=== PATIENT | female | born 1935 | race Caucasian/White ===

== ENCOUNTER → 2018-03-27 10:54 | Outpatient (CLI) | payer MEDICARE, BC, SELFPAY ==
--- NOTE | 2018-03-27 10:57 | BI_ITS ---
MAMMOGRAPHY - BILATERAL SCREENING REASON FOR EXAM: Female, 82 years old. Routine annual screening examination. PERTINENT HISTORY: Remote right excisional breast biopsies. TECHNIQUE: Digital bilateral breast eugene (3D mammographic acquisition) in the CC and MLO projections. 2-D mediolateral oblique (MLO) and craniocaudad (CC) views of both breasts were obtained. CAD: Full Field Digital Mammography with Computer Added Detection was performed. COMPARISON: Comparison is made with prior study dated February 12, 2017 and January 14, 2016. FINDINGS: Breast Composition: The breasts are heterogeneously dense, which may obscure small masses. There are no dominant masses or suspicious calcifications. Stable deformity of the right breast with postoperative changes. No new mass lesion or focal clustering of microcalcification is present. No other significant abnormalities are identified. There has been no significant change since the prior study. BI/SCREENING MAMM (CAD), BILAT IMPRESSION: Stable bilateral screening mammogram. Yearly follow-up mammogram recommended. (A) ASSESSMENT CATEGORY: BIRADS Category 2: Benign. A letter regarding these results will be sent to the patient by the facility within 30 days. Approximately 10% of breast cancers are not detected by mammography. A normal mammogram should not delay biopsy of a clinically suspicious abnormality. [id number] Electronically Signed: Henry Garcia MD at 12:52 EST Tel [phone], Service support ,
== END ==
PROVIDERS: Family Provider Internal Medicine; PCP Internal Medicine; Referring Provider Obstetrics & Gynecology; Visit Provider Obstetrics & Gynecology
DX: Z12.31 Encounter for screening mammogram for malignant neoplasm of breast (principal)
CPT/HCPCS: 77063; 77067

== ENCOUNTER 2018-11-27 11:00 | Outpatient (RCR) | payer MEDICARE, BC, SELFPAY ==
--- NOTE | 2018-09-23 10:28 | HP.PTEVAL ---
Patient's Visit Information STEPHANIE KATZ is a 82 year old F referred to Physical Therapy by JASON Jones with a diagnosis of frequent falls. Date of Evaluation: 09/23/18 Physical Therapist: Kb Caldwell DPT, OCS, CSCS - Visit Plan Frequency: 2x /Week Duration: 4-6 Weeks Plan: Neurocom test then likely 2x/week for 4 weeks for vestibular balance, R ankle strength adn stretching and other as needed on balance test.Consider more frontal plane corrections in shoes. - Subjective Findings: Goes by [facility]. I fall alot. Have 2 THAs, R one 10 yrs ago still gives her trouble, L one in town 2014. Sees Dr. Romero for R ip difficulties. L leg shorter than R at least one inch. I am off balance. R leg is typically the trouble that she stumbles on it or R toe drags/shuffles. Fell 3x in last year without any injuries. Lates fall two weeks ago in am on way to breakfast and in a hurry on way to car and not sure why it happened. Can't recover froma stumble. Alsways fall on R side. Dr. Romero has mentioned some procedure but also stated the integrity of her two hips is good. Has had bone density test in past that were normal, hasn't got most recent results yet. Had therapies after both surgeries. May get second opinion on hip surgery but balance test recommended. Usually she is uncomfortable with certain activity but not painful. L lateral hip and posterior. Uncomfortable activities include sitting with legs crossed. Doesn't baby it. L leg feels weaker. Stairs ascending very challenging. Needs support. Has 15 gr and grandchildren adn stadium without railings are challenging. No dizzy. No neuropathy but OA in feet. C/O some numbness/tingling. No AD needed. - Pain R lateral hip Pain Intensity (Out of 10): 0 Pain Intensity Range: 0, 3 - Objective R leg longer in WB even with lift in L shoe. 3/8 inch lift in L shoe. NWB leg length is about 3/8 inch R side longer. Gastroc and soleus tight R vs L to 0 DF. R DF adn eversion muscles weak vs L. Otherwise strength in R LE 4 and L 4 to 4+. DF R 4- as is eversion. Coordination to reciprocal toe adn heel tap and heel arroyo test feels worse on R. reflexes 1/3 patella adn achilles. Sensation WNL to gross light touch. LB AROM WFL and not painful today. Walks I and trasnfers without UE, steps obviously slightly weaker R vs L. - Balance Scores Functional Gait Assessment Score: 21 % Disability: 30.0000 CATSIB Score (Max score 120 seconds): 100 - Goals Goal 1:: Pt feel 75% improved in balance and confidence. Goal Time Frame: 4-6 Weeks Goal 2:: I approp HEP for strength and balance Goal Time Frame: 4-6 Weeks Goal 3:: Symmetrical strength and ROM R ankle vs L. Goal Time Frame: 4-6 Weeks - Rehabilitation Potential Physical Therapy Diagnosis: frequent falls possibly LLD causing R SB moment in LB and stenosis effecting DF strength. Rehabilitation Potential: Questionable - Anticipated Interventions Patient/Client Instruction: Educate patient on: Condition, Plan of Care For the Purpose of:: To increase tolerance to activity/condition/position, To improve balance Therapeutic Exercise to Include: Strength training, Balance training, Flexibilty training, Passive ROM, Active ROM For the Purpose of:: To increase tolerance to activity/condition/position, To improve ability of physical actions for home/community/work/leisure, To improve safety Thank you for the opportunity to evaluate your patient. For Medicare and Medicare HMO plans, please review the plan of care and approve it. It will need to be FAXED BACK to us at [phone] for Medicare purposes. For Medicare only, by signing this I certify the plan of care. Please let me know if there are questions or concerns regarding this plan of care. Physician Signature: Date:
--- NOTE | 2018-09-30 15:23 | HP.PTCOM ---
PT Communication Note 09/30/[address] Ciara Alfredo, TEXTILE CLOTHING AND FOOTWEAR MECHANIC-C , Thank you for the referral of [facility] to [facility] assessment. I have enclosed a copy of the results for your review. In summation, she scored low on the prioritization portion of the Sensory Organization Test. She scored slow on the anterior musculature in the Motor Control Test. She scored slightly low on the posterior weight shift excursion on the limits of Stability Test. Cumulatively, these results make me question neuropathy anterior lower leg muscle as likely pathology. With these results in mind, I plan to see her 2x/week for 4 weeks for balance and functional exercise to help with these deficits and work toward and independent exercise program as safety allows. if there are questions regarding her PT, please feel free to call me. Thank you once again for your referral. Sincerely, DAYANNA DevlinT, OCS, CSCS Contact Information
--- NOTE | 2018-09-30 15:26 | HP.PTCOM_ITS ---
PT Communication Note 09/30/[address] Ciara Alfredo, WAREHOUSE TEAM MEMBER-C , Thank you for the referral of Chloe to [facility] for balance assessment. I have enclosed a copy of the results for your review. In summation, she scored low on the prioritization portion of the Sensory Organization Test. She scored slow on the anterior musculature in the Motor Control Test. She scored slightly low on the posterior weight shift excursion on the limits of Stability Test. Cumulatively, these results make me question neuropathy anterior lower leg muscle as likely pathology. With these results in mind, I plan to see her 2x/week for 4 weeks for balance and functional exercise to help with these deficits and work toward and independent exercise program as safety allows. if there are questions regarding her PT, please feel free to call me. Thank you once again for your referral. Sincerely, DAYANNA DevlinT, OCS, CSCS Contact Information
--- NOTE | 2018-10-29 13:38 | HP.PTREVAL ---
Ciara Alfredo, QING-C, It has been my pleasure to treat STEPHANIE KATZ over the last 10 visits for frequent falls. Please see the progress note below for an update on the physical therapy plan of care! Subjective: Feels like she is improving. No falls in a long time. Works very hard each night on ankle exercises adn feels liek lower legs have more life. Legs don't feel wooden anymore. Walking feels more natural. Lifting toes is easier. Wants more therapy as she cannot do many of the balance exercises at home due to safety. Doing TB ankles, up on toes and heels, SLS, sink hip exercises and bridging and clamshells. Working outside the otherday and was moving sideways and tripped sideways and would have fallen a month ago but caught self this time. Not stumbling as much as she used to. Will continue 2x/week in gym after therapy done. Objective/Function: ankle strength symmetrical at 4+/5. steps harder ascend with L slightly. FGA +5 points. OVERALL FEELING BETTER AND SCORING BETTER ADN SAFER. Appropriate to cotninue balance work with questionable to fair prognosis. Plan Plan: 2x/week for 4 weeks for. 1. walking balance with turns, bends, VOR, step over. 2. Work toward upper level balance at parallel bars with tilt board, step overs, bending over and recover etc and foam. 3. Steps, no UE. Step ups emphasizing L strength to higher stair. Goals Goal 1:: Pt feel 75% improved in balance and confidence. Goal Time Frame: 4-6 Weeks Goal Progress: Progressing Goal 2:: I approp HEP for strength and balance Goal Time Frame: 4-6 Weeks Goal Progress: progress, cn go further Goal 3:: Symmetrical strength and ROM R ankle vs L. Goal Time Frame: 4-6 Weeks Goal Progress: Goal Met Goal 4:: Pt I in appropriate upper level balance ex at counter at home without hesitation Goal Time Frame: 2-4 Weeks Goal Progress: NEW GOAL Goal 5:: Up steps without rail without leg weakness evident Goal Time Frame: 2-4 Weeks Goal Progress: NEW GOAL Goal 6:: Score >55 on LEFS to show improved mobility. Goal Time Frame: 2-4 Weeks Goal Progress: NEW GOAL Anticipated Interventions Patient/Client Instruction: Educate patient on: Condition, Plan of Care For the Purpose of:: To increase tolerance to activity/condition/position, To improve balance Therapeutic Exercise to Include: Strength training, Balance training, Flexibilty training, Passive ROM, Active ROM For the Purpose of:: To increase tolerance to activity/condition/position, To improve ability of physical actions for home/community/work/leisure, To improve safety Please do not hesitate to contact me at [phone] by phone or if you have questions or concerns regarding this new plan of care! Sincerely, Kb Caldwell, DPT, OCS, CSCS
--- NOTE | 2018-11-27 11:31 | HP.PTDCSUM_ITS ---
HP - PT D/C Summary It has been my pleasure to treat STEPHANIE KATZ under orders from Ciara Alfredo, EDDAC, for the diagnosis of frequent falls for a total of 17 visit(s). Discharge Date: Please see the following information for a summary of their discharge status. - Subjective Subjective: Doing well adn ready to be on own. Back f R knee felt stiff last week but better today. [place] a great deal in therapy. Not falling or stumbling lately. Feels more confident adn aware of surroundings. - Pain R lateral hip Pain Intensity (Out of 10): 0 - Overall Improvement % Improvement: 75 - Objective Objective/Function: +5 on FGA and now much higher and better than average for age. Much better balance overall and doing well. - Goals Goal 1:: Pt feel 75% improved in balance and confidence. Goal Progress: Goal Met Goal 2:: I approp HEP for strength and balance Goal Progress: Goal Met Goal 3:: Symmetrical strength and ROM R ankle vs L. Goal Progress: Goal Met Goal 4:: Pt I in appropriate upper level balance ex at counter at home without hesitation Goal Progress: Goal Met Goal 5:: Up steps without rail without leg weakness evident Goal Progress: Goal Met Goal 6:: Score >55 on LEFS to show improved mobility. Goal Progress: Goal Met - Plan Plan: D/C - D/C Information If there are questions or concerns regarding this patient's physical therapy, please feel free to call me at [phone]. Thank you for the referral of this patient. Sincerely, Kb Caldwell, DPT, OCS, CSCS
== END 2018-11-27 19:00 | disposition home or self-care (01) ==
LOC: PT 11:00
PROVIDERS: Family Provider Internal Medicine; PCP Internal Medicine; Referring Provider Clinical Nurse Specialist; Visit Provider Clinical Nurse Specialist
DX: M21.70 Unequal limb length (acquired), unspecified site (principal); R26.89 Other abnormalities of gait and mobility; W19.XXXA Unspecified fall, initial encounter
CPT/HCPCS: 97110; 97116; 97162; 97530; 97750

== ENCOUNTER 2019-09-21 20:51 | Observation (INO) | payer MEDICARE, BC, SELFPAY ==
[2019-09-21 20:52] VITALS: BP 172/90; PULSE 76; RESP 16; TEMP 36.3; O2SAT 95; BMI 24.7
--- NOTE | 2019-09-21 21:32 | EKG12_ITS ---
Test Reason : GENILL Blood Pressure : / mmHG Vent. Rate : 071 BPM Atrial Rate : 071 BPM P-R Int : 240 ms QRS Dur : 138 ms QT Int : 428 ms P-R-T Axes : 069 -61 038 degrees QTc Int : 465 ms Sinus rhythm with 1st degree A-V block Right bundle branch block Left anterior fascicular block Bifascicular block Abnormal ECG Confirmed by DIAMOND GANT, GAURI ([id number]), script editor ELLA ERICKSON ([id number]) on 09/23/2019 11:19:00 AM Referred By: TIAGO Confirmed By:GAURI FIELDS MD
--- NOTE | 2019-09-21 21:32 | CT_ITS ---
STUDY: CT BRAIN WITHOUT CONTRAST REASON FOR EXAM: Female, 83 years old. DIZZINESS AND OFF BALANCE SINCE 1400 RADIATION DOSAGE (If Supplied By Facility): CTDIvol = ( 44.99 ) mGy, DLP = ( 829.85 ) mGycm TECHNIQUE: Transaxial CT imaging of the brain was performed without administration of intravenous contrast material. Individualized dose optimization techniques were used for this CT. COMPARISON: No relevant priors. FINDINGS: Normal soft tissue structures. Normal calvarium. There is mild cerebral atrophy with widening of the extra-axial spaces and ventricular dilatation. Normal white matter tracts of the cerebral hemispheres. Normal basal ganglia and thalami. Normal brainstem. There is mild cerebellar atrophy. There are peripheral calcifications of the visualized internal carotid arteries. There is no intracranial hemorrhage. There are no findings of an acute ischemic infarction. Normal visualized paranasal sinuses. CT/Brain/Head without Contrast IMPRESSION: Chronic involutional changes of the brain. Small vessel ischemia. Electronically Signed: Marga May MD at 22:16 EDT Tel , Service support ,
[2019-09-21 21:43] LABS: Absolute Lymphocyte Count 2.82 X10^3/uL (0.83-4.51); Absolute Neutrophil Count 3.1 X10^3/uL (2.0-7.7); Basophil# 0.04 X10^3/uL; Basophil% 0.6 % (0-1); Eosinophil# 0.19 X10^3/uL; Eosinophils% 2.8 % (0-5); Hematocrit 39.9 % (37-47); Hemoglobin 13.6 g/dL (12.0-15.0); Lymphocyte # 2.82 X10^3/ul (4.0); Lymphocyte % 41.3 % (19-41); Mean Corp Hgb Conc 34.1 g/dL (32-36); Mean Corpuscular Hgb 31.2 pg (27.0-32.0); Mean Corpuscular Volume 91.5 fL (81-99); Mean Platelet Vol. 8.8 fl (6.2-12.0); Monocyte# 0.61 X10^3/uL; Monocyte% 8.9 % (0-10); NRBC Flagged by Analyzer 0 % (0-5); Neutrophil # 3.14 X10^3/uL (2.7-7.7); Neutrophil % 46.1 % (47-70); Platelet Count 197 K/mm3 (150-450); RBC Distribution Width CV 12.3 % (11.6-14.6); RBC Distribution Width SD 41.1 fl (35.1-43.9); Red Blood Count 4.36 M/mm3 (4.2-5.4); White Blood Count 6.8 K/mm3 (4.4-11.0)
[2019-09-21 22:02] LABS: ALB/GLOB Ratio 1.1 RATIO (0.9-2.4); AST(SGOT) 28 U/L (15-37); Alanine Aminotransfer ALT/SGPT 26 U/L (13-56); Albumin, Serum 4.1 g/dL (3.2-5.0); Alkaline Phosphatase 56 U/L (45-117); Anion Gap 8 (5-15); BUN 22 mg/dL (7-18); BUN/Creat Ratio 29.5 RATIO (10-20); Calcium,Total 9.1 mg/dL (8.5-10.1); Chloride 95 mmol/L (98-107); Creatinine, Serum 0.74 mg/dL (0.55-1.02); EST Glomerular Filtration Rate 79 mL/min (>60); Est Glom Filt Rate - Afr Amer 96 mL/min (>60); Estimated Creatinine Clearance 35.26 ml/min; Globulin 3.8 g/dL (2.2-4.2); Glucose 114 mg/dL (74-106); Potassium 3.7 mmol/L (3.5-5.1); Protein, Total 7.9 g/dL (6.4-8.2); Sodium Level 132 mmol/L (136-145)
[2019-09-21 22:24] VITALS: BP 164/82; BP 166/76; BP 190/88; PULSE 81; PULSE 86
--- NOTE | 2019-09-21 22:51 | PCM.HP.STD ---
Problem List (1) Vertigo Status: Acute (2) Lightheadedness Status: Acute (3) Sleep apnea Status: Chronic (4) Irritable colon Status: Chronic (5) Essential (primary) hypertension Status: Chronic (6) Dyslipidemia Status: Chronic History of Present Illness Date of Admission: 09/21/19 Chief Complaint: vertigo and lightheadness The patient is a 83 year old F with a significant history of irritable bowel syndrome; osteoarthritis; and hypertension who presented to the emergency department with dizziness that started on the same day of presentation.. Reportedly patient did some push-ups and stretches after which she had vertigo. The vertigo went away. However later she developed lightheadedness that persisted. Her lightheadedness worsened when she changed positions. Although she has had bilateral hip replacements which at baseline affects her equilibrium; she thinks that her disequilibrium has worsened. She denies any nausea, vomiting or tinnitus. She has chronic hearing loss and she uses hearing aids. Past Medical History Past Medical History (Chronic Problems): Chronic Problems (Last Reviewed 09/22/19 @ 01:[address] Emilio Rubio MD) Sleep apnea (Chronic) Irritable colon (Chronic) Essential (primary) hypertension (Chronic) Dyslipidemia (Chronic) Medical History: Medical History (Last Reviewed 09/22/19 @ 01:[address] Emilio Rubio MD) Abnormal Papanicolaou smear of cervix R87.619 Arthritis M19.90 Back problem M53.9 Cataract H26.9 Faint heart murmur R01.1 Gastrointestinal complaints R19.8 IBS (irritable bowel syndrome) K58.9 Sleep apnea G47.30 Thyroid disease E07.9 Hypertension I10 Allergies Cephalosporins Allergy (Verified 09/21/19 20:54) Rash Penicillins [PCN] Allergy (Verified 09/21/19 20:54) Rash Sulfa (Sulfonamide Antibiotics) Allergy (Verified 09/21/19 20:54) Rash erythromycin base Adverse Reaction (Verified 09/21/19 20:54) Nausea valdecoxib [From Bextra] Adverse Reaction (Verified 09/21/19 20:54) Nausea Home Medications: Ambulatory Orders Medication Instructions Recorded Chlorthalidone [Hygroton] 12.5 mg PO DAILY 02/02/15 Cholecalciferol (VIT D3) [Vitamin 2,000 unit PO QHS 02/02/15 D] Estradiol [Estrace Vaginal Cream] 1 dose VAGINAL SUWE 02/02/15 Ezetimibe [Zetia] 5 mg PO QHS 02/02/15 Loperamide [Imodium] 4 mg PO Q4H PRN PRN 02/02/15 Metoprolol Tartrate [Lopressor 25 mg PO DAILY 02/02/15 (Beta Braxton)] Omeprazole [Prilosec] 20 mg PO DAILY 02/02/15 Acetaminophen [Tylenol] 650 mg PO Q6H PRN PRN 09/21/19 Surgical History: Surgical History (Last Reviewed 09/22/19 @ 01:[address] Emilio Rubio MD) H/O breast biopsy Z98.890 H/O cataract removal with insertion of prosthetic lens Z98.49, Z96.1 History of hip replacement Z96.649 Smoking Status: Never smoker Alcohol: Occasional - *Family History Maternal Family History: Family History (Last Reviewed 09/22/19 @ 01:[address] Emilio Rubio MD) Unknown Osteoporosis History Items: - - Her mother had severe arthritis; osteoporosis and stroke. Her father had osteoporosis and arthritis. Review of Systems Constitutional: Denies: Chills, Fever, Weight Change HEENT: Denies: Head Aches, Sinus Congestion, Sinus Drainage Cardiovascular: Reports: Light Headedness. Denies: Chest Pain, Palpitations Respiratory: Denies: Cough, Shortness of breath at rest, Sputum production Gastrointestinal: Denies: Abdominal Pain, Nausea, Vomiting Genitourinary: Denies: Dysuria Musculoskeletal: Denies: Joint Pain, Joint Tenderness Skin: Denies: Rash, Wounds Neurological: Denies: Focal weakness, Numbness, Tingling Psychiatric: Denies: Anxiety, Depression, Homicidal Ideations, Suicidal Ideations Hematologic/ Lymphatic: Denies: Easy Bruising, Easy Bleeding VTE Information - Inpt Only VTE Present on Admission: No VTE Mechan Device Prophylaxis: None VTE Pharm Prophylaxis ordered?: Yes Patient Problems: Active and Suspected Problems (Last Reviewed 09/22/19 @ 01:[address] Emilio Rubio MD) Vertigo (Acute) Lightheadedness (Acute) - Physical Exam Vitals/I&O's: Vital Signs Temp Pulse Resp BP Pulse Ox 97.3 F L 81 16 166/76 H 95 09/21/19 20:52 09/21/19 22:24 09/21/19 20:52 09/21/19 22:24 09/21/19 20:52 Oxygen Delivery Method Room Air Weight: 63.503 kg Body Mass Index (BMI) 24.7 General: Alert, Oriented x3, Cooperative HEENT: Atraumatic, PERRLA, EOMI, Normocephalic Neck: Supple, No JVD, Negative Carotid Bruits Lungs: Clear to auscultation, Normal air movement, No rhonchi, No wheeze, No rales Cardiovascular: Regular rate, Regular Rhythm, Normal S1, Normal S2, No murmurs Abdomen: Bowel Sounds Present, Soft, Non Tender Extremities: No edema, Capillary Refill Less than 3 Seconds Skin: No rashes, No breakdown Musculoskeletal: No Tenderness to Palpation of Joints or Extremities Neurological: Cranial nerves II-XII grossly intact, - - [place]-Hallpike maneuver showed no nystagmus. Patient reports mild vertigo. Psych/Mental Status: Normal Affect, Appropriate Laboratory Results 09/21/19 21:07: WBC 6.8, RBC 4.36, Hgb 13.6, Hct 39.9, MCV 91.5, MCH 31.2, MCHC 34.1, RDW Std Deviation 41.1, RDW Coeff of Bryce 12.3, Plt Count 197, MPV 8.8, Immature Gran % (Auto) 0.300, Neut % (Auto) 46.1 L, Lymph % (Auto) 41.3 H, [place] % (Auto) 8.9, Eos % (Auto) 2.8, Baso % (Auto) 0.6, Absolute Neuts (auto) 3.1, Absolute Lymphs (auto) 2.82, Nucleated RBC % 0 09/21/19 21:07: Sodium 132 L, Potassium 3.7, Chloride 95 L, Carbon Dioxide 29.0, Anion Gap 8, BUN 22 H, Creatinine 0.74, Estim Creat Clear Calc 35.26, Est GFR (MDRD) Af Amer 96, Est GFR (MDRD) Non-Af 79, BUN/Creatinine Ratio 29.5 H, Glucose 114 H, Calcium 9.1, Total Bilirubin 0.40, AST 28, ALT 26, Alkaline Phosphatase 56, Troponin I < 0.015, Total Protein 7.9, Albumin 4.1, Globulin 3.8, Albumin/Globulin Ratio 1.1 Assessment/Plan All Active Problems (Last Reviewed 09/22/19 @ 01:[address] Emilio Rubio MD) Vertigo (Acute) Lightheadedness (Acute) The patient is a 83 year old F with a significant history of irritable bowel syndrome; osteoarthritis; and hypertension who presented to the emergency department with dizziness that she described as both vertigo and lightheadedness and causing her to have increased disequilibrium.. Vertigo and lightheadedness. Etiology is unclear. Brain CT showed chronic involutional changes of the brain; and small vessel ischemia. Head and neck CTA does not show any high-grade stenosis. We will get an MRI of the brain. NIH per stroke protocol. Permissive hypertension. If MRI is unremarkable and his symptoms persist consider vestibular exercises. Get A1c and lipid panel. PT and OT to work with patient. N.p.o. until patient passes swallow eval. Hyperlipidemia Home Zetia continued. Hypertension On presentation blood pressure was not within goal. However will hold home chlorthalidone and metoprolol for now because of permissive hypertension. Labetalol and hydralazine as needed per stroke protocol. GERD Prilosec continued. DVT Prophylaxis Subcutaneous Lovenox OBSV E&M: [id number] Initial observation care L3
[2019-09-21 22:52] VITALS: BP 161/64; PULSE 81; RESP 16; O2SAT 95
[2019-09-21 23:15] VITALS: BP 161/64; PULSE 72; RESP 22; O2SAT 95
--- NOTE | 2019-09-21 23:15 | CT_ITS ---
STUDY: CTA HEAD AND NECK WITH CONTRAST REASON FOR EXAM: Female, 83 years old. STROKE, DIZZINESS RADIATION DOSAGE (If Supplied By Facility): CTDIvol = ( 19.95 ) mGy, DLP = ( 573.05 ) mGycm TECHNIQUE: CT angiography was performed with a multi-detector CT scanner. Data acquisition was obtained from the skull base through the vertex following intravenous administration of IV 100mL Isovue-370. MIP images were reconstructed from the axial data set. Post-processing of the angiographic images was performed, with 3D reconstruction. Individualized dose optimization techniques were used for this CT. COMPARISON: No relevant priors. FINDINGS: Normal bilateral petrous carotid arteries. There is calcified plaque formation of the right cavernous carotid artery, with a mild stenosis (less than 50%). There is calcified plaque formation of the left cavernous carotid artery, with a mild stenosis (less than 50%). Normal right A1 segments of the anterior cerebral artery. Normal left A1 segments of the anterior cerebral artery. Normal intact anterior communicating artery (ACOM). Normal bilateral A2 segments of the anterior cerebral arteries. Normal right M1 and M2 segments of the middle cerebral arteries, with a normal M1 bifurcation. Normal left M1 and M2 segments of the middle cerebral arteries, with a normal M1 bifurcation. There is a persistent origin of the right posterior cerebral artery with absence of the posterior communicating artery (PCOM). There is a persistent origin of the left posterior cerebral artery with absence of the posterior communicating artery (PCOM). Normal bilateral vertebral arteries. Normal basilar artery with a normal basilar bifurcation. The visualized bilateral superior cerebellar (SCA) arteries are normal. Normal bilateral P1, P2 and visualized P3 segments of the posterior cerebral arteries. There is no demonstrated aneurysm of the [place] of [place]. There is no demonstrated abnormality of the visualized brain. AORTIC ARCH: There is atherosclerotic calcific plaque formation of the aortic arch and great vessels arising from the aortic arch, without a hemodynamically significant stenosis. There is a normal origin of the brachiocephalic, left common carotid, and left subclavian arteries. RIGHT CAROTID ARTERIES: Normal right common carotid artery (CCA). There is mild atherosclerotic plaque formation with minimal narrowing of the right carotid bulb. There is mild atherosclerotic plaque formation of the origin of the right internal carotid artery with less than 50% cross sectional diameter stenosis. Normal visualized cervical portion of the right internal carotid artery. Normal origin of the right external carotid artery (ECA). LEFT CAROTID ARTERIES: Normal left common carotid artery (CCA). There is moderate atherosclerotic plaque formation with moderate narrowing of the carotid bulb. There is mild atherosclerotic plaque formation of the origin of the left internal carotid artery with less than 50% cross sectional diameter stenosis. Normal visualized cervical portion of the left internal carotid artery. Normal origin of the left external carotid artery (ECA). VERTEBRAL ARTERIES: Normal bilateral vertebral arteries. Degenerative changes of the spine. Greatest at C5-C6. Moderate canal narrowing at this level due to posterior disc osteophyte complex. Extensive neural foraminal narrowing present. Cannot exclude a fracture on this study. There is no displaced fractures seen on the axial images. Nondiagnostic evaluation of the osseous structures coronal and sagittal reformats due to technique. These were reformatted to evaluate the vasculature not the osseous structures. If there is concern for fracture of the spine or other osseous abnormality recommend dedicated CT cervical spine for further evaluation. Scarring within the visualized lung mcmanus. CT/CTA Head AND Neck W/ Contrast IMPRESSION: No occlusion or high-grade stenosis identified. Degenerative changes of the cervical spine. Cannot evaluate for fracture on coronal and sagittal reformats due to technique. If there is concern for trauma or other pathology within the cervical spine consider dedicated cervical spine imaging. Scarring within the bilateral lung mcmanus. Other findings as discussed above. Electronically Signed: Nicholas Barker, at 0:13 EDT Tel , Service support ,
[2019-09-22] VITALS (9 sets, daily range): BP systolic 125–174; BP diastolic 75–79; PULSE 61–80; RESP 16; TEMP 36.8–36.9; O2SAT 92–97; BMI 24.5
--- NOTE | 2019-09-22 00:35 | ED.DCSUM_ITS ---
- ER Visit Summary Date of Service: 09/22/19 Chief Complaint: Off balance History of Present Illness: The patient is a [address] Abdi. She reports that at 2:00 this afternoon she laid on the floor to stretch her back. States she started on her stomach and had a mini push-up she then turned onto her back to pull her knees up and had the onset of vertigo. States it lasted approximately 1 minute. She was not nauseated and did not vomit. She is not diaphoretic during this. Patient reports that since that time she feels very off balance. This is much worse when she changes position. She denies any double vision or slurred speech. She reports that she has poor hearing at baseline and that this is worsened. However, she states that she sees Dr. Nico Mary and has her ears irrigated every 4 months and last saw him in April and she feels as though her ears are full of wax again. She denies any ear pain. Patient reports that she did have a low-grade headache earlier. Patient denies any other neurologic symptoms. No change in her vision. No numbness or weakness. Physical Examination: Vitals: Stable. Afebrile. General: Well-nourished and well-developed. Head: Normocephalic atraumatic. HEENT: Impacted cerumen on right. Left TM is visible and normal. Neck: Supple, no lymphadenopathy. No JVD. Nontender. Cardiovascular: Regular rate and rhythm. No murmurs. Respiratory: No respiratory distress. Clear to auscultation bilaterally. Abdominal: Soft, nontender, nondistended, normal bowel sounds. No guarding, rebound, or peritoneal signs. Back: Nontender. Extremities: Nontender, no edema. Skin: Normal color, no rash. Neurologic: Alert and oriented ?3. Cranial nerves II through XII are intact. Normal strength and sensation. No nystagmus. Psych: Normal affect. Test Results: EKG is sinus at 71 with a bifascicular block. This is unchanged from 2015. Troponin is negative. LFTs are normal. Chem-7 shows a sodium 132, chloride 95, BUN 22, glucose 114. CBC shows a manageability is 46 and lymphocytes 41. Clinical Impression(s) from Imaging Studies Brain CT 09/21/19 21:32 IMPRESSION: Chronic involutional changes of the brain. Small vessel ischemia. Electronically Signed: Marga May MD at 22:16 EDT Tel , Service support , Head/Neck CTA 09/21/19 23:15 IMPRESSION: No occlusion or high-grade stenosis identified. Degenerative changes of the cervical spine. Cannot evaluate for fracture on coronal and sagittal reformats due to technique. If there is concern for trauma or other pathology within the cervical spine consider dedicated cervical spine imaging. Scarring within the bilateral lung mcmanus. Other findings as discussed above. Electronically Signed: Nicholas Barker, at 0:13 EDT Tel , Service support , Emergency Department Course and Treatment: Patient's NIH scale is 0. She is not a TPA candidate due to this and the timeframe. However, her symptoms are concerning for a posterior circulation stroke. The episode of vertigo that she experienced earlier today could be due to BPPV. But, there was no accompanying diaphoresis or vomiting. She states that she is remained off balance throughout the remainder of the day. Patient did have her ears irrigated while in the emergency department. Treatment Plan: Patient was discussed with Dr. Rubio. She will be admitted to the hospital for further evaluation and treatment. Disposition: Admitted in stable condition. Impression: 1. Ataxia. 2. Vertigo, resolved. 3. Impacted cerumen on right. This note was generated with [employer] dictation software. It may contain incorrect words, spelling, and punctuation that were not noted in review of the chart prior to signing ED Disposition - Plan for ED Patient: Referrals: Meera Abdi MD [Primary Care Provider] -
--- NOTE | 2019-09-22 02:42 | MRI_ITS ---
STUDY: MRI BRAIN WITHOUT CONTRAST REASON FOR EXAM: Female, 83 years old. cva, dizziness, lightheaded stared yesterday TECHNIQUE: Standardized multiplanar fat and water weighted pulse sequences were obtained. COMPARISON: CT head without contrast 09/21/2019. FINDINGS: No restricted diffusion to suspect acute or subacute ischemic infarct. No remote cortical-based ischemic infarct. No focal signal abnormalities throughout the brain parenchyma. Normal size of the ventricles and extra-axial spaces for the patient''s age. Normal white matter tracts of the supratentorial brain. Normal bilateral basal ganglia. Normal thalami. There is no extra-axial fluid accumulation. Normal flow voids within the major intracranial circulation suggesting patency by spin echo criteria. Normal sella turcica, pituitary gland, infundibular stalk, optic chiasm and hypothalamus. Normal tectal plate and pineal gland. Normal midbrain, annika and medulla. Normal cerebellum. Normal basal cisterns. Normal bilateral temporal bones. Normal bilateral internal auditory canals. No demonstrated orbital abnormality, within the constraints of a routine brain study. Normal visualized paranasal sinuses. Normal calvarium and skull base. Normal visualized soft tissue structures. Normal visualized upper cervical spine. MRI/Brain without Contrast IMPRESSION: Normal unenhanced MRI of the brain. Electronically Signed: Karl Deras MD at 9:46 EDT , Service support ,
[2019-09-22 06:33] LABS: Cholesterol 207 mg/dL (200); High Density Lipoprotein 70 mg/dL; Triglycerides 50 mg/dL; Very Low Density Lipoprotein 10 mg/dL (5-40)
[2019-09-22 07:12] LABS: Hemoglobin A1c 5.7 % (4.2-6.3)
[2019-09-22] MEDS: Enoxaparin 40 MG/0.4 ML Syringe SC (08:12)
[2019-09-22] MEDS: Pantoprazole Sodium 20 MG Tablet PO (08:12)
--- NOTE | 2019-09-22 10:50 | CASEMGMT ---
SW did not complete a PHQ 9 with patient as per physician she did not have a Stroke or TIA. Thu JOSHI MSW
--- NOTE | 2019-09-22 12:05 | DCINST_ITS ---
- Discharge Diagnoses Current Active Problems: Current Active and Chronic Problems (Last Reviewed 09/22/19 @ 01:[address] Emilio Rubio MD) Vertigo (Acute) Lightheadedness (Acute) You will use the following diet at home:: Cardiac Your food should be the consistency of: Regular Your liquids should be the consistency of: Regular/Thin Discharge Activity: Return to Normal Activity Allergies/Adverse Reactions: Allergies Cephalosporins Allergy (Severe, Verified 09/22/19 01:51) Rash Penicillins [PCN] Allergy (Severe, Verified 09/22/19 01:51) Rash Sulfa (Sulfonamide Antibiotics) Allergy (Mild, Verified 09/22/19 01:51) Rash oxycodone [From Percocet] Adverse Reaction (Severe, Verified 09/22/19 01:51) Rash propoxyphene [From Darvocet-N 100] Adverse Reaction (Severe, Verified 09/22/19 01:51) Rash valdecoxib [From Bextra] Adverse Reaction (Mild, Verified 09/22/19 01:51) Nausea erythromycin base Adverse Reaction (Verified 09/22/19 01:51) Nausea Medications to take at Discharge Chlorthalidone [Hygroton] 12.5 mg PO DAILY 02/02/15 Cholecalciferol (VIT D3) [Vitamin D3] 2,000 unit PO QHS 02/02/15 Estradiol [Estrace Vaginal Cream] 1 dose VAGINAL SUWE 02/02/15 Ezetimibe [Zetia] 5 mg PO QHS 02/02/15 Loperamide [Imodium] 4 mg PO Q4H PRN PRN 02/02/15 Metoprolol Tartrate [Lopressor (beta ba)] 25 mg PO DAILY 02/02/15 Omeprazole [Prilosec] 20 mg PO DAILY 02/02/15 Acetaminophen [Tylenol] 650 mg PO Q6H PRN PRN 09/21/19 Meclizine HCl [Antivert] 12.5 mg PO TID PRN PRN #21 tablet 09/22/19 The following prescriptions were given: Meclizine HCl [Antivert] 12.5 mg PO TID PRN PRN #21 tablet PRN Reason: Vertigo Primary Care Physician: Meera Abdi MD [Primary Care Provider] - Please follow up with your Primary Care Physician in: 1-2 weeks Test Results: Test results from this visit will be discussed in further detail at your follow- up appointment, if applicable. Proposed Discharge Date: 09/22/19
--- NOTE | 2019-09-22 14:05 | PCM.DC.SUM ---
<David Mcdaniel - Last Filed: 09/22/19 14:05> Discharge Date and Diagnosis Date of Admission: 09/21/19 Date of Discharge: 09/22/19 - Primary Discharge Diagnosis Vertigo 2/2 BPPV HTN ZO Irritable colon HLD - Secondary Discharge Diagnosis Chronic Problems (Last Reviewed 09/22/19 @ 01:[address] Emilio Rubio MD) Sleep apnea (Chronic) Irritable colon (Chronic) Essential (primary) hypertension (Chronic) Dyslipidemia (Chronic) Hospital Course and Treatment Imaging Results: IMAGING: CT/Brain/Head without Contrast IMPRESSION: Chronic involutional changes of the brain. Small vessel ischemia. CT/CTA Head AND Neck W/ Contrast IMPRESSION: No occlusion or high-grade stenosis identified. Degenerative changes of the cervical spine. Cannot evaluate for fracture on coronal and sagittal reformats due to technique. If there is concern for trauma or other pathology within the cervical spine consider dedicated cervical spine imaging. Scarring within the bilateral lung mcmanus. Other findings as discussed above. MRI/Brain without Contrast IMPRESSION: Normal unenhanced MRI of the brain. Operations: None Procedures: None Summary of Care Provided: Hospital Course: The patient is a 83 year old F with pmhx as above who presented to the ER with vertigo. This began after she did push ups and stretches at home. She developed a spinning sensation that resolved on its own. She later felt off balance and came to the ER. She denied tinnitus, new hearing or vision changes, facial droop, numbness/tingling, focal weakness, ataxic gait, or slurred speech. CT brain showed chronic changes, no acute process on CTA head/neck. She was admitted with concern for stroke vs BPPV. Her symptoms resolved completely overnight. She had an MRI brain the following morning with no stroke. She was felt to have BPPV. She was seen by [facility] and had no issues with ambulation. She was given meclizine prn if her symptoms return. She was discharged home in stable condition. Follow up with PCP in 1-2 weeks. This patient was seen by David Mcdaniel PA-C under the supervision of Dr. Hogan. [] - Physical Exam Vitals/I&O's: Vital Signs Temp Pulse Resp BP Pulse Ox 98.2 F 64 16 125/75 H 92 09/22/19 08:00 09/22/19 08:00 09/22/19 08:00 09/22/19 08:00 09/22/19 08:00 Oxygen Delivery Method Room Air Weight: 138 lb 7.205 oz Body Mass Index (BMI) 24.5 Intake and Output for Last 24 Hours 09/20/19 09/21/19 09/22/19 23:59 23:59 23:59 Intake Total 400 / 400 Balance 400 / 400 General: Alert, Oriented x3, Cooperative HEENT: Atraumatic, PERRLA, EOMI, Normocephalic Neck: Supple, No JVD, Negative Carotid Bruits Lungs: Clear to auscultation, Normal air movement Cardiovascular: Regular rate, No murmurs Abdomen: Bowel Sounds Present, Soft, Non Tender Extremities: No edema, Capillary Refill Less than 3 Seconds Skin: No rashes, No breakdown Musculoskeletal: No Tenderness to Palpation of Joints or Extremities Neurological: Cranial nerves II-XII grossly intact Psych/Mental Status: Normal Affect, Appropriate, Alert and oriented to time, place, person, mood and affect Laboratory Results 09/21/19 21:07: WBC 6.8, RBC 4.36, Hgb 13.6, Hct 39.9, MCV 91.5, MCH 31.2, MCHC 34.1, RDW Std Deviation 41.1, RDW Coeff of Bryce 12.3, Plt Count 197, MPV 8.8, Immature Gran % (Auto) 0.300, Neut % (Auto) 46.1 L, Lymph % (Auto) 41.3 H, [place] % (Auto) 8.9, Eos % (Auto) 2.8, Baso % (Auto) 0.6, Absolute Neuts (auto) 3.1, Absolute Lymphs (auto) 2.82, Nucleated RBC % 0 09/21/19 21:07: Sodium 132 L, Potassium 3.7, Chloride 95 L, Carbon Dioxide 29.0, Anion Gap 8, BUN 22 H, Creatinine 0.74, Estim Creat Clear Calc 35.26, Est GFR (MDRD) Af Amer 96, Est GFR (MDRD) Non-Af 79, BUN/Creatinine Ratio 29.5 H, Glucose 114 H, Calcium 9.1, Total Bilirubin 0.40, AST 28, ALT 26, Alkaline Phosphatase 56, Troponin I < 0.015, Total Protein 7.9, Albumin 4.1, Globulin 3.8, Albumin/Globulin Ratio 1.1 09/22/19 05:36: Triglycerides 50, Cholesterol 207 H, LDL Cholesterol 127, VLDL Cholesterol 10, HDL Cholesterol 70 09/22/19 05:36: Hemoglobin A1c 5.7 Discharge Diet: Low fat/ Low Cholesterol, 2000 mg Sodium Diet Discharge Activity: Return to Normal Activity Home Medications: Medications to take at Discharge Chlorthalidone [Hygroton] 12.5 mg PO DAILY 02/02/15 Cholecalciferol (VIT D3) [Vitamin D3] 2,000 unit PO QHS 02/02/15 Estradiol [Estrace Vaginal Cream] 1 dose VAGINAL SUWE 02/02/15 Ezetimibe [Zetia] 5 mg PO QHS 02/02/15 Loperamide [Imodium] 4 mg PO Q4H PRN PRN 02/02/15 Metoprolol Tartrate [Lopressor (beta ba)] 25 mg PO DAILY 02/02/15 Omeprazole [Prilosec] 20 mg PO DAILY 02/02/15 Acetaminophen [Tylenol] 650 mg PO Q6H PRN PRN 09/21/19 Meclizine HCl [Antivert] 12.5 mg PO TID PRN PRN #21 tab 09/22/19 Following Prescrptions Were Given to Patient: Meclizine HCl [Antivert] 12.5 mg PO TID PRN PRN #21 tab PRN Reason: Vertigo Transmission Status: Received by [facility]/pharmacy #[id number] Primary Care Physician: Meera Abdi MD [Primary Care Provider] - Please follow up with your Primary Care Physician in: 1-2 weeks Disposition: Home Minutes spent on discharge:: 35 Patient Condition:: Stable Medical Necessity - Tobacco Use Smoking Status: Never smoker Meaningful Use Info Meaningful Use Diagnoses (Choose all that apply): None applicable <Pedro Hogan - Last Filed: 09/22/19 18:11> Discharge Date and Diagnosis - Secondary Discharge Diagnosis Chronic Problems (Last Reviewed 09/22/19 @ 01:[address] Emilio Rubio MD) Sleep apnea (Chronic) Irritable colon (Chronic) Essential (primary) hypertension (Chronic) Dyslipidemia (Chronic) Hospital Course and Treatment Summary of Care Provided: This patient was seen in conjunction with David WHITTAKER. I have independently interviewed and examined the patient and reviewed pertinent history, examination findings, laboratory and plan of management. I have reviewed the note and agree with the documented findings with the few additional points. In brief, patient is 83 old female admitted with vertigo and disagreement. Patient had vertigo in the past last 1 more than 3 years ago after viral neuronitis. Patient does not have fever chills, cough, shortness of breath or chest pain/pressure. CT brain showed chronic changes but no acute process. CTA head and neck no high-grade stenosis or occlusion. Degenerative changes of cervical spine. MRI brain no acute change and reported normal. Discharge medication reconciliation done. Discharge follow-up instructions completed. Discharge process discussed with the patient and all questions were answered to patient's satisfaction. Total time spent, exact 35 minutes on discharge meds reconciliation, examination, coordination of care with nurses and ancillary staff, review of imaging and blood test and discussion with the patient on follow-up instructions I have discussed my assessment with David WHITTAKER and orders have been reviewed. [] Clinical Impression(s) from Imaging Studies Brain CT 09/21/19 21:32 IMPRESSION: Chronic involutional changes of the brain. Small vessel ischemia. Head/Neck CTA 09/21/19 23:15 IMPRESSION: No occlusion or high-grade stenosis identified. Degenerative changes of the cervical spine. Cannot evaluate for fracture on coronal and sagittal reformats due to technique. If there is concern for trauma or other pathology within the cervical spine consider dedicated cervical spine imaging. Scarring within the bilateral lung mcmanus. Other findings as discussed above. Brain MRI 09/22/19 02:42 IMPRESSION: Normal unenhanced MRI of the brain. Subjective: Patient admitted with dizziness, vertigo and disequilibrium/ataxia. - Physical Exam Vitals/I&O's: Vital Signs Temp Pulse Resp BP Pulse Ox 98.2 F 64 16 125/75 H 92 09/22/19 08:00 09/22/19 08:00 09/22/19 08:00 09/22/19 08:00 09/22/19 08:00 Oxygen Delivery Method Room Air Weight: 138 lb 7.205 oz Body Mass Index (BMI) 24.5 Intake and Output for Last 24 Hours 09/20/19 09/21/19 09/22/19 23:59 23:59 23:59 Intake Total 400 / 400 Balance 400 / 400 General: Alert, Oriented x3, Cooperative HEENT: Atraumatic, PERRLA, EOMI, Normocephalic, - - No nystagmus. Neck: Supple, No JVD, Negative Carotid Bruits Lungs: Clear to auscultation, Normal air movement, No rhonchi, No wheeze, No rales Cardiovascular: Regular rate, Regular Rhythm, Normal S1, Normal S2, No murmurs Abdomen: Bowel Sounds Present, Soft, Non Tender Extremities: No edema, Capillary Refill Less than 3 Seconds Skin: No rashes, No breakdown Musculoskeletal: No Tenderness to Palpation of Joints or Extremities, Arthritic Changes Neurological: Cranial nerves II-XII grossly intact, Deep Tendon Reflexes 2+/4 and Symmetrical, Neuro grossly intact, Motor Exam 5/5 strength throughout, - Psych/Mental Status: Normal Affect, Appropriate Laboratory Results 09/21/19 21:07: WBC 6.8, RBC 4.36, Hgb 13.6, Hct 39.9, MCV 91.5, MCH 31.2, MCHC 34.1, RDW Std Deviation 41.1, RDW Coeff of Bryce 12.3, Plt Count 197, MPV 8.8, Immature Gran % (Auto) 0.300, Neut % (Auto) 46.1 L, Lymph % (Auto) 41.3 H, [place] % (Auto) 8.9, Eos % (Auto) 2.8, Baso % (Auto) 0.6, Absolute Neuts (auto) 3.1, Absolute Lymphs (auto) 2.82, Nucleated RBC % 0 09/21/19 21:07: Sodium 132 L, Potassium 3.7, Chloride 95 L, Carbon Dioxide 29.0, Anion Gap 8, BUN 22 H, Creatinine 0.74, Estim Creat Clear Calc 35.26, Est GFR (MDRD) Af Amer 96, Est GFR (MDRD) Non-Af 79, BUN/Creatinine Ratio 29.5 H, Glucose 114 H, Calcium 9.1, Total Bilirubin 0.40, AST 28, ALT 26, Alkaline Phosphatase 56, Troponin I < 0.015, Total Protein 7.9, Albumin 4.1, Globulin 3.8, Albumin/Globulin Ratio 1.1 09/22/19 05:36: Triglycerides 50, Cholesterol 207 H, LDL Cholesterol 127, VLDL Cholesterol 10, HDL Cholesterol 70 09/22/19 05:36: Hemoglobin A1c 5.7
== END 2019-09-22 12:05 | disposition home or self-care (01) ==
LOC: ED 21:41 → PCU 09-22 01:22
PROVIDERS: Admitting Provider Hospitalist; Emergency Provider Emergency Medicine; PCP Internal Medicine; Visit Provider Internal Medicine
DX: H81.10 Benign paroxysmal vertigo, unspecified ear (principal); G47.33 Obstructive sleep apnea (adult) (pediatric); E78.5 Hyperlipidemia, unspecified; I10 Essential (primary) hypertension; K58.9 Irritable bowel syndrome, unspecified; M19.90 Unspecified osteoarthritis, unspecified site; Z79.899 Other long term (current) drug therapy; K21.9 Gastro-esophageal reflux disease without esophagitis; H61.21 Impacted cerumen, right ear; I45.2 Bifascicular block; R27.0 Ataxia, unspecified
CPT/HCPCS: 36415; 70450; 70496; 70498; 70551; 80053; 80061; 83036; 84484; 85025; 93005; 96372; 97161; 97166; 99218; 99285; Q9967; A4216; G0378

== ENCOUNTER → 2020-02-09 | Outpatient (CLI) | payer MEDICARE, BC, SELFPAY ==
[2019-09-22 07:53] VITALS: BMI 24.5
[2020-01-19 12:18] VITALS: BMI 24.5
--- NOTE | 2020-02-09 12:41 | BI_ITS ---
MAMMOGRAPHY - BILATERAL SCREENING REASON FOR EXAM: Female, 84 years old. Routine annual screening examination. PERTINENT HISTORY: Non-contributory. Remote right excisional breast biopsies. TECHNIQUE: Digital bilateral breast holly (3D mammographic acquisition) in the CC and MLO projections. 2-D mediolateral oblique (MLO) and craniocaudad (CC) views of both breasts were obtained. CAD: Full Field Digital Mammography with Computer Added Detection was performed. COMPARISON: Comparison is made with prior examination in 03/27/2018 and 02/12/2017. FINDINGS: Breast Composition: The breasts are heterogeneously dense, which may obscure small masses. There are no dominant masses or suspicious calcifications. No other significant abnormalities are identified. There has been no significant change since the prior study. BI/SCREEN MAMM (CAD) W/HOLLY BILAT IMPRESSION: Stable bilateral screening mammogram. Yearly follow-up mammogram recommended. (A) ASSESSMENT CATEGORY: BIRADS Category 1: Negative. A letter regarding these results will be sent to the patient by the facility within 30 days. Approximately 10% of breast cancers are not detected by mammography. A normal mammogram should not delay biopsy of a clinically suspicious abnormality. [id number] Electronically Signed: Henry Garcia, at 14:04 EDT , Service support ,
== END | disposition home or self-care (01) ==
LOC: OPBI 12:41
PROVIDERS: PCP Internal Medicine; Referring Provider Obstetrics & Gynecology; Visit Provider Obstetrics & Gynecology
DX: Z12.31 Encounter for screening mammogram for malignant neoplasm of breast (principal)
CPT/HCPCS: 77063; 77067

== ENCOUNTER → 2021-04-22 13:25 | Outpatient (CLI) | payer MEDICARE, BC, SELFPAY ==
--- NOTE | 2021-04-22 13:30 | BI_ITS ---
MAMMOGRAPHY - BILATERAL SCREENING REASON FOR EXAM: Female, 85 years old. Routine annual screening examination. PERTINENT HISTORY: Non-contributory. TECHNIQUE: Digital bilateral breast holly (3D mammographic acquisition) in the CC and MLO projections. 2-D mediolateral oblique (MLO) and craniocaudad (CC) views of both breasts were obtained. CAD: Full Field Digital Mammography with Computer Added Detection was performed. COMPARISON: Comparison is made with prior study 02/09/2020 and 03/27/2018. FINDINGS: Breast Composition: The breasts are heterogeneously dense, which may obscure small masses. There are no dominant masses or suspicious calcifications. Stable bilateral secretory calcifications. No other significant abnormalities are identified. There has been no significant change since the prior study. BI/SCRN MAMM (CAD)W/HOLLY BILAT IMPRESSION: Stable bilateral screening mammogram. Yearly follow-up mammogram recommended. (A) ASSESSMENT CATEGORY: BIRADS Category 2: Benign. A letter regarding these results will be sent to the patient by the facility within 30 days. Approximately 10% of breast cancers are not detected by mammography. A normal mammogram should not delay biopsy of a clinically suspicious abnormality. [id number] Electronically Signed: Henry Garcia MD at 8:40 EST , Service support ,
== END ==
PROVIDERS: PCP Internal Medicine; Referring Provider Nurse Practitioner Women's Health; Visit Provider Nurse Practitioner Women's Health
DX: Z12.31 Encounter for screening mammogram for malignant neoplasm of breast (principal)
CPT/HCPCS: 77063; 77067

== ENCOUNTER 2021-05-25 11:00 | Outpatient (RCR) | payer MEDICARE, BC, SELFPAY ==
--- NOTE | 2021-05-06 09:31 | HP.OTEVAL_ITS ---
Patient's Visit Information STEPHANIE KATZ is a 85 year old F, referred to Occupational Therapy by Dr. Tha Romero MD, with a diagnosis of OA. 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 pt states the last 4 months pt had increase symptoms of limited ROM- weakness with writing- pt states she does have difficulty sleeping. pt would like to know what she can do to decrease pain and preserve her hands. - Pain right wrist 3 Pain Intensity Range: 6 - ROM Wrist: right 60/40 left 65/60 MP: right 45 left 45 IP: right 40 left 40 Radial Abduction: right 25 left 30 ROM Comments: pt demo bilateral OA deformities. bilateral shoulder sign - Strength Nurse Reviewer: right 10# left 10# pain in both - Quick DASH-Disab of Arm,Shoulder& Hand Quick DASH Score: 50.0000 - Goals Goal:: pt will report a decrease in bilateral hand pain to less than 2/10 with utilizing joint protection amadou. by d/c Goal:: Pt will demo understanding of joint protection and ergonomics when performing BADLs and IADLs by d/c. Pt will demo understanding of adaptive Equipment use to decrease stress on joints to allow pt to perform BADSL and IADLS at QUINN level. Goal:: pt will demo understanding of using a supportive CMC brace with MP support to prevent MPJ hyper -ext by end of 2nd session. 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 pt would benefit from skilled OT services 1x week for 4 weeks supportive brace and ed. on pt on joint protection amadou. and ad. eq. Therapist will ed. pt on cmc thumb care and limit stress on joint by balancing out her daily occupations. pt demo understanding and agree to POC. Rehabilitation Potential: Fair - Anticipated Interventions Orthoses, Joint Protection/Energy Conservation, Ergonomic Education, Education re assistive Equipment, Education re Diagnosis - Visit Plan Frequency: 1-2x /Week Duration: 4 Weeks TEXT: Thank you for the opportunity to evaluate your patient. For Medicare and Medicare HMO plans, please review the plan of care and approve it. It will need to be FAXED BACK to us at [phone] for Medicare purposes. Please let me know if there are questions or concerns regarding this plan of care. Physician Signature: Date:
--- NOTE | 2021-05-25 11:47 | HP.OTDCSUM_ITS ---
It has been my pleasure to treat STEPHANIE KATZ under orders from Dr. Tha Romero MD, for the diagnosis of OA for a total of 2 visit(s). Please see the following information for a summary of their discharge status. % Improvement: 20 Patient Goals: Use Hand/Wrist/Arm Normally Again Goal:: pt will report a decrease in bilateral hand pain to less than 2/10 with utilizing joint protection amadou. by d/c Goal:: Pt will demo understanding of joint protection and ergonomics when perfo rming BADLs and IADLs by d/c. Pt will demo understanding of adaptive Equipment use to decrease stress on joints to allow pt to perform BADSL and IADLS at QUINN level. Goal:: pt will demo understanding of using a supportive CMC brace with MP support to prevent MPJ hyper -ext by end of 2nd session. Discharge Comments: Pt was ed. on joint protection, and ad. eq. to assist pt with maintaining her ind. with ADls. therapist ed. pt on supportive bracing but was not receptive to using as due to positioning of thumbs it limited her use with writing. Pt may get one to use with other daily tasks but was going to thinking about it. pt also using topical medication that helps decrease her pain and she states she can sleep longer without her pain waking her up. Therapist advised to call if she had questions or concerns. pt demo understanding and agree to D/C. If there are questions or concerns regarding this patient's occupational therapy, please fell free to call me at [phone]. Thank you for the referral of this patient. Sincerely, Urszula Cazares, OTR/L, CHT
== END 2021-05-25 19:00 | disposition home or self-care (01) ==
LOC: OT 11:00
PROVIDERS: PCP Internal Medicine; Referring Provider Specialist; Visit Provider Specialist
DX: M19.031 Primary osteoarthritis, right wrist (principal); M18.11 Unilateral primary osteoarthritis of first carpometacarpal joint, right hand
CPT/HCPCS: 97166; 97530

== ENCOUNTER 2021-10-05 12:55 | Emergency (ER) | payer MEDICARE, BC, SELFPAY ==
[2021-10-05 12:56] VITALS: BP 192/81; PULSE 73; RESP 18; TEMP 35.9; O2SAT 97; BMI 25.8
[2021-10-05 13:03] VITALS: BP 182/80
--- NOTE | 2021-10-05 14:11 | EDS_ITS ---
HPI History of Present Illness Chief Complaint: Dizziness Narrative Narrative: 85-year-old female presenting with sensation of possible dizziness. She states she cannot call it vertigo because he has had a before and he does not feel the same. She is not describing spinning. She states she was at lunch and she just felt off. She cannot describe it well. She states that she has a history of electrolyte problems and states that her potassium and magnesium sometimes are low. She states she thinks this is from the chlorthalidone that she takes. Patient also admits to not drinking very much fluid and does not do electrolyte replacement well. She states she just not thirsty. She did not have any chest pain or shortness of breath. No fever or chills. No nausea or vomiting. After long she was able to get in her car and drive but then felt off again did not feel she should be driving so she called her . She went home and drink a sugar-free Gatorade and some water but did not drink much. Patient states that she in general has a lot of diarrhea but does not do well with stress and over the last several weeks has had a lot of stress. She states this is increased her level of diarrhea and states she does not hydrate well she thinks maybe she is dehydrated or has an electrolyte abnormality [facility] Medical History Abnormal Papanicolaou smear of cervix Arthritis Back problem Cataract Faint heart murmur Gastrointestinal complaints Hypertension IBS (irritable bowel syndrome) Sleep apnea Thyroid disease Home Medications chlorthalidone 12.5 mg PO DAILY 02/02/15 [History Last Taken Unknown] cholecalciferol (vitamin D3) 2,000 unit PO QHS 02/02/15 [History Last Taken Unknown] ezetimibe 5 mg PO QHS 02/02/15 [History Last Taken Unknown] loperamide 4 mg PO Q4H PRN PRN 02/02/15 [History Last Taken 02/08/15] omeprazole 20 mg PO DAILY 02/02/15 [History Last Taken 02/08/15] hyoscyamine sulfate 0.125 mg tablet 0.125 mg PO BID-QID PRN 01/19/20 [History Last Taken Unknown] metoprolol succinate 25 mg tablet,extended release 24 hr 25 mg PO DAILY 01/19/20 [History Last Taken Unknown] potassium chloride 10 mEq tablet,extended release 10 meq PO DAILY 01/19/20 [History Last Taken Unknown] ibuprofen 200 mg tablet 200 mg PO Q6H PRN 03/15/21 [History Last Taken Unknown] magnesium chloride 64 mg (magnesium chloride) tablet,delayed release 64 mg PO DAILY 03/15/21 [History Last Taken Unknown] meloxicam 7.5 mg tablet 7.5 mg PO DAILY 03/15/21 [History Last Taken Unknown] triamcinolone acetonide 0.025 % topical cream 1 applic TOPICAL DAILY 03/15/21 [History Last Taken Unknown] estradiol 1 g VAGINAL 2XW #42.5 g 07/22/21 [Rx Last Taken Unknown] Allergy/AdvReac Type Severity Reaction Status Date / Time Cephalosporins Allergy Severe Rash Verified 10/05/21 13:01 Penicillins [PCN] Allergy Severe Rash Verified 10/05/21 13:01 Sulfa (Sulfonamide Allergy Mild Rash Verified 03/15/21 10:29 Antibiotics) oxycodone [From Percocet] AdvReac Severe Rash Verified 10/05/21 13:01 propoxyphene AdvReac Severe Rash Verified 10/05/21 13:01 [From Darvocet-N 100] valdecoxib [From Bextra] AdvReac Mild Nausea Verified 10/05/21 13:01 erythromycin base AdvReac Nausea Verified 10/05/21 13:01 Family History Unknown Osteoporosis Heart disease Hypertension Mother Hypertension Surgical History H/O breast biopsy H/O cataract removal with insertion of prosthetic lens History of hip replacement Social History Smoking Status: Never smoker alcohol intake: never substance use type: does not use caffeine: Yes what type of physical activity do you participate in: walking seatbelt use: always do you feel safe at home: Yes additional social history: [employer] are retired ROS ROS ED Constitutional Constitutional ED: Denies chills or fever(s) Eyes Eyes: Denies blurry vision or diplopia ENT ENT ED: Denies rhinorrhea or sore throat Cardiovascular Cardiovascular: Denies chest pain or palpitations Respiratory/Chest Respiratory/Chest: Denies cough, dyspnea or sputum Gastrointestinal Gastrointestinal: Denies abdominal pain, nausea or vomiting Genitourinary Genitourinary ED: Denies dysuria or hematuria Musculoskeletal Musculoskeletal: Denies arthralgias, back pain, myalgias or neck pain Integumentary Denies rash Neurologic Neurologic: Denies headache(s), paresthesias or weakness Psychiatric Psychiatric: Denies anxiety or depression EXAM Physical Exam Const Vital Signs: 10/05/21 12:56 10/05/21 13:03 10/05/21 13:18 Temperature 96.7 F L Temperature Source Temporal Pulse Rate 73 Respiratory Rate 18 Respiratory Effort Normal Respiratory Pattern Normal Blood Pressure 192/81 H 182/80 H Blood Pressure Mean 118 114 Pulse Ox 97 Oxygen Delivery Method Room Air Positive well nourished General Appearance ED: NAD; Negative for pallor HEENT Reports moist mucous membranes Negative for trauma Eyes PERRL and EOMs intact bilaterally Eyes Narrative: Normal Annel-Hallpike Neck no lymphadenopathy and supple Resp normal respiratory effort and clear to auscultation bilaterally Cardio regular rate and regular rhythm GI normal to inspection, nondistended, normoactive bowel sounds Neuro oriented x3, CN's II-XII intact bilaterally and no sensory deficits noted Sensorium / Orientation: alert Motor Exam: strength 5/5 throughout Psych mental status grossly normal Skin no rashes or lesions noted and no wounds General Skin Exam: Negative for jaundice or pallor MDM MDM MDM Narrative Medical decision making narrative: Patient presenting with feeling off. She is not describing dizziness. She states he has had vertigo before and is not the same. She does describe that she has difficulty with her electrolytes and she is on chlorthalidone and has low potassium and magnesium at times. She states she has supplements for these but does not like to take them because they give her more diarrhea and she is currently experiencing heavier diarrhea than she usually has due to stress as well her vital signs are stable and she is afebrile. I obtained blood work and her CBC is unremarkable. CMP shows that her sodium is 129, potassium 3.3, chloride 91, LFTs unremarkable. Magnesium was checked and is slightly low at 1.4. Patient admits to not drinking enough fluids and also admits to not taking her supplements because it causes diarrhea. I counseled her that she will need to take these in order to replete her electrolytes and to help her dehydration. She does not have an acute kidney injury. She was given a liter of IV fluids here in the ED. She is counseled to use her supplements and to drink sugar-free energy drinks as well as Pedialyte. She will talk to her doctor about changing her chlorthalidone if this is causing issues with her electrolytes. Patient stable for discharge. Impression: 1. Hyponatremia 2. Hypokalemia 3. Hypomagnesemia 4. Dehydration Lab Data Attestation: I reviewed the patient's lab results. Labs: Laboratory Results - last 24 hr 10/05/21 10/05/21 13:37 13:37 WBC 6.7 RBC 4.15 L Hgb 13.0 Hct 37.9 MCV 91.3 MCH 31.3 MCHC 34.3 RDW Std Deviation 42.8 RDW Coeff of Bryce 12.8 Plt Count 198 MPV 8.7 Immature Gran % (Auto) 0.300 Neut % (Auto) 64.9 Lymph % (Auto) 24.0 [place] % (Auto) 9.1 Eos % (Auto) 1.3 Baso % (Auto) 0.4 Absolute Neuts (auto) 4.3 Absolute Lymphs (auto) 1.60 Nucleated RBC % 0 Sodium 129 L Potassium 3.3 L Chloride 91 L Carbon Dioxide 30.0 Anion Gap 8 BUN 18 Creatinine 0.64 Estim Creat Clear Calc 32.53 Est GFR (MDRD) Af Amer 114 Est GFR (MDRD) Non-Af 94 BUN/Creatinine Ratio 28.2 H Glucose 112 H Calcium 8.7 Magnesium 1.4 L Total Bilirubin 0.40 AST 38 H ALT 35 Alkaline Phosphatase 49 Total Protein 7.5 Albumin 4.0 Globulin 3.5 Albumin/Globulin Ratio 1.1 Discharge Plan Triage Chief Complaint: Dizziness ED Provider: Scotty Mars Dx/Rx/DC Orders Instructions: Discharge Instructions for ..., ED Hyponatremia, ED Hypokalemia Prescriptions: No Action metoprolol succinate [Toprol XL] 25 mg tablet extended release 24 hr 25 mg PO DAILY RF: 0 hyoscyamine sulfate 0.125 mg tablet 0.125 mg PO BID-QID PRN (Reason: Abdominal Discomfort) RF: 0 potassium chloride [Klor-Con 10] 10 mEq tablet extended release 10 meq PO DAILY RF: 0 ibuprofen [Advil] 200 mg tablet 200 mg PO Q6H PRN (Reason: Pain, Mild) RF: 0 meloxicam 7.5 mg tablet 7.5 mg PO DAILY RF: 0 magnesium chloride 64 mg tablet,delayed release (DR/EC) 64 mg PO DAILY RF: 0 triamcinolone acetonide 0.025 % cream 1 applic topical DAILY RF: 0 loperamide 2 MG capsule 4 mg PO Q4H PRN PRN (Reason: Diarrhea) RF: 0 chlorthalidone 50 MG tablet 12.5 mg PO DAILY RF: 0 omeprazole 20 MG capsule 20 mg PO DAILY RF: 0 ezetimibe 10 MG tablet 5 mg PO QHS RF: 0 cholecalciferol (vitamin D3) 1,000 UNIT tablet 2,000 unit PO QHS RF: 0 estradiol 0.01 % (0.1 mg/gram) cream 1 g VAGINAL 2XW Qty: 42.5 RF: 3 Primary Care Provider: Meera Abdi Referrals: Meera Abdi MD [Primary Care Provider] - Disposition Disposition: Home, Self Care
[2021-10-05 14:14] LABS: Absolute Neutrophil Count 4.3 X10^3/uL (2.0-7.7); Basophil# 0.03 X10^3/uL; Basophil% 0.4 % (0-1); Eosinophil# 0.09 X10^3/uL; Eosinophils% 1.3 % (0-5); Hematocrit 37.9 % (37-47); Mean Corp Hgb Conc 34.3 g/dL (32-36); Mean Corpuscular Hgb 31.3 pg (27.0-32.0); Mean Corpuscular Volume 91.3 fL (81-99); Mean Platelet Vol. 8.7 fl (6.2-12.0); Monocyte# 0.61 X10^3/uL; Monocyte% 9.1 % (0-10); NRBC Flagged by Analyzer 0 % (0-5); Neutrophil # 4.33 X10^3/uL (2.7-7.7); Neutrophil % 64.9 % (47-70); Platelet Count 198 K/mm3 (150-450); RBC Distribution Width CV 12.8 % (11.6-14.6); RBC Distribution Width SD 42.8 fl (35.1-43.9); Red Blood Count 4.15 M/mm3 (4.2-5.4); White Blood Count 6.7 K/mm3 (4.4-11.0)
[2021-10-05 14:32] LABS: ALB/GLOB Ratio 1.1 RATIO (0.9-2.4); AST(SGOT) 38 U/L (15-37); Alanine Aminotransfer ALT/SGPT 35 U/L (13-56); Alkaline Phosphatase 49 U/L (45-117); Anion Gap 8 (5-15); BUN 18 mg/dL (7-18); BUN/Creat Ratio 28.2 RATIO (10-20); Calcium,Total 8.7 mg/dL (8.5-10.1); Chloride 91 mmol/L (98-107); Creatinine, Serum 0.64 mg/dL (0.55-1.02); EST Glomerular Filtration Rate 94 mL/min (>60); Est Glom Filt Rate - Afr Amer 114 mL/min (>60); Estimated Creatinine Clearance 32.53 ml/min; Globulin 3.5 g/dL (2.2-4.2); Glucose 112 mg/dL (74-106); Magnesium 1.4 mg/dL (1.6-2.6); Potassium 3.3 mmol/L (3.5-5.1); Protein, Total 7.5 g/dL (6.4-8.2); Sodium Level 129 mmol/L (136-145)
[2021-10-05 15:02] VITALS: BP 133/75; PULSE 62; RESP 15; O2SAT 97
== END 2021-10-05 15:03 | disposition home or self-care (01) ==
PROVIDERS: Emergency Provider Student in an Organized Health Care Education/Training Program; PCP Internal Medicine; Visit Provider Student in an Organized Health Care Education/Training Program
DX: E87.1 Hypo-osmolality and hyponatremia (principal); E83.42 Hypomagnesemia; I10 Essential (primary) hypertension; E87.6 Hypokalemia; E86.0 Dehydration; M19.90 Unspecified osteoarthritis, unspecified site; G47.30 Sleep apnea, unspecified; Z79.899 Other long term (current) drug therapy
CPT/HCPCS: 80053; 83735; 85025; 96360; 99283; J7030; A4216

== ENCOUNTER 2022-03-02 13:00 | Outpatient (RCR) | payer MEDICARE, BC, SELFPAY ==
--- NOTE | 2022-01-16 14:22 | HP.PTEVAL_ITS ---
Patient's Visit Information STEPHANIE KATZ is a 86 year old F referred to Physical Therapy by Dr. Tha Romero MD with a diagnosis of OA R ankle and foot, flat foot B.. Date of Evaluation: 01/16/22 Physical Therapist: Kb Caldwell, DAYANNAT, OCS, CSCS - Visit Plan Frequency: 2x /Week Duration: 4-6 Weeks Plan: 2x/week for 4-6 weeks, please focus on rollout and stretch B gastroc and soleus, strengthen ankles with TB and ensure LE strength in gym machines. Core strengthening on mat also approp. Pt to get vasyli orthotics for flat foot. Has R foot drop and weakness DF and does not wish to get AFO, will see neuro in May. May benefit from heel lift in L shoe for LLD. 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 Has been 3 yrs since she has been in for balance and her OA is getting worse. Needs a partial or full knee replacement in r LE which is very weak. My whole R side except hip (had JONATHAN) has bad OA. Both feel are extremly arthirtic and R one is the worst. Has flat feet, weak ankles, More pain in forefoot. Has some tingling in B feet. H/O B JONATHAN and L leg shorter than R and tends to stumble on R. Had a bad fall a month ago landing on face and right side but nothing broken. She caught her R toe on the ground since her R leg is longer. Pain is up to 8/10 in r knee, she knows she needs her knee done. Now is painful even when not on it throbbing knee down to foot 3/10. No regular exercises except for some balance ex given 3 yrs ago and doing elliptical in gym. Sleep is not great if R leg hurting and R shoulder can hurt at times. Spends day working outside but cannot walk outside comfortably without support, has cane that she can use on uneven ground, also has walking stick. Does not want orthotics. - Pain R leg/knee Pain Intensity (Out of 10): 2 Pain Intensity Range: 0, 8 - Objective R leg longer WB and NWB 3/8 inch. R ankle DF weak. 28# L and 10# R. Has obvious Df weakness R effecting walking. Walks I without AD R hip higher than L, steppage gait R. Awkward but I. Pes planus B feet. LB AROM WFL and without pain. Feels diminished sensation B feet distal forefoot to gross light touch. Strength in ankles is 4- except DF above. knees 4- flexion and extension, R knee extension somewhat painful and Varus at knee. reflexes 1/3 patella and achilles. Gastroc short on R at -4 Df vs 0 L, HS 90/90 test at -40 B. - Balance/Special Test Scores Functional Gait Assessment Score: 23 % Disability: 23.3400 Lower Extremity Functional Score: 40 - Goals Goal 1:: I appropraite management with vasyli orthoitcs, ankle strength and stretch adn ex. Goal Time Frame: 4-6 Weeks Goal 2:: Pt feel ankle and feet 50% better and manageable without catching R foot. Goal Time Frame: 4-6 Weeks Goal 3:: LEFS score 55 Goal Time Frame: 4-6 Weeks Goal 4:: 25# R DF strength to minimize fall risk Goal Time Frame: 4-6 Weeks - Rehabilitation Potential Physical Therapy Diagnosis: R drop foot, R leg longer than L , weakness ankles, appears to be neuropathy for unknown eitiology(back vs other). Pt to see neurologist in may. apporpriate for PT in meantime. Does not want AFO, willing to try orhtoitcs OTC Rehabilitation Potential: Questionable - Anticipated Interventions Patient/Client Instruction: Educate patient on: Condition, Plan of Care For the Purpose of:: To decrease pain, To increase ROM, To increase oxygenation perfusion, To increase tolerance to activity/condition/position Therapeutic Exercise to Include: Strength training, Flexibilty training, Gait and locomotor training, Passive ROM, Active ROM For the Purpose of:: To decrease pain, To increase ROM, To improve nutrient delivery to tissue, To improve muscle performance and motor function, To increase tolerance to activity/condition/position Manual Therapy Techniques to Include: Passive ROM, Soft tissue mobilization For the Purpose of:: To increase ROM Orthotics: Shoe insert For the Purpose of:: To decrease pain Thank you for the opportunity to evaluate your patient. For Medicare and Medicare HMO plans, please review the plan of care and approve it. It will need to be FAXED BACK to us at [phone] for Medicare purposes. For Medicare only, by signing this I certify the plan of care. Please let me know if there are questions or concerns regarding this plan of care. Physician Signature: Da te:
--- NOTE | 2022-03-02 13:39 | HP.PTREVAL ---
Dr. Tha Romero MD, It has been my pleasure to treat STEPHANIE KATZ over the last 13 visits for OA R ankle and foot, flat foot B.. Please see the progress note below for an update on the physical therapy plan of care! Subjective: R knee painful after e3xc the other day. Objective/Function: 10.3#R DF sow improvement. AROM neutral Df R foot. Walking better and does well with orthotics in today(vasyliu cut to her shoes today). Progressing nicely toward goals for foot and ankle. R knee problematic intermittently and will see Heather next week for that. Feels much more confident with gait and able to tandem walk I today. Plan Plan: hold until after doctor visit(03/09), pt to contact me if needs return. Balance/Gait/Functional tests - Balance/Special Test Scores Functional Gait Assessment Score: 23 % Disability: 23.3400 Lower Extremity Functional Score: 45 Goals Goal 1:: I appropraite management with vasyli orthoitcs, ankle strength and stretch adn ex. Goal Time Frame: 4-6 Weeks Goal Progress: Goal Met Goal 2:: Pt feel ankle and feet 50% better and manageable without catching R foot. Goal Time Frame: 4-6 Weeks Goal Progress: safer and Goal 3:: LEFS score 55 Goal Time Frame: 4-6 Weeks Goal Progress: slow progress. Goal 4:: 25# R DF strength to minimize fall risk Goal Time Frame: 4-6 Weeks Goal Progress: 10.3 Anticipated Interventions Patient/Client Instruction: Educate patient on: Condition, Plan of Care For the Purpose of:: To decrease pain, To increase ROM, To increase oxygenation perfusion, To increase tolerance to activity/condition/position Therapeutic Exercise to Include: Strength training, Flexibilty training, Gait and locomotor training, Passive ROM, Active ROM For the Purpose of:: To decrease pain, To increase ROM, To improve nutrient delivery to tissue, To improve muscle performance and motor function, To increase tolerance to activity/condition/position Manual Therapy Techniques to Include: Passive ROM, Soft tissue mobilization For the Purpose of:: To increase ROM Orthotics: Shoe insert For the Purpose of:: To decrease pain Please do not hesitate to contact me at [phone] by phone or if you have questions or concerns regarding this new plan of care! Sincerely, Kb Caldwell, DPT, OCS, CSCS
--- NOTE | 2022-05-30 12:57 | HP.PT.NRP ---
STEPHANIE KATZ was seen in my office for initial evaluation on 01/16/22. The following Plan of Care was established for this patient: Initial Frequency: 2x /Week Initial Duration: 4-6 Weeks Patient/Client Instruction: Educate patient on: Condition, Plan of Care For the Purpose of:: To decrease pain, To increase ROM, To increase oxygenation perfusion, To increase tolerance to activity/condition/position Therapeutic Exercise to Include: Strength training, Flexibilty training, Gait and locomotor training, Passive ROM, Active ROM For the Purpose of:: To decrease pain, To increase ROM, To improve nutrient delivery to tissue, To improve muscle performance and motor function, To increase tolerance to activity/condition/position Manual Therapy Techniques to Include: Passive ROM, Soft tissue mobilization For the Purpose of:: To increase ROM Orthotics: Shoe insert For the Purpose of:: To decrease pain This patient was last seen in our office 03/02/22. Pertinent comments regarding their Physical therapy will appear below: Pt seen 13 visits of POC and was 50+% better and I in appropriate exercises in gym to continue to make progress. She was to call within a week of her last visit (after doctor appointment) if she needed to return. at this point, it has been over 2 months and I will discontinue due to nonattendance. At this point I will be discontinuing this patient from physical therapy. I would be happy to see this patient again in the future if found appropriate by the physician. Thank you! Kb Caldwell, DPT, OCS, CSCS Balance/Gait/Functional tests - Balance/Special Test Scores Functional Gait Assessment Score: 23 % Disability: 23.3400 Lower Extremity Functional Score: 45
== END 2022-03-02 19:00 | disposition home or self-care (01) ==
LOC: PT 13:00
PROVIDERS: PCP Internal Medicine; Referring Provider Specialist; Visit Provider Specialist
DX: M19.171 Post-traumatic osteoarthritis, right ankle and foot (principal); M21.42 Flat foot [pes planus] (acquired), left foot; M21.41 Flat foot [pes planus] (acquired), right foot
CPT/HCPCS: 97110; 97140; 97163; 97164

== ENCOUNTER → 2022-07-28 | Outpatient (CLI) | payer MEDICARE, BC, SELFPAY ==
--- NOTE | 2022-07-28 10:54 | BI_ITS ---
MAMMOGRAPHY - BILATERAL SCREENING REASON FOR EXAM: Female, 86 years old. Routine annual screening examination. PERTINENT HISTORY: Non-contributory. History of prior right excisional breast biopsy. 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 TECHNIQUE: Digital bilateral breast holly (3D mammographic acquisition) in the CC and MLO projections. 2-D mediolateral oblique (MLO) and craniocaudad (CC) views of both breasts were obtained. CAD: Full Field Digital Mammography with Computer Added Detection was performed. COMPARISON: Comparison is made with prior study dated April 22, 2021 February 09, 2020. FINDINGS: Breast Composition: The breasts are heterogeneously dense, which may obscure small masses. There are no dominant masses or suspicious calcifications. Stable bilateral secretory calcification. A tissue clip marker is seen in the right retroareolar region. No other significant abnormalities are identified. There has been no significant change since the prior study. BI/SCRN MAMM (CAD)W/HOLLY BILAT IMPRESSION: Stable bilateral screening mammogram. Yearly follow-up mammogram recommended. (A) ASSESSMENT CATEGORY: BIRADS Category 2: Benign. A letter regarding these results will be sent to the patient by the facility within 30 days. Approximately 10% of breast cancers are not detected by mammography. A normal mammogram should not delay biopsy of a clinically suspicious abnormality. [id number] Electronically Signed: Henry Garcia MD at 11:59 EST ,
== END | disposition home or self-care (01) ==
PROVIDERS: PCP Internal Medicine; Visit Provider Nurse Practitioner Women's Health
DX: Z12.31 Encounter for screening mammogram for malignant neoplasm of breast (principal)
CPT/HCPCS: 77063; 77067

== ENCOUNTER → 2022-07-31 | Outpatient (CLI) | payer MEDICARE, BC, SELFPAY ==
--- NOTE | 2022-07-31 10:45 | ECHOD_ITS ---
Reason For Study: A. fib Procedure This was a 2D Doppler, Color Flow transthoracic echocardiogram. Exam performed in department. Left Ventricle Normal LV size. Left ventricular systolic function is normal. The estimated ejection fraction is 60 %. No regional wall motion abnormalities noted. Right Ventricle Normal RV size. Normal systolic function. Atria The left atrium is mildly enlarged. The right atrium is moderately enlarged. Tricuspid Valve Normal tricuspid valve. Mild (1+) tricuspid valve insufficiency. Pulmonary artery systolic pressure is 33 mmHg. Aortic Valve Trisinus/trileaflet aortic valve. Mild (1+) aortic valve insufficiency. Pulmonic Valve Normal pulmonic valve. Great Vessels Normal aortic root. The pulmonary artery is normal size. Normal inferior vena cava. Pericardium/Pleural No pericardial effusion. MMode/2D Measurements & Calculations LVIDd: 3.5 cm IVSd: 0.81 cm LVOT diam: 2.0 cm LVIDs: 1.8 cm LVPWd: 0.89 cm LVOT area: 3.1 cm2 RVDd: 3.7 cm FS: 48.7 % Ao root diam: 3.3 cm LAV(MOD-bp): 64.1 ml LVAd ap4: 23.3 cm2 LAV(MOD-bp) Indexed: 39.2 ml/m2 LVLd ap4: 7.7 cm LAV(MOD-sp2): 63.6 ml EDV(MOD-sp4): 58.0 ml LAV(MOD-sp4): 58.1 ml EDV(sp4-el): 60.3 ml LVAs ap4: 12.3 cm2 LVLs ap4: 6.3 cm ESV(MOD-sp4): 20.0 ml ESV(sp4-el): 20.2 ml EF(MOD-sp4): 65.5 % EF(sp4-el): 66.5 % SV(MOD-sp4): 38.0 ml SV(MOD-sp2): 33.0 ml LVAd ap2: 21.8 cm2 LVLd ap2: 7.7 cm EDV(MOD-sp2): 51.3 ml EDV(sp2-el): 52.7 ml LVAs ap2: 11.8 cm2 LVLs ap2: 6.8 cm ESV(MOD-sp2): 18.3 ml ESV(sp2-el): 17.5 ml EF(MOD-sp2): 64.3 % SV(sp4-el): 40.1 ml LA A4 area: 21.2 cm2 LA dimension(2D): 4.1 cm RA A4 area: 25.9 cm2 Doppler Measurements & Calculations MV E max sesar: 137.8 cm/sec Lat Peak E' Sesar: 9.5 cm/sec Med Peak E' Sesar: 8.9 cm/sec E/E' lat: 14.6 E/E' med: 15.4 MV V2 max: 183.6 cm/sec MV P1/2t max sesar: 180.6 cm/sec Ao V2 max: 166.4 cm/sec MV max P.5 mmHg MV P1/2t: 71.7 msec Ao max P.1 mmHg MV V2 mean: 102.2 cm/sec MV dec slope: 737.4 cm/sec2 Ao V2 mean: 105.6 cm/sec MV mean P.1 mmHg Ao mean P.2 mmHg MV V2 VTI: 33.1 cm MVA(P1/2t): 3.1 cm2 Ao V2 VTI: 33.3 cm MVA(VTI): 2.0 cm2 AV (velocity ratio): 0.65 MARY(I,D): 2.0 cm2 MARY(V,D): 1.9 cm2 AI max sesar: 438.0 cm/sec LV V1 max: 100.7 cm/sec SV(LVOT): 66.5 ml AI max P.8 mmHg LV V1 max P.1 mmHg LV V1 mean P.1 mmHg AI dec slope: 187.5 cm/sec2 LV V1 mean: 68.0 cm/sec AI P1/2t: 684.2 msec LV V1 VTI: 21.6 cm PA V2 max: 76.6 cm/sec TR max sesar: 266.7 cm/sec TR max P.5 mmHg ECHO/Echo Complete Interpretation Summary Normal LV size. Left ventricular systolic function is normal. The estimated ejection fraction is 60 %. The left atrium is mildly enlarged. The right atrium is moderately enlarged. Pulmonary artery systolic pressure is 33 mmHg. Ordering Physician: Hemanth Smith Referring Physician: Meera Abdi M.D. Performed By: Kaylee Pettit RDCS
== END | disposition home or self-care (01) ==
LOC: PSN 10:43
PROVIDERS: PCP Internal Medicine; Visit Provider Internal Medicine Cardiovascular Disease
DX: I48.0 Paroxysmal atrial fibrillation (principal); I10 Essential (primary) hypertension; E78.5 Hyperlipidemia, unspecified
CPT/HCPCS: 93225; 93226; 93306

== ENCOUNTER → 2023-09-12 | Outpatient (CLI) | payer MEDICARE, BC, SELFPAY ==
--- NOTE | 2023-09-16 17:34 | STRESSREP ---
Stress Test Report Pharmacologic myocardial perfusion stress test. 87-year-old lady with a history of atrial fibrillation Resting EKG demonstrates atrial fibrillation with a rate of 84 bpm. Resting blood pressure is 122/80 mmHg. 0.4 mg of regadenoson was infused per usual protocol followed by rapid intravenous saline flush injection. Continuous EKG monitoring was performed. The maximum heart rate was 120 bpm which was 90% of max impacted heart rate the maximum workload was 1 metabolic equivalent. At rest there were no ST or T wave changes noted to suggest ischemia and at peak infusion nonspecific ST changes were noted which did not meet the criteria for ischemia. No clinical angina is noted. The final blood pressure was 118/70 mmHg. Myocardial perfusion protocol. 10.9 mCi of technetium 99m sestamibi was injected at rest. 0.4 mg of regadenoson was infused per usual protocol. At peak infusion 34.1 mCi of technetium 99m sestamibi was injected stress images were obtained stress and rest images were reconstructed and compared in the short axis vertical long and horizontal long axis. Gated images were also obtained. Perfusion SPECT analysis: Review of the stress images demonstrate normal uptake of tracer noted in all areas of the myocardium. The resting images similar demonstrated normal uptake of tracer noted in all areas of the myocardium. No areas of reversibility are noted to suggest ischemia and no previous infarct is noted. Gated SPECT analysis: The gated ejection fraction is 75%. Conclusion: Normal pharmacologic myocardial perfusion stress test. Preserved ejection fraction.
== END | disposition home or self-care (01) ==
LOC: CVS 06:42
PROVIDERS: PCP Internal Medicine; Referring Provider Internal Medicine Cardiovascular Disease; Visit Provider Internal Medicine Cardiovascular Disease
DX: R94.31 Abnormal electrocardiogram [ECG] [EKG] (principal); I48.0 Paroxysmal atrial fibrillation
CPT/HCPCS: 78452; 93017; A9500; A4216; J2785

== ENCOUNTER → 2023-09-17 | Outpatient (CLI) | payer MEDICARE, BC, SELFPAY ==
--- NOTE | 2023-09-17 15:04 | BI_ITS ---
MAMMOGRAPHY - BILATERAL SCREENING REASON FOR EXAM: Female, 87 years old. Routine annual screening examination. PERTINENT HISTORY: Non-contributory. Remote right excisional breast biopsy. TECHNIQUE: Digital bilateral breast holly (3D mammographic acquisition) in the CC and MLO projections. 2-D mediolateral oblique (MLO) and craniocaudad (CC) views of both breasts were obtained. CAD: Full Field Digital Mammography with Computer Added Detection was performed. COMPARISON: Comparison is made with prior study July 28, 2022 and April 22, 2021. FINDINGS: Breast Composition: The breasts are heterogeneously dense, which may obscure small masses. There are no dominant masses or suspicious calcifications. Stable bilateral secretory calcifications. No other significant abnormalities are identified. There has been no significant change since the prior study. BI/SCRN MAMM (CAD)W/HOLLY BILAT IMPRESSION: Stable bilateral screening mammogram. Yearly follow-up mammogram recommended. (A) ASSESSMENT CATEGORY: BIRADS Category 2: Benign. A letter regarding these results will be sent to the patient by the facility within 30 days. Approximately 10% of breast cancers are not detected by mammography. A normal mammogram should not delay biopsy of a clinically suspicious abnormality. [id number] Electronically Signed: Henry Garcia MD at 8:26 EDT ,
== END | disposition home or self-care (01) ==
LOC: OPBI 15:04
PROVIDERS: PCP Internal Medicine; Referring Provider Nurse Practitioner Women's Health; Visit Provider Nurse Practitioner Women's Health
DX: Z12.31 Encounter for screening mammogram for malignant neoplasm of breast (principal)
CPT/HCPCS: 77063; 77067

== ENCOUNTER → 2024-11-03 | Outpatient (CLI) | payer MEDICARE, BC, SELFPAY ==
--- NOTE | 2024-11-03 07:11 | ECHOD_ITS ---
Reason For Study Reason For Study: Pre Op Procedure This was a 2D Doppler, Color Flow transthoracic echocardiogram. Exam performed in department. Left Ventricle Normal LV size. Left ventricular systolic function is normal. Stage 1 diastolic dysfunction. Right Ventricle Normal RV size. Normal systolic function. Atria The left atrium is mildly enlarged. The right atrium is mildly enlarged. Mitral Valve There is mild mitral annular calcification. The mitral papillary muscle appears thickened and/or calcified. Tricuspid Valve Normal tricuspid valve. Mild to moderate (1-2+) tricuspid valve insufficiency. Pulmonary artery systolic pressure is 55 mmHg. Moderate pulmonary hypertension. Aortic Valve Trisinus/trileaflet aortic valve. Peak aortic valve gradient 18 mmHg. Mean aortic valve gradient 10 mmHg. Mild (1+) aortic valve insufficiency. Pulmonic Valve Normal pulmonic valve. Great Vessels Normal aortic root. The pulmonary artery is normal size. Inferior vena cava collapse with respiration. Pericardium/Pleural No pericardial effusion. MMode/2D Measurements & Calculations LVIDd: 3.7 cm IVSd: 0.81 cm LVOT diam: 1.9 cm LVIDs: 2.2 cm LVPWd: 0.84 cm LVOT area: 2.8 cm2 RVDd: 3.5 cm FS: 40.1 % Ao root diam: 3.3 cm LAV(MOD-bp): 57.8 ml Aortic Valve Planimetry: 0.93 cm2 LAV(MOD-bp) Indexed: 35.3 ml/m2 LAV(MOD-sp2): 48.1 ml LAV(MOD-sp4): 64.6 ml LA dimension(2D): 4.6 cm LA A4 area: 23.1 cm2 RA A4 area: 24.8 cm2 TAPSE: 1.6 cm Doppler Measurements & Calculations MV E max jethro: 99.5 cm/sec MV V2 max: 234.2 cm/sec Ao V2 max: 214.7 cm/sec MV max P.1 mmHg Ao max P.5 mmHg MV V2 mean: 103.8 cm/sec Ao V2 mean: 151.2 cm/sec MV mean P.0 mmHg Ao mean P.3 mmHg MV V2 VTI: 46.5 cm Ao V2 VTI: 47.6 cm MVA(VTI): 1.2 cm2 AV (velocity ratio): 0.43 MARY(I,D): 1.2 cm2 MARY(V,D): 1.1 cm2 AI max jethro: 461.2 cm/sec LV V1 max: 85.6 cm/sec MR max jethro: 513.3 cm/sec AI max P.2 mmHg LV V1 max P.0 mmHg MR max P.4 mmHg LV V1 mean P.7 mmHg AI dec slope: 290.2 cm/sec2 LV V1 mean: 62.4 cm/sec AI P1/2t: 465.5 msec LV V1 VTI: 20.3 cm SV(LVOT): 56.0 ml PA V2 max: 79.7 cm/sec PI dec slope: 233.4 cm/sec2 TR max jethro: 357.6 cm/sec TR max P.2 mmHg ECHO/Echo Complete Interpretation Summary The left atrium is mildly enlarged. The right atrium is mildly enlarged. Normal LV size. Left ventricular systolic function is normal. Stage 1 diastolic dysfunction. Mean aortic valve gradient 10 mmHg. Mild (1+) aortic valve insufficiency. Pulmonary artery systolic pressure is 55 mmHg. Moderate pulmonary hypertension. Ordering Physician: Hemanth Smith Referring Physician: Hemanth Smith Performed By: Phu Ascencio RCS
--- OUTSIDE RECORDS SUMMARY | 2024-11-03 07:28 | XMS RPT_ITS | CCD ---
Author Organization [facility] Care Team Providers Care Lathe Mechanic Name Role Phone Mikki Dennis MD Unavailable [phone] Kailyn Taylor Unavailable Unavailable Kevin Elder MD Primary Care Provider Kevin Elder MD Primary Care Provider Kevin Elder MD Primary Care Provider Dr. Kevin Elder Primary Care Provider Dr. Kevin Elder Referring Provider Dr. Charles Christine Attending Provider Dr. Kevin Elder Primary Care Provider Dr. Kevin Elder Referring Provider Dr. Charles Christine Attending Provider Dr. Hemanth Smith Attending Provider [phone] Kevin Elder Primary Care Provider Dr. Kevin Elder Referring Provider Dr. Hemanth Smith Attending Provider [phone] Dr. Hemanth Smith Referring Provider [phone] Dr. Hemanth Smith Other Provider Kevin Elder MD Primary Care Provider PHILLIP GANT, DR PATI Matthews Attending Jamil Shaw MD, DR BROWN Primary Care Unavailable PHILLIP GANT, DR PATI Matthews Attending Jamil Shaw MD, DR BROWN Primary Care Unavailable PHILLIP GANT, DR PATI Matthews Attending Unavailab devaughn ELDER MD, DR BROWN Primary Care Unavailable Alfredo INTERLOCKING AND SIGNAL MECHANIC.TRADE MANAGER, Ciara Unavailable Efrain INTERLOCKING AND SIGNAL MECHANIC.DOG SITTER, Yesy Unavailable Efrain INTERLOCKING AND SIGNAL MECHANIC.DOG SITTER, Yesy Unavailable Efrain INTERLOCKING AND SIGNAL MECHANIC.DOG SITTER, Yesy Unavailable TALAMPAS, KEVIN D Referring Unavailable TALAMPAS, KEVIN D Primary Care Unavailable TALAMPAS, KEVIN D Attending Unavailable TALAMPAS, KEVIN D Primary Care Unavailable TALAMPAS, KEVIN D Referring Unavailable TALAMPAS, KEVIN D Primary Care Unavailable TALAMPAS, KEVIN D Attending Unavailable TALAMPAS, KEVIN D Primary Care Unavailable TALAMPAS, KEVIN D Referring Unavailable TALAMPAS, KEVIN D Primary Care Unavailable TALAMPAS, KEVIN D Referring Unavailable TALAMPAS, KEVIN D Primary Care Unavailable Talampas, Kevin D Primary Care Unavailable Talampas, Kevin D Referring Unavailable Mikki Dennis Attending Unavailable Talampas, Kevin D Primary Care Unavailable Talampas, Kevin D Referring Unavailable Sarah, Hemanth Attending Unavailable Talampas, Kevin D Primary Care Unavailable Talampas, Kevin D Referring Unavailable Sarah, Hiram Attending Unavailable Allergies Allergy Classification Reported Allergen(s) Allergy Type Date of Onset Reaction(s) Facility Acetaminophen / oxyCODONE (1 source) Acetaminophen / oxyCODONE Drug Allergy 03-29-20 10 Intolerance [facility] Cephalosporins (antibiotic) (1 source) Cephalosporins (Antibiotic) Drug Allergy 02-26-20 13 Rash [facility] HMG-CoA Reductase Inhibitors (statins) (1 source) Pravastatin Drug Allergy 06-03-19 14 Other: See [facility] Work Phone: Macrolides (antibiotic) (1 source) Erythromycin Drug Allergy 09-01-19 06 [facility] Penicillins (antibiotic) (1 source) Penicillins Drug Allergy 05-19-20 05 [facility] Sulfonamides (antibiotic) (1 source) Sulfonamides (Antibiotic) Drug Allergy 05-19-20 05 [facility] valdecoxib (1 source) valdecoxib Drug Allergy 09-01-19 06 [facility] Work Phone: (3 sources) penicillin v drug allergy 02-09-20 17 [facility] (3 sources) sulfamethoxazole / trimethoprim drug allergy 02-09-20 17 [facility] (3 sources) CEPHOLOSPORIUS drug allergy 02-09-20 17 [facility] (20 sources) Acetaminophen / oxyCODONE; Translations: [OXYCODONE-ACETAMIN OPHEN] Drug Allergy 03-29-20 10 [facility] Work Phone: (7 sources) Cephalosporins (Antibiotic); Translations: [CEPHALOSPORINS] Drug Allergy 02-26-20 13 [facility] (20 sources) Erythromycin; Translations: [ERYTHROMYCIN] Drug Allergy 09-01-19 06 [facility] Work Phone: (6 sources) Penicillins; Translations: [PENICILLINS] Propensity to adverse reactions 05-19-20 05 [facility] Work Phone: (20 sources) Pravastatin; Translations: [PRAVASTATIN] Drug Allergy 06-03-19 14 Other: See [facility] Work Phone: (20 sources) Sulfonamides (Antibiotic); Translations: [SULFA (SULFONAMIDE ANTIBIOTICS)] Propensity to adverse reactions 05-19-20 05 [facility] Work Phone: (20 sources) valdecoxib; Translations: [VALDECOXIB] Drug Allergy 09-01-19 06 [facility] Work Phone: (20 sources) Propoxyphene N-Acetaminophen; Translations: [PROPOXYPHENE N-ACETAMINOPHEN] Propensity to adverse reactions 12-09-19 08 [facility] (6 sources) oxyCODONE Drug Allergy 10-06-19 22 [facility] (6 sources) Propoxyphene Drug Allergy 10-06-19 22 [facility] (20 sources) Cephalosporins (Antibiotic) Drug Allergy 02-26-20 13 [facility] (20 sources) Penicillins Propensity to adverse reactions 05-19-20 05 [facility] Work Phone: (5 sources) Cephalosporins (Antibiotic) Allergy to substance 04-26-20 [facility] (5 sources) Penicillins Allergy to substance 04-26-20 [facility] (5 sources) Sulfonamides (Antibiotic) Allergy to substance 04-26-20 [facility] (1 source) Penicillins Propensity to adverse reactions 05-19-20 05 [facility] (1 source) Acetaminophen Drug Allergy 09-17-19 [facility] (1 source) Cephalosporins (Antibiotic) Drug allergy (disorder) 09-17-19 [facility] (1 source) Erythromycin Drug Allergy 09-17-19 [facility] (1 source) HYDROcodone Drug Allergy 09-17-19 [facility] (1 source) oxyCODONE Drug Allergy 09-17-19 [facility] (1 source) Penicillins Drug allergy (disorder) 09-17-19 [facility] (1 source) Propoxyphene Drug Allergy 09-17-19 [facility] (1 source) Sulfonamides (Antibiotic) Drug allergy (disorder) 09-17-19 [facility] (1 source) valdecoxib Drug Allergy 09-17-19 [facility] Medications Current Medications Medication Drug Class(es) Dates Sig (Normalized) Sig (Original) acetaminophen 500 mg oral tablet (20 sources) Start: 06-23-2022 take 1 tablet by mouth twice daily Acetaminophen (Tylenol Extra Strength) 500 mg tablet Active 500 MG PO TWICE A DAY June 23, 2022 1:00am Start: 04-26-2022 End: 06-22-2022 take 500 mg by mouth every six hours Acetaminophen Discontinued 500 MG PO EVERY 6 HOURS April 26, 2022 1:00am June 22, 2022 1:59pm Start: 09-21-2019 End: 03-15-2021 take 650 mg by mouth every six hours as needed Acetaminophen Discontinued 650 MG PO EVERY 6 HOURS NEEDED September 21, 2019 12:00am March 15, 2021 10:30am take 1 tablet by tim th every eight hours as needed acetaminophen (TYLENOL EXTRA STRENGTH) 500 mg tablet Take 500 mg by mouth every 8 hours as needed. Active End: 10-21-2021 take 2 tablets by mouth every six hours as needed acetaminophen (TYLENOL) 325 mg tablet Take 650 mg by mouth every 6 hours as needed. 0 10/21/2021 Discontinued Comment on above: Take 650 mg by mouth every 6 hours as needed. aMILoride hydrochloride 5 mg oral tablet (20 sources) Potassium-sparing Diuretic Start: 06-23-2022 take 5 mg by mouth every other day Amiloride Active 5 MG PO every other day June 23, 2022 1:00am Alternating with furosemide Start: 06-07-2022 End: 06-11-2023 take 1 tablet by mouth once daily aMILoride (MIDAMOR) 5 mg tablet Indications: Hypomagnesemia , Hypokalemia Take 1 tablet by mouth once daily. When takes Lasix 90 tablet 3 06/11/2023 Active Comment on above: Take 1 tablet by tim th once daily. Take 1 tablet by tim th once daily. When takes Lasix amLODIPine 2.5 mg oral tablet (20 sources) Dihydropyridine Calcium Channel Braxton Start: 06-22-19 End: 06-03-19 take 1 tablet by mouth once daily amLODIPine (NORVASC) 2.5 mg tablet Indications: Hypertension goal BP (blood pressure) Take 1 tablet by mouth once daily. 90 tablet 3 06/03/2024 Active Start: 05-08-2022 End: 06-07-2022 take 1 tablet by mouth once daily amLODIPine (NORVASC) 2.5 mg tablet Indications: Hypertension goal BP (blood pressure) Take 1 tablet by mouth once daily. 90 tablet 3 06/07/2022 Active Start: 10-21-2021 End: 06-22-2022 take 5 mg by mouth once daily Amlodipine Discontinued 5 MG PO DAILY November 02, 2021 12:00am June 22, 2022 1:56pm Comment on above: Take 1 tablet by tim th once daily. apixaban 5 mg oral tablet (20 sources) Factor Xa Inhibitor Start: 3 End: 4 take 1 tablet by mouth twice daily ELIQUIS 5 mg tab(s) Indications: Longstanding persistent atrial fibrillation (HCC) Take 1 tablet by mouth two times a day. 90 tablet 3 06/11/2023 Active Comment on above: Take 5 mg by mouth t wice daily. Take 1 tablet by tim th two times a day. atorvastatin 20 mg oral tablet (20 sources) HMG-CoA Reductase Inhibitor Start: End: take 1 tablet by mouth once daily at bedtime atorvastatin (LIPITOR) 20 mg tablet Indications: Mixed hyperlipidemia Take 1 tablet by mouth daily at bedtime. As directed 90 tablet 3 06/11/2023 Active Start: 09-19-2022 End: 11-07-2022 Atorvastatin Discontinued 20 MG PO .COMPLEX September 19, 2022 2:46pm November 07, 2022 1:25pm 20 mg orally every other night Start: 08-11-2022 End: 09-19-2022 take 20 mg by mouth once daily at bedtime Atorvastatin Discontinued 20 MG PO .COMPLEX August 14, 2022 5:23pm September 19, 2022 2:47pm 20 mg orally qhs on Sunday, , Sunday; Comment on above: Take 20 mg by mouth daily at bedtime. 4 times a week Take 1 tablet by tim th daily at bedtime. As directed cholecalciferol 0.025 mg oral tablet (20 sources) Vitamin D Start: 02-03-20 15 take 2000 [IU] by mouth at bedtime Cholecalciferol (Vitamin D3) Active 2000 UNIT PO AT BEDTIME February 02, 2015 12:00am Start: 02-25-2013 take 2 capsules by m outh once daily Cholecalciferol, Vitamin D3, 1,000 unit cap Take 2 capsules by mouth once daily. 1 capsule 0 02/25/2013 Active Comment on above: Take 2 capsules by m outh once daily. ciprofloxacin 250 mg oral tablet (19 sources) Quinolone Antimicrobial Start: 12-06-19 take 2 tablets by mouth twice daily ciprofloxacin HCl (CIPRO) 250 mg tablet Take 2 tablets by mouth twice daily. 40 tablet 12/05/2022 Active Start: 11-28-2022 End: 12-03-2022 take 1 tablet by mouth twice daily ciprofloxacin HCl (CIPRO) 500 mg tablet Take 1 tablet by mouth twice daily for 5 days. 10 tablet 0 11/28/2022 12/03/2022 Active Comment on above: Take 1 tablet by tim th twice daily for 5 days. Take 2 tablets by mo uth twice daily. CPAP (20 sources) Start: 07-24-2012 CPAP Indications: ZO (obstructive sleep apnea) AutoPAP 5-15 cmH2O, [place] mask suggested, humidity, filters. Lifetime supplies. Dx: 327.23. Fax compliance rpt to Dr. Gongora in 8 weeks. 1 Device 0 07/24/2012 Active Comment on above: AutoPAP 5-15 cmH2O, [place] mask suggested, humidity, filters. Lifetime supplies. Dx: 327.23. Fax compliance rpt to Dr. Gongora in 8 weeks. estradiol 0.1 mg/ml vaginal cream (20 sources) Estrogen Start: 11-06-2022 Estradiol Active 0 VAGINAL TWICE A WEEK 42.5 November 06, 2022 9:41am small amount vaginally twice a week; Start: 01-19-2020 End: 11-06-2022 Estradiol Discontinued 1 GM VAGINAL TWICE A WEEK 42.5 July 22, 2021 7:32am November 06, 2022 9:42am Start: 02-08-2017 ESTRACE 0.1 MG /GM CREA ESTRADIOL [id number] Kailyn Taylor Start: 06-07-2016 End: 06-18-2024 estradiol (ESTRACE) 0.01 % ( 0.1 mg/gram) vaginal cream Indications: Irritable bowel syndrome with diarrhea , Postmenopausal atrophic vaginitis , Uterovaginal prolapse, incomplete , Encounter for screening mammogram for malignant neoplasm of breast Use vaginally 3 times a WEEK. Use a dab on the urethra 3 times a week 1 Tube 3 06/07/2016 06/18/2024 Discontinued Start: 02-02-2015 End: 01-19-2020 Estradiol Discontinued 1 DOS E VAGINAL SUWE February 02, 2015 12:00am January 19, 2020 12:18pm Comment on above: Use vaginally 3 time s a WEEK. Use a dab on the urethra 3 times a week ezetimibe 10 mg oral tablet (20 sources) Dietary Cholesterol Absorption Inhibitor Start: 08-17-2023 take 5 mg by mouth at bedtime Ezetimibe Active 5 MG PO AT BEDTIME August 17, 2023 1:32pm Start: 11-25-2020 End: 08-17-2023 take 0.5-1 tablets by mouth once daily ezetimibe (ZETIA) 10 mg tablet Indications: Mixed hyperlipidemia Take 0.5-1 tablets by mouth once daily. As directed 90 tablet 3 06/11/2023 Active Start: 02-02-2015 End: 06-23-2022 take 5 mg by mouth at bedtime Ezetimibe Discontinued 5 MG PO AT BEDTIME February 02, 2015 12:00am June 23, 2022 12:09pm Comment on above: Take 0.5-1 tablets b y mouth once daily. As directed famciclovir 500 mg oral tablet (3 sources) Herpes Simplex Virus Nucleoside Analog DNA Polymerase Inhibitor Start: 2 End: 2 take 1 tablet by mouth three times daily famciclovir (FAMVIR) 500 mg tablet Take 1 tablet by mouth three times daily for 7 days. 21 tablet 0 02/10/2022 02/17/2022 Active Comment on above: Take 1 tablet by tim th three times daily for 7 days. furosemide 20 mg oral tablet (20 sources) Loop Diuretic Start: 4 End: 4 take 1 tablet by mouth once daily in the morning furosemide (LASIX) 20 mg tablet Indications: Hypertension goal BP (blood pressure) , Leg swelling Take 1 tablet by mouth once daily. Take in the morning. As directed 90 tablet 3 04/21/2024 Active Start: 06-22-2022 End: 06-23-2022 take 20 mg by mouth once daily Furosemide Discontinued 20 MG PO DAILY June 22, 2022 1:00am June 23, 2022 11:15am Start: 06-07-2022 End: 06-11-2023 take 20 mg by mouth every other day Furosemide Active 20 MG PO every other day June 23, 2022 11:08am Start: 12-23-2021 End: 06-07-2022 take 1 tablet by mouth once daily as needed furosemide (LASIX) 20 mg tablet Indications: Hypertension goal BP (blood pressure) , Leg swelling Take 1 tablet by mouth once daily as needed. Take in the morning. 30 tablet 2 05/08/2022 06/07/2022 Discontinued Comment on above: Take 1 tablet by tim th once daily. Take in the morning. Take 1 tablet by tim th once daily as needed. Take in the morning. Take 1 tablet by tim th every other day. Take in the morning. Take 1 tablet by tim th once daily. Take in the morning. As directed hyoscyamine sulfate 0.125 mg sublingual tablet (20 sources) Start: 06-06-2021 take 1 tablet under the tongue every four hours as needed hyoscyamine sublingual (LEVSIN SL) 0.125 mg Indications: Irritable bowel syndrome with diarrhea Dissolve 1 tablet under the tongue every 4 hours as needed. 60 tablet 2 06/06/2021 Active Start: 01-19-2020 Hyoscyamine Leon lfate Active 0.125 MG PO 2 to 4 times per day January 19, 2020 12:00am Comment on above: Dissolve 1 tablet un alfonso the tongue every 4 hours as needed. loperamide hydrochloride 2 mg oral capsule (20 sources) Opioid Agonist Start: 2 End: 4 take 1 capsule by mouth twice daily loperamide (IMODIUM) 2 mg cap(s) Indications: Irritable bowel syndrome with diarrhea Take 1 capsule by mouth two times a day. 180 capsule 1 02/08/2024 Active Start: 04-24-2022 loperamide (IM ODIUM) 2 mg cap(s) Indications: Irritable bowel syndrome with diarrhea Take 1 capsule by mouth twice daily. - take one half to one tab daily - November 24, 2021 90 capsule 11 04/24/2022 Active Start: 04-18-2021 End: 11-24-2021 loperamide (IMODIUM) 2 mg ca p(s) Indications: Irritable bowel syndrome with diarrhea Take 1 capsule by mouth twice daily. - take one half to one tab daily - November 24, 2021 90 capsule 11 11/24/2021 Active Start: 02-08-2017 LOPERAMIDE HCL 2 MG TABS LOPERAMIDE HCL [id number] Kailyn Taylor Start: 02-02-2015 End: 06-22-2022 take 4 mg by mouth every four hours as needed Loperamide Discontinued 4 MG PO EVERY 4 HOURS NEEDED February 02, 2015 12:00am June 22, 2022 1:59pm Comment on above: Take [address] [facility] twice daily. Take [address] [facility] twice daily. - take one half to one tab daily - November 24, 2021 TAKE 1 CAPSULE BY MO [facility] TWICE A DAY Take [address] [facility] two times a day. 24 hr metoprolol succinate 25 mg extended release oral tablet (20 sources) beta-Adrenergic Braxton Start: 05-31-2022 End: 05-19-2024 take 2 tablets by mouth once daily metoprolol succinate ER (TOPROL XL) 25 mg 24 hr tablet Indications: Hypertension goal BP (blood pressure) Take 2 tablets by mouth once daily. 180 tablet 3 05/19/2024 Active Start: 01-19-2020 End: 06-22-2022 take 1 tablet by mouth once daily Metoprolol Succinate (Toprol Xl) 25 mg tablet extended release 24 hr Discontinued 25 MG PO DAILY January 19, 2020 12:00am June 22, 2022 1:59pm Start: 02-08-2017 METOPROLOL SUC CINATE ER 25 MG [id number] METOPROLOL SUCCINATE [id number] Kailyn Taylor Start: 02-02-2015 End: 01-19-2020 take 25 mg by mouth once daily Metoprolol Tartrate Dis continued 25 MG PO DAILY February 02, 2015 12:00am January 19, 2020 11:27am Comment on above: Take 1 tablet by tim once daily. Take [address] [facility] once daily. Multivitamin (Daily Multi-Vitamin) tablet (4 sources) Start: 3 take 1 tablet by mouth once daily Multivitamin (Daily Multi-Vitamin) tablet Active 1 TABLET PO DAILY June 22, 2022 1:00am multivitamin tablet (20 sources) Start: 3 take 1 tablet by mouth once daily multivitamin tablet Take 1 tablet by mouth once daily. 0 02/25/2013 Active Comment on above: Take 1 tablet by tim once daily. omeprazole 20 mg delayed release oral tablet (20 sources) Proton Pump Inhibitor Start: 3 take 2 tablets by mouth once daily before breakfast Omeprazole Magnesium (PRILOSEC OTC) 20 mg tablet Take 2 tablets by mouth daily before breakfast. 1/2 hr before meal. 12/05/2022 Active Start: 06-23-2022 take 40 mg by mouth once daily Omeprazole Active 40 MG PO DAILY June 23, 2022 1:00am Start: 09-12-2021 End: 12-05-2022 take 40 mg by mouth once daily Omeprazole Discontinued 40 MG PO DAILY June 22, 2022 1:00am June 23, 2022 11:08am Start: 05-28-2017 End: 09-12-2021 take 1 tablet by mouth once daily before breakfast Omeprazole Magnesium (PRILOSEC OTC) 20 mg tablet Indications: LPRD (laryngopharyngeal reflux disease) Take 1 tablet by mouth daily before breakfast. 1/2 hr before meal. 0 05/28/2017 09/12/2021 Discontinued (Cost of medication) Start: 02-08-2017 OMEPRAZOLE 20 MG [facility] OMEPRAZOLE [id number] Kailyn Taylor Start: 02-02-2015 End: 06-22-2022 take 20 mg by mouth once daily Omeprazole Discontinued 20 MG PO DAILY February 02, 2015 12:00am June 22, 2022 1:58pm Comment on above: Take 1 capsule by mo uth once daily. Take 1 tablet by tim daily before breakfast. 1/2 hr before meal. Take 2 tablets by mo uth daily before breakfast. 1/2 hr before meal. perflutren lipid microspheres 1.3 mL in NaCl (PF) 0.9% 10 mL injection (DEFINITY) (13 sources) Start: 06-07-2022 End: 09-06-2023 perflutren lipid microspheres 1.3 mL in NaCl (PF) 0.9% 10 mL injection (DEFINITY) 125 ml sodium chloride 9 mg/ml prefilled syringe (13 sources) Start: 06-07-2022 End: 09-06-2023 sodium chloride 0.9 % (flush) 10 mL (BD POSIFLUSH) Completed/Discontinued Medications Medication Drug Class(es) Dates Sig (Normalized) Sig (Original) aspirin 81 mg chewable tablet (6 sources) Platelet Aggregation Inhibitor, Nonsteroidal Anti-inflammatory Drug Start: 01-19-2020 End: 03-15-2021 take 81 mg by mouth once daily Aspirin Discontinued 81 MG PO DAILY January 19, 2020 12:00am March 15, 2021 10:30am chlorthalidone 25 mg oral tablet (10 sources) Thiazide-like Diuretic Start: 06-06-2021 End: 10-21-2021 take 0.5 tablet by mouth once daily chlorthalidone (HYGROTON) 25 mg tablet Take 0.5 tablets by mouth once daily. 45 tablet 3 06/06/2021 10/21/2021 Discontinued Start: 02-08-2017 CHLORTHALIDONE 25 MG TABS CHLORTHALIDONE [id number] Kailyn Taylor Start: 02-02-2015 End: 11-02-2021 take 12.5 mg by mouth once daily Chlorthalidone Discontinued 12.5 MG PO DAILY February 02, 2015 12:00am November 02, 2021 10:54am Comment on above: Take 0.5 tablets by mouth once daily. COMPOUNDED PRESCRIPTION (2 sources) Start: 06-12-2018 End: 10-21-2021 COMPOUNDED PRESCRIPTION Klor-con sprinkle cap 10 meq Take 1 to 2 by mouth once daily in juice or applesauce 180 capsule 3 06/12/2018 10/21/2021 Discontinued Start: 06-12-2018 COMPOUNDED PRE SCRIPTION Klor-con sprinkle cap 10 meq Take 1 to 2 by mouth once daily in juice or applesauce 180 capsule 3 06/12/2018 Active Comment on above: Klor-con sprinkle ca p 10 meq Take 1 to 2 by mouth once daily in juice or applesauce ibuprofen 200 mg oral tablet (6 sources) Nonsteroidal Anti-inflammatory Drug Start: End: 3 take 1 tablet by mouth every six hours Ibuprofen (Advil) 200 mg tablet Discontinued 200 MG PO EVERY 6 HOURS March 15, 2021 12:00am June 22, 2022 1:59pm magnesium chloride 535 mg delayed release oral tablet (20 sources) Start: End: 3 take 64 mg by mouth once daily Magnesium Chloride Discontinued 64 MG PO DAILY March 15, 2021 12:00am June 23, 2022 11:13am End: 06-07-2022 magnesium chloride (SLOW-MAG ORAL) Take by mouth once daily. 0 06/07/2022 Discontinued magnesium chlori de (SLOW-MAG ORAL) Take by mouth once daily. 0 Active Comment on above: Take by mouth once d aily. meclizine hydrochloride 12.5 mg oral tablet (6 sources) Antiemetic Start: 09-22-19 End: 03-15-20 21 take 12.5 mg by mouth three times daily as needed Meclizine Discontinued 12.5 MG PO 3 TIMES DAILY NEEDED September 22, 2019 12:00am March 15, 2021 10:33am meloxicam 15 mg oral tablet (20 sources) Nonsteroidal Anti-inflammatory Drug Start: 11-25-19 End: 06-11-19 take 15 mg by mouth once daily Meloxicam Discontinued 15 MG PO DAILY June 22, 2022 1:00am June 23, 2022 11:12am Start: 06-06-2021 End: 10-21-2021 take 1 tablet by mouth once daily at mealtime meloxicam (MOBIC) 15 mg tablet Take 1 tablet by mouth once daily. With food. 90 tablet 3 06/06/2021 10/21/2021 Discontinued Start: 03-15-2021 End: 06-22-2022 take 7.5 mg by mouth once daily Meloxicam Active 7.5 M G PO DAILY June 23, 2022 1:00am Comment on above: Take 1 tablet by tim th once daily. With food. Take 1 tablet by tim th once daily. With food. Currently taking as needed once daily -May 08, 2022 naproxen sodium 220 mg oral capsule (2 sources) Nonsteroidal Anti-inflammatory Drug Start: 02-08-2017 ALEVE 220 MG CAPS NAPROXEN SODIUM [id number] Kailyn M Taylor Start: 02-08-2017 ALEVE 220 MG C APS NAPROXEN SODIUM [id number] Kailyn M Taylor nitrofurantoin, macrocrystals 25 mg / nitrofurantoin, monohydrate 75 mg oral capsule (2 sources) Nitrofuran Antibacterial Start: 11-26-2022 End: 12-03-2022 take 1 capsule by mouth twice daily nitrofurantoin monohydrate and macrocrystal (MACROBID) 100 mg capsule Indications: Urinary frequency Take 1 capsule by mouth twice daily for 7 days. 14 capsule 0 11/26/2022 11/28/2022 Discontinued Comment on above: Take [address] [facility] twice daily for 7 days. [place]-3 Fatty Acids-Fish Oil (6 sources) Start: 02-02-2015 End: 02-11-2018 [place]-3 Fatty Acids-Fish Oil Discontinued 1 EACH PO DAILY February 02, 2015 8:07am February 11, 2018 2:05pm Start: 02-02-2015 End: 02-11-2018 [place]-3 Fatty Acids-Fish Oil Discontinued 1 EACH PO DAILY February 02, 2015 12:00am February 11, 2018 2:05pm Start: 02-02-2015 End: 02-11-2018 [place]-3 Fatty Acids-Fish Oil Discontinued 1 EACH PO DAILY February 01, 2015 11:00pm February 11, 2018 1:05pm Oxygen-Air Delivery Systems (5 sources) Start: 04-26-2022 End: 06-23-2022 Oxygen-Air Delivery Systems Discontinued 0 .Route April 26, 2022 1:00am June 23, 2022 11:03am As directed Start: 04-26-2022 Oxygen-Air Del ree Systems Active 0 .ROUTE April 26, 2022 12:00am As directed potassium chloride 10 meq extended release oral capsule (20 sources) Start: 10-28-2021 End: 12-05-2022 potassium chloride SR (MICRO -K) 10 mEq CR capsule Klor-con sprinkle cap 10 meq Take 1 to 2 capsules by mouth once daily in juice or applesauce 180 capsule 3 12/30/2021 12/05/2022 Discontinued Start: 04-18-2021 End: 10-21-2021 potassium chloride SR (MICRO -K) 10 mEq CR capsule Klor-con sprinkle cap 10 meq Take 1 to 2 by mouth once daily in juice or applesauce 180 capsule 3 04/18/2021 10/21/2021 Discontinued Start: 01-19-2020 End: 06-23-2022 Potassium Chloride (Klor-Con 10) 10 mEq tablet extended release Discontinued 10 MEQ PO DAILY January 19, 2020 12:00am June 23, 2022 11:15am Start: 02-08-2017 KLOR-CON M10 C R-TABS POTASSIUM CHLORIDE CLINT CR CR-TABS [id number] Kailyn Taylor Start: 02-08-2017 KLOR-CON M10 C R-TABS POTASSIUM CHLORIDE CLINT CR CR-TABS [id number] Kailyn Taylor Comment on above: Klor-con sprinkle ca p 10 meq Take 1 to 2 by mouth once daily in juice or applesauce Klor-con sprinkle ca p 10 meq Take 1 by mouth once daily in juice or applesauce Klor-con sprinkle ca p 10 meq Take 1 to 2 capsules by mouth once daily in juice or applesauce predniSONE 20 mg oral tablet (3 sources) Start: End: take 2 tablets by mouth once daily predniSONE (DELTASONE) 20 mg tablet Take 2 tablets by mouth once daily for 5 days. 10 tablet 0 02/10/2022 02/15/2022 Comment on above: Take 2 tablets by [facility] once daily for 5 days. raNITIdine 150 mg oral tablet (2 sources) Histamine-2 Receptor Antagonist Start: RANITIDINE HCL 150 MG TABS RANITIDINE HCL [id number] Kailyn M Claudia triamcinolone acetonide 0.25 mg/ml topical cream (6 sources) Corticosteroid Start: End: Triamcinolone Acetonide Discontinued 1 APPLIC TOPICAL DAILY March 15, 2021 12:00am June 22, 2022 1:59pm CHOLECALCIFEROL (2 sources) Start: VITAMIN D 1000 UNIT TABS CHOLECALCIFEROL [id number] Kailyn Mckinnone Start: 02-08-2017 VITAMIN D 1000 UNIT TABS CHOLECALCIFEROL [id number] Kailyn M Taylor Problems Active Problems Problem Classification Problem Date Documented Da te Episodic/Chronic Acquired foot deformities (1 source) Right foot drop; Translations: [Foot drop, right foot] 06-18-2024 Episodic Anxiety disorders (20 sources) Anxiety; Translations: [Anxiety disorder, unspecified] Onset: 1 05-18-2011 Chronic Cardiac dysrhythmias (20 sources) Atrial fibrillation; Translations: [Unspecified atrial fibrillation] Onset: 3 06-10-2022 Chronic Cardiac dysrhythmias (1 source) Palpitations; Translations: [Palpitations] Episodic Conditions associated with dizziness or vertigo (12 sources) Lightheadedness; Translations: [Dizziness and giddiness] 06-22-2022 Episodic Disorders of lipid metabolism (20 sources) Hyperlipidemia; Translations: [Hyperlipidemia, unspecified] Onset: 9 05-12-2009 Chronic Diverticulosis and diverticulitis (20 sources) Diverticulosis of colon; Translations: [Diverticulosis of large intestine without perforation or abscess without bleeding] Onset: 1 05-26-2010 Chronic Esophageal disorders (20 sources) Laryngopharyngeal reflux; Translations: [Gastro-esophageal reflux disease without esophagitis] Onset: 1 Chronic Essential hypertension (20 sources) Hypertensive disorder; Translations: [Essential (primary) hypertension] Onset: 2 09-14-2015 Chronic Heart valve disorders (20 sources) Rheumatic mitral valve disease, unspecified; Translations: [Mitral valve disorders] 02-24-2010 Chronic Heart valve disorders (1 source) Heart murmur; Translations: [Cardiac murmur, unspecified] Episodic Immunizations and screening for infectious disease (8 sources) Patient encounter status; Translations: [Encounter for immunization] Episodic Menopausal disorders (20 sources) Atrophic vaginitis; Translations: [Postmenopausal atrophic vaginitis] Onset: 7 Resolved: 9 04-11-2010 Chronic Occlusion or stenosis of precerebral arteries (4 sources) Bilateral stenosis of carotid arteries; Translations: [Occlusion and stenosis of bilateral carotid arteries] Onset: 5 Chronic Osteoarthritis (20 sources) Degenerative joint disease involving multiple joints; Translations: [Polyosteoarthritis, unspecified] Onset: 2 04-21-2015 Chronic Other bone disease and musculoskeletal deformities (7 sources) Osteopenia; Translations: [Other specified disorders of bone density and structure, unspecified forearm] Episodic Other female genital disorders (6 sources) Vulval irritation; Translations: [Other specified noninflammatory disorders of vulva and perineum] 06-22-2022 Episodic Other gastrointestinal disorders (20 sources) Irritable bowel syndrome; Translations: [Irritable bowel syndrome without diarrhea] Onset: 2 08-17-2011 Chronic Other gastrointestinal disorders (4 sources) Irritable bowel syndrome with diarrhea; Translations: [Irritable bowel syndrome with diarrhea] Chronic Other gastrointestinal disorders (20 sources) Dysphagia, unspecified; Translations: [Dysphagia, unspecified] 02-24-2010 Episodic Other nervous system disorders (3 sources) Neuropathy of lower limb; Translations: [Lesion of lateral popliteal nerve, right lower limb] 04-26-2022 Chronic Other nervous system disorders (7 sources) Polyneuropathy; Translations: [Polyneuropathy, unspecified] 04-26-2022 Chronic Other nervous system disorders (3 sources) Polyneuropathy, unspecified; Translations: [Unspecified hereditary and idiopathic peripheral neuropathy] Chronic Other nervous system disorders (3 sources) Lesion of lateral popliteal nerve, right lower limb; Translations: [Lesion of lateral popliteal nerve] Chronic Other nervous system disorders (2 sources) Neuropathy; Translations: [Polyneuropathy, unspecified] 12-05-2022 Chronic Other nervous system disorders (3 sources) Right leg peripheral neuropathy; Translations: [Lesion of lateral popliteal nerve, right lower limb] 04-26-2022 Chronic Other nervous system disorders (6 sources) Abnormal gait; Translations: [Unspecified abnormalities of gait and mobility] 06-22-2022 Episodic Other nervous system disorders (1 source) Unspecified abnormalities of gait and mobility; Translations: [Abnormality of gait] Episodic Other nutritional; endocrine; and metabolic disorders (20 sources) Hypomagnesemia; Translations: [Hypomagnesemia] Onset: 3 06-10-2022 Chronic Other nutritional; endocrine; and metabolic disorders (1 source) Hypomagnesemia; Translations: [Hypomagnesemia] Onset: 3 Chronic Other nutritional; endocrine; and metabolic disorders (2 sources) Weight gain; Translations: [Abnormal weight gain] Episodic Other skin disorders (1 source) Eruption; Translations: [Rash and other nonspecific skin eruption] Episodic Prolapse of female genital organs (20 sources) Incomplete uterovaginal prolapse; Translations: [Incomplete uterovaginal prolapse] Onset: 2 02-08-2017 Chronic Residual codes; unclassified (20 sources) Obstructive sleep apnea syndrome; Translations: [Obstructive sleep apnea (adult) (pediatric)] Onset: 1 05-16-2021 Chronic Residual codes; unclassified (6 sources) Sleep apnea; Translations: [Sleep apnea, unspecified] 06-23-2022 Chronic Residual codes; unclassified (20 sources) Insomnia; Translations: [Insomnia, unspecified] 02-24-2010 Episodic Residual codes; unclassified (4 sources) Postmenopausal state; Translations: [Asymptomatic menopausal state] Episodic Residual codes; unclassified (1 source) Bilateral lower limb edema; Translations: [Localized edema] 12-10-2023 Episodic Residual codes; unclassified (1 source) Asymptomatic menopausal state; Translations: [Asymptomatic postmenopausal status] Onset: Episodic Thyroid disorders (20 sources) Non-toxic uninodular goiter; Translations: [Nontoxic single thyroid nodule] Onset: 1 02-24-2010 Chronic Unclassified (3 sources) Screening mammography ; Translations: [Encounter for screening mammogram for malignant neoplasm of breast] Onset: 7 02-08-2017 Unclassified (3 sources) Gynecologic examination ; Translations: [Encounter for gynecological examination (general) (routine) with abnormal findings] Onset: 7 02-08-2017 Urinary tract infections (20 sources) Chronic cystitis; Translations: [Other chronic cystitis without hematuria] Onset: 0 04-11-2010 Chronic Varicose veins of lower extremity (2 sources) Lipodermatosclerosis; Translations: [Varicose veins of right lower extremity with inflammation] Episodic Past or Other Problems Problem Classification Problem Date Documented Da te Episodic/Chronic Acute bronchitis (12 sources) Acute bronchitis; Translations: [Acute bronchitis, unspecified] Onset: 10-30-2007 Resolved: 06-23-2008 06-23-2008 Episodic Diabetes mellitus without complication (3 sources) Increased glucose level; Translations: [Other abnormal glucose] Onset: 12-10-2023 12-05-2022 Episodic Fluid and electrolyte disorders (11 sources) Hyponatremia; Translations: [Hypo-osmolality and hyponatremia] Onset: 12-10-2023 Episodic Genitourinary symptoms and ill-defined conditions (20 sources) Blood in urine; Translations: [Hematuria, unspecified] Onset: 05-12-2009 05-12-2009 Episodic Other aftercare (1 source) Other snf (current) drug therapy; Translations: [Encounter for long-term current use of medication] Onset: 12-05-2023 Episodic Other bone disease and musculoskeletal deformities (1 source) Other specified disorders of bone density and structure, unspecified site; Translations: [Osteopenia, unspecified location] Onset: 12-10-2023 Episodic Other congenital anomalies (12 sources) Congenital anomaly of skin; Translations: [Other specified congenital malformations of skin] Onset: 03-09-2008 Resolved: 06-23-2008 06-23-2008 Chronic Other connective tissue disease (13 sources) History of repair of hip joint; Translations: [Presence of unspecified artificial hip joint] Onset: 01-02-2008 Resolved: 06-23-2008 06-23-2008 Chronic Other connective tissue disease (20 sources) Swelling of lower limb; Translations: [Other specified soft tissue disorders] Onset: 06-10-2022 Episodic Other diseases of bladder and urethra (20 sources) Urethral caruncle; Translations: [Urethral caruncle] Onset: 09-17-2006 02-24-2010 Episodic Residual codes; unclassified (1 source) Localized edema; Translations: [Bilateral lower extremity edema] Onset: 12-10-2023 Episodic Spondylosis; intervertebral disc disorders; other back problems (12 sources) Low back pain; Translations: [Lumbago] Resolved: 06-23-2008 06-23-2008 Episodic Results Test Name Value Interpretation Reference Range Facility [facility] 09-19-2024 [facility] Non-Invasive Vascular Laboratory [facility] Carotid Duplex Bilateral/Complete Date of service/time: 09/19/2024 3:25:25 PM Name: MRS. STEPHANIE KATZ Date of : 1935 Age: 88 years Gender: F Clinical Indication Follow-up study on a patient with known carotid disease. TECHNIQUE -------- A carotid duplex ultrasound examination was performed, including grayscale imaging and color Doppler and spectral Doppler examination of the below mentioned arteries. FINDINGS -------- RIGHT SIDE Common carotid artery: Origin: PSV: 161 cm/s. EDV: 19 cm/s. Proximal: PSV: 90 cm/s. EDV: 16 cm/s. Mid: PSV: 93 cm/s. EDV: 20 cm/s. Distal: PSV: 67 cm/s. EDV: 13 cm/s. Mild heterogeneous plaque at distal. Internal carotid artery: Origin: PSV: 50 cm/s. EDV: 11 cm/s. Proximal: PSV: 39 cm/s. EDV: 10 cm/s. Mid: PSV: 79 cm/s. EDV: 20 cm/s. Distal: PSV: 98 cm/s. EDV: 29 cm/s. Mild heterogeneous plaque at origin. ICA/CCA Ratio: 0.8 External carotid artery: Proximal: PSV: 76 cm/s. EDV: 11 cm/s. Mild heterogeneous plaque at origin. Subclavian artery: Proximal: PSV: 89 cm/s. EDV: 0 cm/s. Innominate artery: PSV: 49 cm/s. EDV: 0 cm/s. Vertebral artery: PSV: 56 cm/s. EDV: 9 cm/s. LEFT SIDE Common carotid artery: Proximal: PSV: 80 cm/s. EDV: 11 cm/s. Mid: PSV: 91 cm/s. EDV: 16 cm/s. Distal: PSV: 65 cm/s. EDV: 14 cm/s. Mild heterogeneous plaque at distal. Internal carotid artery: Origin: PSV: 122 cm/s. EDV: 23 cm/s. Proximal: PSV: 104 cm/s. EDV: 29 cm/s. Mid: PSV: 72 cm/s. EDV: 21 cm/s. Distal: PSV: 78 cm/s. EDV: 28 cm/s. Moderate heterogeneous plaque at origin. ICA/CCA Ratio: 1.9 External carotid artery: Proximal: PSV: 66 cm/s. EDV: 7 cm/s. calcified and shadowing plaque at origin. Subclavian artery: Proximal: PSV: 104 cm/s. EDV: 0 cm/s. Vertebral artery: PSV: 56 cm/s. EDV: 11 cm/s. IMPRESSION Please note: the new carotid interpretation criteria are used as recommended by [employer]. Irregular cardiac rhythm noted. When compared with the prior study, of 06/16/2022 no significant change is noted on the right side and no significant change is noted on the left side. Compared to prior study of 06/16/2022, Similar velocities to previous exam. RIGHT SIDE Common carotid artery: Plaque visualized without evidence of hemodynamically significant stenosis. Internal carotid artery: <50% stenosis consistent with mild carotid artery disease. External carotid artery: Patent. Vertebral artery: Patent and antegrade flow noted. Subclavian artery: Patent. LEFT SIDE Common carotid artery: Plaque visualized without evidence of hemodynamically significant stenosis. Internal carotid artery: <50% stenosis consistent with mild carotid artery disease. External carotid artery: Patent. Vertebral artery: Patent and antegrade flow noted. Subclavian artery: Patent. Technologist: Amanda Osei BA, RVT Ordering physician: KEVIN ELDER Interpreting physician: Bruno Urena MD, RPVI Final CC [facility] Image : [id number] DynamicsSISUID See Link below for Image Normal [facility] 12 Lead EKG performed by [facility] on 09-16-2024 12 Lead EKG performed by [facility] [address] [place] [address] 12 Lead EKG performed by [facility] 09/16/24 1535 MR#: [id number] Acct: [id number] Name: STEPHANIE KATZ Rep #: [id number] : 1935 88 From: Hemanth Smith MD Attending Dr: Dr. Hemanth Smith MD Status: DEP Byron HUNTER Ordering Dr: Hemanth Smith MD Date: 09/16/24 Location: [facility] Sex: F C Admitted: BMS/12 Lead EKG performed by [facility] ECG Report Interpretation ------Atrial fibrillation - occasional ectopic ventricular beat -Right bundle branch block with left axis -bifascicular block. Electronically signed on 09/22/2024 at 17:36 by Hemanth Smithwood Software Version [id number] 09/22/24 1741 Date Hemanth Smith MD CC: Dr. Kevin Elder MD Date Dictated: 09/16/241534 Date Transcribed: 09/16/241534 Electrical And Instrumentation Mechanic: CO Signed Normal [facility] Cardiology Visit Reporton Cardiology Visit Report [facility] [address] [place] [address] OFFICE VISIT Date of Service: 09/16/24 MR#: [id number] Acct: [id number] Name: STEPHANIE KATZ Rep #: [id number] : 1935 Provider: Dr. Hemanth Smith MD Age/Sex: 88/F Location: [facility] Status: Signed HPI HPI History of Present Illness Details: Pleasant 88-year-old active lady who presents for an evaluation regarding her cardiac condition. She had been seen previously for preoperative evaluation for her right knee however she was not able to undertake this because her needed shoulder replacement and she has postponed this. She however has been doing fairly well. As part of her previous workup she had undergone a stress test in August 2023 demonstrating no evidence of ischemia and an echocardiogram from the previous year demonstrated ejection fraction of 60%. She has remained in atrial fibrillation which is essentially unbeknownst to her. The EKG done today demonstrates atrial fibrillation with a rate of 75 bpm, right bundle branch block and premature ventricular complexes noted. She denies any chest pain paroxysmal nocturnal dyspnea or pedal edema no neck arm or jaw discomfort suggest angina. Physical exam demonstrates an irregular irregular heart rate. Intake Vital Signs 03/20/24 11:16 09/16/24 15:06 Height 5 ft 2 in 5 ft 2 in Weight: 138 lb 139 lb BMI 25.2 25.4 BP 126/72 H 112/63 Blood Pressure Location Lt brachial Lt brachial Position Sitting Sitting Respiration 16 16 Pulse 75 82 Pulse Source Monitor Monitor Intake Visit Reasons: 6 M FU Hair Specialist Required: No Accompanied by: Self Is patient in pain?: No Allergies Cephalosporins Allergy (Severe, Verified 09/16/24 15:10) Rash Penicillins (PCN) Allergy (Severe, Verified 09/16/24 15:10) Rash Sulfa (Sulfonamide Antibiotics) Allergy (Mild, Verified 09/16/24 15:10) Rash oxycodone (From Percocet) Adverse Reaction (Severe, Verified 09/16/24 15:10) Rash propoxyphene (From Darvocet-N 100) Adverse Reaction (Severe, Verified 09/16/24 15:10) Rash valdecoxib (From Bextra) Adverse Reaction (Mild, Verified 09/16/24 15:10) Nausea acetaminophen (From Vicodin) Adverse Reaction (Verified 09/16/24 15:10) Upset Stomach erythromycin base Adverse Reaction (Verified 09/16/24 15:10) Nausea hydrocodone (From Vicodin) Adverse Reaction (Verified 09/16/24 15:10) Upset Stomach Medications ???Medication ???Instructions ???Recorded ???Confirmed ???Type cholecalciferol (vitamin D3) 25 2,000 unit PO QHS 02/02/15 5 History mcg (1,000 unit) tablet hyoscyamine sulfate 0.125 mg tablet 0.125 mg PO BID-QID PRN Abdomin al 01/19/20 09/16/24 History Discomfort amlodipine 2.5 mg tablet 2.5 mg PO DAILY 06/22/22 09/16/24 History loperamide 2 mg capsule 2 mg PO BID PRN Diarrhea 06/22/22 09/16/24 History multivitamin (Daily Multi-Vitamin 1 tab PO DAILY 06/22/22 09/16/24 History tablet) acetaminophen 500 mg tablet 500 mg PO BID PRN 06/23/22 5 History (Tylenol Extra Strength) amiloride 5 mg tablet 5 mg PO Q OTHER DAY 06/23/2209/16 History furosemide 20 mg tablet 20 mg PO Q OTHER DAY 06/23/2208/20 History omeprazole 20 mg capsule,delayed 40 mg PO DAILY 06/23/22 09/16/24 H istory release ezetimibe 10 mg tablet 5 mg PO QHS 08/17/23 09/16/24 Hist ory apixaban 5 mg tablet (Eliquis) 5 mg PO BID #180 tabs 09/16/24 Rx atorvastatin 20 mg tablet 20 mg PO Q OTHER DAY 09/16/2408/20 History metoprolol succinate 25 mg 50 mg PO QDAY 09/16/24 09/16/24 Hi story tablet,extended release 24 hr (Toprol XL) Have you fallen in the past year?: Yes PFSH Medical History Venous insufficiency Abnormality of gait and mobility Heart valve problem Vision problems Skin cancer GERD (gastroesophageal reflux disease) Pneumonia Osteoarthritis Heart murmur Hives High cholesterol History of hearing problem History of goiter History of cataract History of breast lump History of UTI Vulvar irritation Vertigo Abnormal Papanicolaou smear of cervix Back problem Thyroid disease Faint heart murmur IBS (irritable bowel syndrome) Gastrointestinal complaints Arthritis Irritable colon Essential (primary) hypertension Surgical History H/O breast biopsy H/O cataract removal with insertion of prosthetic lens History of hip replacement Family History Unknown Osteoporosis Heart disease Hypertension Mother Hypertension Social History Smoking Status: Never smoker alcohol intake: current alcohol i (more content not included)... Normal [facility] 08-19-2024 [facility] Telephone (INTMWS) STEPHANIE KATZ ([id number]) 1935 F Date Time Provider Department 08/19/24 KEVIN ELDER INTMWS During your visit today, we recorded the following information about you: Ju Chi RN 08/19/2024 10:33 AM Signed Patient calls to ask about results of bone density testing completed 08/07/2024. Patient reviewed results on and asking if results compared to 06/19/2022 were improved. Impression at that time showed osteopenia of left forearm. Patient reports taking calcium gummies daily but uncertain of the dose. AHMET Rodriguez Terri, INTERLOCKING AND SIGNAL MECHANIC.TRADE MANAGER 08/19/2024 12:18 PM Signed Current BMD shows normal bone density. Andressa Bustos LPN 08/19/2024 1:36 PM Signed Patient notified of providers message and verbalized understanding Allergies As of Date: 08/19/2024 Noted Allergy Reaction BEXTRA (VALDECOXIB) 08/31/2005 4 - Hives CEPHALOSPORINS 02/25/2013 2 - Rash DARVOCET A500 (PROPOXYPHENE N-RIDGE*2007 2 - Rash ERYTHROMYCIN 08/31/2005 4 - Hives PENICILLINS 05/19/2005 4 - Hives PERCOCET (OXYCODONE-ACETAMINO PHEN)03/29/2010 5 - Intolerance PRAVASTATIN 06/03/2013 14 - Other: See Comments Comments: myalgias SULFA (SULFONAMIDE ANTIBIOTICS) 05/19/2005 4 - Hives Date Reviewed: 06/18/2024 Reviewed by: Neida Graves LPN - Fully Assessed Reason for Visit: Results [95] Prescriptions as of 08/19/2024 - acetaminophen (TYLENOL EXTRA STRENGTH) 500 mg tablet Take 500 mg by mouth every 8 hours as needed. - amLODIPine (NORVASC) 2.5 mg tablet Take 1 tablet by mouth once daily. - metoprolol succinate ER (TOPROL XL) 25 mg 24 hr tablet Take 2 tablets by mouth once daily. - furosemide (LASIX) 20 mg tablet Take 1 tablet by mouth once daily. Take in the morning. As directed - loperamide (IMODIUM) 2 mg cap(s) Take 1 capsule by mouth two times a day. - ezetimibe (ZETIA) 10 mg tablet Take 0.5-1 tablets by mouth once daily. As directed - atorvastatin (LIPITOR) 20 mg tablet Take 1 tablet by mouth daily at bedtime. As directed - aMILoride (MIDAMOR) 5 mg tablet Take 1 tablet by mouth once daily. When takes Lasix - ELIQUIS 5 mg tab(s) Take 1 tablet by mouth two times a day. - Omeprazole Magnesium (PRILOSEC OTC) 20 mg tablet Take 2 tablets by mouth daily before breakfast. 1/2 hr before meal. - ciprofloxacin HCl (CIPRO) 250 mg tablet Take 2 tablets by mouth twice daily. - hyoscyamine sublingual (LEVSIN SL) 0.125 mg Dissolve 1 tablet under the tongue every 4 hours as needed. - Cholecalciferol, Vitamin D3, 1,000 unit cap Take 2 capsules by mouth once daily. - multivitamin tablet Take 1 tablet by mouth once daily. - CPAP AutoPAP 5-15 cmH2O, [place] mask suggested, humidity, filters. Lifetime supplies. Dx: [phone]. Fax compliance rpt to Dr. Gongora in 8 weeks. Problem List As Of Date 08/19/2024 Noted Resolved LUMBAGO [M54.50] 06/23/2008 Primary osteoarthritis involving multiple joint* INSOMNIA NOS [G47.00] MITRAL VALVE DISORDER [I05.9] NONTOX UNINODULAR GOITER [E04.1] URETHRAL CARUNCLE [N36.2] 09/17/2006 ATROPHIC VAGINITIS [N95.2] 04/22/2007 06/23/2008 DYSPHAGIA NOS [R13.10] ACUTE BRONCHITIS [J20.9] 10/30/2007 06/23/2008 HIP REPLACEMENT [Z96.649] 01/02/2008 06/23/2008 SKIN ANOMALY NEC [Q82.8] 03/09/2008 06/23/2008 Hyperlipidemia [E78.5] 05/12/2009 Hematuria [R31.9] 05/12/2009 Postmenopausal atrophic vaginitis [N95.2] 04/11/2010 Other chronic cystitis [N30.20] 04/11/2010 Diverticulosis of colon (without mention of hem*05/26/2010 ZO (obstructive sleep apnea) [G47.33] 12/22/2010 Thyroid nodule [E04.1] 12/22/2010 GERD (gastroesophageal reflux disease) [K21.9] 12/22/2010 Anxiety [F41.9] 05/18/2011 IBS (irritable bowel syndrome) [K58.9] 08/17/2011 Uterovaginal prolapse, incomplete [N81.2] 01/31/2012 Left Hip arthritis [M16.10] 04/09/2012 Hypertension goal BP (blood pressure) < 150/90 *04/09/2012 Atrial fibrillation (HCC) [I48.91] 06/10/2022 Hypomagnesemia [E83.42] 06/10/2022 Leg swelling [M79.89] 06/10/2022 Encounter Status:Closed by MARY, ANDRESSA on 08/19/24 Normal [facility] BD DXA - AXIAL SKELETONon BD DXA - AXIAL SKELETON * * *Final Report* * * DATE OF EXAM: Aug 07 2024 11:45AM AMBER 0804 - BD DXA - AXIAL SKELETON / PROCEDURE REASON: Asymptomatic postmenopausal status * * * * Physician Interpretation * * * * EXAMINATION: DXA BONE DENSITOMETRY BD DXA - AXIAL SKELETON, BD DXA TRABECLR BONE SCORE (TBS) PATIENT DEMOGRAPHICS: Age: 88 years, Gender: Female SCANNER INFORMATION: DXA Model: [employer] C 73765 Date Scanned: 08/07/2024 11:45 AM CLINICAL HISTORY: SCREENING Asymptomatic postmenopausal status . RISK FACTORS FOR OSTEOPOROSIS AND ASSOCIATED FRACTURES REPORTED BY THIS PATIENT: Please refer to Bone Health Questionnaire in the EMR CURRENT THERAPY: Please refer to Bone Health Questionnaire in the EMR TECHNICAL LIMITATIONS: Degenerative disease of the spine RESULTS: Lumbar spine (L1, L2, L4): 1.103 g/cm2, T-score 0.6 , Z-score 3.5 Accurate comparison is not possible as different levels were measured between the 2 studies. Left Forearm, Distal 1/3 of Radius: 0.672 g/cm2, T-score -0.4 , Z-score Left Forearm: 2022 : 0.625 g/cm2 Statistically significant increase CHANGE IS STATISTICALLY SIGNIFICANT IN THE SPINE OR HIP IF GREATER THAN OR EQUAL TO 0.04 g/cm2 VERTEBRAL FRACTURE ASSESSMENT Not performed. TRABECULAR BONE ASSESSMENT TBS score: 1.427 Bone micro-architecture: Normal (> 1.310) IMPRESSION: THE LOWEST T-SCORE IS -0.4 IN THE LEFT FOREARM 1) DIAGNOSIS (based on BMD alone): NORMAL BONE DENSITY - Caution: Medical conditions other than osteoporosis may cause low bone density, such as osteomalacia or renal osteodystrophy. Clinical correlation is necessary. 2) FRACTURE RISK (based on BMD alone) - NOT INCREASED - Caution: Fracture risk may be increased independent of BMD in patients with corticosteroid use, age greater than 65 years, or a history of prior fragility fracture. - FRAX was not calculated: no hip scan performed RECOMMENDATIONS: Follow-up in 2 years or as clinically indicated. Patients that are taking corticosteroids, are transplant recipients or have hyperparathyroidism should have annual follow-up. Follow-up scans should always be done on the same machine for accurate comparison. FOR MORE INFORMATION ABOUT DIAGNOSIS AND TREATMENT: [facility]abolic Bone Disease:? [email or web address].org/otoniel mead/toreyo National Osteoporosis Foundation:? www.nof.org International Society of Clinical Densitometry www.iscd.org Electrical And Instrumentation Mechanic: TAHIR Transcribe Date/Time: Aug 10 2024 12:09P Dictated by : ADRIA MANUEL MD This examination was interpreted and the report reviewed and electronically signed by: ADRIA MANUEL MD on Aug 10 2024 12:12PM EST [id number] CN -0.4 Normal [facility] BD DXA TRABECLR BONE SCORE ( TBS)on 08-07-2024 BD DXA TRABECLR BONE SCORE (TBS) * * *Final Report* * * DATE OF EXAM: Aug 07 2024 11:45AM WRB [id number] - BD DXA TRABECLR BONE SCORE (TBS) / PROCEDURE REASON: Asymptomatic postmenopausal status * * * * Physician Interpretation * * * * EXAMINATION: DXA BONE DENSITOMETRY BD DXA - AXIAL SKELETON, BD DXA TRABECLR BONE SCORE (TBS) PATIENT DEMOGRAPHICS: Age: 88 years, Gender: Female SCANNER INFORMATION: DXA Model: [employer] - [employer] Discovery C [id number] Date Scanned: 08/07/2024 11:45 AM CLINICAL HISTORY: SCREENING Asymptomatic postmenopausal status . RISK FACTORS FOR OSTEOPOROSIS AND ASSOCIATED FRACTURES REPORTED BY THIS PATIENT: Please refer to Bone Health Questionnaire in the EMR CURRENT THERAPY: Please refer to Bone Health Questionnaire in the EMR TECHNICAL LIMITATIONS: Degenerative disease of the spine RESULTS: Lumbar spine (L1, L2, L4): 1.103 g/cm2, T-score 0.6 , Z-score 3.5 Accurate comparison is not possible as different levels were measured between the 2 studies. Left Forearm, Distal 1/3 of Radius: 0.672 g/cm2, T-score -0.4 , Z-score Left Forearm: 2022 : 0.625 g/cm2 Statistically significant increase CHANGE IS STATISTICALLY SIGNIFICANT IN THE SPINE OR HIP IF GREATER THAN OR EQUAL TO 0.04 g/cm2 VERTEBRAL FRACTURE ASSESSMENT Not performed. TRABECULAR BONE ASSESSMENT TBS score: 1.427 Bone micro-architecture: Normal (> 1.310) IMPRESSION: THE LOWEST T-SCORE IS -0.4 IN THE LEFT FOREARM 1) DIAGNOSIS (based on BMD alone): NORMAL BONE DENSITY - Caution: Medical conditions other than osteoporosis may cause low bone density, such as osteomalacia or renal osteodystrophy. Clinical correlation is necessary. 2) FRACTURE RISK (based on BMD alone) - NOT INCREASED - Caution: Fracture risk may be increased independent of BMD in patients with corticosteroid use, age greater than 65 years, or a history of prior fragility fracture. - FRAX was not calculated: no hip scan performed RECOMMENDATIONS: Follow-up in 2 years or as clinically indicated. Patients that are taking corticosteroids, are transplant recipients or have hyperparathyroidism should have annual follow-up. Follow-up scans should always be done on the same machine for accurate comparison. FOR MORE INFORMATION ABOUT DIAGNOSIS AND TREATMENT: [facility] Metabolic Bone Disease:? [email or web address].org/otoniel mead/osteo National Osteoporosis Foundation:? www.nof.org International Society of Clinical Densitometry www.iscd.org Electrical And Instrumentation Mechanic: TAHIR Transcribe Date/Time: Aug 10 2024 12:09P Dictated by : ADRIA MANUEL MD This examination was interpreted and the report reviewed and electronically signed by: ADRIA MANUEL MD on Aug 10 2024 12:12PM EST [id number] CN -0.4 Normal [facility] CNOVon 06-18-2024 CNOV Office Visit (INTMWS) STEPHANIE KATZ ([id number]) 1935 F Date Time Provider Department 06/18/24 8:20 AM KEVIN ELDER INTMWS During your visit today, we recorded the following information about you: Pulse Blood pressure Weight Height 78/minute 120/70 62.8 kg 1.549 m Kevin Elder MD 06/18/2024 9:52 AM Signed This note was created using Fluidnetriter. Subjective Stephanie Katz is a 88 year old female. HISTORY Stephanie Katz is a 88 year old lady here for Medicare Annual Wellness Visit, yearly exam and follow up appointment. Stephanie Katz is an 88-year-old female, with a history of arthritis, drop foot, and chronic A-fib, presenting for a Medicare Annual Wellness Visit. Stephanie reports worsening right knee pain secondary to arthritis, which is exacerbated by movement and pressure. She is considering a knee replacement but has mixed feelings due to her 's recent difficult recovery from a shoulder implant revision. She also reports stiffness and difficulty moving her right ankle, as well as drop foot, which affects her balance and mobility. She experiences numbness and pain in her feet, particularly during pedicures, and is unsure if these symptoms are due to arthritis or neuropathy. She has been advised by her orthopedic surgeon, Dr. Fisher, to consider using a walker due to her balance issues. Stephanie also reports fatigue and daytime sleepiness, which she attributes to sleep apnea and chronic A-fib. She uses a CPAP machine at night and takes naps during the day to manage her fatigue. She denies any current feelings of depression or suicidal ideation, but does report occasional stress. She has a history of diabetes and is concerned about her blood sugar levels, especially after the holidays. She also has a family history of osteoporosis and is conscious of maintaining her bone health. She reports difficulty exercising due to her knee pain but tries to stay active. Stephanie is currently taking several medications, including amiloride, furosemide, atorvastatin, Zetia, and Eliquis. She reports no issues with her medications and feels they are effective. She has recently increased her dose of atorvastatin to 4 times a week and is no longer taking Estrace, having switched to a compounded vaginal cream. She has a history of carotid artery stenosis, with her last ultrasound in May 2022 showing 20-39% stenosis on the right side and 40-59% on the left side. She is also due for a bone density scan, with her last scan in May 2022. She reports good vision and hearing, with regular check-ups. She has had a mild case of COVID-19 in February and has received all recommended boosters. She is unsure if she has had a tetanus shot in the past 10 years. She reports a healthy diet, with lots of fruits and vegetables, and very seldom drinks alcohol. She denies smoking or vaping. She has advanced directives in place, with her as her healthcare power of insurance attorney. 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 amLODIPine (NORVASC) 2.5 mg tablet Take 1 tablet by mouth once daily. metoprolol succinate ER (TOPROL XL) 25 mg 24 hr tablet Take 2 tablets by mouth once daily. furosemide (LASIX) 20 mg tablet Take 1 tablet by mouth once daily. Take in the morning. As directed loperamide (IMODIUM) 2 mg cap(s) Take 1 capsule by mouth two times a day. ezetimibe (ZETIA) 10 mg tablet Take 0.5-1 tablets by mouth once daily. As directed atorvastatin (LIPITOR) 20 mg tablet Take 1 tablet by mouth daily at bedtime. As directed (Patient taking differently: Take 20 mg by mouth every other day. As directed) aMILoride (MIDAMOR) 5 mg tablet Take 1 tablet by mouth once daily. When takes Lasix (Patient taking differently: Take 5 mg by mouth every other day. When takes Lasix) ELIQUIS 5 mg tab(s) Take 1 tablet by mouth two times a day. Omeprazole Magnesium (PRILOSEC OTC) 20 mg tablet Take 2 tablets by mouth daily before breakfast. 1/2 hr before m (more content not included)... Normal [facility] 25(OH)D3 [facility] 2024 25-hydroxyvitamin D3 [Mass/Vol] 48.5 ng/mL Normal 31.0-80.0 [facility] Comment on above: Order Comment: Speci men Type: BLOOD SPECIMEN Ordering Facility: [facility] Address: [address] [place] [address] Performed By: #### 1 989-3 #### [facility] CLIA [id number] [address] [place] [address] [place] CBC panel Auto (Bld)on 06-11 Erythrocyte distribution width (RBC) [Ratio] 13.2 % Normal 11.5-15.0 [facility] Comment on above: Order Comment: Speci men Type: BLOOD SPECIMEN Ordering Facility: [facility] Address: [address] [place] [address] Performed By: #### 5 8410-2 #### [facility] CLIA [id number] [address] [place] [address] [place] Hematocrit (Bld) [Volume fraction] 40.9 % Normal 36.0-46.0 [facility] Comment on above: Order Comment: Speci men Type: BLOOD SPECIMEN Ordering Facility: [facility] Address: [address] [place] [address] Performed By: #### 5 8410-2 #### [facility] CLIA [id number] [address] [place] [address] [place] Hemoglobin (Bld) [Mass/Vol] 13.3 g/dL Normal 11.5-15.5 [facility] Comment on above: Order Comment: Speci men Type: BLOOD SPECIMEN Ordering Facility: [facility] Address: [address] [place] [address] Performed By: #### 5 8410-2 #### [facility] CLIA [id number] [address] [place] [address] [place] MCH (RBC) [Entitic mass] 30.4 pg Normal 26.0-34.0 [facility] Comment on above: Order Comment: Speci men Type: BLOOD SPECIMEN Ordering Facility: [facility] Address: [address] [place] [address] Performed By: #### 5 8410-2 #### [facility] CLIA [id number] [address] [place] [address] [place] MCHC (RBC) [Mass/Vol] 32.5 g/dL Normal 30.5-36.0 [facility] Comment on above: Order Comment: Speci men Type: BLOOD SPECIMEN Ordering Facility: [facility] Address: [address] [place] [address] Performed By: #### 5 8410-2 #### [facility] CLIA [id number] [address] [place] [address] [place] MCV (RBC) [Entitic vol] 93.4 fL Normal 80.0-100.0 [facility] Comment on above: Order Comment: Speci men Type: BLOOD SPECIMEN Ordering Facility: [facility] Address: [address] [place] [address] Performed By: #### 5 8410-2 #### [facility] CLIA [id number] [address] [place] [address] [place] Nucleated RBC (Bld) [#/Vol] 10*3/uL Normal <0.01 [facility] Comment on above: Order Comment: Speci men Type: BLOOD SPECIMEN Ordering Facility: [facility] Address: [address] [place] [address] Performed By: #### 5 8410-2 #### [facility] CLIA [id number] [address] [place] [address] [place] Platelet mean volume (Bld) [Entitic vol] 9.4 fL Normal 9.0-12.7 [facility] Comment on above: Order Comment: Speci men Type: BLOOD SPECIMEN Ordering Facility: [facility] Address: [address] [place] [address] Performed By: #### 5 8410-2 #### [facility] CLIA [id number] [address] [place] [id number] [place] Platelets (Bld) [#/Vol] 193 10*3/uL Normal 150-400 [facility] Comment on above: Order Comment: Speci men Type: BLOOD SPECIMEN Ordering Facility: [facility] Address: [address] [place] [address] Performed By: #### 5 8410-2 #### [facility] CLIA [id number] [address] [place] [address] [place] RBC (Bld) [#/Vol] 4.38 10*6/uL Normal 3.90-5.20 [facility] Comment on above: Order Comment: Speci men Type: BLOOD SPECIMEN Ordering Facility: [facility] Address: [address] [place] [address] Performed By: #### 5 8410-2 #### [facility] CLIA [id number] [address] [place] [address] [place] WBC (Bld) [#/Vol] 5.19 10*3/uL Normal 3.70-11.00 [facility] Comment on above: Order Comment: Speci men Type: BLOOD SPECIMEN Ordering Facility: [facility] Address: [address] [place] [address] Performed By: #### 5 8410-2 #### [facility] CLIA [id number] [address] [place] [address] [place] Comprehensive metabolic 2000 panelon 06-11-2024 Albumin [Mass/Vol] 4.5 g/dL Normal 3.9-4.9 [facility] Comment on above: Order Comment: Speci men Type: BLOOD SPECIMEN Ordering Facility: [facility] Address: [address] [place] [address] Performed By: #### 5 7021-8 #### [facility] CLIA [id number] [address] [place] [address] [place] ALP [Catalytic activity/Vol] 70 U/L Normal 34-123 [facility] Comment on above: Order Comment: Speci men Type: BLOOD SPECIMEN Ordering Facility: [facility] Address: [address] [place] [address] Performed By: #### 5 7021-8 #### [facility] CLIA [id number] [address] [place] [address] [place] ALT [Catalytic activity/Vol] 19 U/L Normal 7-38 [facility] Comment on above: Order Comment: Speci men Type: BLOOD SPECIMEN Ordering Facility: [facility] Address: [address] [place] [address] Performed By: #### 5 7021-8 #### [facility] CLIA [id number] [address] [place] [address] [place] Anion gap [Moles/Vol] 10 mmol/L Normal 8-15 [facility] Comment on above: Order Comment: Speci men Type: BLOOD SPECIMEN Ordering Facility: [facility] Address: [address] [place] [address] Performed By: #### 5 7021-8 #### [facility] CLIA [id number] [address] [place] [address] [place] AST [Catalytic activity/Vol] 26 U/L Normal 13-35 [facility] Comment on above: Order Comment: Speci men Type: BLOOD SPECIMEN Ordering Facility: [facility] Address: [address] [place] [address] Performed By: #### 5 7021-8 #### [facility] CLIA [id number] [address] [place] [address] [place] Bilirubin [Mass/Vol] 0.6 mg/dL Normal 0.2-1.3 [facility] Comment on above: Order Comment: Speci men Type: BLOOD SPECIMEN Ordering Facility: [facility] Address: [address] [place] [address] Performed By: #### 5 7021-8 #### [facility] CLIA [id number] [address] [place] [address] [place] Calcium [Mass/Vol] 9.4 mg/dL Normal 8.5-10.2 [facility] Comment on above: Order Comment: Speci men Type: BLOOD SPECIMEN Ordering Facility: [facility] Address: [address] [place] [address] Performed By: #### 5 7021-8 #### [facility] CLIA [id number] [address] [place] [address] [place] Chloride [Moles/Vol] 100 mmol/L Normal 98-107 [facility] Comment on above: Order Comment: Speci men Type: BLOOD SPECIMEN Ordering Facility: [facility] Address: [address] [place] [address] Performed By: #### 5 7021-8 #### [facility] CLIA [id number] [address] [place] [address] [place] CO2 [Moles/Vol] 28 mmol/L Normal 22-30 [facility] Comment on above: Order Comment: Speci men Type: BLOOD SPECIMEN Ordering Facility: [facility] Address: [address] [place] [address] Performed By: #### 5 7021-8 #### [facility] CLIA [id number] [address] [place] [address] [place] Creatinine [Mass/Vol] 0.68 mg/dL Normal 0.58-0.96 [facility] Comment on above: Order Comment: Speci men Type: BLOOD SPECIMEN Ordering Facility: [facility] Address: [address] [place] [address] Performed By: #### 5 7021-8 #### [facility] CLIA [id number] [address] [place] [address] [place] Creatinine and Glomerular filtration rate.predicted panel (S/P/Bld) 84 mL/min/1.73m??? Normal >=60 [facility] Comment on above: Order Comment: Tye gray Type: BLOOD SPECIMEN Ordering Facility: [facility] Address: [address] [place] [address] Result Comment: Bibi mated Glomerular Filtration Rate (eGFR) is calculated using the 2020 CKD-EPI creatinine equation. This equation utilizes serum creatinine, sex, and age as parameters. The creatinine assay has traceable calibration to isotope dilution-mass spectrometry. Refer to KDIGO guidelines for clinical interpretation. In patients with unstable renal function, e.g. those with acute kidney injury, the eGFR may not accurately reflect actual GFR. Performed By: #### 5 7021-8 #### [facility] CLIA [id number] [address] [place] [address] [place] Glucose [Mass/Vol] 101 mg/dL High 74-99 [facility] Comment on above: Order Comment: Tye gray Type: BLOOD SPECIMEN Ordering Facility: [facility] Address: [address] [place] [address] Result Comment: The [place] Diabetes Association (ADA) provides guidance for cutoff values for fasting glucose and random glucose. The ADA defines fasting as no caloric intake for at least 8 hours. Fasting plasma glucose results between 100 to 125 mg/dL indicate increased risk for diabetes (prediabetes). Fasting plasma glucose results greater than or equal to 126 mg/dL meet the criteria for diagnosis of diabetes. In the absence of unequivocal hyperglycemia, results should be confirmed by repeat testing. In a patient with classic symptoms of hyperglycemia or hyperglycemic crisis, random plasma glucose results greater than or equal to 200 mg/dL meet the criteria for diagnosis of diabetes. Reference: Standards of Medical Care in Diabetes 2016, [place] Diabetes Association. Diabetes Care. 2016.39(Suppl 1). Performed By: #### 5 7021-8 #### [facility] CLIA [id number] [address] [place] [address] [place] Potassium [Moles/Vol] 4.3 mmol/L Normal 3.7-5.1 [facility] Comment on above: Order Comment: Tye gray Type: BLOOD SPECIMEN Ordering Facility: [facility] Address: [address] [place] [address] Performed By: #### 5 7021-8 #### [facility] CLIA [id number] [address] [place] [address] [place] Protein [Mass/Vol] 7.5 g/dL Normal 6.3-8.0 [facility] Comment on above: Order Comment: Speci men Type: BLOOD SPECIMEN Ordering Facility: [facility] Address: [address] [place] [address] Performed By: #### 5 7021-8 #### [facility] CLIA [id number] [address] [place] [address] [place] Sodium [Moles/Vol] 138 mmol/L Normal 136-144 [facility] Comment on above: Order Comment: Speci men Type: BLOOD SPECIMEN Ordering Facility: [facility] Address: [address] [place] [address] Performed By: #### 5 7021-8 #### [facility] CLIA [id number] [address] [place] [address] [place] Urea nitrogen [Mass/Vol] 20 mg/dL Normal 7-21 [facility] Comment on above: Order Comment: Speci men Type: BLOOD SPECIMEN Ordering Facility: [facility] Address: [address] [place] [address] Performed By: #### 5 7021-8 #### [facility] IA [id number] [address] [place] [address] [place] HbA1c (Bld)on 06-11-2024 Average glucose Estimated from glycated hemoglobin (Bld) [Mass/Vol] 111 mg/dL Normal [facility] Comment on above: Order Comment: Speci men Type: BLOOD SPECIMEN Ordering Facility: [facility] Address: [address] [place] [address] Result Comment: eAG: (Estimated average glucose) is a calculated value from HgbA1c and is labor service representative of the average blood glucose level in the last 2-3 month period. Performed By: #### 5 7021-8 #### [facility] CLIA [id number] [address] [place] [address] [place] HbA1c (Bld) [Mass fraction] 5.5 % Normal 4.3-5.6 [facility] Comment on above: Order Comment: Tye gray Type: BLOOD SPECIMEN Ordering Facility: [facility] Address: [address] [place] [address] Result Comment: [place] Diabetes Association guidelines indicate that patients with HgbA1c in the range 5.7-6.4% are at increased risk for development of diabetes, and intervention by lifestyle modification may be beneficial. HgbA1c greater or equal to 6.5% is considered diagnostic of diabetes. Performed By: #### 5 7021-8 #### [facility] CLIA [id number] [address] [place] [address] [place] Lipid 1996 panelon 5 Cholesterol [Mass/Vol] 155 mg/dL Normal <200 [facility] Comment on above: Order Comment: Tye gray Type: BLOOD SPECIMEN Ordering Facility: [facility] Address: [address] [place] [address] Result Comment: <200 mg/dL, Desirable 200-239 mg/dL, Borderline high >239 mg/dL, High Performed By: #### 5 7021-8 #### [facility] CLIA [id number] [address] [place] [address] [place] Cholesterol in HDL [Mass/Vol] 71 mg/dL Normal >39 [facility] Comment on above: Order Comment: Tye gray Type: BLOOD SPECIMEN Ordering Facility: [facility] Address: [address] [place] [address] Result Comment: 40-5 9 mg/dL, Acceptable >59 mg/dL, High: Negative risk factor for coronary heart disease <40 mg/dL, Low: Positive risk factor for coronary heart disease Performed By: #### 5 7021-8 #### [facility] CLIA [id number] [address] [place] [address] [place] Cholesterol in LDL [Mass/Vol] 69 mg/dL Normal <100 [facility] Comment on above: Order Comment: Tye gray Type: BLOOD SPECIMEN Ordering Facility: [facility] Address: [address] [place] [address] Result Comment: <100 mg/dL, Optimal 100-129 mg/dL, Near optimal/above optimal 130-159 mg/dL, Borderline high 160-189 mg/dL, High >189 mg/dL, Very high Secondary prevention optimal LDL Cholesterol levels are recommended to be < 70 mg/dL Performed By: #### 5 7021-8 #### [facility] CLIA [id number] [address] [place], [place] [address]K [address] [place] [facility] Cholesterol in LDL/Cholesterol in HDL [Mass ratio] 0.97 {ratio} Normal <2.54 [facility] Comment on above: Order Comment: Tye gray Type: BLOOD SPECIMEN Ordering Facility: [facility] Address: [address] [place] [address] Result Comment: Abbi rangel: 1. National Cholesterol Education Program ATP III Guideline At-A-Glance Quick Desk Reference: National Heart, Lung, and Blood [place]. National Institutes of Health. 2001: NIH Publication No. 01-3305. 2. An International Atherosclerosis Society position paper: global recommendations for the management of dyslipidemia: executive summary, Atherosclerosis. 2014: 232(2):410-413. Performed By: #### 5 7021-8 #### [facility] CLIA [id number] [address] [place] [address] [place] Cholesterol in VLDL [Mass/Vol] 15 mg/dL Normal <30 [facility] Comment on above: Order Comment: Divyai men Type: BLOOD SPECIMEN Ordering Facility: [facility] Address: [address] [place] [address] Performed By: #### 5 7021-8 #### [facility] CLIA [id number] [address] [place], [place] [address] [address] [place] Cholesterol non HDL [Mass/Vol] 84 mg/dL Normal <130 [facility] Comment on above: Order Comment: Speci men Type: BLOOD SPECIMEN Ordering Facility: [facility] Address: [address] [place] [address] Result Comment: <130 mg/dL, Optimal 130-159 mg/dL, Near optimal/above optimal 160-189 mg/dL, Borderline high 190-219 mg/dL, High >219 mg/dL, Very high Secondary prevention optimal non HDL Cholesterol levels are recommended to be <100 mg/dL Performed By: #### 5 7021-8 #### [facility] CLIA [id number] [address] [place] [address] [place] Cholesterol.total/C holesterol in HDL [Mass ratio] 2.18 {ratio} Normal <5.10 [facility] Comment on above: Order Comment: Speci men Type: BLOOD SPECIMEN Ordering Facility: [facility] Address: [address] [place] [address] Performed By: #### 5 7021-8 #### [facility] CLIA [id number] [address] [place] [address] [place] FASTING TIME 12 hrs Normal [facility] Comment on above: Order Comment: Speci men Type: BLOOD SPECIMEN Ordering Facility: [facility] Address: [address] [place] [address] Performed By: #### 5 7021-8 #### [facility] CLIA [id number] [address] [place] [address] [place] Triglyceride [Mass/Vol] 75 mg/dL Normal <150 [facility] Comment on above: Order Comment: Speci men Type: BLOOD SPECIMEN Ordering Facility: [facility] Address: [address] [place] [address] Result Comment: <150 mg/dL, Normal 150-199 mg/dL, Borderline high 200-499 mg/dL, High >499 mg/dL, Very high Performed By: #### 5 7021-8 #### [facility] CLIA [id number] [address] [place] [address] [place] Magnesium SerPl-mCncon 06-11 Magnesium [Mass/Vol] 1.6 mg/dL Low 1.7-2.3 [facility] Comment on above: Order Comment: Speci men Type: BLOOD SPECIMEN Ordering Facility: [facility] Address: [address] [place] [address] Performed By: #### 1 989-3 #### [facility] CLIA [id number] [address] [place] [address] OF [facility] CNPNon 04-28-2024 CNPN Telephone (INTMWS) STEPHANIE KATZ ([id number]) 1935 F Date Time Provider Department 04/28/24 KEVIN ELDER INTMWS During your visit today, we recorded the following information about you: Lio Callejas LPN 04/28/2024 12:15 PM Signed Left a message for pt with information listed below from her provider for medication Furosemide. Per Dr. Elder: Okay it continues to take every other day; sent so may take up to daily if needed. Lio Callejas LPN Allergies As of Date: 04/28/2024 Noted Allergy Reaction BEXTRA (VALDECOXIB) 08/31/2005 4 - Hives CEPHALOSPORINS 02/25/2013 2 - Rash DARVOCET A500 (PROPOXYPHENE N-RIDGE*2007 2 - Rash ERYTHROMYCIN 08/31/2005 4 - Hives PENICILLINS 05/19/2005 4 - Hives PERCOCET (OXYCODONE-ACETAMINO PHEN)03/29/2010 5 - Intolerance PRAVASTATIN 06/03/2013 14 - Other: See Comments Comments: myalgias SULFA (SULFONAMIDE ANTIBIOTICS) 05/19/2005 4 - Hives Date Reviewed: 12/10/2023 Reviewed by: Yusra Monteiro LPN - Fully Assessed Reason for Visit: Results [95] Prescriptions as of 04/28/2024 - furosemide (LASIX) 20 mg tablet Take 1 tablet by mouth once daily. Take in the morning. As directed - loperamide (IMODIUM) 2 mg cap(s) Take 1 capsule by mouth two times a day. - ezetimibe (ZETIA) 10 mg tablet Take 0.5-1 tablets by mouth once daily. As directed - atorvastatin (LIPITOR) 20 mg tablet Take 1 tablet by mouth daily at bedtime. As directed - aMILoride (MIDAMOR) 5 mg tablet Take 1 tablet by mouth once daily. When takes Lasix - ELIQUIS 5 mg tab(s) Take 1 tablet by mouth two times a day. - amLODIPine (NORVASC) 2.5 mg tablet Take 1 tablet by mouth once daily. - metoprolol succinate ER (TOPROL XL) 25 mg 24 hr tablet Take 2 tablets by mouth once daily. - Omeprazole Magnesium (PRILOSEC OTC) 20 mg tablet Take 2 tablets by mouth daily before breakfast. 1/2 hr before meal. - ciprofloxacin HCl (CIPRO) 250 mg tablet Take 2 tablets by mouth twice daily. - hyoscyamine sublingual (LEVSIN SL) 0.125 mg Dissolve 1 tablet under the tongue every 4 hours as needed. - estradiol (ESTRACE) 0.01 % (0.1 mg/gram) vaginal cream Use vaginally 3 times a WEEK. Use a dab on the urethra 3 times a week - Cholecalciferol, Vitamin D3, 1,000 unit cap Take 2 capsules by mouth once daily. - multivitamin tablet Take 1 tablet by mouth once daily. - CPAP AutoPAP 5-15 cmH2O, Pilairo mask suggested, humidity, filters. Lifetime supplies. Dx: 327.23. Fax compliance rpt to Dr. Gongora in 8 weeks. 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] URETHRAL CARUNCLE [N36.2] 09/17/2006 ATROPHIC VAGINITIS [N95.2] 04/22/2007 06/23/2008 DYSPHAGIA NOS [R13.10] ACUTE BRONCHITIS [J20.9] 10/30/2007 06/23/2008 HIP REPLACEMENT [Z96.649] 01/02/2008 06/23/2008 SKIN ANOMALY NEC [Q82.8] 03/09/2008 06/23/2008 Hyperlipidemia [E78.5] 05/12/2009 Hematuria [R31.9] 05/12/2009 Postmenopausal atrophic vaginitis [N95.2] 04/11/2010 Other chronic cystitis [N30.20] 04/11/2010 Diverticulosis of colon (without mention of hem*05/26/2010 ZO (obstructive sleep apnea) [G47.33] 12/22/2010 Thyroid nodule [E04.1] 12/22/2010 GERD (gastroesophageal reflux disease) [K21.9] 12/22/2010 Anxiety [F41.9] 05/18/2011 IBS (irritable bowel syndrome) [K58.9] 08/17/2011 Uterovaginal prolapse, incomplete [N81.2] 01/31/2012 Left Hip arthritis [M16.10] 04/09/2012 Hypertension goal BP (blood pressure) < 150/90 *04/09/2012 Atrial fibrillation (HCC) [I48.91] 06/10/2022 Hypomagnesemia [E83.42] 06/10/2022 Leg swelling [M79.89] 06/10/2022 Encounter Status:Closed by LIO CALLEJAS on 04/28/24 Normal [facility] Cardiology Visit Reporton Cardiology Visit Report [facility] [address] [place] [address]. [address] [place] [address] OFFICE VISIT Date of Service: 03/20/24 MR#: [id number] Acct: [id number] Name: STEPHANIE KATZ Rep #: [id number] : 1935 Provider: Dr. Hemanth Smith MD Age/Sex: 88/F Location: [facility] Status: Signed HPI HPI History of Present Illness Details: Pleasant 88-year-old active lady who presents for an evaluation regarding her cardiac condition. She had been seen previously for preoperative evaluation for her right knee however she was not able to undertake this because her needed shoulder replacement and she has postponed this. She however has been doing fairly well. As part of her previous workup she had undergone a stress test in August 2023 demonstrating no evidence of ischemia and an echocardiogram from the previous year demonstrated ejection fraction of 60%. She has remained in atrial fibrillation which is essentially unbeknownst to her. She denies any chest pain paroxysmal nocturnal dyspnea or pedal edema no neck arm or jaw discomfort suggest angina. Physical exam demonstrates an irregular irregular heart rate. Intake Vital Signs 08/17/23 13:16 01/25/24 09:56 03/20/24 11:16 Height 5 ft 2 in 5 ft 2 in 5 ft 2 in Weight: 138 lb BMI 25.2 BP 126/72 H Blood Pressure Location Lt brachial Position Sitting Respiration 16 Pulse 75 Pulse Source Monitor Intake Visit Reasons: 8 M Hair Specialist Required: No Accompanied by: Self Is patient in pain?: No Allergies Cephalosporins Allergy (Severe, Verified 03/20/24 11:22) Rash Penicillins (PCN) Allergy (Severe, Verified 03/20/24 11:22) Rash Sulfa (Sulfonamide Antibiotics) Allergy (Mild, Verified 03/20/24 11:22) Rash oxycodone (From Percocet) Adverse Reaction (Severe, Verified 03/20/24 11:22) Rash propoxyphene (From Darvocet-N 100) Adverse Reaction (Severe, Verified 03/20/24 11:22) Rash valdecoxib (From Bextra) Adverse Reaction (Mild, Verified 03/20/24 11:22) Nausea acetaminophen (From Vicodin) Adverse Reaction (Verified 03/20/24 11:22) Upset Stomach erythromycin base Adverse Reaction (Verified 03/20/24 11:22) Nausea hydrocodone (From Vicodin) Adverse Reaction (Verified 03/20/24 11:22) Upset Stomach Medications ???Medication ???Instructions ???Recorded ???Confirmed ???Type cholecalciferol (vitamin D3) 25 2,000 unit PO QHS 02/02/15 03/20/24 History mcg (1,000 unit) tablet hyoscyamine sulfate 0.125 mg tablet 0.125 mg PO BID-QID PRN Abdominal 01/19/20 03/20/24 History Discomfort amlodipine 2.5 mg tablet 2.5 mg PO DAILY 06/22/22 03/20/24 History loperamide 2 mg capsule 2 mg PO BID PRN Diarrhea 06/22/22 03/20/24 History metoprolol succinate 25 mg 50 mg PO DAILY 06/22/22 03/20/24 History tablet,extended release 24 hr (Toprol XL) multivitamin (Daily Multi-Vitamin 1 tab PO DAILY 06/22/22 03/20/24 History tablet) acetaminophen 500 mg tablet 500 mg PO BID PRN 06/23/22 03/20/24 History (Tylenol Extra Strength) amiloride 5 mg tablet 5 mg PO Q OTHER DAY 06/23/22 03/20/24 History furosemide 20 mg tablet 20 mg PO Q OTHER DAY 06/23/22 03/20/24 History omeprazole 20 mg capsule,delayed 40 mg PO DAILY 06/23/22 03/20/24 History release atorvastatin 20 mg tablet 20 mg PO .QM-W-F 08/17/23 03/20/24 History ezetimibe 10 mg tablet 5 mg PO QHS 08/17/23 03/20/24 History apixaban 5 mg tablet (Eliquis) 5 mg PO BID #180 tabs 11/15/23 03/20/24 Rx estradiol 0.01% (0.1 mg/gram) 1 g vaginal 2XW 03/20/24 03/20/24 History vaginal cream (Estrace) Have you fallen in the past year?: Yes PFSH Medical History Venous insufficiency Abnormality of gait and mobility Heart valve problem Vision problems Skin cancer GERD (gastroesophageal reflux disease) Pneumonia Osteoarthritis Heart murmur Hives High cholesterol History of hearing problem History of goiter History of cataract History of breast lump History of UTI Vulvar irritation Vertigo Abnormal Papanicolaou smear of cervix Back problem Thyroid disease Faint heart murmur IBS (irritable bowel syndrome) Gastrointestinal complaints Arthritis Irritable colon Essential (primary) hypertension Surgical History H/O breast biopsy H/O cataract removal with insertion of prosthetic lens History of hip replacement Family History Unknown Osteoporosis Heart disease Hypertension Mother Hypertension Social History Smoking Status: Never smoker alcohol intake: current alcohol intake frequency: a few times a month Alcohol type: wine substance use type: does not use caffeine: Yes (more content not included)... [facility] 03-08-2024 CNPN Telephone (INTMWS) STEPHANIE KATZ ([id number]) 1935 F Date Time Provider Department 03/08/24 KEVIN ELDER INTMWS During your visit today, we recorded the following information about you: Marta Alvarez, AHMET 03/08/2024 11:51 AM Signed Pt called in and reports she tested positive for Covid on Sunday, but she had symptoms a week before. She states she is feeling better, but tested today and it still showed positive for Covid. I let her know it can show positive for up to 30 days. Pt states her has surgery [facility] next and she was asking if she would be able to go. I told her I didn't know their policy. Pt was asking me what I would recommend. I told her The CDC recommends isolating for 5 day and masking for an additional 5 days. I told her she would need to call their hospital and ask their policy. I did not know if provider has any recommendations. Yesy Zuniga APRN.DOG SITTER 03/11/2024 7:52 AM Signed I agree with the recommendations given, please let patient know if persistent symptoms or anything changes then she should let us know but otherwise follow the CDC guidelines for isolating and continue with symptom management. Marta Alvarez RN 03/11/2024 8:15 AM Signed Pt states it's her 10th day and her symptoms have resolved. I let Pt know that if her symptoms have resolved and she isn't running a fever the she doesn't need to wear a mask outside. Allergies As of Date: 03/08/2024 Noted Allergy Reaction BEXTRA (VALDECOXIB) 08/31/2005 4 - Hives CEPHALOSPORINS 02/25/2013 2 - Rash DARVOCET A500 (PROPOXYPHENE N-RIDGE*2007 2 - Rash ERYTHROMYCIN 08/31/2005 4 - Hives PENICILLINS 05/19/2005 4 - Hives PERCOCET (OXYCODONE-ACETAMINO PHEN)03/29/2010 5 - Intolerance PRAVASTATIN 06/03/2013 14 - Other: See Comments Comments: myalgias SULFA (SULFONAMIDE ANTIBIOTICS) 05/19/2005 4 - Hives Date Reviewed: 12/10/2023 Reviewed by: Yusra Monteiro LPN - Fully Assessed Reason for Visit: Patient Question [3947] Prescriptions as of 03/11/2024 - loperamide (IMODIUM) 2 mg cap(s) Take 1 capsule by mouth two times a day. - ezetimibe (ZETIA) 10 mg tablet Take 0.5-1 tablets by mouth once daily. As directed - atorvastatin (LIPITOR) 20 mg tablet Take 1 tablet by mouth daily at bedtime. As directed - aMILoride (MIDAMOR) 5 mg tablet Take 1 tablet by mouth once daily. When takes Lasix - furosemide (LASIX) 20 mg tablet Take 1 tablet by mouth once daily. Take in the morning. As directed - ELIQUIS 5 mg tab(s) Take 1 tablet by mouth two times a day. - amLODIPine (NORVASC) 2.5 mg tablet Take 1 tablet by mouth once daily. - metoprolol succinate ER (TOPROL XL) 25 mg 24 hr tablet Take 2 tablets by mouth once daily. - Omeprazole Magnesium (PRILOSEC OTC) 20 mg tablet Take 2 tablets by mouth daily before breakfast. 1/2 hr before meal. - ciprofloxacin HCl (CIPRO) 250 mg tablet Take 2 tablets by mouth twice daily. - hyoscyamine sublingual (LEVSIN SL) 0.125 mg Dissolve 1 tablet under the tongue every 4 hours as needed. - estradiol (ESTRACE) 0.01 % (0.1 mg/gram) vaginal cream Use vaginally 3 times a WEEK. Use a dab on the urethra 3 times a week - Cholecalciferol, Vitamin D3, 1,000 unit cap Take 2 capsules by mouth once daily. - multivitamin tablet Take 1 tablet by mouth once daily. - CPAP AutoPAP 5-15 cmH2O, Pilairo mask suggested, humidity, filters. Lifetime supplies. Dx: 327.23. Fax compliance rpt to Dr. Gongora in 8 weeks. 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] URETHRAL CARUNCLE [N36.2] 09/17/2006 ATROPHIC VAGINITIS [N95.2] 04/22/2007 06/23/2008 DYSPHAGIA NOS [R13.10] ACUTE BRONCHITIS [J20.9] 10/30/2007 06/23/2008 HIP REPLACEMENT [Z96.649] 01/02/2008 06/23/2008 SKIN ANOMALY NEC [Q82.8] 03/09/2008 06/23/2008 Hyperlipidemia [E78.5] 05/12/2009 Hematuria [R31.9] 05/12/2009 Postmenopausal atrophic vaginitis [N95.2] 04/11/2010 Other chronic cystitis [N30.20] 04/11/2010 Diverticulosis of colon (without mention of hem*05/26/2010 ZO (obstructive sleep apnea) [G47.33] 12/22/2010 Thyroid nodule [E04.1] 12/22/2010 GERD (gastroesophageal reflux disease) [K21.9] 12/22/2010 Anxiety [F41.9] 05/18/2011 IBS (irritable bowel syndrome) [K58.9] 08/17/2011 Uterovaginal prolapse, incomplete [N81.2] 01/31/2012 Left Hip arthritis [M16.10] 04/09/2012 Hypertension goal BP (blood pressure) < 150/90 *04/09/2012 Atrial fibrillation (HCC) [I48.91] 06/10/2022 Hypomagnesemia [E83.42] 06/10/2022 Leg swelling [M79.89] 06/10/2022 Encounter Status:Closed by MARTA ALVAREZ on 03/11/24 Normal [facility] Elementary Assistant Principal Office Visit Reporton 01-25-2024 Elementary Assistant Principal Office Visit Report [facility] [address], [address] [place] [address] OFFICE VISIT Date of Service: 01/25/24 MR#: [id number] Acct: [id number] Name: STEPHANIE KATZ Rep #: [id number] : 1935 Provider: Dr. 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) Chief Complaint: Annual Hair Specialist Required: No Is patient in pain?: Yes (arthritic pain every day) Allergies Cephalosporins Allergy (Severe, Verified 01/25/24 09:56) Rash Penicillins (PCN) Allergy (Severe, Verified 01/25/24 09:56) Rash Sulfa (Sulfonamide Antibiotics) Allergy (Mild, Verified 01/25/24 09:56) Rash oxycodone (From Percocet) Adverse Reaction (Severe, Verified 01/25/24 09:56) Rash propoxyphene (From Darvocet-N 100) Adverse Reaction (Severe, Verified 01/25/24 09:56) Rash valdecoxib (From Bextra) Adverse Reaction (Mild, Verified 01/25/24 09:56) Nausea acetaminophen (From Vicodin) Adverse Reaction (Verified 01/25/24 09:56) Upset Stomach erythromycin base Adverse Reaction (Verified 01/25/24 09:56) Nausea hydrocodone (From Vicodin) Adverse Reaction (Verified 01/25/24 09:56) Upset Stomach Medications ???Medication ???Instructions ???Recorded ???Confirmed ???Type cholecalciferol (vitamin D3) 25 2,000 unit PO QHS 02/02/15 01/25/24 History mcg (1,000 unit) tablet hyoscyamine sulfate 0.125 mg tablet 0.125 mg PO BID-QID PRN Abdominal 01/19/20 01/25/24 History Discomfort amlodipine 2.5 mg tablet 2.5 mg PO DAILY 06/22/22 01/25/24 History loperamide 2 mg capsule 2 mg PO BID PRN Diarrhea 06/22/22 01/25/24 History metoprolol succinate 25 mg 50 mg PO DAILY 06/22/22 01/25/24 History tablet,extended release 24 hr (Toprol XL) multivitamin (Daily Multi-Vitamin 1 tab PO DAILY 06/22/22 01/25/24 History tablet) acetaminophen 500 mg tablet 500 mg PO BID PRN 06/23/22 01/25/24 History (Tylenol Extra Strength) amiloride 5 mg tablet 5 mg PO Q OTHER DAY 06/23/22 01/25/24 History furosemide 20 mg tablet 20 mg PO Q OTHER DAY 06/23/22 01/25/24 History omeprazole 20 mg capsule,delayed 40 mg PO DAILY 06/23/22 01/25/24 History release atorvastatin 20 mg tablet 20 mg PO .QM-W-F 08/17/23 01/25/24 History ezetimibe 10 mg tablet 5 mg PO QHS 08/17/23 01/25/24 History apixaban 5 mg tablet (Eliquis) 5 mg PO BID #180 tabs 11/15/23 01/25/24 Rx Is last menstrual period known: No Post menopausal: Yes Patient : No : No PFSH Medical History Venous insufficiency Abnormality of gait and mobility Heart valve problem Vision problems Skin cancer GERD (gastroesophageal reflux disease) Pneumonia Osteoarthritis Heart murmur Hives High cholesterol History of hearing problem History of goiter History of cataract History of breast lump History of UTI Vulvar irritation Vertigo Abnormal Papanicolaou smear of cervix Back problem Thyroid disease Faint heart murmur IBS (irritable bowel syndrome) Gastrointestinal complaints Arthritis Irritable colon Essential (primary) hypertension Surgical History H/O breast biopsy H/O cataract removal with insertion of prosthetic lens History of hip replacement Family History Unknown Osteoporosis Heart disease Hypertension Mother Hypertension Social History (Updated 01/25/24 @ 10:04 by Tanya Kemp) Smoking Status: Never smoker alcohol intake: current alcohol intake frequency: a few times a month Alcohol type: wine substance use type: does not use caffeine: Yes Type: coffee what type of physical activity do you participate in: other details: stationary bike frequency: other details: occassionally seatbelt use: always do you feel safe at home: Yes additional social history: Parish- Both are retired History 3 Elective abortions Hx Para 3 Spontaneous abortions Hx # Term Pregnancies Ectopic pregnancies Hx # Pregnancies Multiple births # of living children 3 Past Pregnancies Del. Date Name GA/Weeks Outcome Route Bth Weight Infant Gen Labor Lgth Anesthesia Del Locat Provider FOB Unknown Karen 1961 Female Unknown Nakul 1964 Male Unknown Olvin 1966 Male HPI Encounter for routine gynecological examination Details: STEPHANIE KATZ is a 88 year old who presents for annual exam. i recommend stopping the estradiol due to being on eliquis Last PAP: 2016 - normal History of abnormal PAP: Last mammogram: August 2023 - n (more content not included)... [facility] STEPHANIE KATZ ([id number]) 1935 F Date Time Provider Department 12/10/23 1:00 PM KEVIN ELDER INTMWS During your visit today, we recorded the following information about you: Temperature Pulse Respiration Blood pressure 97.8 degrees 75/minute 18/minute 134/80 Weight Height 62.6 kg 1.55 m Kevin Elder MD 12/10/2023 2:10 PM Signed This note was created using NoteWriter. Subjective Stephanie Katz is a 88 year old female. Patient presents with: Medicare Wellness Exam: Labs prior SUBJECTIVE: Stephanie Katz is a 88 year old year old lady here today for follow up appointment for review of medical conditions. Noted had to postpone her surgery for needing his surgery Noted aware that eats more processed sugar than should. Has tried some Nicolás seeds but not consistently. Stable on current meds. BP sometimes low. 110 to 120 over 70s usually. Lately more SBP 90s. Sometimes gets tired but ongoing a fib. Has ZO and maybe not sleeping well. Sleeps on back for mask to stay fitting right. 6 to 7 hours in bed and nap during the day. Falls asleep easily if sits and rests. No fevers or chills. Some nasal congestion Sinus drainage is chronic. Little cough off and on past couple months. Wonders if allergies since after works in yard. Some phlegm in throat when gets up in AM. No wheezing or SOB related to respiratory issue. Tired from walking due to knee issue. Continues to follow with Dr. Smith. Has done better since treated for a fib. 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 As directed atorvastatin (LIPITOR) 20 mg tablet Take 1 tablet by mouth daily at bedtime. As directed (Patient taking differently: Take 20 mg by mouth every other day. As directed) aMILoride (MIDAMOR) 5 mg tablet Take 1 tablet by mouth once daily. When takes Lasix (Patient taking differently: Take 5 mg by mouth every other day. When takes Lasix) furosemide (LASIX) 20 mg tablet Take 1 tablet by mouth once daily. Take in the morning. As directed (Patient taking differently: Take 20 mg by mouth every other day. Take in the morning. As directed) ELIQUIS 5 mg tab(s) Take 1 tablet by mouth two times a day. loperamide (IMODIUM) 2 mg cap(s) Take 1 capsule by mouth two times a day. amLODIPine (NORVASC) 2.5 mg tablet Take 1 tablet by mouth once daily. metoprolol succinate ER (TOPROL XL) 25 mg 24 hr tablet Take 2 tablets by mouth once daily. Omeprazole Magnesium (PRILOSEC OTC) 20 mg tablet Take 2 tablets by mouth daily before breakfast. 1/2 hr before meal. ciprofloxacin HCl (CIPRO) 250 mg tablet Take 2 tablets by mouth twice daily. hyoscyamine sublingual (LEVSIN SL) 0.125 mg Dissolve 1 tablet under the tongue every 4 hours as needed. estradiol (ESTRACE) 0.01 % (0.1 mg/gram) vaginal cream Use vaginally 3 times a WEEK. Use a dab on the urethra 3 times a week Cholecalciferol, Vitamin D3, 1,000 unit cap Take 2 capsules by mouth once daily. multivitamin tablet Take 1 tablet by mouth once daily. CPAP AutoPAP 5-15 cmH2O, Pilairo mask suggested, humidity, filters. Lifetime supplies. Dx: 327.23. Fax compliance rpt to Dr. Gongora in 8 weeks. No current facility-administere d medications for this visit. Review of Systems Objective BP 134/80 Pulse 75 Temp 36.6 ?C (97.8 ?F) Resp 18 Ht 155 cm (5' 1.02) Wt 62.6 kg (138 lb) SpO2 97% BMI 26.05 kg/m? Last 5 Encounter Wt Readings: Date: Wt: 12/10/2023 62.6 kg (138 lb) 06/11/2023 60.5 kg (133 lb 4.8 oz) 12/05/2022 61.9 kg (136 lb 6.4 oz) 11/26/2022 62.6 kg (138 lb) 06/07/2022 63 kg (139 lb) No waist measurement recorded Estimated body mass index is 26.05 kg/m? as calculated from the following: Height as of this encounter: 155 cm (5' 1.02). Weight as of this encounter: 62.6 kg (138 lb). Last 5 Encounter BP Readings: Date: BP: 12/10/2023 134/80 06/11/2023 115/73 12/05/2022 102/66 12/05/2022 104/62 11/26/2022 122/70 Physical Exam Constitutional: Appearance: Normal appea (more content not included)... Normal [facility] CBC W Auto Differential pane l (Bld)on 12-05-2023 Basophils (Bld) [#/Vol] 0.04 10*3/uL Normal <0.11 [facility] Comment on above: Order Comment: Speci men Type: BLOOD SPECIMEN Ordering Facility: [facility] Address: [address] [place] [address] Performed By: #### 5 7021-8 #### [facility] CLIA [id number] [address] [place] [address] [place] Basophils/100 WBC (Bld) 0.7 % Normal [facility] Comment on above: Order Comment: Speci men Type: BLOOD SPECIMEN Ordering Facility: [facility] Address: [address] [place] [address] Performed By: #### 5 7021-8 #### [facility] CLIA [id number] [address] [place] [address] [place] Differential cell count method Nom (Bld) Auto Normal [facility] Comment on above: Order Comment: Speci men Type: BLOOD SPECIMEN Ordering Facility: [facility] Address: [address] [place] [address] Performed By: #### 5 7021-8 #### [facility] CLIA [id number] [address] [place] [address] [place] Eosinophils (Bld) [#/Vol] 0.28 10*3/uL Normal <0.46 [facility] Comment on above: Order Comment: Speci men Type: BLOOD SPECIMEN Ordering Facility: [facility] Address: [address] [place] [address] Performed By: #### 5 7021-8 #### [facility] CLIA [id number] [address] [place] [address] [place] Eosinophils/100 WBC (Bld) 4.7 % Normal [facility] Comment on above: Order Comment: Speci men Type: BLOOD SPECIMEN Ordering Facility: [facility] Address: [address] [place] [address] Performed By: #### 5 7021-8 #### [facility] CLIA [id number] [address] [place] [address] [place] Erythrocyte distribution width (RBC) [Ratio] 13.2 % Normal 11.5-15.0 [facility] Comment on above: Order Comment: Speci men Type: BLOOD SPECIMEN Ordering Facility: [facility] Address: [address] [place] [address] Performed By: #### 5 7021-8 #### [facility] CLIA [id number] [address] [place] [address] [place] Hematocrit (Bld) [Volume fraction] 39.9 % Normal 36.0-46.0 [facility] Comment on above: Order Comment: Speci men Type: BLOOD SPECIMEN Ordering Facility: [facility] Address: [address] [place] [address] Performed By: #### 5 7021-8 #### [facility] CLIA [id number] [address] [place] [address] [place] Hemoglobin (Bld) [Mass/Vol] 12.9 g/dL Normal 11.5-15.5 [facility] Comment on above: Order Comment: Speci men Type: BLOOD SPECIMEN Ordering Facility: [facility] Address: [address] [place] [address] Performed By: #### 5 7021-8 #### [facility] CLIA [id number] [address] [place] [address] [place] Immature granulocytes (Bld) [#/Vol] 10*3/uL Normal <0.10 [facility] Comment on above: Order Comment: Speci men Type: BLOOD SPECIMEN Ordering Facility: [facility] Address: [address] [place] [address] Performed By: #### 5 7021-8 #### [facility] CLIA [id number] [address] [place] [address] [place] Immature granulocytes/100 WBC (Bld) 0.2 % Normal [facility] Comment on above: Order Comment: Speci men Type: BLOOD SPECIMEN Ordering Facility: [facility] Address: [address] [place] [address] Performed By: #### 5 7021-8 #### [facility] CLIA [id number] [address] [place] [address] [place] Lymphocytes (Bld) [#/Vol] 2.43 10*3/uL Normal 1.00-4.00 [facility] Comment on above: Order Comment: Speci men Type: BLOOD SPECIMEN Ordering Facility: [facility] Address: [address] [place] [address] Performed By: #### 5 7021-8 #### [facility] CLIA [id number] [address] [place] [address] [place] Lymphocytes/100 WBC (Bld) 41.0 % Normal [facility] Comment on above: Order Comment: Speci men Type: BLOOD SPECIMEN Ordering Facility: [facility] Address: [address] [place] [address] Performed By: #### 5 7021-8 #### [facility] CLIA [id number] [address] [place] [address] [place] MCH (RBC) [Entitic mass] 30.5 pg Normal 26.0-34.0 [facility] Comment on above: Order Comment: Speci men Type: BLOOD SPECIMEN Ordering Facility: [facility] Address: [address] [place] [address] Performed By: #### 5 7021-8 #### [facility] CLIA [id number] [address] [place] [address] [place] MCHC (RBC) [Mass/Vol] 32.3 g/dL Normal 30.5-36.0 [facility] Comment on above: Order Comment: Speci men Type: BLOOD SPECIMEN Ordering Facility: [facility] Address: [address] [place] [address] Performed By: #### 5 7021-8 #### [facility] CLIA [id number] [address] [place] [address] [place] MCV (RBC) [Entitic vol] 94.3 fL Normal 80.0-100.0 [facility] Comment on above: Order Comment: Speci men Type: BLOOD SPECIMEN Ordering Facility: [facility] Address: [address] [place] [address] Performed By: #### 5 7021-8 #### [facility] CLIA [id number] [address] [place] [address] [place] Monocytes (Bld) [#/Vol] 0.51 10*3/uL Normal <0.87 [facility] Comment on above: Order Comment: Speci men Type: BLOOD SPECIMEN Ordering Facility: [facility] Address: [address] [place] [address] Performed By: #### 5 7021-8 #### [facility] CLIA [id number] [address] [place] [address] [place] Monocytes/100 WBC (Bld) 8.6 % Normal [facility] Comment on above: Order Comment: Speci men Type: BLOOD SPECIMEN Ordering Facility: [facility] Address: [address] [place] [address] Performed By: #### 5 7021-8 #### [facility] CLIA [id number] [address] [place] [address] [place] Neutrophils (Bld) [#/Vol] 2.65 10*3/uL Normal 1.45-7.50 [facility] Comment on above: Order Comment: Speci men Type: BLOOD SPECIMEN Ordering Facility: [facility] Address: [address] [place] [address] Performed By: #### 5 7021-8 #### [facility] CLIA [id number] [address] [place] [address] [place] Neutrophils/100 WBC (Bld) 44.8 % Normal [facility] Comment on above: Order Comment: Speci men Type: BLOOD SPECIMEN Ordering Facility: [facility] Address: [address] [place] [address] Performed By: #### 5 7021-8 #### [facility] CLIA [id number] [address] [place] [address] [place] Nucleated RBC (Bld) [#/Vol] 10*3/uL Normal <0.01 [facility] Comment on above: Order Comment: Speci men Type: BLOOD SPECIMEN Ordering Facility: [facility] Address: [address] [place] [address] Performed By: #### 5 7021-8 #### [facility] CLIA [id number] [address] [place] [address] [place] Nucleated RBC/100 WBC (Bld) [Ratio] 0.0 /100 WBC Normal [facility] Comment on above: Order Comment: Speci men Type: BLOOD SPECIMEN Ordering Facility: [facility] Address: [address] [place] [address] Performed By: #### 5 7021-8 #### [facility] CLIA [id number] [address] [place] [address] [place] Platelet mean volume (Bld) [Entitic vol] 9.6 fL Normal 9.0-12.7 [facility] Comment on above: Order Comment: Speci men Type: BLOOD SPECIMEN Ordering Facility: [facility] Address: [address] [place] [address] Performed By: #### 5 7021-8 #### [facility] CLIA [id number] [address] [place] [address] [place] Platelets (Bld) [#/Vol] 194 10*3/uL Normal 150-400 [facility] Comment on above: Order Comment: Speci men Type: BLOOD SPECIMEN Ordering Facility: [facility] Address: [address] [place] [address] Performed By: #### 5 7021-8 #### [facility] CLIA [id number] [address] [place] [address] [place] RBC (Bld) [#/Vol] 4.23 10*6/uL Normal 3.90-5.20 [facility] Comment on above: Order Comment: Speci men Type: BLOOD SPECIMEN Ordering Facility: [facility] Address: [address] [place] [address] Performed By: #### 5 7021-8 #### [facility] CLIA [id number] [address] [place] [address] [place] WBC (Bld) [#/Vol] 5.92 10*3/uL Normal 3.70-11.00 [facility] Comment on above: Order Comment: Speci men Type: BLOOD SPECIMEN Ordering Facility: [facility] Address: [address] [place] [address] Performed By: #### 5 7021-8 #### [facility] CLIA [id number] [address] [place] [address] [place] Comprehensive metabolic 2000 panelon 12-05-2023 Albumin [Mass/Vol] 4.3 g/dL Normal 3.9-4.9 [facility] Comment on above: Order Comment: Speci men Type: BLOOD SPECIMEN Ordering Facility: [facility] Address: [address] [place] [address] Performed By: #### 5 7021-8 #### [facility] CLIA [id number] [address] [place] [id number] [address] [place] ALP [Catalytic activity/Vol] 64 U/L Normal 34-123 [facility] Comment on above: Order Comment: Speci men Type: BLOOD SPECIMEN Ordering Facility: [facility] Address: [address] [place] [id number] Performed By: #### 5 7021-8 #### [facility] CLIA [id number] [address] [place] [address] [place] ALT [Catalytic activity/Vol] 20 U/L Normal 7-38 [facility] Comment on above: Order Comment: Speci men Type: BLOOD SPECIMEN Ordering Facility: [facility] Address: [address] [place] [address] Performed By: #### 5 7021-8 #### [facility] CLIA [id number] [address] [place] [address] [place] Anion gap [Moles/Vol] 11 mmol/L Normal 8-15 [facility] Comment on above: Order Comment: Speci men Type: BLOOD SPECIMEN Ordering Facility: [facility] Address: [address] [place] [address] Performed By: #### 5 7021-8 #### [facility] CLIA [id number] [address] [place] [address] [place] AST [Catalytic activity/Vol] 28 U/L Normal 13-35 [facility] Comment on above: Order Comment: Speci men Type: BLOOD SPECIMEN Ordering Facility: [facility] Address: [address] [place] [address] Performed By: #### 5 7021-8 #### [facility] CLIA [id number] [address] [place] [address] [place] Bilirubin [Mass/Vol] 0.6 mg/dL Normal 0.2-1.3 [facility] Comment on above: Order Comment: Speci men Type: BLOOD SPECIMEN Ordering Facility: [facility] Address: [address] [place] [address] Performed By: #### 5 7021-8 #### [facility] CLIA [id number] [address] [place] [address] [place] Calcium [Mass/Vol] 9.4 mg/dL Normal 8.5-10.2 [facility] Comment on above: Order Comment: Speci men Type: BLOOD SPECIMEN Ordering Facility: [facility] Address: [address] [place] [address] Performed By: #### 5 7021-8 #### [facility] CLIA [id number] [address] [place] [address] [place] Chloride [Moles/Vol] 100 mmol/L Normal 98-107 [facility] Comment on above: Order Comment: Speci men Type: BLOOD SPECIMEN Ordering Facility: [facility] Address: [address] [place] [address] Performed By: #### 5 7021-8 #### [facility] CLIA [id number] [address] [place] [address] [place] CO2 [Moles/Vol] 26 mmol/L Normal 22-30 [facility] Comment on above: Order Comment: Speci men Type: BLOOD SPECIMEN Ordering Facility: [facility] Address: [address] [place] [address] Performed By: #### 5 7021-8 #### [facility] CLIA [id number] [address] [place] [address] [place] Creatinine [Mass/Vol] 0.67 mg/dL Normal 0.58-0.96 [facility] Comment on above: Order Comment: Speci men Type: BLOOD SPECIMEN Ordering Facility: [facility] Address: [address] [place] [address] Performed By: #### 5 7021-8 #### [facility] CLIA [id number] [address] [place] [address] [place] Creatinine and Glomerular filtration rate.predicted panel (S/P/Bld) 85 mL/min/1.73m??? Normal >=60 [facility] Comment on above: Order Comment: Tye gray Type: BLOOD SPECIMEN Ordering Facility: [facility] Address: [address] [place] [address] Result Comment: Bibi mated Glomerular Filtration Rate (eGFR) is calculated using the 2020 CKD-EPI creatinine equation. This equation utilizes serum creatinine, sex, and age as parameters. The creatinine assay has traceable calibration to isotope dilution-mass spectrometry. Refer to KDIGO guidelines for clinical interpretation. In patients with unstable renal function, e.g. those with acute kidney injury, the eGFR may not accurately reflect actual GFR. Performed By: #### 5 7021-8 #### [facility] CLIA [id number] [address] [place] [address] [place] Glucose [Mass/Vol] 99 mg/dL Normal 74-99 [facility] Comment on above: Order Comment: Tye gray Type: BLOOD SPECIMEN Ordering Facility: [facility] Address: [address] [place] [address] Result Comment: The [place] [employer] (ADA) provides guidance for cutoff values for fasting glucose and random glucose. The ADA defines fasting as no caloric intake for at least 8 hours. Fasting plasma glucose results between 100 to 125 mg/dL indicate increased risk for diabetes (prediabetes). Fasting plasma glucose results greater than or equal to 126 mg/dL meet the criteria for diagnosis of diabetes. In the absence of unequivocal hyperglycemia, results should be confirmed by repeat testing. In a patient with classic symptoms of hyperglycemia or hyperglycemic crisis, random plasma glucose results greater than or equal to 200 mg/dL meet the criteria for diagnosis of diabetes. Reference: Standards of Medical Care in Diabetes 2016, [place] [employer]. Diabetes Care. 2016.39(Suppl 1). Performed By: #### 5 7021-8 #### [facility] CLIA [id number] [address] [place] [address] [place] Potassium [Moles/Vol] 4.3 mmol/L Normal 3.7-5.1 [facility] Comment on above: Order Comment: Tye gray Type: BLOOD SPECIMEN Ordering Facility: [facility] Address: [address] [place] [address] Performed By: #### 5 7021-8 #### [facility] CLIA [id number] [address] [place] [address] [place] Protein [Mass/Vol] 6.9 g/dL Normal 6.3-8.0 [facility] Comment on above: Order Comment: Speci men Type: BLOOD SPECIMEN Ordering Facility: [facility] Address: [address] [place] [address] Performed By: #### 5 7021-8 #### [facility] CLIA [id number] [address] [place] [address] [place] Sodium [Moles/Vol] 137 mmol/L Normal 136-144 [facility] Comment on above: Order Comment: Speci men Type: BLOOD SPECIMEN Ordering Facility: [facility] Address: [address] [place] [address] Performed By: #### 5 7021-8 #### [facility] CLIA [id number] [address] [place] [address] [place] Urea nitrogen [Mass/Vol] 13 mg/dL Normal 7-21 [facility] Comment on above: Order Comment: Speci men Type: BLOOD SPECIMEN Ordering Facility: [facility] Address: [address] [place] [address] Performed By: #### 5 7021-8 #### [facility] CLIA [id number] [address] [place] [address] [place] Magnesium SerPl-mCncon 12-04 Magnesium [Mass/Vol] 1.8 mg/dL Normal 1.7-2.3 [facility] Comment on above: Order Comment: Speci men Type: BLOOD SPECIMEN Ordering Facility: [facility] Address: [address] [place] [address] Performed By: #### 5 7021-8 #### [facility] CLIA [id number] [address] [id number] [place] CNPDebra 10-18-2023 CNPN Telephone (INTMWS) KATZSTEPHANIE ([id number]) 1935 F Date Time Provider Department 10/18/23 KEVIN ELDER INTMWS During your visit today, we recorded the following information about you: Marta Alvarez RN 10/18/2023 12:06 PM Signed Elo with [facility] called in to schedule a Pre-Op appointment for Pt. Rescheduled her 6 month f/u. Please add any labs or other procedures Pt would need pre surgery December 31. Elo said she has already sent the surgical clearance form. Kevin Elder MD 10/20/2023 2:13 AM Signed Are these labs that Isela Colon wants done for preop? I add magnesium since was low in the past Marta Alvarez RN 10/22/2023 8:34 AM Signed Just added labs as Pt hasn't had any in the last 3 months for provider to check for Pre-op appointment. Ju Chi RN 10/22/2023 8:45 AM Signed Patient calls back to report that she has concerns that she needs testing done for neuropathy to the leg prior to having surgery. Patient reports that she is concerned that the procedure could cause increased nerve pain. Patient most recently saw [facility] and they wanted her to have further testing done. Patient reports that she is not certain that she would want to go back. Patient asking if provider would recommend another neurologist. Explained that depending on when neurology could get patient in that might be outside of time frame for surgery with scheduling testing. Pended referral for patient to look into availability and location for neurologist. AHMET Rodriguez Liza D, MD 10/25/2023 10:00 AM Signed Filed under general neurology.. Saw Dr. Trotter's progress note from 2021 and used his diagnoses for the consult order Marta Alvarez RN 10/25/2023 12:20 PM Signed Called and left a detailed voicemail notifying patient of providers message. Clinic phone number was left for the patient to call back and schedule with Neurology. Marta Alvarez RN Urszula Dietz 10/25/2023 12:58 PM Signed Called patient to schedule neurology, gave her three different doctors and locations ([facility], [facility] and [facility]). She was going to talk to her and call back to schedule. Allergies As of Date: 10/18/2023 Noted Allergy Reaction BEXTRA (VALDECOXIB) 08/31/2005 4 - Hives CEPHALOSPORINS 02/25/2013 2 - Rash DARVOCET A500 (PROPOXYPHENE N-RIDGE*2007 2 - Rash ERYTHROMYCIN 08/31/2005 4 - Hives PENICILLINS 05/19/2005 4 - Hives PERCOCET (OXYCODONE-ACETAMINO PHEN)03/29/2010 5 - Intolerance PRAVASTATIN 06/03/2013 14 - Other: See Comments Comments: myalgias SULFA (SULFONAMIDE ANTIBIOTICS) 05/19/2005 4 - Hives Date Reviewed: 06/11/2023 Reviewed by: Kevin Elder MD - Fully Assessed Reason for Visit: Pre-Op Appointment [Other] Primary Visit Diagnosis:Hypomagnes emia [E83.42] Other Visit Diagnoses:Encounter for long-term current use of medication [Z79.899] Preop testing [Z01.818] Polyneuropathy [G62.9] 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 As directed - atorvastatin (LIPITOR) 20 mg tablet Take 1 tablet by mouth daily at bedtime. As directed - aMILoride (MIDAMOR) 5 mg tablet Take 1 tablet by mouth once daily. When takes Lasix - furosemide (LASIX) 20 mg tablet Take 1 tablet by mouth once daily. Take in the morning. As directed - ELIQUIS 5 mg tab(s) Take 1 tablet by mouth two times a day. - loperamide (IMODIUM) 2 mg cap(s) Take 1 capsule by mouth two times a day. - amLODIPine (NORVASC) 2.5 mg tablet Take 1 tablet by mouth once daily. - metoprolol succinate ER (TOPROL XL) 25 mg 24 hr tablet Take 2 tablets by mouth once daily. - Omeprazole Magnesium (PRILOSEC OTC) 20 mg tablet Take 2 tablets by mouth daily before breakfast. 1/2 hr before meal. - ciprofloxacin HCl (CIPRO) 250 mg tablet Take 2 tablets by mouth twice daily. - hyoscyamine sublingual (LEVSIN SL) 0.125 mg Dissolve 1 tablet under the tongue every 4 hours as needed. - estradiol (ESTRACE) 0.01 % (0.1 mg/gram) vaginal cream Use vaginally 3 times a WEEK. Use a dab on the urethra 3 times a week - Cholecalciferol, Vitamin D3, 1,000 unit cap Take 2 capsules by mouth once daily. - multivitamin tablet Take 1 tablet by mouth once daily. - CPAP AutoPAP 5-15 cmH2O, Pilairo mask suggested, humidity, filters. Lifetime supplies. Dx: 327.23. Fax compliance rpt to Dr. Gongora in 8 weeks. Problem List As Of Date 10/18/2023 Noted Resolved LUMBAGO [M54.50] 06/23/2008 Primary osteoarthritis involving multiple regis (more content not included)... Normal [facility] METHYLMALONIC ACIDon 023 Methylmalonate [Moles/Vol] 101 nmol/L 79 - 376 nmol/L [facility] VITAMIN D 25 HYDROXYon 12-06 25-hydroxyvitamin D3 [Mass/Vol] 61.5 ng/mL 31.0 - 80.0 ng/mL [facility] HbA1c (Bld)on 12-05-2022 Average glucose Estimated from glycated hemoglobin (Bld) [Mass/Vol] 108 mg/dL [facility] HbA1c (Bld) [Mass fraction] 5.4 % 4.3 - 5.6 % [facility] Lipid 1996 panelon 3 Cholesterol [Mass/Vol] 120 mg/dL <200 mg/dL [facility] Cholesterol in HDL [Mass/Vol] 55 mg/dL >39 mg/dL [facility] Cholesterol in LDL [Mass/Vol] 52 mg/dL <100 mg/dL [facility] Cholesterol in LDL/Cholesterol in HDL [Mass ratio] 0.95 {ratio} <2.54 [facility] Cholesterol in VLDL [Mass/Vol] 13 mg/dL <30 mg/dL [facility] Cholesterol non HDL [Mass/Vol] 65 mg/dL <130 mg/dL [facility] Cholesterol.total/C holesterol in HDL [Mass ratio] 2.18 {ratio} <5.10 [facility] Fasting Time 15 hrs [facility] Triglyceride [Mass/Vol] 65 mg/dL <150 mg/dL [facility] VITAMIN B12 BLOODon 12-06-19 23 Cobalamin (Vitamin B12) [Mass/Vol] 636 pg/mL 232 - 1,245 pg/mL [facility] UA DIP, URINE (POC)on 2022 BILIRUBIN UA (POCT) Negative Negative [facility] CLARITY UA (POCT) Clear [facility] COLOR UA (POCT) Yellow [facility] GLUCOSE UA (POCT) Negative Negative mg/dL [facility] HEMOGLOBIN/BLOOD UA (POCT) Trace-lysed Abnormal Negative [facility] KETONE UA (POCT) Negative Negative mg/dL [facility] LEUKOCYTES UA (POCT) Negative Negative [facility] NITRITE UA (POCT) Negative Negative [facility] PH UA (POCT) 5.0 4.5 - 8.0 [facility] Protein Ql (U) Negative Negative mg/dL [facility] SPECIFIC GRAVITY UA (POCT) <=1.005 Abnormal 1.005 - 1.030 [facility] UROBILINOGEN UA (POCT) 0.2 E.U./dL Normal E.U./dL [facility] No Panel Informationon 06-19 [facility] US CAROTID ARTERIES MANNY VAS LABon 06-16-2022 [facility] ECG COMPLETEon 06-09-2022 Atrial Rate 326 BPM [facility] Calculated R [place] -57 degrees [facility] Calculated T [place] -42 degrees [facility] QRS Duration 132 ms [facility] QT Interval 440 ms [facility] QTC Calculation (Bazett) 453 ms [facility] Ventricular Rate 64 BPM [facility] Absolute lymphocyte counton 10-05-2021 Lymphocytes Auto (Unsp spec) [#/Vol] 1.60 10*3/uL 0.83-4.51 [facility] Work Phone: Basophil percentageon 2021 Basophils/100 WBC (Bld) 0.4 % 0-1 [facility] Work Phone: Bilirubin [Mass/Vol] 0.40 mg/dL 0.20-1.00 [facility] Work Phone: Comment on above: For patients on eltr ombopag therapy, use of Dimension [place] TBIL is not recommended. Chloride [Moles/Vol] 91 mmol/L 98-107 [facility] Work Phone: Eosinophils/100 WBC (Bld) 1.3 % 0-5 [facility] Work Phone: Glucose [Mass/Vol] 112 mg/dL 74-106 [facility] Work Phone: Comment on above: Fasting Glucose resu lt from 100 to 125 mg/dL suggests IMPAIRED HOMEOSTASIS per A.D.A. criteria. Neutrophils (Bld) [#/Vol] 4.3 10*3/uL 2.0-7.7 [facility] Work Phone: Neutrophils/100 WBC (Bld) 64.9 % 47-70 [facility] Work Phone: Potassium [Moles/Vol] 3.3 mmol/L 3.5-5.1 [facility] Work Phone: Protein [Mass/Vol] 7.5 g/dL 6.4-8.2 [facility] Work Phone: Sodium [Moles/Vol] 129 mmol/L 136-145 [facility] Work Phone: WBC (Bld) [#/Vol] 6.7 10*3/uL 4.4-11.0 [facility] Work Phone: Blood erythrocytes count (nu mber/volume)on 10-05-2021 RBC (Bld) [#/Vol] 4.15 10*6/uL 4.2-5.4 [facility] Work Phone: Blood hemoglobin measurement (mass/volume)on 10-05-2021 Hemoglobin (Bld) [Mass/Vol] 13.0 g/dL 12.0-15.0 [facility] Work Phone: Blood lymphocytes/100 leukoc yteson 10-05-2021 Lymphocytes/100 WBC (Bld) 24.0 % 19-41 [facility] Work Phone: Blood monocytes/100 leukocyt eson 10-05-2021 Monocytes/100 WBC (Bld) 9.1 % 0-10 [facility] Work Phone: Blood platelet mean volumeon 10-05-2021 Platelet mean volume (Bld) [Entitic vol] 8.7 fL 6.2-12.0 [facility] Work Phone: Determination of erythrocyte mean corpuscular volume (MCV)on 10-05-2021 MCV (RBC) [Entitic vol] 91.3 fL 81-99 [facility] Work Phone: Hematocrit Auto (Bld) [Volum e fraction]on 10-05-2021 Hematocrit (Bld) [Volume fraction] 37.9 % 37-47 [facility] Work Phone: Laboratory - Chemistry and C hemistry - challengeon 10-05-2021 ALP [Catalytic activity/Vol] 49 U/L 45-117 [facility] Work Phone: ALT [Catalytic activity/Vol] 35 U/L 13-56 [facility] Work Phone: CO2 [Moles/Vol] 30.0 mmol/L 21.0-32.0 [facility] Work Phone: Globulin (S) [Mass/Vol] 3.5 g/dL 2.2-4.2 [facility] Work Phone: Magnesium [Mass/Vol] 1.4 mg/dL 1.6-2.6 [facility] Work Phone: Urea nitrogen/Creatinine [Mass ratio] 28.2 mg/mg 10-20 [facility] Work Phone: Laboratory - Hematology and Cell countson 10-05-2021 Erythrocyte distribution width (RBC) [Entitic vol] 42.8 fL 35.1-43.9 [facility] Work Phone: Erythrocyte distribution width (RBC) [Ratio] 12.8 % 11.6-14.6 [facility] Work Phone: Immature granulocytes/100 WBC (Bld) 0.300 % 0.0-0.9 [facility] Work Phone: Comment on above: IG% - Immature Granu locytes (promyelocytes, myelocytes and metamyelocytes) > 1% indicates that a LEFT SHIFT is Present. MCH (RBC) [Entitic mass] 31.3 pg 27.0-32.0 [facility] Work Phone: Nucleated RBC/100 WBC (Bld) [Ratio] 0 % 0-5 [facility] Work Phone: MCHC Auto (RBC) [Mass/Vol]on 10-05-2021 MCHC (RBC) [Mass/Vol] 34.3 g/dL 32-36 [facility] Work Phone: No Panel Informationon 10-05 Estimated Creatinine Clearance Calc 32.53 ml/min [facility] Work Phone: Estimated GFR (MDRD) Amer 114 mL/min >60 [facility] Work Phone: Comment on above: GFR Calc Estimated GFR (MDRD) Non-Af Amer 94 mL/min >60 [facility] Work Phone: Comment on above: Non- GFR Calc Platelets bldon 10-05-2021 Platelets (Bld) [#/Vol] 198 10*3/uL 150-450 [facility] Work Phone: Serum or plasma albumin lizeth urement (mass/volume)on 10-05-2021 Albumin [Mass/Vol] 4.0 g/dL 3.2-5.0 [facility] Work Phone: Serum or plasma albumin/glob ulin mass ratioon 10-05-2021 Albumin/Globulin [Mass ratio] 1.1 {ratio} 0.9-2.4 [facility] Work Phone: Serum or plasma calcium lizeth urement (mass/volume)on 10-05-2021 Calcium [Mass/Vol] 8.7 mg/dL 8.5-10.1 [facility] Work Phone: Serum or plasma creatinine m easurement (mass/volume)on 10-05-2021 Creatinine [Mass/Vol] 0.64 mg/dL 0.55-1.02 [facility] Work Phone: Comment on above: The validity of the calculated GFR & GFRAA in patients over 70 years has not been determined. Clinical correlation is essential. Serum or plasma urea nitroge n measurement (mass/volume)on 10-05-2021 Urea nitrogen [Mass/Vol] 18 mg/dL 7-18 [facility] Work Phone: Thin prep Papanicolaou smear with manual screeningon 10-05-2021 Thin prep Papanicolaou smear with manual screening 38 U/L 15-37 [facility] Work Phone: Thin prep Papanicolaou smear with manual screening 8 5-15 [facility] Work Phone: [facility] STEPHANIE KATZ ( ) 1935 F Date Time Provider Department 04/29/20 OBDULIA WINTER During your visit today, we recorded the following information about you: Emilio Garcia DANUTA 04/29/2020 8:58 AM Signed Pt called noting she had been seen in 02/2020 and was to have follow up 04/2020. Appt has now been moved to 06/08/2020. She notes that the pain in her LLE has become larger, redder AND bumpier. Over the past week she has been having more frequent pain which she describes as throbbing AND 3/10. More uncomfortable with contact. She is not sure she can wait until appt in May without something to treat this. She is asking for recommendations. Yecenia Ignacia 04/29/2020 9:38 AM Signed Called patient Reports she tried using the triamcinolone cream without improvement. 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 Camila Power To get the biopsy results she had in January or February Per patient these were faxed to our office, however no records received Called the Dr. Hendrix office They are faxing biopsy results today Yecenia Beth 04/29/2020 12:13 PM Signed Called Yusra after speaking to She advised she been evaluated by PCP office or urgent care today or tomorrow We will see her for OV on 05/04/2020 at 1115 in [place] Patient is agreeable to plan Allergies As of Date: 04/29/2020 Noted Allergy Reaction BEXTRA (VALDECOXIB) 08/31/2005 4 - Hives CEPHALOSPORINS 02/25/2013 2 - Rash DARVOCET A500 (PROPOXYPHENE N-RIDGE*2007 2 - Rash ERYTHROMYCIN 08/31/2005 4 - Hives PENICILLINS 05/19/2005 4 - Hives PERCOCET (OXYCODONE-ACETAMINO PHEN)03/29/2010 5 - Intolerance PRAVASTATIN 06/03/2013 14 - Other: See Comments Comments: myalgias SULFA (SULFONAMIDE ANTIBIOTICS) 05/19/2005 4 - Hives Date Reviewed: 04/29/2020 Reviewed by: Antonia Olson Ma - Fully Assessed Reason for Visit: Question [5487] Prescriptions as of 04/29/2020 Sig: MELOXICAM 15 MG TABLET Take 1 tablet by mouth once d* METOPROLOL SUCCINATE ER 25 MG* Take 1 tablet by mouth once d* CHLORTHALIDONE 25 MG TABLET Take 0.5 tablets by mouth onc* HYOSCYAMINE 0.125 MG SUBLINGU* Dissolve 1 tablet under the t* LOPERAMIDE 2 MG CAPSULE Take 1 capsule by mouth twice* POTASSIUM CHLORIDE ER 10 MEQ * Klor-con sprinkle cap 10 meq * MECLIZINE 12.5 MG TABLET Take 2 tablets by mouth three* ASPIRIN 81 MG TABLET,DELAYED * Take 1 tablet by mouth once d* EZETIMIBE 10 MG TABLET Take 0.5-1 tablets by mouth o* COMPOUNDED PRESCRIPTION Klor-con sprinkle cap 10 meq * OMEPRAZOLE MAGNESIUM 20 MG TA* Take 1 tablet by mouth daily * ESTRADIOL 0.01% (0.1 MG/GRAM)* Use vaginally 3 times a WEEK* ACETAMINOPHEN 325 MG TABLET Take 650 mg by mouth every 6 * CHOLECALCIFEROL (VITAMIN D3) * Take 2 capsules by mouth once* MULTIVITAMIN TABLET Take 1 tablet by mouth once d* CPAP AutoPAP 5-15 cmH2O, [place] m* Problem List As Of Date 04/29/2020 Noted Resolved LUMBAGO [M54.5] 06/23/2008 Primary osteoarthritis involving multiple joint* INSOMNIA NOS [G47.00] MITRAL VALVE DISORDER [I05.9] 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 More... Diverticulosis of colon (without mention of hem*05/26/2010 ZO (obstructive sleep apnea) [G47.33] 12/22/2010 More... Thyroid nodule [E04.1] 12/22/2010 GERD (gastroesophageal reflux disease) [K21.9] 12/22/2010 Anxiety [F41.9] 05/18/2011 IBS (irritable bowel syndrome) [K58.9] 08/17/2011 Uterovaginal prolapse, incomplete [N81.2] 01/31/2012 More... Left Hip arthritis [M16.10] 04/09/2012 Hypertension goal BP (blood pressure) < 150/90 *04/09/2012 Encounter Status:Closed by YECENIA BETH on 04/29/20 Normal [facility] Office Visit: est annualon 0 02-08-2017 Documentation of current medications (procedure) Done Invalid Interpretation Code [facility] Documentation of current medications (procedure) T Invalid Interpretation Code [facility] Fall risk assessment No Invalid Interpretation Code [facility] Hemoglobin presence in stool not done Invalid Interpretation Code [facility] Tobacco smoking status NHIS Never Invalid Interpretation Code [facility] Tobacco use CPHS Never smoker Invalid Interpretation Code [facility] Office Visit: est annualon 0 12-20-2015 Breast Mammogram screening Normal Bilateral Invalid Interpretation Code [facility] Office Visit: est annualon 0 05-21-2015 General categories [Interpretation] of Cervical or vaginal smear or scraping by Cyto stain Normal Invalid Interpretation Code [facility] Vital Signs Date Time Vital Sign Value Performing Clinician Faci lity 06-18-2024 08:17-0500 Body height 154.9 cm Kevin Elder MD Work Phone: [facility] 06-18-2024 08:17-0500 Body mass index (BMI) [Ratio] 26.16 kg/m2 Kevin Elder MD Work Phone: [facility] 06-18-2024 08:17-0500 Body weight 62.8 kg Kevin Elder MD Work Phone: [facility] 06-18-2024 08:17-0500 Diastolic blood pressure 70 mm[Hg] Kevin Elder MD Work Phone: [facility] 06-18-2024 08:17-0500 Heart rate 78 /min Kevin Elder MD Work Phone: [facility] 06-18-2024 08:17-0500 SaO2% (BldA) [Mass fraction] 98 % Kevin Elder MD Work Phone: [facility] 06-18-2024 08:17-0500 Systolic blood pressure 120 mm[Hg] Kevin Elder MD Work Phone: [facility] 12-10-2023 13:15-0400 Body height 155 cm Kevin Elder MD Work Phone: [facility] 12-10-2023 13:15-0400 Body mass index (BMI) [Ratio] 26.05 kg/m2 Kevin Elder MD Work Phone: [facility] 12-10-2023 13:15-0400 Body temperature 97.81 [degF] Kevin Elder MD Work Phone: [facility] 12-10-2023 13:15-0400 Body weight 62.6 kg Kevin Elder MD Work Phone: [facility] 12-10-2023 13:15-0400 Diastolic blood pressure 80 mm[Hg] Kevin Elder MD Work Phone: [facility] 12-10-2023 13:15-0400 Heart rate 75 /min Kevin Elder MD Work Phone: [facility] 12-10-2023 13:15-0400 Respiratory rate 18 /min Kevin Elder MD Work Phone: [facility] 12-10-2023 13:15-0400 SaO2% (BldA) [Mass fraction] 97 % Kevin Elder MD Work Phone: [facility] 12-10-2023 13:15-0400 Systolic blood pressure 134 mm[Hg] Kevin lEder MD Work Phone: [facility] 08-17-2023 13:16-0400 Body height 157.[address] Kevin Elder Work Phone: [facility] 08-17-2023 13:16-0400 Body mass index (BMI) [Ratio] 25 kg/m2 Dr. Kevin Elder Work Phone: [facility] 08-17-2023 13:16-0400 Body weight 62.[address] Kevin Elder Work Phone: [facility] 08-17-2023 13:16-0400 Diastolic blood pressure 54 mm[Hg] Dr. Kevin Elder Work Phone: [facility] 08-17-2023 13:16-0400 Heart rate 75 /min Dr. Kevin Elder Work Phone: [facility] 08-17-2023 13:16-0400 Respiratory rate 16 /min Dr. Kevin Elder Work Phone: [facility] 08-17-2023 13:16-0400 Systolic blood pressure 138 mm[Hg] Dr. eKvin Elder Work Phone: [facility] 06-11-2023 09:25-0500 Body height 156 cm Kevin Elder MD Work Phone: [facility] 06-11-2023 09:25-0500 Body temperature 97.81 [degF] Kevin Elder MD Work Phone: [facility] 06-11-2023 09:25-0500 Body weight 60.46 kg Kevin Elder MD Work Phone: [facility] 06-11-2023 09:25-0500 Diastolic blood pressure 73 mm[Hg] Kevin Elder MD Work Phone: [facility] 06-11-2023 09:25-0500 Heart rate 78 /min Kevin Elder MD Work Phone: [facility] 06-11-2023 09:25-0500 Respiratory rate 18 /min Kevin Elder MD Work Phone: [facility] 06-11-2023 09:25-0500 SaO2% (BldA) [Mass fraction] 98 % Kevin Elder MD Work Phone: [facility] 06-11-2023 09:25-0500 Systolic blood pressure 115 mm[Hg] Kevin Elder MD Work Phone: [facility] 12-05-2022 11:46-0400 Diastolic blood pressure 66 mm[Hg] Obdulia Winter DO Work Phone: [facility] 12-05-2022 11:46-0400 Heart rate 91 /min Obdulia Winter DO Work Phone: [facility] 12-05-2022 11:46-0400 SaO2% (BldA) [Mass fraction] 96 % Obdulia Winter DO Work Phone: [facility] 12-05-2022 11:46-0400 Systolic blood pressure 102 mm[Hg] Obdulia Winter DO Work Phone: [facility] 12-05-2022 08:18-0400 Body temperature 97.81 [degF] Kevin Elder MD Work Phone: [facility] 12-05-2022 08:18-0400 Body weight 61.87 kg Kevin Elder MD Work Phone: [facility] 12-05-2022 08:18-0400 Diastolic blood pressure 62 mm[Hg] Kevin Elder MD Work Phone: [facility] 12-05-2022 08:18-0400 Heart rate 87 /min Kevin Elder MD Work Phone: [facility] 12-05-2022 08:18-0400 Respiratory rate 18 /min Kevin Elder MD Work Phone: [facility] 12-05-2022 08:18-0400 SaO2% (BldA) [Mass fraction] 97 % Kevin Elder MD Work Phone: [facility] 12-05-2022 08:18-0400 Systolic blood pressure 104 mm[Hg] Kevin Elder MD Work Phone: [facility] 11-26-2022 13:40-0400 Body temperature 98.29 [degF] Therese Praisler-Wood INTERLOCKING AND SIGNAL MECHANIC.DOG SITTER Work Phone: [facility] 11-26-2022 13:40-0400 Body weight 62.6 kg Therese Praisler-Wood INTERLOCKING AND SIGNAL MECHANIC.DOG SITTER Work Phone: [facility] 11-26-2022 13:40-0400 Diastolic blood pressure 70 mm[Hg] Therese Praisler-Wood INTERLOCKING AND SIGNAL MECHANIC.DOG SITTER Work Phone: [facility] 11-26-2022 13:40-0400 Heart rate 72 /min Therese Praisler-Wood INTERLOCKING AND SIGNAL MECHANIC.DOG SITTER Work Phone: [facility] 11-26-2022 13:40-0400 Respiratory rate 16 /min Therese Praisler-Wood INTERLOCKING AND SIGNAL MECHANIC.DOG SITTER Work Phone: [facility] 11-26-2022 13:40-0400 SaO2% (BldA) [Mass fraction] 99 % Therese Praisler-Wood INTERLOCKING AND SIGNAL MECHANIC.DOG SITTER Work Phone: [facility] 11-26-2022 13:40-0400 Systolic blood pressure 122 mm[Hg] Therese Praisler-Wood INTERLOCKING AND SIGNAL MECHANIC.DOG SITTER Work Phone: [facility] 06-23-2022 09:56-0500 Body height 157.[address] Kevin Elder Work Phone: [facility] 06-23-2022 09:56-0500 Body mass index (BMI) [Ratio] 25.2 kg/m2 Dr. Kevin Elder Work Phone: [facility] 06-23-2022 09:56-0500 Body weight 62.[address] Kevin Elder Work Phone: [facility] 06-23-2022 09:56-0500 Diastolic blood pressure 84 mm[Hg] Dr. Kevin Elder Work Phone: [facility] 06-23-2022 09:56-0500 Heart rate 84 /min Dr. Kevin Elder Work Phone: [facility] 06-23-2022 09:56-0500 Respiratory rate 16 /min Dr. Kevin Elder Work Phone: [facility] 06-23-2022 09:56-0500 Systolic blood pressure 162 mm[Hg] Dr. Kevin Elder Work Phone: [facility] 06-07-2022 09:23-0500 Body temperature 97.2 [degF] Kevin Elder MD Work Phone: [facility] 06-07-2022 09:23-0500 Body weight 63.05 kg Kevin Elder MD Work Phone: [facility] 06-07-2022 09:23-0500 Diastolic blood pressure 82 mm[Hg] Kevin Elder MD Work Phone: [facility] 06-07-2022 09:23-0500 Heart rate 72 /min Kevin Elder MD Work Phone: [facility] 06-07-2022 09:23-0500 Respiratory rate 18 /min Kevin Elder MD Work Phone: [facility] 06-07-2022 09:23-0500 SaO2% (BldA) [Mass fraction] 98 % Kevin Elder MD Work Phone: [facility] 06-07-2022 09:23-0500 Systolic blood pressure 132 mm[Hg] Kevin Elder MD Work Phone: [facility] 05-08-2022 15:19-0500 Diastolic blood pressure 84 mm[Hg] Ciara Alfredo APRN.CNS Work Phone: [facility] 05-08-2022 15:19-0500 Heart rate 81 /min Ciara Alfredo INTERLOCKING AND SIGNAL MECHANIC.TRADE MANAGER Work Phone: [facility] 05-08-2022 15:19-0500 Systolic blood pressure 158 mm[Hg] Ciara Alfredo INTERLOCKING AND SIGNAL MECHANIC.TRADE MANAGER Work Phone: [facility] 05-08-2022 15:13-0500 Body weight 63.05 kg Ciara Alfredo INTERLOCKING AND SIGNAL MECHANIC.TRADE MANAGER Work Phone: [facility] 05-08-2022 15:13-0500 Respiratory rate 16 /min Ciara Alfredo INTERLOCKING AND SIGNAL MECHANIC.TRADE MANAGER Work Phone: [facility] 05-02-2022 08:44-0500 Diastolic blood pressure 86 mm[Hg] Obdulia Winter DO Work Phone: [facility] 05-02-2022 08:44-0500 Systolic blood pressure 144 mm[Hg] Obdulia Winter DO Work Phone: [facility] 05-02-2022 08:40-0500 Body height 157.5 cm Obdulia Winter DO Work Phone: [facility] 05-02-2022 08:40-0500 Body weight 63.5 kg Obdulia Winter DO Work Phone: [facility] 05-02-2022 08:40-0500 Heart rate 95 /min Obdulia Winter DO Work Phone: [facility] 05-02-2022 08:40-0500 SaO2% (BldA) [Mass fraction] 98 % Obdulia Winter DO Work Phone: [facility] 04-26-2022 11:03-0500 Body height 157.[address] Kevin Elder Work Phone: [facility] Work Phone: 04-26-2022 11:03-0500 Body mass index (BMI) [Ratio] 26.2 kg/m2 Dr. Kevin Elder Work Phone: [facility] 04-26-2022 11:03-0500 Body weight 64.[address] Kevin Elder Work Phone: [facility] 04-26-2022 11:03-0500 Diastolic blood pressure 90 mm[Hg] Dr. Kevin Elder Work Phone: [facility] 04-26-2022 11:03-0500 SaO2% (BldA) [Mass fraction] 97 % Dr. Kevin Elder Work Phone: [facility] 04-26-2022 11:03-0500 Systolic blood pressure 162 mm[Hg] Dr. Kevin Elder Work Phone: [facility] 02-10-2022 08:25-0400 Body temperature 98.29 [degF] Hina Athy PA-C Work Phone: [facility] 02-10-2022 08:25-0400 Body weight 62.96 kg Hina Athy PA-C Work Phone: [facility] 02-10-2022 08:25-0400 Diastolic blood pressure 80 mm[Hg] Hina Athy PA-C Work Phone: [facility] 02-10-2022 08:25-0400 Heart rate 85 /min Hina Athy PA-C Work Phone: [facility] 02-10-2022 08:25-0400 Respiratory rate 18 /min Hina Athy PA-C Work Phone: [facility] 02-10-2022 08:25-0400 SaO2% (BldA) [Mass fraction] 96 % Hina Athy PA-C Work Phone: [facility] 02-10-2022 08:25-0400 Systolic blood pressure 124 mm[Hg] Hina Athy PA-C Work Phone: [facility] 12-30-2021 14:03-0400 Body weight 63.05 kg Ciara Alfredo APRN.CNS Work Phone: [facility] 12-30-2021 14:03-0400 Diastolic blood pressure 70 mm[Hg] Ciara Alfredo INTERLOCKING AND SIGNAL MECHANIC.TRADE MANAGER Work Phone: [facility] 12-30-2021 14:03-0400 Heart rate 64 /min Ciara Alfredo INTERLOCKING AND SIGNAL MECHANIC.TRADE MANAGER Work Phone: [facility] 12-30-2021 14:03-0400 Respiratory rate 16 /min Ciara Alfredo INTERLOCKING AND SIGNAL MECHANIC.TRADE MANAGER Work Phone: [facility] 12-30-2021 14:03-0400 Systolic blood pressure 136 mm[Hg] Ciara Alfredo INTERLOCKING AND SIGNAL MECHANIC.TRADE MANAGER Work Phone: [facility] 12-23-2021 13:10-0400 Diastolic blood pressure 80 mm[Hg] Ciara Alfredo INTERLOCKING AND SIGNAL MECHANIC.TRADE MANAGER Work Phone: [facility] 12-23-2021 13:10-0400 Systolic blood pressure 158 mm[Hg] Ciara Alfredo INTERLOCKING AND SIGNAL MECHANIC.TRADE MANAGER Work Phone: [facility] 12-23-2021 12:59-0400 Body weight 64.86 kg Ciara Alfredo INTERLOCKING AND SIGNAL MECHANIC.TRADE MANAGER Work Phone: [facility] 12-23-2021 12:59-0400 Heart rate 64 /min Ciara Alfredo INTERLOCKING AND SIGNAL MECHANIC.TRADE MANAGER Work Phone: [facility] 12-23-2021 12:59-0400 Respiratory rate 16 /min Ciara Alfredo INTERLOCKING AND SIGNAL MECHANIC.TRADE MANAGER Work Phone: [facility] 12-23-2021 12:59-0400 SaO2% (BldA) [Mass fraction] 97 % Ciara Alfredo INTERLOCKING AND SIGNAL MECHANIC.TRADE MANAGER Work Phone: [facility] 11-24-2021 13:17-0400 Diastolic blood pressure 77 mm[Hg] Ciara Alfredo INTERLOCKING AND SIGNAL MECHANIC.TRADE MANAGER Work Phone: [facility] 11-24-2021 13:17-0400 Heart rate 61 /min Ciara Alfredo INTERLOCKING AND SIGNAL MECHANIC.TRADE MANAGER Work Phone: [facility] 11-24-2021 13:17-0400 Systolic blood pressure 148 mm[Hg] Ciara Alfredo INTERLOCKING AND SIGNAL MECHANIC.TRADE MANAGER Work Phone: [facility] 11-24-2021 13:09-0400 Body weight 63.05 kg Ciara Alfredo INTERLOCKING AND SIGNAL MECHANIC.TRADE MANAGER Work Phone: [facility] 11-24-2021 13:09-0400 Respiratory rate 16 /min Ciara Alfredo INTERLOCKING AND SIGNAL MECHANIC.TRADE MANAGER Work Phone: [facility] 11-24-2021 13:09-0400 SaO2% (BldA) [Mass fraction] 95 % Ciara Alfredo INTERLOCKING AND SIGNAL MECHANIC.TRADE MANAGER Work Phone: [facility] 10-21-2021 09:46-0400 Diastolic blood pressure 76 mm[Hg] Ciara Alfredo INTERLOCKING AND SIGNAL MECHANIC.TRADE MANAGER Work Phone: [facility] 10-21-2021 09:46-0400 Heart rate 62 /min Ciara Alfredo INTERLOCKING AND SIGNAL MECHANIC.TRADE MANAGER Work Phone: [facility] 10-21-2021 09:46-0400 Systolic blood pressure 160 mm[Hg] Ciara Alfredo INTERLOCKING AND SIGNAL MECHANIC.TRADE MANAGER Work Phone: [facility] 10-21-2021 09:41-0400 Body weight 63.05 kg Ciara Alfredo INTERLOCKING AND SIGNAL MECHANIC.TRADE MANAGER Work Phone: [facility] 10-21-2021 09:41-0400 Respiratory rate 16 /min Ciara Alfredo INTERLOCKING AND SIGNAL MECHANIC.TRADE MANAGER Work Phone: [facility] 10-21-2021 09:41-0400 SaO2% (BldA) [Mass fraction] 97 % Ciara Alfredo INTERLOCKING AND SIGNAL MECHANIC.TRADE MANAGER Work Phone: [facility] 10-05-2021 15:02-0400 Diastolic blood pressure 75 mm[Hg] [facility] Work Phone: 10-05-2021 15:02-0400 Heart rate 62 /min [facility] Work Phone: 10-05-2021 15:02-0400 Respiratory rate 15 /min [facility] Work Phone: 10-05-2021 15:02-0400 SaO2% (BldA) [Mass fraction] 97 % [facility] Work Phone: 10-05-2021 15:02-0400 Systolic blood pressure 133 mm[Hg] [facility] Work Phone: 10-05-2021 12:56-0400 Body height 157.48 cm [facility] Work Phone: 10-05-2021 12:56-0400 Body mass index (BMI) [Ratio] 25.8 kg/m2 [facility] Work Phone: 10-05-2021 12:56-0400 Body temperature 96.7 [degF] [facility] Work Phone: 10-05-2021 12:56-0400 Body weight 64 kg [facility] Work Phone: 02-08-2017 13:21-0400 BMI (Body Mass Index) 24.97 kg/m2 Mikki Dennis MD [facility] 02-08-2017 13:21-0400 Body Temperature 98.6 [degF] Mikki Dennis MD [facility] 02-08-2017 13:21-0400 BP Diastolic 76 mm[Hg] Mikki Dennis MD [facility] 02-08-2017 13:21-0400 BP Systolic 165 mm[Hg] Mikki Dennis MD [facility] 02-08-2017 13:21-0400 Height 160.02 cm Mikki Dennis MD [facility] 02-08-2017 13:21-0400 Pulse (Heart Rate) 64 /min Mikki Dennis MD [facility] 02-08-2017 13:21-0400 Respiratory Rate 16 /min Mikki Dennis MD [facility] 02-08-2017 13:21-0400 Weight 63.96 kg Mikki Dennis MD [facility] Encounters Encounter Date Encounter Type Care Provider Facility Start: 09-19-2024 End: 09-19-2024 ambulatory KEVIN ELDER Facility:[facility] Start: 09-16-2024 [facility] Start: 09-16-2024 End: 09-16-2024 ambulatory Kevin Elder Facility:[facility] Start: 08-19-2024 End: 08-19-2024 Telephone encounter Kevin Elder MD Work Phone: [facility] [place] Comment on above: Results Start: 08-07-2024 End: 08-07-2024 ambulatory KEVIN ELDER Facility:[facility] Start: 08-07-2024 End: 08-07-2024 Subsequent hospital visit by physician [facility] Work Phone: Radiology Comment on above: Asymptomatic postmen opausal status [Z78.0] Start: 06-18-2024 End: 06-18-2024 [facility] KEVIN ELDER Facility:[facility] Start: 06-18-2024 End: 06-18-2024 Patient encounter procedure Kevin Elder MD Work Phone: [facility] [place] Comment on above: Medicare annual well ness visit, subsequent (Primary Dx); Primary osteoarthritis of right knee; Foot drop, right; Permanent atrial fibrillation (HCC); Bilateral carotid artery stenosis; Asymptomatic postmenopausal status; Status post bilateral hip replacements; Osteopenia of forearm, unspecified laterality; Gait instability; Encounter for immunization; Screening for depression; Peripheral polyneuropathy Start: 06-11-2024 End: 06-11-2024 ambulatory KEVIN ELDER Facility:[facility] Start: 06-03-2024 End: 06-03-2024 Refill Yesy Zuniga INTERLOCKING AND SIGNAL MECHANIC.DOG SITTER Work Phone: [facility] [place] Comment on above: Refill Request Start: 05-19-2024 End: 05-26-2024 Refill Yesy Zuniga INTERLOCKING AND SIGNAL MECHANIC.DOG SITTER Work Phone: [facility] [place] Comment on above: Refill Request Start: 04-28-2024 End: 04-28-2024 Telephone encounter Kevin Elder MD Work Phone: [facility] [place] Comment on above: Results Start: 04-21-2024 End: 04-22-2024 Refill Kevin Elder MD Work Phone: [facility] [place] Comment on above: Refill Request Start: 03-20-2024 End: 03-20-2024 ambulatory Kevin Elder Facility:[facility] Start: 03-08-2024 End: 03-11-2024 Telephone encounter Kevin Elder MD Work Phone: [facility] [place] Comment on above: Patient Question Start: 02-08-2024 End: 02-08-2024 Refill Kevin Elder MD Work Phone: [facility] [place] Comment on above: Refill Request Start: 01-25-2024 End: 01-25-2024 ambulatory Kevin Elder Facility:[facility] Start: 12-10-2023 End: 12-10-2023 Office outpatient visit 25 minutes Kevin Elder MD Work Phone: [facility] [place] Comment on above: Hypertension goal BP (blood pressure) < 150/90 (Primary Dx); Atrial fibrillation, unspecified type (HCC); Hypomagnesemia; Mixed hyperlipidemia; Hyponatremia; Elevated glucose; Osteopenia, unspecified location; Bilateral lower extremity edema; Primary osteoarthritis of right knee Start: 12-10-2023 End: 12-10-2023 ambulatory KEVIN ELDER Facility:[facility] Start: 12-05-2023 End: 12-05-2023 ambulatory KEVIN ELDER Facility:[facility] Start: 12-05-2023 Encounter for other preprocedural examination KEVIN ELDER [facility] Start: 11-19-2023 ambulatory Kevin mead MD Work Phone: [facility] [place] Start: 11-19-2023 Patient encounter procedure Tiffany Elder MD Work Phone: [facility] [place] Comment on above: reason for appointme nt on December 09 Start: 11-05-[address] PATI FISHER MD Facility:[facility] Start: 10-18-2023 Patient encounter status Kevin Elder MD Work Phone: [facility] Start: 10-18-2023 Telephone encounter Kevin gutierrez MD Work Phone: [facility] [place] Comment on above: Pre-Op Appointment Start: 10-18-[address] PATI FISHER MD Facility:[facility] Start: 09-17-2023 End: 09-17-[address] Kevin Elder Work Phone: [facility] Work Phone: Start: 09-17-2023 End: 09-17-[address] Kevin Elder Work Phone: [facility] Work Phone: Start: 09-16-2023 Non-patient / Non-visit Dr. Tiffany Elder Work Phone: [facility] Start: 09-12-2023 End: 09-12-[address] Kevin Elder Work Phone: [facility] Work Phone: Start: 09-12-2023 End: 09-12-[address] eKvin Elder Work Phone: [facility] Work Phone: Start: 08-17-[address] Xiomara Elder Work Phone: [facility] Start: 08-17-2023 End: 08-17-2023 Admission to same day surgery center Dr. Kevin Elder Work Phone: [facility] Start: 08-17-2023 End: 08-17-[address] Kevin Elder Work Phone: [facility] Work Phone: Start: 06-11-2023 End: 06-11-2023 Patient encounter procedure Kevin Elder MD Work Phone: [facility] [place] Comment on above: Medicare annual well ness visit, subsequent (Primary Dx); Mixed hyperlipidemia; Hypomagnesemia; Hypokalemia; Neuropathy; Hypertension goal BP (blood pressure) < 150/90; Leg swelling; Primary osteoarthritis involving multiple joints; Carotid stenosis, asymptomatic, bilateral; Longstanding persistent atrial fibrillation (HCC); Encounter for immunization; Need for shingles vaccine; Encounter for long-term current use of medication; Osteopenia of forearm, unspecified laterality Start: 05-05-2023 Refill Kevin mead MD Work Phone: [facility] [place] Comment on above: Refill Request Start: 12-05-2022 Telephone encounter Kevin gutierrez MD Work Phone: [facility] [place] Comment on above: Letter Start: 12-05-2022 End: 12-05-2022 Patient encounter procedure Obdulia Winter DO Work Phone: Vascular Surgery Comment on above: 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 (Primary Dx) Start: 12-05-2022 End: 12-05-2022 Office outpatient visit 40 minutes Kevin Elder MD Work Phone: [facility] [place] Comment on above: Hypertension goal BP (blood pressure) < 150/90 (Primary Dx); Hypomagnesemia; Hyponatremia; Mixed hyperlipidemia; Elevated glucose; Osteopenia of forearm, unspecified laterality; Neuropathy; Osteopenia, unspecified location Start: 11-29-2022 Telephone encounter Kevin gutierrez MD Work Phone: [facility] [place] Comment on above: Medication Question Start: 11-28-2022 Telephone encounter Therese Danielle APRN.DOG SITTER Work Phone: [facility] Comment on above: Results Start: 11-26-2022 End: 11-26-2022 Patient encounter procedure Therese Danielle APRN.DOG SITTER Work Phone: [facility] Comment on above: Urinary frequency (P rimary Dx) Start: 07-31-2022 Non-patient / Non-visit Dr. Tiffany Elder Work Phone: [facility] Start: 07-31-2022 End: 07-31-[address] Kevin Elder Work Phone: [facility] Work Phone: Start: 07-31-2022 End: 07-31-[address] Kevin Elder Work Phone: [facility]Pulmonary Services/Neurology Start: 07-28-2022 End: 07-28-[address] Kevin Elder Work Phone: [facility] Work Phone: Start: 07-28-2022 End: 07-28-[address] Kevin Elder Work Phone: [facility] Start: 07-22-2022 Orders Only Kevin mead MD Work Phone: [facility] [place] Comment on above: Osteopenia of forear m, unspecified laterality (Primary Dx); Osteopenia, unspecified location Start: 06-23-2022 End: 06-23-[address] Kevin Elder Work Phone: [facility] Start: 06-19-2022 End: 06-19-2022 Subsequent hospital visit by physician Bone D[facility] Work Phone: Radiology Comment on above: Asymptomatic postmen opausal status [Z78.0] Start: 06-10-2022 ambulatory Kevin mead MD Work Phone: [facility] [place] Comment on above: Results of ECG Start: 06-10-2022 E-mail encounter fro m caregiver Kevin Elder MD Work Phone: [facility] [place] Start: 06-09-2022 Telephone encounter Kevin gutierrez MD Work Phone: [facility] [place] Comment on above: Patient Question Start: 06-07-2022 End: 06-07-2022 Office outpatient visit 40 minutes Kevin Elder MD Work Phone: [facility] [place] Comment on above: Hypertension goal BP (blood pressure) < 150/90 (Primary Dx); Atrial fibrillation, unspecified type (HCC); Hypomagnesemia; Irritable bowel syndrome with diarrhea; Mixed hyperlipidemia; Leg swelling; Asymptomatic postmenopausal status; Palpitations; Bilateral carotid artery stenosis; Undiagnosed cardiac murmurs; Hypokalemia; Encounter for long-term current use of medication; Encounter for immunization Start: 05-31-2022 Refill Kevin mead MD Work Phone: [facility] [place] Comment on above: Refill Request Start: 05-10-2022 ambulatory No Pcp Vladimir Malone Start: 05-08-2022 End: 05-08-2022 Office outpatient visit 25 minutes Ciara Alfredo APRN.CNS Work Phone: [facility] [place] Comment on above: Hypertension goal BP (blood pressure) < 150/90 (Primary Dx); Leg swelling; Generalized OA Start: 05-02-2022 End: 05-02-2022 Patient encounter procedure Obdulia Winter DO Work Phone: Vascular Surgery Comment on above: Lipodermatosclerosis of both lower extremities (Primary Dx) Start: 04-26-2022 Telephone encounter Yesy wellington APRN.CNP Work Phone: [facility] [place] Comment on above: Medication Update Start: 04-26-2022 End: 04-26-[address] Kevin Elder Work Phone: [facility] Neurology Start: 04-25-2022 Telephone encounter Kevin gutierrez MD Work Phone: [facility] [place] Comment on above: Orders Start: 04-09-2022 Refill Kevin mead MD Work Phone: [facility] [place] Comment on above: Refill Request Start: 04-05-2022 ambulatory Kevin mead MD Work Phone: [facility] [place] Comment on above: swelling possibly re lated to amlodipine Start: 03-02-2022 End: 03-02-[address] Kevin Elder Work Phone: [facility] Work Phone: Start: 03-02-2022 End: 03-02-[address] Kevin Elder Work Phone: [facility]Physical Therapy Start: 02-14-2022 Refill Ciara Alfredo APRN.TRADE MANAGER Work Phone: [facility] [place] Comment on above: Refill Request problem with [place] [facility]ine vivas records Start: 02-10-2022 End: 02-10-2022 Patient encounter procedure Hina Woodward PA-C Work Phone: [facility] Comment on above: Rash (Primary Dx) Start: 12-30-2021 End: 12-30-2021 Patient encounter procedure Ciara Alfredo INTERLOCKING AND SIGNAL MECHANIC.TRADE MANAGER Work Phone: [facility] [place] Comment on above: Leg swelling (Primar y Dx); Weight gain Start: 12-23-2021 End: 12-23-2021 Patient encounter procedure Ciara Alfredo INTERLOCKING AND SIGNAL MECHANIC.TRADE MANAGER Work Phone: [facility] [place] Comment on above: Leg swelling (Primar y Dx); Weight gain Start: 11-24-2021 End: 11-24-2021 Patient encounter procedure Ciara Snows INTERLOCKING AND SIGNAL MECHANIC.TRADE MANAGER Work Phone: [facility] [place] Comment on above: Hypertension goal BP (blood pressure) < 150/90 (Primary Dx); Irritable bowel syndrome with diarrhea; Mixed hyperlipidemia; ZO (obstructive sleep apnea); Gastroesophageal reflux disease without esophagitis; Nontoxic uninodular goiter; Hyponatremia; Hypokalemia Start: 10-28-2021 End: 10-28-2021 ambulatory Ciara Alfredo INTERLOCKING AND SIGNAL MECHANIC.TRADE MANAGER Work Phone: [facility] [place] Comment on above: Hyponatremia (Primar y Dx); Hypokalemia; Hypertension goal BP (blood pressure) < 150/90; Irritable bowel syndrome with diarrhea Start: 10-28-2021 End: 10-28-2021 Telemedicine consultation with patient Ciara Alfredo APRN.TRADE MANAGER Work Phone: [facility] Start: 10-21-2021 End: 10-21-2021 Patient encounter procedure Ciara Alfredo APRN.TRADE MANAGER Work Phone: [facility] [place] Comment on above: Hyponatremia (Primar y Dx); Hypokalemia; Hypertension goal BP (blood pressure) < 150/90 Start: 10-05-2021 End: 10-05-2021 Emergency department patient visit [facility] Start: 09-10-2021 ambulatory Ciara Alfredo APRN.TRADE MANAGER Work Phone: [facility] [place] Comment on above: prilosec dosage Procedures Date Procedure Procedure Detail Performing Clinician Start: 06-18-2024 Adult depression scr eening assessment Kevin Elder MD Work Phone: Start: 09-17-2023 Screening mammography Dennis Elder Work Phone: Start: 09-12-2023 Cardiovascular stres s test using pharmacologic stress agent Dr. Kevin Elder Work Phone: Start: 11-26-2022 Urnls dip stick/tabl et rgnt auto w/o microscopy Hina Woodward PA-C Work Phone: Start: 07-28-2022 Screening mammography Dennis Elder Work Phone: Start: 06-19-2022 Dxa bone density ashia dy 1/> sites axial skel Kevin Elder MD Work Phone: Start: 06-07-2022 PFIZER-BIONTECH COVI D-19 BIVALENT BOOSTER VACCINE, AGE 12+ YR Kevin Elder MD Work Phone: Plan of Treatment Date Care Activity Detail Author Start: 06-11-2027 Diabetes Screening Diabetes Screenin [facility] Start: 12-04-2026 Diabetes Screening Diabetes Screenin [facility] Start: 05-31-2026 Diabetes Screening Diabetes Screenin [facility] Start: 12-05-2025 DIABETES SCREEN DIABETES SCREEN [facility] Start: 12-05-2025 Diabetes Screening Diabetes Screenin g [facility] Start: 07-27-2025 End: 07-27-2025 Patient encounter procedure 07/27/2025 8:00 AM EDT Office Visit [facility] [place] [address] [place] [address] Kevin Elder MD [address] [place] [address] Medicare Wellness Exam [facility] [place] Comment on above: Medicare Wellness Ex am Start: 06-18-2025 Covid-19 Vaccine () Covid-19 Vaccine () [facility] Comment on above: Postponed from 01/19 (Declined at this time) Start: 06-18-2025 Depression Screening Depression Scre ening [facility] Start: 06-01-2025 DIABETES SCREEN DIABETES SCREEN [facility] Start: 11-25-2024 End: 11-25-2024 Patient encounter procedure [facility] [place] Comment on above: Medicare Wellness 6 month follow up Start: 11-24-2024 DIABETES SCREEN DIABETES SCREEN [facility] Start: 10-26-2024 DIABETES SCREEN DIABETES SCREEN [facility] Start: 10-19-2024 DIABETES SCREEN DIABETES SCREEN [facility] Start: 09-19-2024 End: 09-19-2024 Patient encounter procedure 09/19/2024 3:30 PM EDT Office Visit Vascul[facility] Surgery [address] [place] [address] Bilateral carotid artery stenosis [I65.23] [facility] Comment on above: Bilateral carotid [place] stenosis [I65.23] Start: 06-18-2024 End: 06-18-2024 Patient encounter procedure 06/18/2024 8:20 AM EST Office Visit [facility] [place] [address] [place] [address] Kevin Elder MD [address] [place] [address] medicare wellness [facility] [place] Comment on above: medicare wellness Start: 05-21-2024 Advance Directive Discussion Advance Directive Discussion [facility] Start: 05-11-2024 End: 08-09-2024 25-hydroxyvitamin D3 [Mass/volume] in Serum or Plasma VITAMIN D 25 HYDROXY Lab Routine Osteopenia, unspecified location Expected: 05/11/2024, Expires: 08/09/2024 [facility] Comment on above: Expected: 05/11/2024 , Expires: 08/09/2024 Start: 05-11-2024 End: 08-09-2024 CBC panel - Blood by Automated count COMPLETE BLOOD COUNT Lab Routine Hypertension goal BP (blood pressure) < 150/90 Expected: 05/11/2024, Expires: 08/09/2024 [facility] Comment on above: Expected: 05/11/2024 , Expires: 08/09/2024 Start: 05-11-2024 End: 08-09-2024 Comprehensive metabolic 2000 panel - Serum or Plasma COMPREHENSIVE METABOLIC PANEL Lab Routine Hypertension goal BP (blood pressure) < 150/90 Hyponatremia Elevated glucose Expected: 05/11/2024, Expires: 08/09/2024 [facility] Comment on above: Expected: 05/11/2024 , Expires: 08/09/2024 Start: 05-11-2024 End: 08-09-2024 Hemoglobin A1c in Blood HEMOGLOBIN A1C Lab Routine Elevated glucose Expected: 05/11/2024, Expires: 08/09/2024 [facility] Work Phone: Comment on above: Expected: 05/11/2024 , Expires: 08/09/2024 Start: 05-11-2024 End: 08-09-2024 Lipid 1996 panel - Serum or Plasma LIPID PANEL BASIC Lab Routine Mixed hyperlipidemia Expected: 05/11/2024, Expires: 08/09/2024 [facility] Comment on above: Expected: 05/11/2024 , Expires: 08/09/2024 Start: 05-11-2024 End: 08-09-2024 Magnesium [Mass/volume] in Serum or Plasma MAGNESIUM Lab Routine Hypomagnesemia Expected: 05/11/2024, Expires: 08/09/2024 [facility] Comment on above: Expected: 05/11/2024 , Expires: 08/09/2024 Start: 03-02-2024 DIABETES SCREEN DIABETES SCREEN [facility] Start: 01-20-2024 Covid-19 Vaccine ( season) Covid-19 Vaccine () [facility] Start: 01-20-2024 Covid-19 Vaccine () Covid-19 Vaccine () [facility] Start: 01-20-2024 Influenza vaccination Influenza Vacc ine (#1) [facility] Start: 12-10-2023 End: 12-10-2023 Patient encounter procedure [facility] [place] Comment on above: Pre-op apppointment for Dec 31 [facility] (clearance form alrady sent)/6 month follow up 6 month follow up Start: 11-21-2023 End: 11-21-2023 Patient encounter procedure 11/21/2023 10:30 AM EDT Office Visit Neurology [address] [facility] [address] [place] [address] Mynor Mckeon MD [address] [facility] [address] [place] [address] Polyneuropathy [G62.9] Neurology Comment on above: Polyneuropathy [G62. 9] Start: 10-20-2023 End: 01-19-2024 CBC W Auto Differential panel - Blood COMPLETE BLOOD COUNT AND DIFFERENTIAL Lab Routine Encounter for long-term current use of medication Preop testing Expected: 10/20/2023, Expires: 01/19/2024 [facility] Work Phone: Comment on above: Expected: 10/20/2023 , Expires: 01/19/2024 Start: 10-20-2023 End: 01-19-2024 Comprehensive metabolic 2000 panel - Serum or Plasma COMPREHENSIVE METABOLIC PANEL Lab Routine Encounter for long-term current use of medication Preop testing Expected: 10/20/2023, Expires: 01/19/2024 [facility] Comment on above: Expected: 10/20/2023 , Expires: 01/19/2024 Start: 10-20-2023 End: 01-19-2024 Magnesium [Mass/volume] in Serum or Plasma MAGNESIUM Lab Routine Hypomagnesemia Encounter for long-term current use of medication Preop testing Expected: 10/20/2023, Expires: 01/19/2024 [facility] Comment on above: Expected: 10/20/2023 , Expires: 01/19/2024 Start: 06-11-2023 End: 09-10-2023 25-hydroxyvitamin D3 [Mass/volume] in Serum or Plasma VITAMIN D 25 HYDROXY Lab Routine Encounter for long-term current use of medication Osteopenia of forearm, unspecified laterality Expected: 06/11/2023, Expires: 09/10/2023 [facility] Work Phone: Comment on above: Expected: 06/11/2023 , Expires: 09/10/2023 Start: 06-11-2023 End: 09-10-2023 CBC panel - Blood by Automated count CBC Lab Routine Encounter for long-term current use of medication Expected: 06/11/2023, Expires: 09/10/2023 [facility] Work Phone: Comment on above: Expected: 06/11/2023 , Expires: 09/10/2023 Start: 06-11-2023 End: 09-10-2023 Comprehensive metabolic 2000 panel - Serum or Plasma COMP METABOLIC PANEL Lab Routine Encounter for long-term current use of medication Expected: 06/11/2023, Expires: 09/10/2023 [facility] Work Phone: Comment on above: Expected: 06/11/2023 , Expires: 09/10/2023 Start: 06-11-2023 End: 09-10-2023 Lipid 1996 panel - Serum or Plasma LIPID PANEL BASIC Lab Routine Mixed hyperlipidemia Encounter for long-term current use of medication Expected: 06/11/2023, Expires: 09/10/2023 [facility] Work Phone: Comment on above: Expected: 06/11/2023 , Expires: 09/10/2023 Start: 06-11-2023 End: 09-10-2023 Magnesium [Mass/volume] in Serum or Plasma MAGNESIUM BLD Lab Routine Hypomagnesemia Encounter for long-term current use of medication Expected: 06/11/2023, Expires: 09/10/2023 [facility] Work Phone: Comment on above: Expected: 06/11/2023 , Expires: 09/10/2023 Start: 06-07-2023 End: 08-07-2023 CBC panel - Blood by Automated count CBC Lab Routine Hypertension goal BP (blood pressure) < 150/90 Expected: 06/07/2023 (Approximate), Expires: 08/07/2023 [facility] Work Phone: Comment on above: Expected: 06/07/2023 (Approximate), Expires: 08/07/2023 Start: 06-07-2023 End: 08-07-2023 Comprehensive metabolic 2000 panel - Serum or Plasma COMP METABOLIC PANEL Lab Routine Hypertension goal BP (blood pressure) < 150/90 Hyponatremia Expected: 06/07/2023 (Approximate), Expires: 08/07/2023 [facility] Work Phone: Comment on above: Expected: 06/07/2023 (Approximate), Expires: 08/07/2023 Start: 06-07-2023 End: 08-07-2023 Lipid 1996 panel - Serum or Plasma LIPID PANEL BASIC Lab Routine Mixed hyperlipidemia Expected: 06/07/2023 (Approximate), Expires: 08/07/2023 [facility] Work Phone: Comment on above: Expected: 06/07/2023 (Approximate), Expires: 08/07/2023 Start: 06-07-2023 End: 08-07-2023 Magnesium [Mass/volume] in Serum or Plasma MAGNESIUM BLD Lab Routine Hypomagnesemia Expected: 06/07/2023 (Approximate), Expires: 08/07/2023 [facility] Work Phone: Comment on above: Expected: 06/07/2023 (Approximate), Expires: 08/07/2023 Start: 06-07-2023 SHINGRIX VACCINE (1 of 2) CHAND GRIX VACCINE (1 of 2) [facility] Comment on above: Postponed from 12/08 (Declined at this time) Start: 06-07-2023 Urine microalbumin profile [facility] Comment on above: Postponed from 01/14 (Declined at this time) Start: 05-21-2023 Behavioral Health Screening Behavioral Health Screening [facility] Start: 01-19-2023 Covid-19 Vaccine () Covid-19 Vaccine () [facility] Start: 01-19-2023 Influenza vaccination INFLUENZA (#1) [facility] Start: 10-19-2022 End: 12-19-2022 25-hydroxyvitamin D3 [Mass/volume] in Serum or Plasma VITAMIN D 25 HYDROXY Lab Routine Osteopenia of forearm, unspecified laterality Osteopenia, unspecified location Expected: 10/19/2022 (Approximate), Expires: 12/19/2022 [facility] Work Phone: Comment on above: Expected: 10/19/2022 (Approximate), Expires: 12/19/2022 Start: 10-19-2022 COVID-19 VACCINE (6 - Pfizer series) COVID-19 VACCINE (6 - Pfizer series) [facility] Start: 06-06-2022 SHINGRIX VACCINE (1 of 2) CHAND GRIX VACCINE (1 of 2) [facility] Comment on above: Postponed from 12/08 (Declined at this time) Start: 06-06-2022 Urine microalbumin profile DTAP,TDAP,TD (1 - Tdap) [facility] Comment on above: Postponed from 01/14 (Declined at this time) Start: 05-22-2022 ADVANCE DIRECTIVE DISCUSSION ADVANCE DIRECTIVE DISCUSSION [facility] Comment on above: Postponed from 05/21 (Postponed To Appropriate Date) Start: 05-21-2022 ADVANCE DIRECTIVE DISCUSSION ADVANCE DIRECTIVE DISCUSSION [facility] Start: 05-21-2022 DEPRESSION ASSESSMENT DEPRESSION ASS ESSMENT [facility] Start: 01-19-2022 Influenza vaccination INFLUENZA (#1) [facility] Start: 11-24-2021 End: 01-24-2022 Basic metabolic 2000 panel - Serum or Plasma BASIC METABOLIC PNL Lab Routine Hyponatremia Hypokalemia Expected: 11/24/2021, Expires: 01/24/2022 [facility] Work Phone: Comment on above: Expected: 11/24/2021 , Expires: 01/24/2022 Start: 11-19-2021 COVID-19 VACCINE (5 - Booster for Pfizer series) COVID-19 VACCINE (5 - Booster for Pfizer series) [facility] Start: 10-28-2021 End: 12-28-2021 Basic metabolic 2000 panel - Serum or Plasma BASIC METABOLIC PNL Lab Routine Hyponatremia Hypokalemia Hypertension goal BP (blood pressure) < 150/90 Expected: 10/28/2021 (Approximate), Expires: 12/28/2021 [facility] Work Phone: Comment on above: Expected: 10/28/2021 (Approximate), Expires: 12/28/2021 Start: 05-21-2021 ADVANCE DIRECTIVE DISCUSSION ADVANCE DIRECTIVE DISCUSSION [facility] Start: 05-21-2021 DEPRESSION ASSESSMENT DEPRESSION ASS ESSMENT [facility] Start: 02-08-2017 End: 02-08-2017 Mammogram, screening Mammogram, Screening, both breasts [facility] Start: 02-08-2017 End: 02-08-2017 Appointment Appointment [facility] Start: 02-08-2017 End: 02-08-2017 Mammogram, screening Mammogram, Screening, both breasts [facility] Start: 01-14-2010 Urine microalbumin profile DTaP,Tdap,Td Vaccine (1 - Tdap) [facility] Start: 1995 RSV Vaccine (1 - 1-d ose 60+ series) RSV Vaccine (1 - 1-dose 60+ series) [facility] Start: 12-08-1985 Shingrix Vaccine (1 of 2) Chand grix Vaccine (1 of 2) [facility] Start: [birth year]08-1953 Depression Screening Depression Scre ening [facility] Bacteria identified in Urine by Culture URINE CULTURE Microbiology Routine Urinary frequency 11/26/2022 2:38 PM EDT [facility] Work Phone: End: 06-10-2023 Basic metabolic 2000 panel - Serum or Plasma BASIC METABOLIC PNL Lab Routine Hypokalemia Encounter for long-term current use of medication 6 Occurrences starting 06/10/2022 until 06/10/2023 [facility] Work Phone: Comment on above: 6 Occurrences starti ng 06/10/2022 until 06/10/2023 End: 07-18-2025 BD DXA TRABECULAR BONE SCORE (TBS) BD DXA TRABECULAR BONE SCORE (TBS) Radiology Routine Asymptomatic postmenopausal status 1 Occurrences starting 06/18/2024 until 07/18/2025 [facility] Comment on above: 1 Occurrences starti ng 06/18/2024 until 07/18/2025 BD DXA TRABECULAR ALYSIA NE SCORE (TBS) BD DXA TRABECULAR BONE SCORE (TBS) Radiology Routine Asymptomatic postmenopausal status 08/07/2024 11:46 AM EDT [facility] End: 07-18-2025 DXA Skeletal system.axial Views for bone density DXA-AXIAL SKELETON Radiology Routine Asymptomatic postmenopausal status 1 Occurrences starting 06/18/2024 until 07/18/2025 [facility] Comment on above: 1 Occurrences starti ng 06/18/2024 until 07/18/2025 DXA Skeletal system. axial Views for bone density DXA-AXIAL SKELETON Radiology Routine Asymptomatic postmenopausal status 08/07/2024 11:46 AM EDT [facility] Work Phone: End: 07-18-2025 DXA-FOREARM SKELETON DXA-FOREARM SKELETON Radiology Routine Asymptomatic postmenopausal status 1 Occurrences starting 06/18/2024 until 07/18/2025 [facility] Comment on above: 1 Occurrences starti ng 06/18/2024 until 07/18/2025 End: 06-07-2023 Echocardiography ECHO Cardiology Routine Hypertension goal BP (blood pressure) < 150/90 Palpitations Undiagnosed cardiac murmurs 1 Occurrences starting 06/07/2022 until 06/07/2023 [facility] Work Phone: Comment on above: 1 Occurrences starti ng 06/07/2022 until 06/07/2023 End: 06-10-2023 Magnesium [Mass/volume] in Serum or Plasma MAGNESIUM BLD Lab Routine Hypomagnesemia Encounter for long-term current use of medication 6 Occurrences starting 06/10/2022 until 06/10/2023 [facility] Work Phone: Comment on above: 6 Occurrences starti ng 06/10/2022 until 06/10/2023 Patient Education Discharge Inst ructions for ... ED Hyponatremia ED Hypokalemia [facility] Work Phone: Patient referral [facility] Work Phone: PFIZER-BIONTECH COVI D-19 VACCINE ( SEASON) AGE 12+ YR PFIZER-BIONTECH COVID-19 VACCINE ( SEASON) AGE 12+ YR Immunization/Injection Routine Encounter for immunization Ordered: 06/11/2023 [facility] Work Phone: Comment on above: Ordered: 06/11/2023 End: 06-18-2025 US Carotid arteries - bilateral US CAROTID ARTERIES [facility] Vascular Lab Routine Bilateral carotid artery stenosis 1 Occurrences starting 06/18/2024 until 06/18/2025 [facility] Work Phone: Comment on above: 1 Occurrences starti ng 06/18/2024 until 06/18/2025 End: 12-06-2023 US VENOUS INCOMPETENCY [facility] US VENOUS INCOMPETENCY [facility] Vascular Lab Routine 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 1 Occurrences starting 12/05/2022 until 12/06/2023 [facility] Work Phone: Comment on above: 1 Occurrences starti ng 12/05/2022 until 12/06/2023 [facility] Immunizations Immunization Date Immunization Notes Care Provider [facility] 01-02-2024 Seasonal trivalent influenza vaccine, adjuvanted, preservative free Kevin Elder MD Work Phone: [facility] 01-31-2023 influenza (aIIV4) vaccine, age 65+ yr, quadrivalent, PF (FLUAD QUAD) Kevin Elder MD Work Phone: [facility] 01-31-2023 influenza, injectabl e, quadrivalent, contains preservative Kevin Elder MD Work Phone: [facility] Work Phone: 01-31-2023 respiratory syncytia l virus (RSV) vaccine, bivalent (ABRYSVO) Kevin Elder MD Work Phone: [facility] Work Phone: 01-31-2023 influenza virus vaccine, unspecified formulation Kevin Elder MD Work Phone: [facility] 06-21-2022 COVID-19 booster vaccine, age 12+ yr, bivalent (PFIZER-BIONTECH) Kevin Elder MD Work Phone: [facility] 06-08-2022 COVID-19 vaccine, ag e 12+ yr, bivalent (PFIZER-BIONTECH) Kevin Elder MD Work Phone: [facility] 01-16-2022 influenza (aIIV4) vaccine, age 65+ yr, quadrivalent, PF (FLUAD QUADRIVALENT) Kevin Elder MD Work Phone: [facility] 01-16-2022 influenza, injectabl e, quadrivalent, contains preservative Hina Woodward PA-C Work Phone: [facility] Work Phone: 01-11-2021 influenza (aIIV4) vaccine, age 65+ yr, quadrivalent, PF (FLUAD QUADRIVALENT) Kevin Elder MD Work Phone: [facility] 07-18-2020 COVID-19 vaccine, ag e 12+ yr (PFIZER-BIONTECH - PURPLE TOP) Ciara Alfredo INTERLOCKING AND SIGNAL MECHANIC.TRADE MANAGER Work Phone: [facility] 06-16-2020 COVID-19 vaccine, ag e 12+ yr (PFIZER-BIONTECH - PURPLE TOP) Ciara Alfredo INTERLOCKING AND SIGNAL MECHANIC.TRADE MANAGER Work Phone: [facility] 01-21-2020 influenza, high-dose , quadrivalent vaccine (FLUZONE HIGH DOSE QUADRIVALENT) Ciara Alfredo INTERLOCKING AND SIGNAL MECHANIC.TRADE MANAGER Work Phone: [facility] 02-15-2019 influenza, high dose seasonal, preservative-free Ciara Alfredo INTERLOCKING AND SIGNAL MECHANIC.TRADE MANAGER Work Phone: [facility] 01-19-2019 Influenza virus vaccine [facility] 01-19-2019 influenza, seasonal, injectable, preservative free Kevin Elder MD Work Phone: [facility] 02-26-2017 influenza, injectabl e, quadrivalent, contains preservative Ciara Alfredo INTERLOCKING AND SIGNAL MECHANIC.TRADE MANAGER Work Phone: [facility] Work Phone: 02-14-2016 influenza, high dose seasonal, preservative-free Ciara Alfredo INTERLOCKING AND SIGNAL MECHANIC.TRADE MANAGER Work Phone: [facility] 04-22-2015 pneumococcal conjuga te vaccine, 13 valent Ciara Alfredo INTERLOCKING AND SIGNAL MECHANIC.TRADE MANAGER Work Phone: [facility] Work Phone: 03-05-2015 influenza, high dose seasonal, preservative-free Ciara Alfredo INTERLOCKING AND SIGNAL MECHANIC.TRADE MANAGER Work Phone: [facility] 02-10-2014 influenza, seasonal, injectable Ciara Alfredo INTERLOCKING AND SIGNAL MECHANIC.TRADE MANAGER Work Phone: [facility] 02-25-2013 influenza virus vaccine, unspecified formulation Ciara Alfredo INTERLOCKING AND SIGNAL MECHANIC.TRADE MANAGER Work Phone: [facility] 02-13-2012 influenza virus vaccine, unspecified formulation Ciara Alfredo INTERLOCKING AND SIGNAL MECHANIC.TRADE MANAGER Work Phone: [facility] 02-20-2011 influenza virus vaccine, unspecified formulation Ciara Alfredo INTERLOCKING AND SIGNAL MECHANIC.TRADE MANAGER Work Phone: [facility] 03-16-2010 influenza virus vaccine, whole virus Ciara Alfredo INTERLOCKING AND SIGNAL MECHANIC.TRADE MANAGER Work Phone: [facility] 01-13-2010 tetanus and diphther ia toxoids, adsorbed, preservative free, for adult use (2 Lf of tetanus toxoid and 2 Lf of diphtheria toxoid) Ciara Alfredo INTERLOCKING AND SIGNAL MECHANIC.TRADE MANAGER Work Phone: [facility] 02-12-2009 influenza virus vaccine, unspecified formulation Ciara Alfredo INTERLOCKING AND SIGNAL MECHANIC.TRADE MANAGER Work Phone: [facility] Work Phone: 04-01-2008 influenza virus vaccine, unspecified formulation Ciara Alfredo INTERLOCKING AND SIGNAL MECHANIC.TRADE MANAGER Work Phone: [facility] Work Phone: 05-27-2006 pneumococcal polysaccharide vaccine, 23 valent Ciara Snows INTERLOCKING AND SIGNAL MECHANIC.TRADE MANAGER Work Phone: [facility] 04-05-2005 influenza virus vaccine, unspecified formulation Ciara Snows INTERLOCKING AND SIGNAL MECHANIC.TRADE MANAGER Work Phone: [facility] Work Phone: 05-30-2001 hepatitis A vaccine, unspecified formulation Ciara Snows INTERLOCKING AND SIGNAL MECHANIC.TRADE MANAGER Work Phone: [facility] 06-07-2000 hepatitis A vaccine, unspecified formulation Ciara Snows INTERLOCKING AND SIGNAL MECHANIC.TRADE MANAGER Work Phone: [facility] NEGATED: Highlighted row has not occurred!07-15-2023 COVID-19 vaccine, age 12+ yr, season (PFIZER-[employer]) Kevin Elder MD Work Phone: [facility] Work Phone: Comment on above: Deferred: OTHER - ve rified by Sophai Richards Payers Date Payer Category Payer Self-pay [id number] 2016 [facility] [employer] DICARE SUPPLEMENT Member Subscriber Plan / Payer (Effective 2016-Present) Name: Stephanie Katz Relation to Subscriber: Self Name: Stephanie Katz Payer ID: [id number] (NAIC) Group ID: [id number] Type: Indemnity Address: [address] [place] [id number] 2016 Unknown VALENTINE GRIJALVA ME DICARE SUPPLEMENT [id number] 2016-Present [phone] [address] [place] [address] Indemnity [id number] 2016 Unknown VALENTINE GRIJALVA ME DICARE SUPPLEMENT [id number] 2016-Present [phone] [address] [place] [address] Indemnity [id number] 2016 Unknown [id number] 2000 Medicare MEDICARE MEDICAR E A AND B [id number] 2000-Present [phone] [place] [address] Medicare [id number] 2000 Medicare [id number] 2000 Medicare [id number] Unknown [id number] Unknown [id number] Unknown [id number] Social History Date Type Detail Facility Tobacco smoking stat [facility] Never smoked tobacco [facility] Start: 06-06-2021 End: 06-18-2024 Alcohol intake Current drinker of alcohol (finding) [facility] Start: 10-02-2019 End: 10-28-2021 History SDOH Alcohol Frequency 3 [facility] Start: 10-02-2019 End: 07-26-2020 History SDOH Alcohol Std Drinks 1 [facility] Start: 10-02-2019 History SDOH Social Connections Phone 5 [facility] Start: 10-02-2019 End: 10-28-2021 History SDOH Social Connections Get Together 98 [facility] Start: 10-02-2019 History SDOH Physica l Activity DPW 0 [facility] Start: 10-02-2019 End: 10-28-2021 History SDOH Stress 2 [facility] Start: 10-02-2019 Education 17 [facility] Start: 1935 Sex Assigned At Female C [facility] Start: 10-05-2021 End: 08-17-2023 Tobacco smoking status NHIS Unknown if ever smoked [facility] Start: 09-22-2019 Occasional [facility] Start: 10-10-2021 End: 02-10-2022 Exposure to SARS-CoV-2 (event) Not sure [facility] Start: 10-28-2021 End: 11-28-2022 History of Social function [facility] Start: 10-28-2021 End: 11-28-2022 Social connection and isolation panel [facility] Frequency of Communication with Friends and Family Not on file [facility] How often to you hav e a drink containing alcohol? Monthly or less [facility] How many standard dr inks containing alcohol do you have on a typical day? 1 or 2 [facility] How often do you hav e 6 or more drinks on 1 occasion? Never [facility] Do you feel stress - tense, restless, nervous, or anxious, or unable to sleep at night because your mind is troubled all the time - these days [OSQ] Only a little [facility] (I/We) worried wheth er (my/our) food would run out before (I/we) got money to buy more. Never true [facility] Start: 08-30-2020 Gender identity Identifies as female gender (finding) [facility] Functional Status Date Assessment Result Facility 10-13-2014 Are you deaf, or do you have serious difficulty hearing Yes 10/13/2014 11:07 AM Talya Bello Ma Yes [facility] Work Phone: 10-13-2014 Are you blind, or do you have serious difficulty seeing, even when wearing glasses No 10/13/2014 11:07 AM Talya Bello Ma No [facility] 10-13-2014 Do you have serious difficulty walking or climbing stairs No 10/13/2014 11:07 AM EDT Radha HawkinsTalya No [facility] 10-13-2014 Do you have difficul ty dressing or bathing No 10/13/2014 11:07 AM EDT Radha Hawkins Talya Lizz [facility] 10-13-2014 Because of a physica l, mental, or emotional condition, do you have difficulty doing errands alone such as visiting a physician's office or shopping No 10/13/2014 11:07 AM EDT Radha HawkinsTalya [facility] Mental Status Date Assessment Result Facility 10-05-2021 Cognitive function Level Of Cons ciousness Awake;Alert;Appropriate;Fol lows Commands [facility] Work Phone: 10-13-2014 Because of a physica l, mental, or emotional condition, do you have serious difficulty concentrating, remembering, or making decisions No 10/13/2014 11:07 AM EDT Radha HawkinsTalya [facility] Clinical Notes 03-09-2008 to 08-19-2024 Telephone Encounter - Andressa Bustos LPN - 08/19/2024 1:36 PM EDTTelephone Encounter - Andressa Bustos LPN - 08/19/2024 1:36 PM EDTCRosemary hupmhries RT(R) - 08/07/2024 11:15 AM EDT Note Date & Type Note Facility 08-19-2024 Telephone encounter Note Patient notified of providers message and verbalized understanding [facility] 08-19-2024 Miscellaneous Notes Patient notified of providers message and verbalized understanding Current BMD shows normal bone density. Patient calls to ask about results of bone density testing completed 08/07/2024. Patient reviewed results on [facility] and asking if results compared to 06/19/2022 were improved. Impression at that time showed osteopenia of left forearm. Patient reports taking calcium gummies daily but uncertain of the dose. Ju Chi RN documented in this encounter [facility] 08-19-2024 Telephone encounter Note Current BMD shows normal bone density. [facility] 08-19-2024 Telephone encounter Note Patient calls to ask about results of bone density testing completed 08/07/2024. Patient reviewed results on [facility] and asking if results compared to 06/19/2022 were improved. Impression at that time showed osteopenia of left forearm. Patient reports taking calcium gummies daily but uncertain of the dose. Ju Chi RN [facility] 08-07-2024 History of Presen t illness Narrative Radiology Service Progress Note PATIENT NAME: Stephanie Katz DATE OF SERVICE: August 07, 2024 TIME: 11:11 AM PATIENT IDENTITY VERIFICATION COMPLETED USING TWO (2) IDENTIFIERS: Name and Date of confirmed by patient verbally. FALL SCREENING: Has the patient had 2 falls in the last year or 1 fall with injury or currently using an Ambulatory Assistive Device (Walker, Cane, Wheelchair, Crutches, etc.)? Yes, Patient High Risk for Falls What interventions were put in place to prevent falls during this visit? Increased Observations by Caregivers PATIENT GENDER DATA: Assigned female at . status: : No status: NO. PATIENT RELEVANT IMPLANT DATA REVIEWED: Not Applicable PATIENT PRESENTS WITH AN IMPLANTABLE OR ATTACHED NSH TEACHER: No RADIOLOGY DEPARTMENT: Bone Density PERIPHERAL IV DATA: Not applicable SIGNED BY: RT Luis(R) August 07, 2024 11:11 AM documented in this encounter [facility] 08-07-2024 Note HNO ID: [id number] Author: ROSEMARY SALES RT(R) Service: ? Author Type: Technologist Type: Progress Notes Filed: 08/07/2024 11:29 Note Text: Radiology Service Progress Note PATIENT NAME: Stephanie Katz DATE OF SERVICE: August 07, 2024 TIME: 11:11 AM PATIENT IDENTITY VERIFICATION COMPLETED USING TWO (2) IDENTIFIERS: Name and Date of confirmed by patient verbally. FALL SCREENING: Has the patient had 2 falls in the last year or 1 fall with injury or currently using an Ambulatory Assistive Device (Walker, Cane, Wheelchair, Crutches, etc.)? Yes, Patient High Risk for Falls What interventions were put in place to prevent falls during this visit? Increased Observations by Caregivers PATIENT GENDER DATA: Assigned female at . status: : No status: NO. PATIENT RELEVANT IMPLANT DATA REVIEWED: Not Applicable PATIENT PRESENTS WITH AN IMPLANTABLE OR ATTACHED NSH TEACHER: No RADIOLOGY DEPARTMENT: Bone Density PERIPHERAL IV DATA: Not applicable SIGNED BY: RT Luis(R) August 07, 2024 11:11 AM [facility] 06-18-2024 Instructions Kevin Elder MD - 06/18/2024 9:00 AM EST - Continue taking your current medications as prescribed. - Consider taking alpha lipoic acid 300-600 mg daily to help with neuropathy symptoms; this is an qojg-zzb-[id number] supplement. - Maintain a healthy diet to keep your blood sugar levels stable. - Use your cane to help with balance and prevent falls. - Schedule and complete a bone density test when you return in July. - Schedule and complete an ultrasound of the carotid arteries when you return in July. - Consider scheduling an appointment with a neurologist if your neuropathy symptoms worsen or if Dr. Fisher recommends it. - Next appointment on November 25 for your regular six-month checkup. Screening schedule The following prevention plan is recommended: Depression Screening Never done Shingrix Vaccine(1 of 2) Never done DTaP,Tdap,Td Vaccine(1 - Tdap) due on 01/14/2010 Advance Directive Discussion due on 05/21/2024 WHAT YOU CAN DO TO PREVENT FALLS Many falls can be prevented. By making some changes, you can lower your chances of falling. Four things YOU can do to prevent falls for you* and your caregiver 1. Begin a regular exercise program Exercise is one of the most important ways to lower your chances of falling. It makes you stronger and helps you feel better. Exercises that improve balance and coordination (like Bret Chi) are the most helpful. Lack of exercise leads to weakness and increases your chances of falling. Ask your doctor or health care provider about the best type of exercise program for you. 2. Have your health care provider review your medicines Have your doctor or pharmacist review all the medicines you take, even tmva-[id number] medicines. As you get older, the way medicines work in your body can change. Some medicines, or combinations of medicines, can make you sleepy or dizzy and can cause you to fall. 3. Have your vision checked Have your eyes checked by an eye doctor at least once a year. You may be wearing the wrong glasses or have a condition like glaucoma or cataracts that limits your vision. Poor vision can increase your chances of falling. 4. Make your home safer About half of all falls happen at home. To make your home safer: Remove things you can trip over (like papers, books, clothes, and shoes) from stairs and places where you walk. Remove small throw rugs or use double-sided tape to keep the rugs from slipping. Keep items you use often in cabinets you can reach easily without using a step stool. Have grab bars put in next to your toilet and in the tub or shower. Use non-slip mats in the bathtub and on shower floors. Improve the lighting in your home. As you get older, you need brighter lights to see well. Hang light-weight curtains or shades to reduce glare. Have handrails and lights put in on all staircases. Wear shoes both inside and outside the house. Avoid going barefoot or wearing slippers. For more information, contact: Centers for Disease Control and Prevention www.cdc.gov/injury * This information may not apply if you have certain medical conditions. BONE MINERAL DENSITY PATIENT INSTRUCTIONS ========= Bone mineral density testing measures the amount of calcium in certain parts of your bones. This information determines how strong your bones are. The test is used to detect osteoporosis, a disease in which the bone's mineral content and density are low, increasing a person's risk of fractures. The lumbar spine (lower back) and the hip are the skeletal sites usually examined. For the test, remember that: 1. You cannot take this test if you are . 2. Eat a normal diet on the day of the test. 3. Take your medications as you normally would. 4. DO NOT take calcium supplements (such as Tums) for 24 hours before the test. 5. On the day of the test, leave valuables (jewelry or credit cards) at home. 6. The test should be performed prior to oral, rectal or IV contrast studies, or at least 7 days after any of these studies. For the test, you may be asked to wear a hospital gown. You will lie on your back, on a padded table, in a comfortable position. Generally, you can resume your usual activities immediately. documented in this encounter [facility] 06-18-2024 Note HNO ID: [id number] Author: KEVIN ELDER MD Service: ? Author Type: Physician Type: Progress Notes Filed: 06/18/2024 09:52 Note Text: This note was created using Fluidnetriter. Subjective Stephanie Katz is a 88 year old female. HISTORY Stephanie Katz is a 88 year old lady here for Medicare Annual Wellness Visit, yearly exam and follow up appointment. Stephanie Katz is an 88-year-old female, with a history of arthritis, drop foot, and chronic A-fib, presenting for a Medicare Annual Wellness Visit. Stephanie reports worsening right knee pain secondary to arthritis, which is exacerbated by movement and pressure. She is considering a knee replacement but has mixed feelings due to her 's recent difficult recovery from a shoulder implant revision. She also reports stiffness and difficulty moving her right ankle, as well as drop foot, which affects her balance and mobility. She experiences numbness and pain in her feet, particularly during pedicures, and is unsure if these symptoms are due to arthritis or neuropathy. She has been advised by her orthopedic surgeon, Dr. Fisher, to consider using a walker due to her balance issues. Stephanie also reports fatigue and daytime sleepiness, which she attributes to sleep apnea and chronic A-fib. She uses a CPAP machine at night and takes naps during the day to manage her fatigue. She denies any current feelings of depression or suicidal ideation, but does report occasional stress. She has a history of diabetes and is concerned about her blood sugar levels, especially after the holidays. She also has a family history of osteoporosis and is conscious of maintaining her bone health. She reports difficulty exercising due to her knee pain but tries to stay active. Stephanie is currently taking several medications, including amiloride, furosemide, atorvastatin, Zetia, and Eliquis. She reports no issues with her medications and feels they are effective. She has recently increased her dose of atorvastatin to 4 times a week and is no longer taking Estrace, having switched to a compounded vaginal cream. She has a history of carotid artery stenosis, with her last ultrasound in May 2022 showing 20-39% stenosis on the right side and 40-59% on the left side. She is also due for a bone density scan, with her last scan in May 2022. She reports good vision and hearing, with regular check-ups. She has had a mild case of COVID-19 in February and has received all recommended boosters. She is unsure if she has had a tetanus shot in the past 10 years. She reports a healthy diet, with lots of fruits and vegetables, and very seldom drinks alcohol. She denies smoking or vaping. She has advanced directives in place, with her as her healthcare power of insurance attorney. 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 amLODIPine (NORVASC) 2.5 mg tablet Take 1 tablet by mouth once daily. metoprolol succinate ER (TOPROL XL) 25 mg 24 hr tablet Take 2 tablets by mouth once daily. furosemide (LASIX) 20 mg tablet Take 1 tablet by mouth once daily. Take in the morning. As directed loperamide (IMODIUM) 2 mg cap(s) Take 1 capsule by mouth two times a day. ezetimibe (ZETIA) 10 mg tablet Take 0.5-1 tablets by mouth once daily. As directed atorvastatin (LIPITOR) 20 mg tablet Take 1 tablet by mouth daily at bedtime. As directed (Patient taking differently: Take 20 mg by mouth every other day. As directed) aMILoride (MIDAMOR) 5 mg tablet Take 1 tablet by mouth once daily. When takes Lasix (Patient taking differently: Take 5 mg by mouth every other day. When takes Lasix) ELIQUIS 5 mg tab(s) Take 1 tablet by mouth two times a day. Omeprazole Magnesium (PRILOSEC OTC) 20 mg tablet Take 2 tablets by mouth daily before breakfast. 1/2 hr before meal. ciprofloxacin HCl (CIPRO) 250 mg tablet Take 2 tablets by mouth twice daily. hyoscyamine sublingual (LEVSIN SL) 0.125 mg Dissolve 1 tablet under the tongue every 4 hours as needed. Cholecalciferol, Vitamin D3, 1,000 unit cap Take 2 capsules by mouth once (more content not included)... [facility] 06-18-2024 History of Presen t illness Narrative Images from the original note were not included. This note was created using Userlike Live Chat. Subjective Stephanie Katz is a 88 year old female. HISTORY Stephanie Katz is a 88 year old lady here for Medicare Annual Wellness Visit, yearly exam and follow up appointment. Stephanie Katz is an 88-year-old female, with a history of arthritis, drop foot, and chronic A-fib, presenting for a Medicare Annual Wellness Visit. Stephanie reports worsening right knee pain secondary to arthritis, which is exacerbated by movement and pressure. She is considering a knee replacement but has mixed feelings due to her 's recent difficult recovery from a shoulder implant revision. She also reports stiffness and difficulty moving her right ankle, as well as drop foot, which affects her balance and mobility. She experiences numbness and pain in her feet, particularly during pedicures, and is unsure if these symptoms are due to arthritis or neuropathy. She has been advised by her orthopedic surgeon, Dr. Fisher, to consider using a walker due to her balance issues. Stephanie also reports fatigue and daytime sleepiness, which she attributes to sleep apnea and chronic A-fib. She uses a CPAP machine at night and takes naps during the day to manage her fatigue. She denies any current feelings of depression or suicidal ideation, but does report occasional stress. She has a history of diabetes and is concerned about her blood sugar levels, especially after the holidays. She also has a family history of osteoporosis and is conscious of maintaining her bone health. She reports difficulty exercising due to her knee pain but tries to stay active. Stephanie is currently taking several medications, including amiloride, furosemide, atorvastatin, Zetia, and Eliquis. She reports no issues with her medications and feels they are effective. She has recently increased her dose of atorvastatin to 4 times a week and is no longer taking Estrace, having switched to a compounded vaginal cream. She has a history of carotid artery stenosis, with her last ultrasound in May 2022 showing 20-39% stenosis on the right side and 40-59% on the left side. She is also due for a bone density scan, with her last scan in May 2022. She reports good vision and hearing, with regular check-ups. She has had a mild case of COVID-19 in February and has received all recommended boosters. She is unsure if she has had a tetanus shot in the past 10 years. She reports a healthy diet, with lots of fruits and vegetables, and very seldom drinks alcohol. She denies smoking or vaping. She has advanced directives in place, with her as her healthcare power of insurance attorney. 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 amLODIPine (NORVASC) 2.5 mg tablet Take 1 tablet by mouth once daily. metoprolol succinate ER (TOPROL XL) 25 mg 24 hr tablet Take 2 tablets by mouth once daily. furosemide (LASIX) 20 mg tablet Take 1 tablet by mouth once daily. Take in the morning. As directed loperamide (IMODIUM) 2 mg cap(s) Take 1 capsule by mouth two times a day. ezetimibe (ZETIA) 10 mg tablet Take 0.5-1 tablets by mouth once daily. As directed atorvastatin (LIPITOR) 20 mg tablet Take 1 tablet by mouth daily at bedtime. As directed (Patient taking differently: Take 20 mg by mouth every other day. As directed) aMILoride (MIDAMOR) 5 mg tablet Take 1 tablet by mouth once daily. When takes Lasix (Patient taking differently: Take 5 mg by mouth every other day. When takes Lasix) ELIQUIS 5 mg tab(s) Take 1 tablet by mouth two times a day. Omeprazole Magnesium (PRILOSEC OTC) 20 mg tablet Take 2 tablets by mouth daily before breakfast. 1/2 hr before meal. ciprofloxacin HCl (CIPRO) 250 mg tablet Take 2 tablets by mouth twice daily. hyoscyamine sublingual (LEVSIN SL) 0.125 mg Dissolve 1 tablet under the tongue every 4 hours as needed. Cholecalciferol, Vitamin D3, 1,000 unit cap Take 2 capsules by mouth once daily. multivitamin tablet Take 1 tablet by mouth once daily. CPAP AutoPAP 5-15 cmH2O, [place] mask suggested, humidity, filters. [employer] supplies. Dx: 327.23. Fax compliance rpt to Dr. Gongora in 8 weeks. No current facility-administered medications for this visit. ALLERGIES Allergen Reactions Bextra [Valdecoxib] Hives Cephalosporins Rash Darvocet A500 [Prop* Rash Erythromycin Hives Penicillins Hives Percocet [Oxycodone* Intolerance Pravastatin Other: See Comments myalgias Sulfa (Sulfonamide * Hives FAMILY HISTORY Problem Relation Age of Onset Diabetes Maternal Grandmother Diabetes Maternal Aunt Heart Mother Arthritis Mother Arthritis Father Osteoporosis Mother Osteoporosis Father Social History Tobacco Use Smoking status: Never Smokeless tobacco: Never Substance Use Topics Alcohol use: Yes Comment: Occasionally Drug use: No Review of Systems Objective BP 120/70 Pulse 78 Ht 154.9 cm (5' 1) Wt 62.8 kg (138 lb 7.2 oz) SpO2 98% BMI 26.16 kg/m Physical Exam Vitals reviewed. Constitutional: Appearance: Normal appearance. She is well-developed. HENT: Head: Normocephalic and atraumatic. Right Ear: External ear normal. There is impacted cerumen. Left Ear: Tympanic membrane, ear canal and external ear normal. Nose: Nose normal. Mouth/Throat: Mouth: Mucous membranes are moist. Eyes: Conjunctiva/sclera: Conjunctivae normal. Pupils: Pupils are equal, round, and reactive to light. Neck: Thyroid: No thyromegaly. Vascular: No carotid bruit. Cardiovascular: Rate and Rhythm: Normal rate. Rhythm irregularly irregular. Pulses: Normal pulses. Heart sounds: Murmur heard. Systolic (LSB) murmur is present. No friction rub. No gallop. Pulmonary: Effort: Pulmonary effort is normal. Breath sounds: Normal breath sounds. Abdominal: General: Bowel sounds are normal. There is no distension. Palpations: Abdomen is soft. There is no mass. Tenderness: There is no abdominal tenderness. Musculoskeletal: General: No deformity. Normal range of motion. Right lower leg: Edema (Trace pretibial) present. Left lower leg: Edema (trace pretibial) present. Lymphadenopathy: Cervical: No cervical adenopathy. Skin: General: Skin is warm and dry. Coloration: Skin is not jaundiced or pale. Findings: No rash. Neurological: General: No focal deficit present. Mental Status: She is alert and oriented to person, place, and time. Cranial Nerves: No cranial nerve deficit. Sensory: No sensory deficit. Motor: No abnormal muscle tone. Coordination: Coordination normal. Gait: Gait abnormal (Antalgic; wearing right knee soft brace)). Deep Tendon Reflexes: Reflexes normal. Comments: Mild right foot drop (not able to lift foot up) Psychiatric: Attention and Perception: Attention and perception normal. Mood and Affect: Mood and affect normal. Speech: Speech normal. Behavior: Behavior normal. Thought Content: Thought content normal. Cognition and Memory: Cognition and memory normal. Judgment: Judgment normal. Latest Ref Rng 12/01/2022 12/05/2022 05/31/2023 12/05/2023 06/11/2024 WBC 3.70 - 11.00 k/uL 5.84 5.92 5.19 RBC 3.90 - 5.20 m/uL 4.18 4.23 4.38 Hemoglobin 11.5 - 15.5 g/dL 12.6 12.9 13.3 Hematocrit 36.0 - 46.0 % 40.2 39.9 40.9 MCV 80.0 - 100.0 fL 96.2 94.3 93.4 MCH 26.0 - 34.0 pg 30.1 30.5 30.4 MCHC 30.5 - 36.0 g/dL 31.3 32.3 32.5 RDW-CV 11.5 - 15.0 % 13.0 13.2 13.2 Platelet Count 150 - 400 k/uL 186 194 193 MPV 9.0 - 12.7 fL 9.7 9.6 9.4 Neut% % 44.8 Abs Neut (ANC) 1.45 - 7.50 k/uL 2.65 Lymph% % 41.0 Abs Lymph 1.00 - 4.00 k/uL 2.43 Knox% % 8.6 Abs Knox <0.87 k/uL 0.51 Eosin% % 4.7 Abs Eosin <0.46 k/uL 0.28 Baso% % 0.7 Abs Baso <0.11 k/uL 0.04 Immature Gran % % 0.2 IMMATURE GRANS (ABS) <0.10 k/uL <0.03 NRBC /100 WBC 0.0 Absolute nRBC <0.01 k/uL <0.01 <0.01 <0.01 DTYPE Auto Protein, Total 6.3 - 8.0 g/dL 7.1 6.9 7.5 Albumin 3.9 - 4.9 g/dL 4.4 4.3 4.5 Calcium 8.5 - 10.2 mg/dL 9.0 9.2 9.3 9.4 9.4 Bilirubin, Total 0.2 - 1.3 mg/dL 0.6 0.6 0.6 Alkaline Phosphatase 34 - 123 U/L 62 64 70 AST 13 - 35 U/L 32 28 26 ALT 7 - 38 U/L 19 20 19 Glucose 74 - 99 mg/dL 103 (H) 96 94 99 101 (H) BUN 7 - 21 mg/dL 13 14 18 13 20 Creatinine 0.58 - 0.96 mg/dL 0.69 0.66 0.72 0.67 0.68 Sodium 136 - 144 mmol/L 133 (L) 133 (L) 138 137 138 Potassium 3.7 - 5.1 mmol/L 3.9 4.1 4.1 4.3 4.3 Chloride 98 - 107 mmol/L 97 98 102 100 100 CO2 22 - 30 mmol/L 23 23 27 26 28 Anion Gap 8 - 15 mmol/L 13 12 9 11 10 eGFR >=60 mL/min/1.73m 85 86 81 85 84 Cholesterol, Total <200 mg/dL 120 135 155 Triglyceride <150 mg/dL 65 66 75 HDL Cholesterol >39 mg/dL 55 66 71 Non HDL Cholesterol <130 mg/dL 65 69 84 Fasting Time hrs 15 12 12 VLDL Cholesterol <30 mg/dL 13 13 15 TC:HDL Ratio <5.10 2.18 2.05 2.18 LDL Cholesterol <100 mg/dL 52 56 69 LDL:HDL Ratio <2.54 0.95 0.85 0.97 Hemoglobin A1C 4.3 - 5.6 % 5.4 5.5 Estimated Average Glucose mg/dL 108 111 Magnesium 1.7 - 2.3 mg/dL 1.5 (L) 1.4 (L) 1.7 1.8 1.6 (L) Vitamin D 25 Hydroxy 31.0 - 80.0 ng/mL 62.1 61.5 48.5 Vitamin B12 232 - 1,245 pg/mL 636 MMA 79 - 376 nmol/L 101 Legend: (H) High (L) Low Assessment and Plan--See below Stephanie Katz is a 88 year old female here for a Medicare wellness visit. Medicare Health Risk Assessment General Health Good Exercise: Minutes/Day 20 min Exercise: Days/Week 2 days Alcohol: Daily Use Monthly or less Alcohol: Drinks/Day 1 or 2 Alcohol: 6 or more drinks Never Feel off balance Yes Concerns: Teeth/Dentures No Concerns: Sexual function No Troubled by feelings None of the above Frequency: Eating healthy diet Nearly every day (Every day) ADLs requiring help None of the above Safety precautions in home/vehicle Yes Smoke, vape, chews tobacco No Difficulty hearing Yes, I wear a hearing aid Difficulty seeing No Current Providers Specialists: I have reviewed specialist-related care of the patient in the medical record. Outside specialists seen: Dr. Fisher (ortho), Dr Wayne ([facility]), Dr. Pierre (pulmonology; [facility]), Electrical Inspector--Dr. Power , Dr. Smith (cardiology). Dr. Christine (saw once for neuro). Dr. Dumont ([employer]) Medical/Family history review Reviewed and updated problem list, medical/surgical/family/social history, medications, and allergies. Opioid use review Opioid Medications (last 90 days) No data to display Anxiety/Depression screening PHQ-2 Score: 0 Recommendation: no further intervention at this time Cognitive screening Mini Cog Score: 5 Cognitive screening reviewed and No further action needed (score 3-5). Functional Observation Was the patient's Timed Up & Go test unsteady or >= 12 seconds? No Advance Care Planning Surrogate decision maker and/or advance care plan documented Does have HCDPOA and LW. Will drop off copy; surrogate decision maker-- Measurements BP 120/70 Pulse 78 Ht 154.9 cm (5' 1) Wt 62.8 kg (138 lb 7.2 oz) SpO2 98% BMI 26.16 kg/m Vision Screening: Follows with optometry/ophthalmology Assessment/Plan Medicare annual wellness visit, subsequent () - Counseled on healthy diet and regular exercise - Fall avoidance information provided - Personalized prevention plan provided # Medicare annual wellness visit, subsequent () - Completed Medicare annual wellness visit. - Discussed overall health status, including management of chronic conditions and preventive care. - Reviewed and updated medication list. - Scheduled follow-up appointment for November 25. # Primary osteoarthritis of right knee (M17.11) - Symptoms worsening; discussed potential benefits and risks of knee replacement surgery. - Patient has mixed feelings about surgery but understands it may improve mobility and reduce pain. - Encouraged patient to consider surgery to prevent further deterioration and potential falls. - Patient to follow up with Dr. Fisher for further evaluation and decision-making regarding surgery. 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 - Patient has previously seen Dr. Trotter but is hesitant to pursue further testing. - Advised patient on the use of a cane or walker to assist with mobility and prevent falls. # Atrial fibrillation, unspecified type (HCC) (I48.91) - Chronic condition; patient is stable on current medication regimen, including Eliquis. - Discussed the importance of medication adherence to prevent complications. - Patient experiences fatigue, likely related to AFib; advised on the importance of rest and managing energy levels. # Bilateral carotid artery stenosis (I65.23) - Previous ultrasound in May 2022 showed 20-39% stenosis on the right and 40-59% on the left; no significant change from 2020. - Ordered repeat carotid ultrasound to be performed in July. - Discussed the benefits of current medications, including Lipitor and Eliquis, in managing carotid artery stenosis. # Asymptomatic postmenopausal status (Z78.0) - No current issues related to postmenopausal status. - Patient is using a compounded vaginal cream prescribed by Dr. Farshad Perez. 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 - No current issues related to hip replacements. # Osteopenia of forearm, unspecified laterality (M85.839) - Previous bone density scan in May 2022. - Ordered repeat bone density scan to be performed in July. - Discussed the importance of weight-bearing exercises to improve bone density. # Gait instability (R26.81) - Chronic condition; advised on the use of a cane or walker to assist with mobility and prevent falls. - Discussed the potential benefits of physical therapy to improve balance and stability. # Encounter for immunization (Z23) - Discussed the importance of staying up to date with immunizations, including tetanus and COVID-19 vaccines. - Patient to check records for last tetanus shot and consider getting a Tdap if not up to date. - Patient recently had COVID-19 in February; discussed the potential need for future COVID-19 boosters based on new variants and risk levels. # Screening for depression (Z13.31) - Patient reports no current issues with depression; feels in good shape mentally. - Discussed the importance of managing stress and maintaining mental health. # Peripheral polyneuropathy (G62.9) - Symptoms include numbness, tingling, and pain in the feet; discussed potential benefits of seeing a neurologist for further evaluation. - Patient hesitant to pursue further testing; discussed potential benefits of [id number] supplements such as alpha lipoic acid, B12, B6, and folic acid to improve symptoms. - Advised patient on the importance of managing blood sugar levels to prevent further nerve damage. Kevin Elder MD documented in this encounter [facility] 06-03-2024 Telephone encounter Note Prescription Refill Information The patient has been identified by name and date of : Yes Caregiver verified no other encounters exist for this prescription request: Yes Caregiver confirmed with patient/requestor that no other refills are due, in the near future, with this provider at this time: Yes The last office visit in the department: 12/10/23 Does the patient have a future office visit with this provider/department: Yes 06/18/24 Requested Prescriptions Pending Prescriptions Disp Refills amLODIPine (NORVASC) 2.5 mg tablet 90 tablet 3 Sig: Take 1 tablet by mouth once daily. Neida Graves LPN June 03, 2024 11:58 AM [facility] 06-03-2024 Miscellaneous Notes Prescription Refill Information The patient has been identified by name and date of : Yes Caregiver verified no other encounters exist for this prescription request: Yes Caregiver confirmed with patient/requestor that no other refills are due, in the near future, with this provider at this time: Yes The last office visit in the department: 12/10/23 Does the patient have a future office visit with this provider/department: Yes 06/18/24 Requested Prescriptions Pending Prescriptions Disp Refills amLODIPine (NORVASC) 2.5 mg tablet 90 tablet 3 Sig: Take 1 tablet by mouth once daily. Neida Graves LPN June 03, 2024 11:58 AM documented in this encounter [facility] 05-19-2024 Telephone encounter Note The following approved medication requests have been transmitted electronically. Requested Prescriptions Pending Prescriptions Disp Refills metoprolol succinate ER (TOPROL XL) 25 mg 24 hr tablet 180 tablet 3 Sig: Take 2 tablets by mouth once daily. Kevin Elder MD [facility] 05-19-2024 Miscellaneous Notes The following approved medication requests have been transmitted electronically. Requested Prescriptions Pending Prescriptions Disp Refills metoprolol succinate ER (TOPROL XL) 25 mg 24 hr tablet 180 tablet 3 Sig: Take 2 tablets by mouth once daily. Kevin Elder MD Prescription Refill Information The patient has been identified by name and date of : Yes Caregiver verified no other encounters exist for this prescription request: Yes Caregiver confirmed with patient/requestor that no other refills are due, in the near future, with this provider at this time: Yes The last office visit in the department: 12/10/23 Does the patient have a future office visit with this provider/department: Yes 06/18/24 Requested Prescriptions Pending Prescriptions Disp Refills metoprolol succinate ER (TOPROL XL) 25 mg 24 hr tablet 180 tablet 3 Sig: Take 2 tablets by mouth once daily. Neida Graves LPN May 19, 2024 4:08 PM documented in this encounter [facility] 05-19-2024 Telephone encounter Note Prescription Refill Information The patient has been identified by name and date of : Yes Caregiver verified no other encounters exist for this prescription request: Yes Caregiver confirmed with patient/requestor that no other refills are due, in the near future, with this provider at this time: Yes The last office visit in the department: 12/10/23 Does the patient have a future office visit with this provider/department: Yes 06/18/24 Requested Prescriptions Pending Prescriptions Disp Refills metoprolol succinate ER (TOPROL XL) 25 mg 24 hr tablet 180 tablet 3 Sig: Take 2 tablets by mouth once daily. Neida Graves LPN May 19, 2024 4:08 PM [facility] 04-28-2024 Telephone encounter Note Left a message for pt with information listed below from her provider for medication Furosemide. Per Dr. Elder: Okay it continues to take every other day; sent so may take up to daily if needed. Lio Callejas LPN [facility] 04-28-2024 Miscellaneous Notes Left a message for pt with information listed below from her provider for medication Furosemide. Per Dr. Elder: Okay it continues to take every other day; sent so may take up to daily if needed. Lio Callejas LPN documented in this encounter [facility] 04-22-2024 Telephone encounter Note MyChart msg sent to pt with Dr. Elder' instructions. [facility] 04-22-2024 Miscellaneous Notes MyChart msg sent to pt with Dr. Elder' instructions. Okay it continues to take every other day; sent so may take up to daily if needed. The following approved medication requests have been transmitted electronically. Requested Prescriptions Pending Prescriptions Disp Refills furosemide (LASIX) 20 mg tablet 90 tablet 3 Sig: Take 1 tablet by mouth once daily. Take in the morning. As directed Kevin Elder MD Patient [employer] message requesting the following refill Refill(s) Requested: Requested Prescriptions Pending Prescriptions Disp Refills furosemide (LASIX) 20 mg tablet 90 tablet 3 Sig: Take 1 tablet by mouth once daily. Take in the morning. As directed ALLERGIES Allergen Reactions Bextra [Valdecoxib] Hives Cephalosporins Rash Darvocet A500 [Prop* Rash Erythromycin Hives Penicillins Hives Percocet [Oxycodone* Intolerance Pravastatin Other: See Comments myalgias Sulfa (Sulfonamide * Hives (home) [phone] (work) [phone] (cell) Last Office Visit Date: 12/10/2023 Last [facility] Health Visit: Visit date not found Future Appointment: 06/18/2024 The patients preferred pharmacy has been captured for this encounter? yes Request is for script(s) to be escript to pharmacy. Barbi Cardona LPN documented in this encounter [facility] 04-21-2024 Telephone encounter Note Okay it continues to take every other day; sent so may take up to daily if needed. The following approved medication requests have been transmitted electronically. Requested Prescriptions Pending Prescriptions Disp Refills furosemide (LASIX) 20 mg tablet 90 tablet 3 Sig: Take 1 tablet by mouth once daily. Take in the morning. As directed Kevin Elder MD [facility] 04-21-2024 Telephone encounter Note Patient [employer] message requesting the following refill Refill(s) Requested: Requested Prescriptions Pending Prescriptions Disp Refills furosemide (LASIX) 20 mg tablet 90 tablet 3 Sig: Take 1 tablet by mouth once daily. Take in the morning. As directed ALLERGIES Allergen Reactions Bextra [Valdecoxib] Hives Cephalosporins Rash Darvocet A500 [Prop* Rash Erythromycin Hives Penicillins Hives Percocet [Oxycodone* Intolerance Pravastatin Other: See Comments myalgias Sulfa (Sulfonamide * Hives (home) [phone] (work) [phone] (cell) Last Office Visit Date: 12/10/2023 Last [facility] Health Visit: Visit date not found Future Appointment: 06/18/2024 The patients preferred pharmacy has been captured for this encounter? yes Request is for script(s) to be escript to pharmacy. Barbi Cardona LPN [facility] 03-11-2024 Telephone encounter Note Pt states it's her 10th day and her symptoms have resolved. I let Pt know that if her symptoms have resolved and she isn't running a fever the she doesn't need to wear a mask outside. [facility] 03-11-2024 Miscellaneous Notes Pt states it's her 10th day and her symptoms have resolved. I let Pt know that if her symptoms have resolved and she isn't running a fever the she doesn't need to wear a mask outside. I agree with the recommendations given, please let patient know if persistent symptoms or anything changes then she should let us know but otherwise follow the CDC guidelines for isolating and continue with symptom management. Pt called in and reports she tested positive for Covid on Sunday, but she had symptoms a week before. She states she is feeling better, but tested today and it still showed positive for Covid. I let her know it can show positive for up to 30 days. Pt states her has surgery [facility] next and she was asking if she would be able to go. I told her I didn't know their policy. Pt was asking me what I would recommend. I told her The CDC recommends isolating for 5 day and masking for an additional 5 days. I told her she would need to call their hospital and ask their policy. I did not know if provider has any recommendations. documented in this encounter [facility] 03-11-2024 Telephone encounter Note I agree with the recommendations given, please let patient know if persistent symptoms or anything changes then she should let us know but otherwise follow the CDC guidelines for isolating and continue with symptom management. [facility] 03-08-2024 Telephone encounter Note Pt called in and reports she tested positive for Covid on Sunday, but she had symptoms a week before. She states she is feeling better, but tested today and it still showed positive for Covid. I let her know it can show positive for up to 30 days. Pt states her has surgery [facility] next and she was asking if she would be able to go. I told her I didn't know their policy. Pt was asking me what I would recommend. I told her The CDC recommends isolating for 5 day and masking for an additional 5 days. I told her she would need to call their hospital and ask their policy. I did not know if provider has any recommendations. [facility] 02-08-2024 Telephone encounter Note The patient has been identified by name and date of : Yes Caregiver verified no other encounters exist for this prescription request: Yes Caregiver confirmed with patient/requestor that no other refills are due, in the near future, with this provider at this time: Yes The last office visit in the department: 12/10/2023 Does the patient have a future office visit with this provider/department: Yes 06/18/2024 Requested Prescriptions Pending Prescriptions Disp Refills loperamide (IMODIUM) 2 mg cap(s) 180 capsule 1 Sig: Take 1 capsule by mouth two times a day. Manda Vizcarra LPN February 08, 2024 2:58 PM [facility] 02-08-2024 Miscellaneous Notes The patient has been identified by name and date of : Yes Caregiver verified no other encounters exist for this prescription request: Yes Caregiver confirmed with patient/requestor that no other refills are due, in the near future, with this provider at this time: Yes The last office visit in the department: 12/10/2023 Does the patient have a future office visit with this provider/department: Yes 06/18/2024 Requested Prescriptions Pending Prescriptions Disp Refills loperamide (IMODIUM) 2 mg cap(s) 180 capsule 1 Sig: Take 1 capsule by mouth two times a day. Manda Vizcarra LPN February 08, 2024 2:58 PM documented in this encounter [facility] 12-10-2023 Instructions Kevin Elder MD - 12/10/2023 1:20 PM EDT Goals: Drink enough Limit processed carbs (sugars) 80% of the time. Okay to treat allergies. Loratadine (Claritin) or similar is less sedating. Limit Benadryl since sedating. Nasal steroids can help (Flonase, Nasonex, Nasacort). Nasal saline can help. Mucinex can loosen up mucus and phlegm. documented in this encounter [facility] 12-10-2023 History of Presen t illness Narrative This note was created using NoteWriter. Subjective Stephanie Katz is a 88 year old female. Patient presents with: Medicare Wellness Exam: Labs prior SUBJECTIVE: Stephanie Katz is a 88 year old year old lady here today for follow up appointment for review of medical conditions. Noted had to postpone her surgery for needing his surgery Noted aware that eats more processed sugar than should. Has tried some Nicolás seeds but not consistently. Stable on current meds. BP sometimes low. 110 to 120 over 70s usually. Lately more SBP 90s. Sometimes gets tired but ongoing a fib. Has ZO and maybe not sleeping well. Sleeps on back for mask to stay fitting right. 6 to 7 hours in bed and nap during the day. Falls asleep easily if sits and rests. No fevers or chills. Some nasal congestion Sinus drainage is chronic. Little cough off and on past couple months. Wonders if allergies since after works in yard. Some phlegm in throat when gets up in AM. No wheezing or SOB related to respiratory issue. Tired from walking due to knee issue. Continues to follow with Dr. Smith. Has done better since treated for a fib. 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 As directed atorvastatin (LIPITOR) 20 mg tablet Take 1 tablet by mouth daily at bedtime. As directed (Patient taking differently: Take 20 mg by mouth every other day. As directed) aMILoride (MIDAMOR) 5 mg tablet Take 1 tablet by mouth once daily. When takes Lasix (Patient taking differently: Take 5 mg by mouth every other day. When takes Lasix) furosemide (LASIX) 20 mg tablet Take 1 tablet by mouth once daily. Take in the morning. As directed (Patient taking differently: Take 20 mg by mouth every other day. Take in the morning. As directed) ELIQUIS 5 mg tab(s) Take 1 tablet by mouth two times a day. loperamide (IMODIUM) 2 mg cap(s) Take 1 capsule by mouth two times a day. amLODIPine (NORVASC) 2.5 mg tablet Take 1 tablet by mouth once daily. metoprolol succinate ER (TOPROL XL) 25 mg 24 hr tablet Take 2 tablets by mouth once daily. Omeprazole Magnesium (PRILOSEC OTC) 20 mg tablet Take 2 tablets by mouth daily before breakfast. 1/2 hr before meal. ciprofloxacin HCl (CIPRO) 250 mg tablet Take 2 tablets by mouth twice daily. hyoscyamine sublingual (LEVSIN SL) 0.125 mg Dissolve 1 tablet under the tongue every 4 hours as needed. estradiol (ESTRACE) 0.01 % (0.1 mg/gram) vaginal cream Use vaginally 3 times a WEEK. Use a dab on the urethra 3 times a week Cholecalciferol, Vitamin D3, 1,000 unit cap Take 2 capsules by mouth once daily. multivitamin tablet Take 1 tablet by mouth once daily. CPAP AutoPAP 5-15 cmH2O, Pilairo mask suggested, humidity, filters. Lifetime supplies. Dx: 327.23. Fax compliance rpt to Dr. Gongora in 8 weeks. No current facility-administered medications for this visit. Review of Systems Objective BP 134/80 Pulse 75 Temp 36.6 C (97.8 F) Resp 18 Ht 155 cm (5' 1.02) Wt 62.6 kg (138 lb) SpO2 97% BMI 26.05 kg/m Last 5 Encounter Wt Readings: Date: Wt: 12/10/2023 62.6 kg (138 lb) 06/11/2023 60.5 kg (133 lb 4.8 oz) 12/05/2022 61.9 kg (136 lb 6.4 oz) 11/26/2022 62.6 kg (138 lb) 06/07/2022 63 kg (139 lb) No waist measurement recorded Estimated body mass index is 26.05 kg/m as calculated from the following: Height as of this encounter: 155 cm (5' 1.02). Weight as of this encounter: 62.6 kg (138 lb). Last 5 Encounter BP Readings: Date: BP: 12/10/2023 134/80 06/11/2023 115/73 12/05/2022 102/66 12/05/2022 104/62 11/26/2022 122/70 Physical Exam Constitutional: Appearance: Normal appearance. HENT: Head: Normocephalic. Eyes: Conjunctiva/sclera: Conjunctivae normal. Cardiovascular: Rate and Rhythm: Normal rate. Rhythm irregularly irregular. Heart sounds: Normal heart sounds. Comments: Controlled well with stockings wearing now Pulmonary: Effort: Pulmonary effort is normal. Breath sounds: Normal breath sounds. Musculoskeletal: Right lower le+ Edema present. Left lower le+ Edema present. Skin: General: Skin is warm and dry. Neurological: General: No focal deficit present. Mental Status: She is alert and oriented to person, place, and time. Psychiatric: Mood and Affect: Mood normal. Behavior: Behavior normal. Thought Content: Thought content normal. Judgment: Judgment normal. Latest Ref Rng 12/01/2022 12/05/2022 05/31/2023 12/05/2023 WBC 3.70 - 11.00 k/uL 5.84 5.92 RBC 3.90 - 5.20 m/uL 4.18 4.23 Hemoglobin 11.5 - 15.5 g/dL 12.6 12.9 Hematocrit 36.0 - 46.0 % 40.2 39.9 MCV 80.0 - 100.0 fL 96.2 94.3 MCH 26.0 - 34.0 pg 30.1 30.5 MCHC 30.5 - 36.0 g/dL 31.3 32.3 RDW-CV 11.5 - 15.0 % 13.0 13.2 Platelet Count 150 - 400 k/uL 186 194 MPV 9.0 - 12.7 fL 9.7 9.6 Neut% % 44.8 Abs Neut (ANC) 1.45 - 7.50 k/uL 2.65 Lymph% % 41.0 Abs Lymph 1.00 - 4.00 k/uL 2.43 Knox% % 8.6 Abs Knox <0.87 k/uL 0.51 Eosin% % 4.7 Abs Eosin <0.46 k/uL 0.28 Baso% % 0.7 Abs Baso <0.11 k/uL 0.04 Immature Gran % % 0.2 IMMATURE GRANS (ABS) <0.10 k/uL <0.03 NRBC /100 WBC 0.0 Absolute nRBC <0.01 k/uL <0.01 <0.01 DTYPE Auto Protein, Total 6.3 - 8.0 g/dL 7.1 6.9 Albumin 3.9 - 4.9 g/dL 4.4 4.3 Calcium 8.5 - 10.2 mg/dL 9.0 9.2 9.3 9.4 Bilirubin, Total 0.2 - 1.3 mg/dL 0.6 0.6 Alkaline Phosphatase 34 - 123 U/L 62 64 AST 13 - 35 U/L 32 28 ALT 7 - 38 U/L 19 20 Glucose 74 - 99 mg/dL 103 (H) 96 94 99 BUN 7 - 21 mg/dL 13 14 18 13 Creatinine 0.58 - 0.96 mg/dL 0.69 0.66 0.72 0.67 Sodium 136 - 144 mmol/L 133 (L) 133 (L) 138 137 Potassium 3.7 - 5.1 mmol/L 3.9 4.1 4.1 4.3 Chloride 98 - 107 mmol/L 97 98 102 100 CO2 22 - 30 mmol/L 23 23 27 26 Anion Gap 8 - 15 mmol/L 13 12 9 11 eGFR >=60 mL/min/1.73m 85 86 81 85 Cholesterol, Total <200 mg/dL 120 135 Triglyceride <150 mg/dL 65 66 HDL Cholesterol >39 mg/dL 55 66 Non HDL Cholesterol <130 mg/dL 65 69 Fasting Time hrs 15 12 VLDL Cholesterol <30 mg/dL 13 13 TC:HDL Ratio <5.10 2.18 2.05 LDL Cholesterol <100 mg/dL 52 56 LDL:HDL Ratio <2.54 0.95 0.85 Hemoglobin A1C 4.3 - 5.6 % 5.4 Estimated Average Glucose mg/dL 108 Magnesium 1.7 - 2.3 mg/dL 1.5 (L) 1.4 (L) 1.7 1.8 Vitamin D 25 Hydroxy 31.0 - 80.0 ng/mL 62.1 61.5 Vitamin B12 232 - 1,245 pg/mL 636 MMA 79 - 376 nmol/L 101 Legend: (H) High (L) Low Had stress test test 09/15 that was negative Assessment and Plan Encounter Diagnosis ICD-10-CM 1. Hypertension goal BP (blood pressure) < 150/90 I10 COMPREHENSIVE METABOLIC PANEL COMPLETE BLOOD COUNT Well controlled to low. Work on staying hydrated 2. Atrial fibrillation, unspecified type (HCC) I48.91 Controlled rate. Following with Dr. Smith. 3. Hypomagnesemia E83.42 MAGNESIUM Normal now--continue same 4. Mixed hyperlipidemia E78.2 LIPID PANEL BASIC Well controlled on prior labs. Continue statin every other day. Labs before next appointment 5. Hyponatremia E87.1 COMPREHENSIVE METABOLIC PANEL Doing well. Continue present management 6. Elevated glucose R73.09 HEMOGLOBIN A1C COMPREHENSIVE METABOLIC PANEL Has been good but follow labs. Runs in family. Avoid processed carbs 7. Osteopenia, unspecified location M85.80 VITAMIN D 25 HYDROXY Follow up Vitamin D 8. Bilateral lower extremity edema R60.0 Controlled with stockings. Followed with Dr. Winter. 9. Primary osteoarthritis of right knee M17.11 Hoping to schedule surgery for TKA soon after taken care of Above issues addressed with patient. Patient involved in shared decision making for management of medical issues. History and medications reviewed. Epic updated as needed Refills and/or prescriptions taken care of and meds adjusted as indicated after reviewed history, exam and labs. Health Maintenance reviewed. Updated record and/or ordered tests as recorded. Encouraged on efforts at healthy diet and regular exercise and adequate sleep. Labs for next appointment ordered. Has refills on meds through May. MyChart request if needed. Kevin Elder MD documented in this encounter [facility] 12-10-2023 Note HNO ID: [id number] Author: KEVIN ELDER MD Service: ? Author Type: Physician Type: Progress Notes Filed: 12/10/2023 14:10 Note Text: This note was created using Fluidnetriter. Subjective Stephanie Katz is a 88 year old female. Patient presents with: Medicare Wellness Exam: Labs prior SUBJECTIVE: Stephanie Katz is a 88 year old year old lady here today for follow up appointment for review of medical conditions. Noted had to postpone her surgery for needing his surgery Noted aware that eats more processed sugar than should. Has tried some Nicolás seeds but not consistently. Stable on current meds. BP sometimes low. 110 to 120 over 70s usually. Lately more SBP 90s. Sometimes gets tired but ongoing a fib. Has ZO and maybe not sleeping well. Sleeps on back for mask to stay fitting right. 6 to 7 hours in bed and nap during the day. Falls asleep easily if sits and rests. No fevers or chills. Some nasal congestion Sinus drainage is chronic. Little cough off and on past couple months. Wonders if allergies since after works in [employer]. Some phlegm in throat when gets up in AM. No wheezing or SOB related to respiratory issue. Tired from walking due to knee issue. Continues to follow with Dr. Smith. Has done better since treated for a fib. 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 As directed atorvastatin (LIPITOR) 20 mg tablet Take 1 tablet by mouth daily at bedtime. As directed (Patient taking differently: Take 20 mg by mouth every other day. As directed) aMILoride (MIDAMOR) 5 mg tablet Take 1 tablet by mouth once daily. When takes Lasix (Patient taking differently: Take 5 mg by mouth every other day. When takes Lasix) furosemide (LASIX) 20 mg tablet Take 1 tablet by mouth once daily. Take in the morning. As directed (Patient taking differently: Take 20 mg by mouth every other day. Take in the morning. As directed) ELIQUIS 5 mg tab(s) Take 1 tablet by mouth two times a day. loperamide (IMODIUM) 2 mg cap(s) Take 1 capsule by mouth two times a day. amLODIPine (NORVASC) 2.5 mg tablet Take 1 tablet by mouth once daily. metoprolol succinate ER (TOPROL XL) 25 mg 24 hr tablet Take 2 tablets by mouth once daily. Omeprazole Magnesium (PRILOSEC OTC) 20 mg tablet Take 2 tablets by mouth daily before breakfast. 1/2 hr before meal. ciprofloxacin HCl (CIPRO) 250 mg tablet Take 2 tablets by mouth twice daily. hyoscyamine sublingual (LEVSIN SL) 0.125 mg Dissolve 1 tablet under the tongue every 4 hours as needed. estradiol (ESTRACE) 0.01 % (0.1 mg/gram) vaginal cream Use vaginally 3 times a WEEK. Use a dab on the urethra 3 times a week Cholecalciferol, Vitamin D3, 1,000 unit cap Take 2 capsules by mouth once daily. multivitamin tablet Take 1 tablet by mouth once daily. CPAP AutoPAP 5-15 cmH2O, Pilairo mask suggested, humidity, filters. Lifetime supplies. Dx: 327.23. Fax compliance rpt to Dr. Gongora in 8 weeks. No current facility-administered medications for this visit. Review of Systems Objective BP 134/80 Pulse 75 Temp 36.6 ?C (97.8 ?F) Resp 18 Ht 155 cm (5' 1.02) Wt 62.6 kg (138 lb) SpO2 97% BMI 26.05 kg/m? Last 5 Encounter Wt Readings: Date: Wt: 12/10/2023 62.6 kg (138 lb) 06/11/2023 60.5 kg (133 lb 4.8 oz) 12/05/2022 61.9 kg (136 lb 6.4 oz) 11/26/2022 62.6 kg (138 lb) 06/07/2022 63 kg (139 lb) No waist measurement recorded Estimated body mass index is 26.05 kg/m? as calculated from the following: Height as of this encounter: 155 cm (5' 1.02). Weight as of this encounter: 62.6 kg (138 lb). Last 5 Encounter BP Readings: Date: BP: 12/10/2023 134/80 06/11/2023 115/73 12/05/2022 102/66 12/05/2022 104/62 11/26/2022 122/70 Physical Exam Constitutional: Appearance: Normal appearance. HENT: Head: Normocephalic. Eyes: Conjunctiva/sclera: Conjunctivae normal. Cardiovascular: Rate and Rhythm: Normal rate. Rhythm irregularly irregular. Heart sounds: Normal heart sounds. Comments: Controlled well with stockings wearing now Pulmonary: Effort: Pulmonary effort is normal. Breath (more content not included)... [facility] 10-25-2023 Telephone encounter Note Called patient to schedule neurology, gave her three different doctors and locations ([place], [facility] and [place]). She was going to talk to her and call back to schedule. [facility] 10-25-2023 Miscellaneous Notes Called patient to schedule neurology, gave her three different doctors and locations ([place], [facility] and [place]). She was going to talk to her and call back to schedule. Called and left a detailed voicemail notifying patient of providers message. Clinic phone number was left for the patient to call back and schedule with Neurology. Marta Alvarez RN Filed under general neurology.. Saw Dr. Trotter's progress note from 2021 and used his diagnoses for the consult order Patient calls back to report that she has concerns that she needs testing done for neuropathy to the leg prior to having surgery. Patient reports that she is concerned that the procedure could cause increased nerve pain. Patient most recently saw [facility] and they wanted her to have further testing done. Patient reports that she is not certain that she would want to go back. Patient asking if provider would recommend another neurologist. Explained that depending on when neurology could get patient in that might be outside of time frame for surgery with scheduling testing. Pended referral for patient to look into availability and location for neurologist. Ju Chi RN Just added labs as Pt hasn't had any in the last 3 months for provider to check for Pre-op appointment. Are these labs that [facility] wants done for preop? I add magnesium since was low in the past Elo with [facility] called in to schedule a Pre-Op appointment for Pt. Rescheduled her 6 month f/u. Please add any labs or other procedures Pt would need pre surgery December 31. Elo said she has already sent the surgical clearance form. documented in this encounter [facility] 10-25-2023 Telephone encounter Note Called and left a detailed voicemail notifying patient of providers message. Clinic phone number was left for the patient to call back and schedule with Neurology. Marta Alvarez RN [facility] 10-25-2023 Telephone encounter Note Filed under general neurology.. Saw Dr. Trotter's progress note from 2021 and used his diagnoses for the consult order [facility] 10-22-2023 Telephone encounter Note Patient calls back to report that she has concerns that she needs testing done for neuropathy to the leg prior to having surgery. Patient reports that she is concerned that the procedure could cause increased nerve pain. Patient most recently saw [facility] and they wanted her to have further testing done. Patient reports that she is not certain that she would want to go back. Patient asking if provider would recommend another neurologist. Explained that depending on when neurology could get patient in that might be outside of time frame for surgery with scheduling testing. Pended referral for patient to look into availability and location for neurologist. Ju Chi RN T [facility] 10-22-2023 Telephone encounter Note Just added labs as Pt hasn't had any in the last 3 months for provider to check for Pre-op appointment. [facility] 10-20-2023 Telephone encounter Note Are these labs that [facility] wants done for preop? I add magnesium since was low in the past [facility] 10-18-2023 Telephone encounter Note Elo with [facility] called in to schedule a Pre-Op appointment for Pt. Rescheduled her 6 month f/u. Please add any labs or other procedures Pt would need pre surgery December 31. Elo said she has already sent the surgical clearance form. [facility] 06-11-2023 Instructions Kevin Elder MD - 06/11/2023 10:32 AM EST Screening schedule The following prevention plan is recommended: Shingrix Vaccine(1 of 2) Never done DTaP,Tdap,Td Vaccine(1 - Tdap) due on 01/14/2010 Covid-19 Vaccine(2022- season) due on 01/19/2023 Advance Directive Discussion due on 05/21/2023 Depression Assessment due on 05/21/2023 WHAT YOU CAN DO TO PREVENT FALLS Many falls can be prevented. By making some changes, you can lower your chances of falling. Four things YOU can do to prevent falls for you* and your caregiver 1. Begin a regular exercise program Exercise is one of the most important ways to lower your chances of falling. It makes you stronger and helps you feel better. Exercises that improve balance and coordination (like Bret Chi) are the most helpful. Lack of exercise leads to weakness and increases your chances of falling. Ask your doctor or health care provider about the best type of exercise program for you. 2. Have your health care provider review your medicines Have your doctor or pharmacist review all the medicines you take, even [id number] medicines. As you get older, the way medicines work in your body can change. Some medicines, or combinations of medicines, can make you sleepy or dizzy and can cause you to fall. 3. Have your vision checked Have your eyes checked by an eye doctor at least once a year. You may be wearing the wrong glasses or have a condition like glaucoma or cataracts that limits your vision. Poor vision can increase your chances of falling. 4. Make your home safer About half of all falls happen at home. To make your home safer: Remove things you can trip over (like papers, books, clothes, and shoes) from stairs and places where you walk. Remove small throw rugs or use double-sided tape to keep the rugs from slipping. Keep items you use often in cabinets you can reach easily without using a step stool. Have grab bars put in next to your toilet and in the tub or shower. Use non-slip mats in the bathtub and on shower floors. Improve the lighting in your home. As you get older, you need brighter lights to see well. Hang light-weight curtains or shades to reduce glare. Have handrails and lights put in on all staircases. Wear shoes both inside and outside the house. Avoid going barefoot or wearing slippers. For more information, contact: Centers for Disease Control and Prevention www.cdc.gov/injury * This information may not apply if you have certain medical conditions. documented in this encounter [facility] 06-11-2023 History of Presen t illness Narrative Stephanie Katz is a 87 year old female here for a Medicare wellness visit. Medicare Health Risk Assessment General Health Good Exercise: Minutes/Day 10 to 15 Exercise: Days/Week 2 Alcohol: Daily Use No--maybe monthly, social only Alcohol: Drinks/Day When drinks would be 1 to 2 in a day Alcohol: 6 or more drinks Never Feel off balance Yes Concerns: Teeth/Dentures No Concerns: Sexual function No Troubled by feelings None of the above Frequency: Eating healthy diet ADLs requiring help Housework; Walking Safety precautions in home/vehicle Yes Smoke, vape, chews tobacco No Difficulty hearing Yes, I wear a hearing aid Difficulty seeing No Current Providers Specialists: I have reviewed specialist-related care of the patient in the medical record. Outside specialists seen: Dr. Smith (cardiology), Dr. Nico Wisdom (ENT) , Dr. Ayala (Ophthalmology), Dr. Dennis ([facility]) Medical/Family history review Reviewed and updated problem list, medical/surgical/family/social history, medications, and allergies. Opioid use review Opioid Medications (last 90 days) Some values may be hidden. Unless noted otherwise, only the newest values recorded on each date are displayed. Opioid Medications No data to display. Depression screening Depression Screening PHQ-2 Score PHQ-9 Score ISAI-2 Total Score 06/07/2022 0 - - Depression screening tool completed and reviewed. Based on score and interview, patient is not at risk for depression. Screening tool discussed with patient, and I recommended no further intervention at this time. Cognitive screening Cognitive screening reviewed and no further action needed (score 3-5) Functional Observation Was the patient's Timed Up & Go test unsteady or ? 12 seconds? No Advance Care Planning Surrogate decision maker and/or advance care plan documented Has LW and HCDPOA. Discussed can drop off copy to scan in. Surrogate decision maker is Measurements BP 115/73 Pulse 78 Temp 97.8 Resp 18 Ht 5' 1.417 (1.56m) Wt 133 lb 4.8 oz (60.5kg) SpO2 98% BMI 24.85 kg/(m^2). Additional screenings: Vision Screening Right eye - Without correction: 20/30 With correction: Left eye - Without correction: 20/50 With correction: Both eyes - Without correction: 20/30 With correction: Assessment/Plan Medicare annual wellness visit, subsequent (Z00.00) - Counseled on healthy diet and regular exercise - Fall avoidance information provided - Personalized prevention plan provided Additional Concerns The following concerns were also discussed with the patient: HISTORY Stephanie Katz is a 87 year old lady here for Medicare Wellness and yearly exam and follow up appointment. Heart issues--chronic a fib noted. Had echo July 2022. HR can be down to 60s and up to 80s. BPs 120s or lower; once in a while 130s. Feels better since better controlled with current meds. Following with Dr. Smith. Carotid stenosis reviewed. Bone density--last year showed osteopenia. Discussed COVID vaccine questions. Fell last summer and was in rehab. Right knee pain ongoing--was told needs surgery to get it better. Left knee is better. Wondered about pursuing surgery. Worries about neuropathy issues. Considering neuro consult for neuropathy. Ortho--Dr. Fisher. Noted right leg is longer. Told cannot be improved with TKA. See assessment and plan for other issues addressed. 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 As directed atorvastatin (LIPITOR) 20 mg tablet Take 1 tablet by mouth daily at bedtime. As directed (Patient taking differently: Take 20 mg by mouth every other day. As directed) aMILoride (MIDAMOR) 5 mg tablet Take 1 tablet by mouth once daily. When takes Lasix (Patient taking differently: Take 5 mg by mouth every other day. When takes Lasix) furosemide (LASIX) 20 mg tablet Take 1 tablet by mouth once daily. Take in the morning. As directed (Patient taking differently: Take 20 mg by mouth every other day. Take in the morning. As directed) ELIQUIS 5 mg tab(s) Take 1 tablet by mouth two times a day. loperamide (IMODIUM) 2 mg cap(s) Take 1 capsule by mouth two times a day. amLODIPine (NORVASC) 2.5 mg tablet Take 1 tablet by mouth once daily. metoprolol succinate ER (TOPROL XL) 25 mg 24 hr tablet Take 2 tablets by mouth once daily. Omeprazole Magnesium (PRILOSEC OTC) 20 mg tablet Take 2 tablets by mouth daily before breakfast. 1/2 hr before meal. ciprofloxacin HCl (CIPRO) 250 mg tablet Take 2 tablets by mouth twice daily. hyoscyamine sublingual (LEVSIN SL) 0.125 mg Dissolve 1 tablet under the tongue every 4 hours as needed. estradiol (ESTRACE) 0.01 % (0.1 mg/gram) vaginal cream Use vaginally 3 times a WEEK. Use a dab on the urethra 3 times a week Cholecalciferol, Vitamin D3, 1,000 unit cap Take 2 capsules by mouth once daily. multivitamin tablet Take 1 tablet by mouth once daily. CPAP AutoPAP 5-15 cmH2O, Pilairo mask suggested, humidity, filters. Lifetime supplies. Dx: [phone]. Fax compliance rpt to Dr. Gongora in 8 weeks. Current Facility-Administered Medications Medication Dose Route Frequency perflutren lipid microspheres 1.3 mL in NaCl (PF) 0.9% 10 mL injection (DEFINITY) INTRAVENOUS DIRECTED PRN sodium chloride 0.9 % (flush) 10 mL (BD POSIFLUSH) 10 mL INTRAVENOUS DIRECTED PRN ALLERGIES Allergen Reactions Bextra [Valdecoxib] Hives Cephalosporins Rash Darvocet A500 [Prop* Rash Erythromycin Hives Penicillins Hives Percocet [Oxycodone* Intolerance Pravastatin Other: See Comments myalgias Sulfa (Sulfonamide * Hives FAMILY HISTORY Problem Relation Age of Onset Diabetes Maternal Grandmother Diabetes Maternal Aunt Heart Mother Arthritis Mother Arthritis Father Osteoporosis Mother Osteoporosis Father Social History Tobacco Use Smoking status: Never Smokeless tobacco: Never Substance Use Topics Alcohol use: Yes Comment: Occasionally Drug use: No PHYSICAL EXAM BP 115/73 Pulse 78 Temp 36.6 C (97.8 F) Resp 18 Ht 156 cm (5' 1.42) Wt 60.5 kg (133 lb 4.8 oz) SpO2 98% BMI 24.85 kg/m GENERAL: well appearing, alert, in no acute distress and ambulates with cane CARDIOVASCULAR: Irregularly irregular PULMONARY: clear to auscultation, no wheezing, rhonchi, or crackles ABDOMEN: soft, non-tender, non-distended, no masses or organomegaly EXTREMITY: no lower extremity edema. No skin discoloration. DJD of hands noted. Component Latest Ref Rng & Units 11/24/2021 06/01/2022 12/01/2022 12/05/2022 05/31/2023 Protein, Total 6.3 - 8.0 g/dL 7.4 6.7 7.1 Albumin 3.9 - 4.9 g/dL 4.8 4.2 4.4 Calcium 8.5 - 10.2 mg/dL 9.5 9.3 9.0 9.2 9.3 Bilirubin, Total 0.2 - 1.3 mg/dL 0.3 0.4 0.6 Alkaline Phosphatase 34 - 123 U/L 45 55 62 AST 13 - 35 U/L 33 23 32 ALT 7 - 38 U/L 23 20 19 Glucose 74 - 99 mg/dL 91 91 103 (H) 96 94 BUN 7 - 21 mg/dL 17 14 13 14 18 Creatinine 0.58 - 0.96 mg/dL 0.60 0.67 0.69 0.66 0.72 Sodium 136 - 144 mmol/L 139 138 133 (L) 133 (L) 138 Potassium 3.7 - 5.1 mmol/L 4.0 4.1 3.9 4.1 4.1 Chloride 97 - 105 mmol/L 97 100 97 98 102 CO2 22 - 30 mmol/L 27 27 23 23 27 Anion Gap 9 - 18 mmol/L 15 11 13 12 9 eGFR >=60 mL/min/1.73m 88 85 85 86 81 WBC 3.70 - 11.00 k/uL 5.84 RBC 3.90 - 5.20 m/uL 4.18 Hemoglobin 11.5 - 15.5 g/dL 12.6 Hematocrit 36.0 - 46.0 % 40.2 MCV 80.0 - 100.0 fL 96.2 MCH 26.0 - 34.0 pg 30.1 MCHC 30.5 - 36.0 g/dL 31.3 RDW-CV 11.5 - 15.0 % 13.0 Platelet Count 150 - 400 k/uL 186 MPV 9.0 - 12.7 fL 9.7 Absolute nRBC <0.01 k/uL <0.01 Cholesterol, Total <200 mg/dL 217 (H) 214 (H) 120 135 Triglyceride <150 mg/dL 89 92 65 66 HDL Cholesterol >39 mg/dL 77 61 55 66 Non HDL Cholesterol <130 mg/dL 140 (H) 153 (H) 65 69 Fasting Time hrs 5 12 15 12 VLDL Cholesterol <30 mg/dL 18 18 13 13 TC:HDL Ratio <5.10 2.82 3.51 2.18 2.05 LDL Cholesterol <100 mg/dL 122 (H) 135 (H) 52 56 LDL:HDL Ratio <2.54 1.58 2.21 0.95 0.85 Hemoglobin A1C 4.3 - 5.6 % 5.4 Estimated Average Glucose mg/dL 108 Magnesium 1.7 - 2.3 mg/dL 1.6 (L) 1.5 (L) 1.4 (L) 1.7 Vitamin D 25 Hydroxy 31.0 - 80.0 ng/mL 62.1 61.5 Vitamin B12 232 - 1,245 pg/mL 636 MMA 79 - 376 nmol/L 101 ASSESSMENT/PLAN: 1. Medicare annual wellness visit, subsequent - ICD9: V70.0, ICD10: Z00.00 (primary diagnosis) - Counseled on healthy diet and regular exercise - Calcium intake with supplements or by diet of 1000 mg/day for under 50, 3077-2972 mg/day for 50+ 2. Mixed hyperlipidemia - ICD9: 272.2, ICD10: E78.2 - Controlled - Continue current medications - Counseled on healthy diet and regular exercise - EZETIMIBE 10 MG TABLET - LIPID PANEL BASIC 3. Hypomagnesemia - ICD9: 275.2, ICD10: E83.42 Controlled - AMILORIDE 5 MG TABLET - MAGNESIUM BLD 4. Hypokalemia - ICD9: 276.8, ICD10: E87.6 Controlled - AMILORIDE 5 MG TABLET 5. Neuropathy - ICD9: 355.9, ICD10: G62.9 Monitor symptoms. Further evaluation and treatment as indicated. She is considering seeing neurologist within [facility] system. 6. Hypertension goal BP (blood pressure) < 150/90 - ICD9: 401.9, ICD10: I10 - Controlled - Continue current medications - Recommend home blood pressure monitoring, to bring results to next visit - Encouraged sodium restriction, DASH or Mediterranean diet - Recommend regular aerobic exercise - FUROSEMIDE 20 MG TABLET 7. Leg swelling - ICD9: 729.81, ICD10: M79.89 Continue present management. - FUROSEMIDE 20 MG TABLET 8. Primary osteoarthritis involving multiple joints - ICD9: 715.98, ICD10: M15.9 Discussed need for right TKA per ortho but patient worried about neuropathy in her legs affecting recovery; also worried about age and a fib. Rn Clinical apparently told her she can pursue knee surgery. For now, able to stay active enough without severe pain most of the time. Discussed that she wants to be able to get on the floor to play with kids in the family--reminded her that getting a TKA does not mean she would be able to kneel to get up and down from the floor. Follow up with ortho as needed. 9. Need for shingles vaccine - ICD9: V04.89, ICD10: Z23 - [employer] 10. Encounter for immunization - ICD9: V03.89, ICD10: Z23 - [employer] PRINTED PHARMACY INSTRUCTIONS - [employer] COVID-19 VACCINE (2022- SEASON) AGE 12+ YR 11. Longstanding persistent atrial fibrillation (HCC) - ICD9: 427.31, ICD10: I48.11 Continue Eliquis Stable on present management Continue following with shoe reconditioner, Dr. Smith. 12. Carotid stenosis, asymptomatic, bilateral - ICD9: 433.10, 433.30, ICD10: I65.23 Stable NO indication for surgery Continue present management. 13. Encounter for long-term current use of medication - ICD9: V58.69, ICD10: Z79.899 - LIPID PANEL BASIC - COMP METABOLIC PANEL - CBC - VITAMIN D 25 HYDROXY - MAGNESIUM BLD 14. Osteopenia of forearm, unspecified laterality - ICD9: 733.90, ICD10: M85.839 - Reviewed the need for Calcium and Vitamin D supplements and weight bearing exercise as tolerated - VITAMIN D 25 HYDROXY Kevin Elder MD documented in this encounter [facility] 05-07-2023 Miscellaneous Notes Patient has been identified by name and date of : Yes Patient phones for refill(s): Requested Prescriptions Pending Prescriptions Disp Refills furosemide (LASIX) 20 mg tablet 45 tablet 3 Sig: Take 1 tablet by mouth every other day. Take in the morning. Date of last office visit in primary care: 12/05/2022 Date of next office visit in primary care: 06/11/2023 Please advise. Thank you. GEETA Llanes. documented in this encounter [facility] 12-21-2022 Miscellaneous Notes Left a message for pt if she did not get the handicap placard. Lio Callejas LPN Letter is at nurse's desk for signature. Patient calls to report that the signed letter for her to get a Handicap Placard wasn't with her paper work that she received at her appointment today 12/05/2022. Patient is asking if the signed letter could be taken to medical records so she can pick it up. Please call patient at [phone]. Ju Chi RN documented in this encounter [facility] 12-05-2022 History of Presen t illness Narrative Images from the original note were not included. [facility] [place] DEPARTMENT OF VASCULAR SURGERY PRIMARY CARE PHYSICIAN: Kevin Elder MD HISTORY OF PRESENT ILLNESS: Ms. Katz is a 87 year old female who presents today for a vascular surgery follow-up visit regarding venous insufficiency. She has noticed new areas of hyperpigmentation and redness along medial malleolus. She has had biopsies in the past with dermatology which was consistent with stasis dermatitis PAST MEDICAL HISTORY Diagnosis Date Acute bronchitis 10/30/2007 Atrial fibrillation (HCC) 06/10/2022 Diarrhea Diverticulosis of colon (without mention of hemorrhage) Dysphagia, unspecified(787.20) Esophageal reflux Gastroesophageal reflux Esophagitis, unspecified Female bladder prolapse Generalized osteoarthrosis, unspecified site Hip joint replacement by other means 01/02/2008, 2013 Hypertension 04/09/2012 Insomnia, unspecified Irritable bowel syndrome Irritable bowel Lumbago Mitral valve disorders(424.0) Nontoxic uninodular goiter Obstructive sleep apnea 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 Other specified disorder of bladder 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 Unspecified sleep apnea Uterine prolapse PAST SURGICAL HISTORY Procedure Laterality Date APPENDECTOMY ARTHRP ACETBLR/PROX FEM PROSTC AGRFT/ALGRFT 11/27/2007 Hip replacement, total, right ARTHRP ACETBLR/PROX FEM PROSTC AGRFT/ALGRFT 2013 Hip replacement, total, left BIOPSY BREAST OPEN INCISIONAL Bx of breast, incisional/x2 BIOPSY BREAST OPEN INCISIONAL Bx of breast, incisional, X-2 BIOPSY OF SKIN, SINGLE left arm BIOPSY SOFT TISSUE NECK/CHEST 04/05/2010 Chest COLONOSCOPY FLX DX W/COLLJ SPEC WHEN PFRMD 05/26/2010 Colonoscopy EGD TRANSORAL BIOPSY SINGLE/MULTIPLE 09/16/07 LIG/TRNSXJ FLP TUBE ABDL/VAG APPR UNI/BI Tubal ligation PAST SURGICAL HISTORY OF VEIN STRIPPING PAST SURGICAL HISTORY OF 02/08/15 excision of left ear lesion. SIGMOIDOSCOPY FLX DX W/COLLJ SPEC BR/WA IF PFRMD 06/06/2000 Sigmoidoscopy TONSILLECTOMY PRIMARY/SECONDARY <AGE 12 Tonsillectomy SOCIAL HISTORY Social History Tobacco Use Smoking status: Never Smokeless tobacco: Never Substance Use Topics Alcohol use: Yes Comment: Occasionally Drug use: No MEDICATIONS: ELIQUIS 5 mg tab(s)^Take 5 mg by mouth twice daily.^Disp: ^Rfl: atorvastatin (LIPITOR) 20 mg tablet^Take 20 mg by mouth daily at bedtime. 4 times a week^Disp: ^Rfl: Omeprazole Magnesium (PRILOSEC OTC) 20 mg tablet^Take 2 tablets by mouth daily before breakfast. 1/2 hr before meal.^Disp: ^Rfl: ciprofloxacin HCl (CIPRO) 250 mg tablet^Take 2 tablets by mouth twice daily.^Disp: 40 tablet^Rfl: 0 aMILoride (MIDAMOR) 5 mg tablet^Take 1 tablet by mouth once daily.^Disp: 90 tablet^Rfl: 3 amLODIPine (NORVASC) 2.5 mg tablet^Take 1 tablet by mouth once daily.^Disp: 90 tablet^Rfl: 3 furosemide (LASIX) 20 mg tablet^Take 1 tablet by mouth every other day. Take in the morning.^Disp: 45 tablet^Rfl: 3 metoprolol succinate ER (TOPROL XL) 25 mg 24 hr tablet^Take 2 tablets by mouth once daily.^Disp: 180 tablet^Rfl: 3 meloxicam (MOBIC) 15 mg tablet^Take 1 tablet by mouth once daily. With food. Currently taking as needed once daily -May 08, 2022^Disp: 90 tablet^Rfl: 3 loperamide (IMODIUM) 2 mg cap(s)^TAKE 1 CAPSULE BY MOUTH TWICE A DAY^Disp: 90 capsule^Rfl: 11 ezetimibe (ZETIA) 10 mg tablet^Take 0.5-1 tablets by mouth once daily. As directed^Disp: 90 tablet^Rfl: 3 hyoscyamine sublingual (LEVSIN SL) 0.125 mg^Dissolve 1 tablet under the tongue every 4 hours as needed.^Disp: 60 tablet^Rfl: 2 estradiol (ESTRACE) 0.01 % (0.1 mg/gram) vaginal cream^Use vaginally 3 times a WEEK. Use a dab on the urethra 3 times a week^Disp: 1 Tube^Rfl: 3 Cholecalciferol, Vitamin D3, 1,000 unit cap^Take 2 capsules by mouth once daily.^Disp: 1 capsule^Rfl: 0 multivitamin tablet^Take 1 tablet by mouth once daily.^Disp: ^Rfl: 0 CPAP^AutoPAP 5-15 cmH2O, Pilairo mask suggested, humidity, filters. Lifetime supplies. Dx: [phone]. Fax compliance rpt to Dr. Gongora in 8 weeks.^Disp: 1 Device^Rfl: 0 ALLERGIES: ALLERGIES Allergen Reactions Bextra [Valdecoxib] Hives Cephalosporins Rash Darvocet A500 [Prop* Rash Erythromycin Hives Penicillins Hives Percocet [Oxycodone* Intolerance Pravastatin Other: See Comments myalgias Sulfa (Sulfonamide * Hives PHYSICAL EXAM: BP 102/66 (BP Site: Left Arm, BP Position: Sitting, BP Cuff Size: Regular Adult) Pulse 91 SpO2 96% Gen- no distress Ext- hyperpigmentation medial malleolar region, trace edema Diagnostic tests reviewed for today's visit: Most recent labs Most recent imaging IMPRESSION: Ms. Katz is a 87 year old female with venous insufficiency . PLAN and RECOMMENDATIONS: Will get updated reflux testing to assess for perforators which may be amenable to treatment Continue compression as tolerated, elevation and exercise SIGNATURE: Obdulia Winter DO PATIENT NAME: Stephanie Katz documented in this encounter [facility] 12-05-2022 History of Presen t illness Narrative This note was created using Userlike Live Chat. Subjective Stephanie Katz is a 86 year old female. Patient presents with: F/U 6 months: Labs prior SUBJECTIVE: Stephanie Katz is a 86 year old year old lady here today for 6 month follow up appointment for review of medical conditions. Watching diet and taking Lipitor. No problems with taking Lipitor this time. Taking 4 times weekly. No problems on weekend taking back to back. Follows with Dr. Smith ([facility]). Wonders about a fib.Told is persistent rather than paroxysmal. Reviewed echocardiogram. Feels better at current BP. Doing well on current meds. No dizziness but lots of fatigue. But not sleeping well at night due to arthritis (and not wearing CPAP comfortably) so sleeps during the day. Feels balance of sleep is okay. Does get about 6 hours sleep at night. Requested parking placard. Balance isues and tires easily. Noted that bone density in forearm is down to T-score -1.4. Getting OT for right wrist per Dr. Fisher (ortho). 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 Noted was told has neuropathy. Could be contributing to falling. Using cane. Had bad fall 6 weeks ago. Fell on the left knee cap In PT for the knee injury. Doing well with exercises. Right knee needs replaced. needs to have back surgery after comes back from vacation. Recurrent UTIs due to prolapse noted. Follows with [facility] SERVICES ASSOCIATE (Jeannie and her [employer]). 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 atorvastatin (LIPITOR) 20 mg tablet Take 20 mg by mouth daily at bedtime. 4 times a week aMILoride (MIDAMOR) 5 mg tablet Take 1 tablet by mouth once daily. amLODIPine (NORVASC) 2.5 mg tablet Take 1 tablet by mouth once daily. furosemide (LASIX) 20 mg tablet Take 1 tablet by mouth every other day. Take in the morning. metoprolol succinate ER (TOPROL XL) 25 mg 24 hr tablet Take 2 tablets by mouth once daily. meloxicam (MOBIC) 15 mg tablet Take 1 tablet by mouth once daily. With food. Currently taking as needed once daily -May 08, 2022 loperamide (IMODIUM) 2 mg cap(s) TAKE 1 CAPSULE BY MOUTH TWICE A DAY ezetimibe (ZETIA) 10 mg tablet Take 0.5-1 tablets by mouth once daily. As directed hyoscyamine sublingual (LEVSIN SL) 0.125 mg Dissolve 1 tablet under the tongue every 4 hours as needed. estradiol (ESTRACE) 0.01 % (0.1 mg/gram) vaginal cream Use vaginally 3 times a WEEK. Use a dab on the urethra 3 times a week Cholecalciferol, Vitamin D3, 1,000 unit cap Take 2 capsules by mouth once daily. multivitamin tablet Take 1 tablet by mouth once daily. CPAP AutoPAP 5-15 cmH2O, [place] mask suggested, humidity, filters. Lifetime supplies. Dx: [phone]. Fax compliance rpt to Dr. Gongora in 8 weeks. Omeprazole Magnesium (PRILOSEC OTC) 20 mg tablet Take 2 tablets by mouth daily before breakfast. 1/2 hr before meal. Current Facility-Administered Medications Medication Dose Route Frequency perflutren lipid microspheres 1.3 mL in NaCl (PF) 0.9% 10 mL injection (DEFINITY) INTRAVENOUS DIRECTED PRN sodium chloride 0.9 % (flush) 10 mL (BD POSIFLUSH) 10 mL INTRAVENOUS DIRECTED PRN Review of Systems Objective BP 104/62 Pulse 87 Temp 36.6 C (97.8 F) Resp 18 Wt 61.9 kg (136 lb 6.4 oz) SpO2 97% BMI 24.95 kg/m Last 5 Encounter Wt Readings: Date: Wt: 12/05/2022 61.9 kg (136 lb 6.4 oz) 11/26/2022 62.6 kg (138 lb) 06/07/2022 63 kg (139 lb) 05/08/2022 63 kg (139 lb) 05/02/2022 63.5 kg (140 lb) No waist measurement recorded Estimated body mass index is 24.95 kg/m as calculated from the following: Height as of 05/02/22: 157.5 cm (5' 2). Weight as of this encounter: 61.9 kg (136 lb 6.4 oz). Last 5 Encounter BP Readings: Date: BP: 12/05/2022 104/62 11/26/2022 122/70 06/07/2022 132/82 05/08/2022 158/84[bp average[ 05/02/2022 144/86 Physical Exam Constitutional: Appearance: Normal appearance. HENT: Head: Normocephalic. Eyes: Conjunctiva/sclera: Conjunctivae normal. Cardiovascular: Rate and Rhythm: Normal rate and regular rhythm. Heart sounds: Normal heart sounds. Pulmonary: Effort: Pulmonary effort is normal. Breath sounds: Normal breath sounds. Musculoskeletal: General: Swelling (left knee) and deformity (DJD hands, especially thumb CMC and MCP joints of thumbs) present. Skin: General: Skin is warm and dry. Neurological: General: No focal deficit present. Mental Status: She is alert and oriented to person, place, and time. Psychiatric: Mood and Affect: Mood normal. Behavior: Behavior normal. Thought Content: Thought content normal. Judgment: Judgment normal. Component Latest Ref Rng & Units 11/24/2021 06/01/2022 12/01/2022 Protein, Total 6.3 - 8.0 g/dL 7.4 6.7 Albumin 3.9 - 4.9 g/dL 4.8 4.2 Calcium 8.5 - 10.2 mg/dL 9.5 9.3 9.0 Bilirubin, Total 0.2 - 1.3 mg/dL 0.3 0.4 Alkaline Phosphatase 34 - 123 U/L 45 55 AST 13 - 35 U/L 33 23 ALT 7 - 38 U/L 23 20 Glucose 74 - 99 mg/dL 91 91 103 (H) BUN 7 - 21 mg/dL 17 14 13 Creatinine 0.58 - 0.96 mg/dL 0.60 0.67 0.69 Sodium 136 - 144 mmol/L 139 138 133 (L) Potassium 3.7 - 5.1 mmol/L 4.0 4.1 3.9 Chloride 97 - 105 mmol/L 97 100 97 CO2 22 - 30 mmol/L 27 27 23 Anion Gap 9 - 18 mmol/L 15 11 13 eGFR >=60 mL/min/1.73m 88 85 85 Cholesterol, Total <200 mg/dL 217 (H) 214 (H) Triglyceride <150 mg/dL 89 92 HDL Cholesterol >39 mg/dL 77 61 Non HDL Cholesterol <130 mg/dL 140 (H) 153 (H) Fasting Time hrs 5 12 VLDL Cholesterol <30 mg/dL 18 18 TC:HDL Ratio <5.10 2.82 3.51 LDL Cholesterol <100 mg/dL 122 (H) 135 (H) LDL:HDL Ratio <2.54 1.58 2.21 Magnesium 1.7 - 2.3 mg/dL 1.6 (L) 1.5 (L) 1.5 (L) Vitamin D 25 Hydroxy 31.0 - 80.0 ng/mL 62.1 Assessment and Plan Encounter Diagnosis ICD-10-CM 1. Hypertension goal BP (blood pressure) < 150/90 I10 COMP METABOLIC PANEL CBC 2. Hypomagnesemia E83.42 MAGNESIUM BLD 3. Hyponatremia E87.1 COMP METABOLIC PANEL 4. Mixed hyperlipidemia E78.2 LIPID PANEL BASIC LIPID PANEL BASIC 5. Elevated glucose R73.09 HGB A1C 6. Osteopenia of forearm, unspecified laterality M85.839 VITAMIN D 25 HYDROXY 7. Neuropathy G62.9 VITAMIN B12 BLOOD METHYLMALONIC ACID 8. Osteopenia, unspecified location M85.80 VITAMIN D 25 HYDROXY Above issues addressed with patient. Patient involved in shared decision making for management of medical issues. History and medications reviewed. Epic updated as needed Refills and/or prescriptions taken care of and meds adjusted as indicated after reviewed history, exam and labs. Health Maintenance reviewed. Updated record and/or ordered tests as recorded. Encouraged on efforts at healthy diet and regular exercise and adequate sleep. Limit NSAID to meloxicam for short courses prn. I spent a total of at least 46 minutes on the date of the service which included preparing to see the patient, [id number] patient care, completing clinical documentation, performing a medically appropriate examination, counseling and educating the patient/family/caregiver, and ordering medications, tests, or procedures. Kevin Elder MD documented in this encounter [facility] 11-30-2022 Miscellaneous Notes Phoned patient and went over notes below from Dr Elder with understanding. Macrobid was with intermediate sensitivity and symptomsw were not improving, so going back to macrobid not a good idea. She has allergies to all the other antibiotics (sulfa, penicillins and cephalosporins). . Most people do not get any adverse effects from Cipro. Only other meds the bacteria was sensitive to are IV antibiotics with worse risk for adverse effects. Arthritis side effects if they occur resolved with stopping the med. Risk for tendon rupture--her only risk fact with the med is age over 60. Can minimize risk by avoiding long courses on the antibiotic. She is on just a 5 day course. Make sure to stay hydrated to resolve the UTI and also prevent UTIs (at last 1.5 to 2 liters water per day) Follow up as needed. Patient calling was in express care for UTI and placed on generic Macrobid and was changed to Cipro rx. Patient has taken the cipro for one day and is fearful of all the issues that she could have with it. She already has knee problems and other issues. Patient asking if she could just complete the generic Macrobid rx? She has 11 doses left of the rx she was given from express care. Please advise documented in this encounter [facility] 11-28-2022 Miscellaneous Notes Patient identified by name and date of . Macrobid shows intermediate sensitivity. Yusra states she is still not feeling better. Rx for Cipro sent to pharmacy. Stop macrobid. Therese Danielle APRN.MITALI documented in this encounter [facility] 11-26-2022 Instructions Therese Danielle APRN.CNP - 11/26/2022 2:40 PM EDT ASSESSMENT/PLAN: 1. Urinary frequency - ICD9: 788.41, ICD10: R35.0 acute - UA positive for lea esterase - Patient education for prevention given - UA DIP, URINE (POC) - URINE CULTURE - NITROFURANTOIN MONOHYDRATE & MACROCRYSTAL 100 MG ORAL CAP - Follow-up with your PCP in 3-5 days if symptoms have not improved or sooner if symptoms worsen - Discussed red flags and need for immediate medical evaluation if any occur. - Discussed supportive care treatment with fluids, rest and analgesia. - Discussed expected course of illness Therese Danielle APRN.[facility] [employer] [facility] PATIENT INFO BLADDER INFECTION OVERVIEW Bladder infections are one of the most common infections, causing symptoms of burning with urination and needing to urinate frequently. A bladder infection is a type of urinary tract infection (UTI). Bladder infections are more common is women than men. Most women have an uncomplicated bladder infection that is easily treated with a short course of antibiotics. In men, bladder infections may also affect the prostate gland, and a longer course of treatment may be needed. BLADDER INFECTION CAUSES The urinary tract includes the kidneys (which filter urine), ureters (the tube that carries urine from the kidneys to the bladder), the bladder (which stores urine), and urethra (the tube that carries urine out of the bladder). Bacteria do not normally live in these areas. However, bacteria normally live close to the urethra in women and men who are not circumcised. Bladder infections occur when bacteria travel up the urethra into the bladder. Factors that increase the risk of developing a bladder infection include: Vaginal sex Use of spermicides History of past bladder infections Diabetes In men, not being circumcised or having anal sex increase the risk of bladder infections. BLADDER INFECTION SYMPTOMS The typical symptoms of a bladder infection include: Pain or burning when urinating Frequent need to urinate Urgent need to urinate Blood in the urine Fever, back pain, nausea, or vomiting are not common symptoms of a bladder infection, but can occur in people with a kidney infection (pyelonephritis). If you have these symptoms, you should call your doctor or nurse immediately. Is it a bladder infection or something else? -- Burning with urination can also occur in people with vaginitis (eg, yeast infection) or urethritis (inflammation of the urethra). For this reason, it is important to call your healthcare provider before assuming you have a bladder infection. BLADDER INFECTION DIAGNOSIS Simple bladder infections are usually diagnosed based upon your symptoms alone. However, most patients, especially those who have bladder infection symptoms for the first time, should see a healthcare provider for urine testing. Urine culture -- A urine culture is a test that uses a sample of urine to try and grow bacteria in a laboratory. It usually requires about 48 hours to get results. However, a urine culture is not always required to diagnose a bladder infection. Urine culture is often recommended if: You have never had a bladder infection before You have symptoms that are not typical for bladder infection You have had resistant bladder infections before You have frequent bladder infections You do not begin to feel better within 24 to 48 hours after starting antibiotics You are BLADDER INFECTION TREATMENT Bladder infection -- In young, healthy adolescents and adults with a bladder infection, the usual treatment includes a three to seven day course of antibiotics. The typical drugs chosen are: trimethoprim-sulfamethoxazole (Bactrim ), nitrofurantoin (Macrobid ), ciprofloxacin (Cipro ) or levofloxacin (Levaquin ). In men, the infection may involve your prostate gland and treatment is usually given for at least 7 days. Your symptoms should begin to resolve within one day after starting treatment. It is important to take the full course of antibiotics to completely eliminate the infection. If your symptoms persist for more than two or three days after starting treatment, call your healthcare provider. If needed, you can take a prescription medication that numbs the bladder and urethra (phenazopyridine [Pyridium ]) to reduce the burning pain of some UTIs. A similar medication is available without a prescription (eg, Uristat). Both medications change the color of the urine (usually blue or orange) and can interfere with laboratory testing. You should not take these medications for more than 48 hours due to the risk of side effects. These medications do not treat the infection and must be taken along with an antibiotic. Some providers recommend drinking more fluids while treating bladder infections to help flush bacteria from the bladder. Others believe that drinking more fluids may dilute the antibiotic in the bladder and make the medication less effective. No studies have been performed to address this issue. There are also no good studies on the effectiveness of cranberry juice for treating a bladder infection; we do not recommend using cranberry juice to treat bladder infections. Follow-up care -- Follow-up testing is not needed in healthy, young men or women with a bladder infection if symptoms resolve. women are usually asked to have a repeat urine culture one to two weeks after treatment has ended to make sure the bacteria are no longer in the urine. RECURRENT BLADDER INFECTIONS Bladder infections versus other causes -- Some adults, especially women, develop bladder infections frequently. In this case, it is important to confirm that your symptoms (eg, pain or burning, frequency, and urgency) are caused by a bladder infection. Symptoms are usually similar from one infection to another. The best way to confirm an infection is to have a urine culture. If your urine culture is negative for infection, other causes of pain, burning, and frequency should be investigated. There is no reason to take antibiotics if your urine culture is negative. Need for further testing -- If you continue to develop bladder infections, you may require further testing. If you continue to notice blood in your urine after your bladder infection has cleared, you should have further testing. Preventing recurrent UTIs -- Women with recurrent urinary tract infections may be advised to take steps to prevent bladder infections, including one or more of the following: Changes in control -- Women who develop frequent bladder infections and use spermicides, particularly those who also use a diaphragm, may be encouraged to use an alternate method of control. Cranberry products -- Taking cranberry juice or cranberry tablets has been promoted as one way to help prevent frequent bladder infections. However, this has not been proven. Drinking more fluid and urinating after intercourse -- Although studies have not proven that drinking more fluids or urinating soon after intercourse can prevent infection, some healthcare providers recommend these measures since they are not harmful. Drinking more fluid may help to wash out bacteria that enter the bladder. Postmenopausal women -- Postmenopausal women who develop recurrent bladder infections may benefit from using vaginal estrogen. Vaginal estrogen is available in a flexible ring that is worn in the vagina for three months (eg, Estring ), a small tablet (Vagifem ), or a cream (eg, Premarin or Estrace ). Vaginal estrogen is discussed in more detail in a separate topic review. Antibiotics -- A preventive antibiotic treatment may be recommended if you repeatedly develop bladder infections and have not responded to other preventive measures. Antibiotics are highly effective in preventing recurrent bladder infections and can be taken in several different ways. Preventive antibiotic -- You can take a low dose of an antibiotic once per day or three times per week for six months to several years. Antibiotics following intercourse -- In women who develop urinary tract infections after sex, taking a single low dose antibiotic after intercourse can help to prevent bladder infections. Self-treatment -- A plan to begin antibiotics at the first sign of a bladder infection may be recommended in some situations. Before starting this regimen, it is important that you have had testing (urine cultures) to confirm that your symptoms are caused by a bladder infection; some people have symptoms of a bladder infection but do not actually have an infection. documented in this encounter [facility] 11-26-2022 History of Presen t illness Narrative Subjective HPI Stephanie Katz is a 86 year old female who presents with urinary frequency and feeling uncomfortable in her pubic area for the past 2 days. She took an AZO home UTI test and it was positive for leukocytes and nitrates. She denies fever, chills, back pain or abdominal pain. She has not taken any medication at home for her symptoms. Review of Systems Constitutional: Negative for chills and fever. Respiratory: Negative. Cardiovascular: Negative. Gastrointestinal: Negative for abdominal pain, nausea and vomiting. Genitourinary: Positive for dysuria and frequency. Negative for hematuria. Musculoskeletal: Negative for back pain. BP 122/70 Pulse 72 Temp 36.8 C (98.3 F) Resp 16 Wt 62.6 kg (138 lb) SpO2 99% BMI 25.24 kg/m PAST MEDICAL HISTORY Diagnosis Date Acute bronchitis 10/30/2007 Atrial fibrillation (HCC) 06/10/2022 Diarrhea Diverticulosis of colon (without mention of hemorrhage) Dysphagia, unspecified(787.20) Esophageal reflux Gastroesophageal reflux Esophagitis, unspecified Female bladder prolapse Generalized osteoarthrosis, unspecified site Hip joint replacement by other means 01/02/2008, 2013 Hypertension 04/09/2012 Insomnia, unspecified Irritable bowel syndrome Irritable bowel Lumbago Mitral valve disorders(424.0) Nontoxic uninodular goiter Obstructive sleep apnea 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 Other specified disorder of bladder 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 Unspecified sleep apnea Uterine prolapse PAST SURGICAL HISTORY Procedure Laterality Date APPENDECTOMY ARTHRP ACETBLR/PROX FEM PROSTC AGRFT/ALGRFT 11/27/2007 Hip replacement, total, right ARTHRP ACETBLR/PROX FEM PROSTC AGRFT/ALGRFT 2013 Hip replacement, total, left BIOPSY BREAST OPEN INCISIONAL Bx of breast, incisional/x2 BIOPSY BREAST OPEN INCISIONAL Bx of breast, incisional, X-2 BIOPSY OF SKIN, SINGLE left arm BIOPSY SOFT TISSUE NECK/CHEST 04/05/2010 Chest COLONOSCOPY FLX DX W/COLLJ SPEC WHEN PFRMD 05/26/2010 Colonoscopy EGD TRANSORAL BIOPSY SINGLE/MULTIPLE 09/16/07 LIG/TRNSXJ FLP TUBE ABDL/VAG APPR UNI/BI Tubal ligation PAST SURGICAL HISTORY OF VEIN STRIPPING PAST SURGICAL HISTORY OF 02/08/15 excision of left ear lesion. SIGMOIDOSCOPY FLX DX W/COLLJ SPEC BR/WA IF PFRMD 06/06/2000 Sigmoidoscopy TONSILLECTOMY PRIMARY/SECONDARY <AGE 12 Tonsillectomy ALLERGIES Bextra [Valdecoxib], Cephalosporins, Darvocet A500 [Propoxyphene N-Acetaminophen], Erythromycin, Penicillins, Percocet [Oxycodone-Acetaminophen], Pravastatin, and Sulfa (Sulfonamide Antibiotics) MEDICATIONS aMILoride (MIDAMOR) 5 mg tablet^Take 1 tablet by mouth once daily.^Disp: 90 tablet^Rfl: 3 amLODIPine (NORVASC) 2.5 mg tablet^Take 1 tablet by mouth once daily.^Disp: 90 tablet^Rfl: 3 furosemide (LASIX) 20 mg tablet^Take 1 tablet by mouth every other day. Take in the morning.^Disp: 45 tablet^Rfl: 3 metoprolol succinate ER (TOPROL XL) 25 mg 24 hr tablet^Take 2 tablets by mouth once daily.^Disp: 180 tablet^Rfl: 3 meloxicam (MOBIC) 15 mg tablet^Take 1 tablet by mouth once daily. With food. Currently taking as needed once daily -May 08, 2022^Disp: 90 tablet^Rfl: 3 loperamide (IMODIUM) 2 mg cap(s)^TAKE 1 CAPSULE BY MOUTH TWICE A DAY^Disp: 90 capsule^Rfl: 11 ezetimibe (ZETIA) 10 mg tablet^Take 0.5-1 tablets by mouth once daily. As directed^Disp: 90 tablet^Rfl: 3 potassium chloride SR (MICRO-K) 10 mEq CR capsule^Klor-con sprinkle cap 10 meq Take 1 to 2 capsules by mouth once daily in juice or applesauce^Disp: 180 capsule^Rfl: 3 omeprazole (PRILOSEC) 40 mg capsule^Take 1 capsule by mouth once daily.^Disp: 90 capsule^Rfl: 3 (Patient taking differently: Take 40 mg by mouth once daily. Patient takes two 20mg tablets once daily) hyoscyamine sublingual (LEVSIN SL) 0.125 mg^Dissolve 1 tablet under the tongue every 4 hours as needed.^Disp: 60 tablet^Rfl: 2 estradiol (ESTRACE) 0.01 % (0.1 mg/gram) vaginal cream^Use vaginally 3 times a WEEK. Use a dab on the urethra 3 times a week^Disp: 1 Tube^Rfl: 3 Cholecalciferol, Vitamin D3, 1,000 unit cap^Take 2 capsules by mouth once daily.^Disp: 1 capsule^Rfl: 0 multivitamin tablet^Take 1 tablet by mouth once daily.^Disp: ^Rfl: 0 CPAP^AutoPAP 5-15 cmH2O, Pilairo mask suggested, humidity, filters. Lifetime supplies. Dx: 327.23. Fax compliance rpt to Dr. Gongora in 8 weeks.^Disp: 1 Device^Rfl: 0 nitrofurantoin monohydrate and macrocrystal (MACROBID) 100 mg capsule^Take 1 capsule by mouth twice daily for 7 days.^Disp: 14 capsule^Rfl: 0 FAMILY HISTORY Problem Relation Age of Onset Diabetes Maternal Grandmother Diabetes Maternal Aunt Heart Mother Arthritis Mother Arthritis Father Osteoporosis Mother Osteoporosis Father Social History Tobacco Use Smoking status: Never Smokeless tobacco: Never Substance Use Topics Alcohol use: Yes Comment: Occasionally Drug use: No Objective Physical Exam Vitals and nursing note reviewed. Constitutional: Appearance: Normal appearance. Cardiovascular: Rate and Rhythm: Normal rate and regular rhythm. Heart sounds: Normal heart sounds. Pulmonary: Effort: Pulmonary effort is normal. No respiratory distress. Breath sounds: Normal breath sounds. No wheezing or rales. Abdominal: General: There is no distension. Palpations: Abdomen is soft. Tenderness: There is no abdominal tenderness. There is no right CVA tenderness or left CVA tenderness. Skin: General: Skin is warm and dry. Neurological: Mental Status: She is alert. Last labs for kidney function: Component Latest Ref Rng & Units 06/01/2022 Protein, Total 6.3 - 8.0 g/dL 6.7 Albumin 3.9 - 4.9 g/dL 4.2 Calcium 8.5 - 10.2 mg/dL 9.3 Bilirubin, Total 0.2 - 1.3 mg/dL 0.4 Alkaline Phosphatase 34 - 123 U/L 55 AST 13 - 35 U/L 23 ALT 7 - 38 U/L 20 Glucose 74 - 99 mg/dL 91 BUN 7 - 21 mg/dL 14 Creatinine 0.58 - 0.96 mg/dL 0.67 Sodium 136 - 144 mmol/L 138 Potassium 3.7 - 5.1 mmol/L 4.1 Chloride 97 - 105 mmol/L 100 CO2 22 - 30 mmol/L 27 Anion Gap 9 - 18 mmol/L 11 eGFR >=60 mL/min/1.73m 85 ASSESSMENT/PLAN: 1. Urinary frequency - ICD9: 788.41, ICD10: R35.0 acute - UA positive for lea esterase - Patient education for prevention given - UA DIP, URINE (POC) - URINE CULTURE - NITROFURANTOIN MONOHYDRATE & MACROCRYSTAL 100 MG ORAL CAP - Follow-up with your PCP in 3-5 days if symptoms have not improved or sooner if symptoms worsen - Discussed red flags and need for immediate medical evaluation if any occur. - Discussed supportive care treatment with fluids, rest and analgesia. - Discussed expected course of illness Therese Dainelle APRN.MITALI documented in this encounter [facility] 06-19-2022 History of Presen t illness Narrative Radiology Service Progress Note PATIENT NAME: Stephanie Katz DATE OF SERVICE: June 19, 2022 TIME: 9:02 AM PATIENT IDENTITY VERIFICATION COMPLETED USING TWO (2) IDENTIFIERS: Name and Date of confirmed by patient verbally. FALL SCREENING: Has the patient had 2 falls in the last year or 1 fall with injury or currently using an Ambulatory Assistive Device (Walker, Cane, Wheelchair, Crutches, etc.)? Yes, Patient High Risk for Falls What interventions were put in place to prevent falls during this visit? Increased Observations by Caregivers PATIENT GENDER DATA: Female. status: : No status: NO. PATIENT RELEVANT IMPLANT DATA REVIEWED: Not Applicable RADIOLOGY DEPARTMENT: Bone Density PERIPHERAL IV DATA: Not applicable SIGNED BY: RT Luis(R) June 19, 2022 9:02 AM documented in this encounter [facility] 06-15-2022 Miscellaneous Notes All faxed to Dr. Smith's office requesting they call pt to arrange appt. My note is completed--just cannot close because immunization needs completed. May fax the note even if not yet closed. Fax along with ECG Dr. Elder please complete office note at your earliest convince so that can be faxed with referral. documented in this encounter [facility] 06-12-2022 Miscellaneous Notes See My Chart message 06/10/22. My apologies. Just got the overread results back from yesterday. Did confirm atrial fibrillation. When will she be leaving? Recommend Consult to cardiology--verify who she wants to see and will facilitate appointment. Patient calling had appt Wednesday 06/07 and had EKG done. Patient said Dr Elder was going to Rn Clinical review her EKG and has not heard anything back yet? Patient is concerned since she is about to leave for a month long trip out of state. Patient wondering if she needs to change her plans. Please advise documented in this encounter [facility] 06-07-2022 Instructions Kevin Elder MD - 06/07/2022 10:06 AM EST BONE MINERAL DENSITY PATIENT INSTRUCTIONS ========= Bone mineral density testing measures the amount of calcium in certain parts of your bones. This information determines how strong your bones are. The test is used to detect osteoporosis, a disease in which the bone's mineral content and density are low, increasing a person's risk of fractures. The lumbar spine (lower back) and the hip are the skeletal sites usually examined. For the test, remember that: 1. You cannot take this test if you are . 2. Eat a normal diet on the day of the test. 3. Take your medications as you normally would. 4. DO NOT take calcium supplements (such as Tums) for 24 hours before the test. 5. On the day of the test, leave valuables (jewelry or credit cards) at home. 6. The test should be performed prior to oral, rectal or IV contrast studies, or at least 7 days after any of these studies. For the test, you may be asked to wear a hospital gown. You will lie on your back, on a padded table, in a comfortable position. Generally, you can resume your usual activities immediately. documented in this encounter [facility] 06-07-2022 History of Presen t illness Narrative This note was created using Userlike Live Chat. Subjective Stephanie Katz is a 86 year old female. Patient presents with: F/U 6 months SUBJECTIVE: Stephanie Katz is a 86 year old year old lady here today for 6 month follow up appointment for review of medical conditions. Not able to take magnesium supplements--causes diarrhea. Noted leg swelling. Amlodipine was added back for BP control, and swelling is a little increased. Taking Lasix one every other day. Follows with Dr. Fisher for his knee. Wonders about neuropathy issue. Feet numb for years in toe area. No pain noted. Tendency to right foot drop and might fall. Cannot dorsiflex the right foot as much as the left and has to make sure to keep foot up. Noted history of extra systoles. 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 amLODIPine (NORVASC) 2.5 mg tablet Take 1 tablet by mouth once daily. furosemide (LASIX) 20 mg tablet Take 1 tablet by mouth once daily as needed. Take in the morning. meloxicam (MOBIC) 15 mg tablet Take 1 tablet by mouth once daily. With food. Currently taking as needed once daily -May 08, 2022 loperamide (IMODIUM) 2 mg cap(s) TAKE 1 CAPSULE BY MOUTH TWICE A DAY ezetimibe (ZETIA) 10 mg tablet Take 0.5-1 tablets by mouth once daily. As directed potassium chloride SR (MICRO-K) 10 mEq CR capsule Klor-con sprinkle cap 10 meq Take 1 to 2 capsules by mouth once daily in juice or applesauce omeprazole (PRILOSEC) 40 mg capsule Take 1 capsule by mouth once daily. (Patient taking differently: Take 40 mg by mouth once daily. Patient takes two 20mg tablets once daily) hyoscyamine sublingual (LEVSIN SL) 0.125 mg Dissolve 1 tablet under the tongue every 4 hours as needed. estradiol (ESTRACE) 0.01 % (0.1 mg/gram) vaginal cream Use vaginally 3 times a WEEK. Use a dab on the urethra 3 times a week Cholecalciferol, Vitamin D3, 1,000 unit cap Take 2 capsules by mouth once daily. multivitamin tablet Take 1 tablet by mouth once daily. CPAP AutoPAP 5-15 cmH2O, Pilairo mask suggested, humidity, filters. Lifetime supplies. Dx: 327.23. Fax compliance rpt to Dr. Gongora in 8 weeks. magnesium chloride (SLOW-MAG ORAL) Take by mouth once daily. (Patient not taking: No sig reported) No current facility-administered medications for this visit. Review of Systems Objective BP 132/82 Pulse 72 Temp 36.2 C (97.2 F) Resp 18 Wt 63 kg (139 lb) SpO2 98% BMI 25.42 kg/m Last 5 Encounter Wt Readings: Date: Wt: 06/07/2022 63 kg (139 lb) 05/08/2022 63 kg (139 lb) 05/02/2022 63.5 kg (140 lb) 02/10/2022 63 kg (138 lb 12.8 oz) 12/30/2021 63 kg (139 lb) No waist measurement recorded Estimated body mass index is 25.42 kg/m as calculated from the following: Height as of 05/02/22: 157.5 cm (5' 2). Weight as of this encounter: 63 kg (139 lb). Last 5 Encounter BP Readings: Date: BP: 06/07/2022 132/82 05/08/2022 158/84[bp average[ 05/02/2022 144/86 02/10/2022 124/80 12/30/2021 136/70 Physical Exam Constitutional: Appearance: Normal appearance. HENT: Head: Normocephalic. Eyes: Conjunctiva/sclera: Conjunctivae normal. Cardiovascular: Rate and Rhythm: Normal rate. Rhythm irregular. Heart sounds: Murmur (LUSB) heard. Systolic murmur is present with a grade of 3/6. Pulmonary: Effort: Pulmonary effort is normal. Breath sounds: Normal breath sounds. Musculoskeletal: Right lower le+ Edema present. Left lower le+ Edema present. Skin: General: Skin is warm and dry. Neurological: General: No focal deficit present. Mental Status: She is alert and oriented to person, place, and time. Psychiatric: Mood and Affect: Mood normal. Behavior: Behavior normal. Thought Content: Thought content normal. Judgment: Judgment normal. Component Latest Ref Rng & Units 10/19/2021 10/26/2021 11/24/2021 06/01/2022 Protein, Total 6.3 - 8.0 g/dL 7.3 7.4 6.7 Albumin 3.9 - 4.9 g/dL 4.6 4.8 4.2 Calcium 8.5 - 10.2 mg/dL 9.4 9.7 9.5 9.3 Bilirubin, Total 0.2 - 1.3 mg/dL 0.4 0.3 0.4 Alkaline Phosphatase 34 - 123 U/L 43 45 55 AST 13 - 35 U/L 39 (H) 33 23 ALT 7 - 38 U/L 21 23 20 Glucose 74 - 99 mg/dL 96 93 91 91 BUN 7 - 21 mg/dL 14 15 17 14 Creatinine 0.58 - 0.96 mg/dL 0.58 0.61 0.60 0.67 Sodium 136 - 144 mmol/L 126 (L) 130 (L) 139 138 Potassium 3.7 - 5.1 mmol/L 4.2 3.6 (L) 4.0 4.1 Chloride 97 - 105 mmol/L 88 (L) 91 (L) 97 100 CO2 22 - 30 mmol/L 25 26 27 27 Anion Gap 9 - 18 mmol/L 13 13 15 11 eGFR >=60 mL/min/1.73m 89 88 88 85 WBC 3.70 - 11.00 k/uL 6.57 RBC 3.90 - 5.20 m/uL 4.13 Hemoglobin 11.5 - 15.5 g/dL 12.6 Hematocrit 36.0 - 46.0 % 38.1 MCV 80.0 - 100.0 fL 92.3 MCH 26.0 - 34.0 pg 30.5 MCHC 30.5 - 36.0 g/dL 33.1 RDW-CV 11.5 - 15.0 % 12.9 Platelet Count 150 - 400 k/uL 238 MPV 9.0 - 12.7 fL 9.1 Absolute nRBC <0.01 k/uL <0.01 Cholesterol, Total <200 mg/dL 217 (H) 214 (H) Triglyceride <150 mg/dL 89 92 HDL Cholesterol >39 mg/dL 77 61 Non HDL Cholesterol <130 mg/dL 140 (H) 153 (H) Fasting Time hrs 5 12 VLDL Cholesterol <30 mg/dL 18 18 TC:HDL Ratio <5.10 2.82 3.51 LDL Cholesterol <100 mg/dL 122 (H) 135 (H) LDL:HDL Ratio <2.54 1.58 2.21 Total Cholesterol, Nonfasting <200 mg/dL 224 (H) Triglycerides, Nonfasting <150 mg/dL 82 HDL Cholesterol, Nonfasting >39 mg/dL 77 LDL Cholesterol, Nonfasting <100 mg/dL 131 (H) Non HDL Cholesterol, Nonfasting <130 mg/dL 147 (H) VLDL Cholesterol, Nonfasting <30 mg/dL 16 Total Chol/HDL Ratio, Nonfasting <5.10 mg/dL 2.91 LDL/HDL Ratio, Nonfasting <2.54 mg/dL 1.70 Magnesium 1.7 - 2.3 mg/dL 1.4 (L) 1.6 (L) 1.5 (L) NAME : STEPHANIE KATZ PID : [id number] : 1935 Gender : Female Race : ORD : Procedure Date : Jun 07 2022 10:40:57 Edit Date : Jun 07 2022 10:54:43 Diagnosis: ATRIAL FIBRILLATION COMPLETE RIGHT BUNDLE BRANCH BLOCK LEFT ANTERIOR FASCICULAR BLOCK BIFASCICULAR BLOCK CANNOT EXCLUDE INFERIOR MYOCARDIAL INFARCTION (MASKED BY FASCICULAR BLOCK?) , AGE UNDETERMINED ABNORMAL ECG Test Reason : Location : 185 : [facility] Overread By : , Edited By : , Referred By : JERROD BROWN Acquired by : NATI, Note atrial rate 326 and ventricular rate 64 Assessment and Plan Encounter Diagnosis ICD-10-CM 1. Hypertension goal BP (blood pressure) < 150/90 I10 amLODIPine (NORVASC) 2.5 mg tablet furosemide (LASIX) 20 mg tablet ECG COMPLETE ECHO perflutren lipid microspheres 1.3 mL in NaCl (PF) 0.9% 10 mL injection (DEFINITY) sodium chloride 0.9 % (flush) 10 mL (BD POSIFLUSH) 2. Atrial fibrillation, unspecified type (HCC) I48.91 CONSULT TO CARDIOLOGY Newly diagnosied found on ECG. 3. Hypomagnesemia E83.42 aMILoride (MIDAMOR) 5 mg tablet MAGNESIUM BLD 4. Irritable bowel syndrome with diarrhea K58.0 Controlled well with meds as long as watches diet 5. Mixed hyperlipidemia E78.2 6. Leg swelling M79.89 furosemide (LASIX) 20 mg tablet Fair control 7. Asymptomatic postmenopausal status Z78.0 DXA-AXIAL SKELETON 8. Palpitations R00.2 ECG COMPLETE ECHO perflutren lipid microspheres 1.3 mL in NaCl (PF) 0.9% 10 mL injection (DEFINITY) sodium chloride 0.9 % (flush) 10 mL (BD POSIFLUSH) History of PVCs or PACs per patient. 9. Bilateral carotid artery stenosis I65.23 US CAROTID ARTERIES [facility] 10. Undiagnosed cardiac murmurs R01.1 ECHO perflutren lipid microspheres 1.3 mL in NaCl (PF) 0.9% 10 mL injection (DEFINITY) sodium chloride 0.9 % (flush) 10 mL (BD POSIFLUSH) CONSULT TO CARDIOLOGY Has 1+ MR,TR and AI and PI on last echo; murmur LUSB noted today--rule out 11. Hypokalemia E87.6 aMILoride (MIDAMOR) 5 mg tablet BASIC METABOLIC PNL 12. Encounter for long-term current use of medication Z79.899 MAGNESIUM BLD BASIC METABOLIC PNL 13. Encounter for immunization Z23 Hungrio COVID-19 BIVALENT BOOSTER VACCINE, AGE 12+ YR Above issues addressed with patient. Patient involved in shared decision making for management of medical issues. History and medications reviewed. Epic updated as needed Refills and/or prescriptions taken care of and meds adjusted as indicated after reviewed history, exam and labs. Health Maintenance reviewed. Updated record and/or ordered tests as recorded. Encouraged on efforts at healthy diet and regular exercise and adequate sleep. Newly diagnosed a fib noted on ECG. Rn Clinical read 06/09. Will refer to cardiology. Noted cannot exclude inferior myocardial infarction. Patient not symptomatic for cardiac ischemia. No RVR. Management of low magnesium discussed. Amiloride to help with both low magnesium and low potassium issues. Labs ordered to monitor levels and adjust amiloride and potassium supplement as needed. Potassium on hold for now. Further evaluation and treatment as indicated. Noted patient was considering TKRs but would need to postpone till has cardiac issues taken care of. Kevin Elder MD documented in this encounter [facility] 05-31-2022 Miscellaneous Notes Patient calling back asking for smaller pills since has problems swallowing larger pills. Pending rx for 25 mg 2 pills daily. Please advise Patient calling asking if new rx could be sent to [facility] for her Metoprolol per Yesy Zuniga. Pharmacy will not fill 25 mg since dose had been increased to 50 mg once daily. Pending rx for 50 mg once daily rx. Please advise documented in this encounter [facility] 05-10-2022 History of Presen t illness Narrative POPULATION HEALTH NAVIGATION OUTREACH Action/[facility] [place] Support: Called pt to schedule an appt in Pain Management. Spoke w/ pt, Will call back later on to schedule appts Pt identified by name and : NO Outreach Outcome/Action Spoke to patient or caregiver: Patient will return the call or ask for return call Did you use a PCP flex slot to schedule this appointment? N/A Reason for Outreach Care Gap or Scheduling/Wellness visits Payer: Payor: MEDICARE / Plan: MEDICARE A AND B / Product Type: Medicare / Care Gap Reviewed:: Specialty Scheduling Reminder: Reminder note to check Health Maintenance for items below Health Maintenance items due: DEPRESSION ASSESSMENT Never done COVID-19 VACCINE(5 - Booster for Pfizer series) due on 11/19/2021 Navigation Signature: Phyllis Cuevas May 10, 2022 12:40 PM documented in this encounter [facility] 05-08-2022 Instructions Ciara Alfredo APRN.CNS - 05/08/2022 4:03 PM EST Start taking amlodipine 2.5 mg once daily for blood pressure documented in this encounter [facility] 05-08-2022 History of Presen t illness Narrative SUBJECTIVE: DEPRESSION ASSESSMENT Never done COVID-19 VACCINE(5 - Booster for Pfizer series) due on 11/19/2021 MARJAN Katz is a 86 year old female. PMH significant for ACTIVE PROBLEM LIST Primary Osteoarthritis Involving Multiple Joints Insomnia, Unspecified Mitral Valve Disorders(424.0) Nontoxic Uninodular Goiter Urethral Caruncle Dysphagia, Unspecified(787.20) Hyperlipidemia Hematuria Postmenopausal Atrophic Vaginitis Other Chronic Cystitis Diverticulosis of Colon (Without Mention of Hemorrhage) Zo (Obstructive Sleep Apnea) Thyroid Nodule Gerd (Gastroesophageal Reflux Disease) Anxiety Ibs (Irritable Bowel Syndrome) Uterovaginal Prolapse, Incomplete Left Hip arthritis Hypertension Goal Bp (Blood Pressure) < 150/90 HPI excerpted from previous visit: Presents today regarding blood pressure and ankle swelling. Thinks amlodipine may be making her ankle swell. Swelling has been present for about one week. Has been on her feet more lately. Has not Use sodium intake, eating more salty food. Also consuming Gatorade or broth daily. Swelling is worse in the evening. Notes right leg is usually always more swollen Notes ankle swelling seemed better when she took amlodipine in the evening. Presents today regading BP, states fluctuating when checked at home.. She was advised at previous visit to decrease sodium intake, aim for 2 g daily. Previously indicated by to that amlodipine was causing ankle swelling so was discontinued. Home blood pressure readings were not well controlled so adjustments were made, metoprolol succinate dose was increased from 25 mg to 50 mg daily. Lasix 20 mg once daily as needed was added to medications. She brings in home blood pressure readings which have been well controlled overall since last year. 116-150s/70-90 when checked at home. She notes decreased leg swelling since taking Lasix 20 mg daily. Has taken it most days since prescribed. Today reports she would be interested in having cardiology work-up. Would like to see Dr. [facility]. She notes occasionally just generally feeling unwell. Does not check blood pressure or heart rate when this occurs. HTN: Without report of headache, chest pain, palpitations, dyspnea, peripheral edema, orthopnea, fatigue and PND. Last 14 Encounter BP Readings: Date: BP: 05/08/2022 158/84[bp average[ 05/02/2022 144/86 02/10/2022 124/80 12/30/2021 136/70 12/23/2021 158/80[bp average[ 11/24/2021 148/77[average[ 10/21/2021 160/76[bp average[ 06/19/2021 144/80 06/06/2021 140/78 05/10/2021 157/73 03/30/2021 136/82 12/14/2020 164/75 11/12/2020 138/88 11/05/2020 132/72 Knee, ankle and wrist pain. Tries to avoid taking meloxicam due to her blood pressure. She notes generalized arthritis. Trying not to take meloxicam to help with blood pressure control. Not interested in taking tramadol or similar on occasion. Prefers to stick with acetaminophen for now. Some interest in seeing pain management, but will defer appointment for now. A Review of Systems Constitutional: Negative. Respiratory: Negative. Cardiovascular: Negative. Psychiatric/Behavioral: Negative for dysphoric mood. Objective BP 158/84 Pulse 81 Resp 16 Wt 63 kg (139 lb) BMI 25.42 kg/m Physical Exam Vitals and nursing note reviewed. Constitutional: Appearance: Normal appearance. HENT: Head: Normocephalic and atraumatic. Eyes: Conjunctiva/sclera: Conjunctivae normal. Neck: Thyroid: No thyromegaly. Vascular: Normal carotid pulses. No JVD. Cardiovascular: Rate and Rhythm: Normal rate and regular rhythm. Heart sounds: Normal heart sounds. Pulmonary: Effort: Pulmonary effort is normal. Breath sounds: Normal breath sounds. Abdominal: General: Bowel sounds are normal. Palpations: Abdomen is soft. Musculoskeletal: Right lower leg: No edema. Left lower leg: No edema. Comments: scant ankle swelling Skin: General: Skin is warm and dry. Neurological: General: No focal deficit present. Mental Status: She is alert and oriented to person, place, and time. ALLERGIES Allergen Reactions Bextra [Valdecoxib] Hives Cephalosporins Rash Darvocet A500 [Prop* Rash Erythromycin Hives Penicillins Hives Percocet [Oxycodone* Intolerance Pravastatin Other: See Comments myalgias Sulfa (Sulfonamide * Hives MEDICATIONS loperamide (IMODIUM) 2 mg cap(s) TAKE 1 CAPSULE BY MOUTH TWICE A DAY metoprolol succinate ER (TOPROL XL) 25 mg 24 hr tablet Take 2 tablets by mouth once daily. furosemide (LASIX) 20 mg tablet Take 1 tablet by mouth once daily as needed. Take in the morning. meloxicam (MOBIC) 15 mg tablet Take 1 tablet by mouth once daily. With food. ezetimibe (ZETIA) 10 mg tablet Take 0.5-1 tablets by mouth once daily. As directed potassium chloride SR (MICRO-K) 10 mEq CR capsule Klor-con sprinkle cap 10 meq Take 1 to 2 capsules by mouth once daily in juice or applesauce omeprazole (PRILOSEC) 40 mg capsule Take 1 capsule by mouth once daily. hyoscyamine sublingual (LEVSIN SL) 0.125 mg Dissolve 1 tablet under the tongue every 4 hours as needed. estradiol (ESTRACE) 0.01 % (0.1 mg/gram) vaginal cream Use vaginally 3 times a WEEK. Use a dab on the urethra 3 times a week Cholecalciferol, Vitamin D3, 1,000 unit cap Take 2 capsules by mouth once daily. multivitamin tablet Take 1 tablet by mouth once daily. CPAP AutoPAP 5-15 cmH2O, Pilairo mask suggested, humidity, filters. Lifetime supplies. Dx: 327.23. Fax compliance rpt to Dr. Gongora in 8 weeks. magnesium chloride (SLOW-MAG ORAL) Take by mouth once daily. 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 Other specified disorder of bladder 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 Unspecified sleep apnea Uterine prolapse Social History Tobacco Use Smoking status: Never Smokeless tobacco: Never Substance Use Topics Alcohol use: Yes Comment: Occasionally Drug use: No Component Latest Ref Rng & Units 10/19/2021 10/26/2021 11/24/2021 Protein, Total 6.3 - 8.0 g/dL 7.3 7.4 Albumin 3.9 - 4.9 g/dL 4.6 4.8 Calcium 8.5 - 10.2 mg/dL 9.4 9.7 9.5 Bilirubin, Total 0.2 - 1.3 mg/dL 0.4 0.3 Alkaline Phosphatase 34 - 123 U/L 43 45 AST 13 - 35 U/L 39 (H) 33 ALT 7 - 38 U/L 21 23 Glucose 74 - 99 mg/dL 96 93 91 BUN 7 - 21 mg/dL 14 15 17 Creatinine 0.58 - 0.96 mg/dL 0.58 0.61 0.60 Sodium 136 - 144 mmol/L 126 (L) 130 (L) 139 Potassium 3.7 - 5.1 mmol/L 4.2 3.6 (L) 4.0 Chloride 97 - 105 mmol/L 88 (L) 91 (L) 97 CO2 22 - 30 mmol/L 25 26 27 Anion Gap 9 - 18 mmol/L 13 13 15 eGFR >=60 mL/min/1.73m 89 88 88 ASSESSMENT/PLAN: 1. Hypertension goal BP (blood pressure) < 150/90 - ICD9: 401.9, ICD10: I10 (primary diagnosis) Continue with current treatment, add amlodipine 2.5 mg daily. Schedule appointment with cardiology Lasix 20 mg once daily as needed for leg swelling Last echocardiogram 2012 normal ejection fraction and no significant valvular abnormalities. - CONSULT TO CARDIOLOGY - FUROSEMIDE 20 MG TABLET 2. Leg swelling - ICD9: 729.81, ICD10: M79.89 - CONSULT TO CARDIOLOGY - FUROSEMIDE 20 MG TABLET 3. Generalized OA - ICD9: 715.00, ICD10: M15.9 defers appt for now defers medication changes for now - CONSULT TO PAIN MGT May 2022 follow up MD Ciara Adam APRN.TRADE MANAGER Medical Decision Making: Problems: Moderate: 1+ chronic illnesses with change Risk: Moderate: Drug management Medical Decision Making Level: 4 - Moderate documented in this encounter [facility] 05-02-2022 History of Presen t illness Narrative This office note has been dictated. Obdulia Winter DO NAME: STEPHANIE KATZ CLINIC NO: [id number] DATE OF SERVICE: 05/02/2022 Subjective: Ms. Katz is here to follow up on left lower extremity edema. She has a history of venous insufficiency and varicose veins. She does wear compression stockings regularly. She stated recently, they were adjusting her medications, particularly amlodipine, and slowly, insidiously she developed significant swelling. Over the summer, she was having a tremendous amount of pain due to the swelling as well as tightness. She has since stopped the amlodipine and her edema has significantly improved. Objective: Her vital signs are stable. She is in no distress. She has no significant lower extremity edema at this point in time. She does have hyperpigmentation along the left medial malleolus, but no ulcerations or tissue loss. Assessment/Plan: Venous insufficiency. Reviewed the findings with patient. Recommend continued use of compression stockings. No intervention required at this time. Follow up as needed Obdulia Winter D.O. [id number] Audio #: [id number] Date Dictated: 05/02/2022 08:06:11 Date Typed: 05/08/2022 06:13:45 Date Revised: 05/08/2022 21:45:19 documented in this encounter [facility] 04-25-2022 Miscellaneous Notes Marta with [facility] called in asking if we had referred Pt to them. She states referral was from 01/05/22. I let her know that Pt has not had a referral to them from us. She states she will call the Pt and ask her. documented in this encounter [facility] 04-10-2022 Miscellaneous Notes Patient has been identified by name and date of : Yes Patient phones for refill(s): Requested Prescriptions Pending Prescriptions Disp Refills metoprolol succinate ER (TOPROL XL) 25 mg 24 hr tablet 90 tablet 3 Sig: Take 1 tablet by mouth once daily. Date of last office visit in primary care: 12/30/21 Last 2 Encounter Wt Readings: Date: Wt: 02/10/2022 63 kg (138 lb 12.8 oz) 12/30/2021 63 kg (139 lb) Previous labs/tests for medication: Blood Pressure: BUN (mg/dL) Date Value 11/24/2021 17 03/02/2021 17 Sodium (mmol/L) Date Value 11/24/2021 139 03/02/2021 134 Last 1 Encounter BP Readings: Date: BP: 02/10/2022 124/80 Please advise. Thank you. Andressa Mensah LPN documented in this encounter [facility] 02-15-2022 Miscellaneous Notes Order that was entered on for Meloxicam was put in as a med update not as a refill. Please advise. documented in this encounter [facility] 02-14-2022 Miscellaneous Notes Patient has been identified by name and date of : Yes Patient phones for refill(s): Requested Prescriptions Pending Prescriptions Disp Refills ezetimibe (ZETIA) 10 mg tablet 90 tablet 3 Sig: Take 0.5-1 tablets by mouth once daily. As directed Date of last office visit in primary care: 12/30/2021 6 month follow-up: 06/07/2022 Last 2 Encounter Wt Readings: Date: Wt: 02/10/2022 63 kg (138 lb 12.8 oz) 12/30/2021 63 kg (139 lb) Previous labs/tests for medication: Not applicable Please advise. Thank you. Maisha Serna LPN documented in this encounter [facility] 02-10-2022 History of Presen t illness Narrative Images from the original note were not included. This note was created using Fluidnet[employer]. Subjective Stephanie Katz is a 86 year old female. HPI Patient presents with a chief complaint of concern for shingles. She states she started having some pain behind her left ear about 5 days ago which radiates into the front of her ear and into her face. She had noticed a couple spots/rash on her scalp as well that had popped up a couple days ago. She had shingles in May and was treated with Famvir. She states it did improve after she was on oral antivirals. She denies any fever. She states she has had a lot of stress recently with her 's health. She has not had the shingles vaccine. Review of Systems Constitutional: Negative. HENT: Scalp and facial pain, rash on scalp Skin: Positive for rash. All other systems reviewed and are negative. 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 10 tablet 0 famciclovir (FAMVIR) 500 mg tablet Take 1 tablet by mouth three times daily for 7 days. 21 tablet 0 potassium chloride SR (MICRO-K) 10 mEq CR capsule Klor-con sprinkle cap 10 meq Take 1 to 2 capsules by mouth once daily in juice or applesauce 180 capsule 3 furosemide (LASIX) 20 mg tablet Take 1 tablet by mouth once daily. Take in the morning. 3 tablet 0 loperamide (IMODIUM) 2 mg cap(s) Take 1 capsule by mouth twice daily. - take one half to one tab daily - November 24, 2021 90 capsule 11 meloxicam (MOBIC) 15 mg tablet Take 1 tablet by mouth once daily. With food. 90 tablet 3 amLODIPine (NORVASC) 5 mg tablet Take 1 tablet by mouth once daily. 90 tablet 3 magnesium chloride (SLOW-MAG ORAL) Take by mouth once daily. (Patient not taking: No sig reported) omeprazole (PRILOSEC) 40 mg capsule Take 1 capsule by mouth once daily. 90 capsule 3 hyoscyamine sublingual (LEVSIN SL) 0.125 mg Dissolve 1 tablet under the tongue every 4 hours as needed. 60 tablet 2 metoprolol succinate ER (TOPROL XL) 25 mg 24 hr tablet Take 1 tablet by mouth once daily. 90 tablet 3 ezetimibe (ZETIA) 10 mg tablet Take 0.5-1 tablets by mouth once daily. As directed 90 tablet 3 estradiol (ESTRACE) 0.01 % (0.1 mg/gram) vaginal cream Use vaginally 3 times a WEEK. Use a dab on the urethra 3 times a week 1 Tube 3 Cholecalciferol, Vitamin D3, 1,000 unit cap Take 2 capsules by mouth once daily. 1 capsule 0 multivitamin tablet Take 1 tablet by mouth once daily. 0 CPAP AutoPAP 5-15 cmH2O, [place] mask suggested, humidity, filters. Lifetime supplies. Dx: 327.23. Fax compliance rpt to Dr. Gongora in 8 weeks. 1 Device 0 No current facility-administered medications for this visit. PAST SURGICAL HISTORY Procedure Laterality Date APPENDECTOMY ARTHRP ACETBLR/PROX FEM PROSTC AGRFT/ALGRFT 11/27/2007 Hip replacement, total, right ARTHRP ACETBLR/PROX FEM PROSTC AGRFT/ALGRFT 2012 Hip replacement, total, left BIOPSY BREAST OPEN INCISIONAL Bx of breast, incisional/x2 BIOPSY BREAST OPEN INCISIONAL Bx of breast, incisional, X-2 BIOPSY OF SKIN, SINGLE left arm BIOPSY SOFT TISSUE NECK/CHEST 04/05/2010 Chest COLONOSCOPY FLX DX W/COLLJ SPEC WHEN PFRMD 05/26/2010 Colonoscopy EGD TRANSORAL BIOPSY SINGLE/MULTIPLE 09/16/07 LIG/TRNSXJ FLP TUBE ABDL/VAG APPR UNI/BI Tubal ligation PAST SURGICAL HISTORY OF VEIN STRIPPING PAST SURGICAL HISTORY OF 02/08/15 excision of left ear lesion. SIGMOIDOSCOPY FLX DX W/COLLJ SPEC BR/WA IF PFRMD 06/06/2000 Sigmoidoscopy TONSILLECTOMY PRIMARY/SECONDARY <AGE 12 Tonsillectomy FAMILY HISTORY Problem Relation Age of Onset Diabetes Maternal Grandmother Diabetes Maternal Aunt Heart Mother Arthritis Mother Arthritis Father Osteoporosis Mother Osteoporosis Father Social History Tobacco Use Smoking status: Never Smokeless tobacco: Never Substance Use Topics Alcohol use: Yes Comment: Occasionally Drug use: No Objective BP 124/80 Pulse 85 Temp 36.8 C (98.3 F) Resp 18 Wt 63 kg (138 lb 12.8 oz) SpO2 96% BMI 25.39 kg/m Physical Exam Vitals reviewed. Constitutional: Appearance: Normal appearance. HENT: Head: Normocephalic and atraumatic. Comments: Patient has a couple of small scabbed areas in the left scalp. Otherwise no redness or swelling. She is tender to touch in the posterior auricular, left neck area and left face area. No rash noted here. No facial droop. Normal sensation. Right Ear: Tympanic membrane, ear canal and external ear normal. Left Ear: Tympanic membrane, ear canal and external ear normal. Skin: General: Skin is warm and dry. Neurological: General: No focal deficit present. Mental Status: She is alert and oriented to person, place, and time. Cranial Nerves: No cranial nerve deficit. Motor: No weakness. Coordination: Coordination normal. Gait: Gait normal. Assessment and Plan ASSESSMENT/PLAN: 1. Rash - ICD9: 782.1, ICD10: R21 Discussed with patient that it would be rare to get shingles twice nonetheless in the same year. She does have a couple spots on her scalp and states that this feels the same as last time she possibly had shingles. I will treat her with an antiviral. She preferred Famvir. Also given prednisone as this could just be an inflammatory rash. Follow-up with PCP. Patient agreeable. Hina Woodward PA-C documented in this encounter [facility] 12-30-2021 History of Presen t illness Narrative SUBJECTIVE: There are no preventive care reminders to display for this patient. HPI Stephanie Katz is a 86 year old female. PMH significant for ACTIVE PROBLEM LIST Primary Osteoarthritis Involving Multiple Joints Insomnia, Unspecified Mitral Valve Disorders(424.0) Nontoxic Uninodular Goiter Urethral Caruncle Dysphagia, Unspecified(787.20) Hyperlipidemia Hematuria Postmenopausal Atrophic Vaginitis Other Chronic Cystitis Diverticulosis of Colon (Without Mention of Hemorrhage) Zo (Obstructive Sleep Apnea) Thyroid Nodule Gerd (Gastroesophageal Reflux Disease) Anxiety Ibs (Irritable Bowel Syndrome) Uterovaginal Prolapse, Incomplete Left Hip arthritis Hypertension Goal Bp (Blood Pressure) < 150/90 HPI excerpted from previous visit: Presents today regarding blood pressure and ankle swelling. Thinks amlodipine may be making her ankle swell. Swelling has been present for about one week. Has been on her feet more lately. Has not Use sodium intake, eating more salty food. Also consuming Gatorade or broth daily. Swelling is worse in the evening. Notes right leg is usually always more swollen Notes ankle swelling seemed better when she took amlodipine in the evening. She was advised at her last visit to decrease sodium intake, aim for 2 g daily. Provided with increased dose of Lasix x3 days. Today notes less ankle swelling, back to baseline. Has reduced sodium intake. HTN: Without report of headache, chest pain, palpitations, dyspnea, peripheral edema, orthopnea, fatigue and PND. Last 14 Encounter BP Readings: Date: BP: 12/30/2021 136/70 12/23/2021 158/80[bp average[ 11/24/2021 148/77[average[ 10/21/2021 160/76[bp average[ 06/19/2021 144/80 06/06/2021 140/78 05/10/2021 157/73 03/30/2021 136/82 12/14/2020 164/75 11/12/2020 138/88 11/05/2020 132/72 09/03/2020 160/72 05/11/2020 183/74 05/04/2020 180/78 Review of Systems Constitutional: Negative. Respiratory: Negative. Cardiovascular: Negative. Psychiatric/Behavioral: Negative for dysphoric mood. Objective BP 136/70 Pulse 64 Resp 16 Wt 63 kg (139 lb) BMI 25.42 kg/m Physical Exam Vitals and nursing note reviewed. Constitutional: Appearance: Normal appearance. HENT: Head: Normocephalic and atraumatic. Eyes: Conjunctiva/sclera: Conjunctivae normal. Neck: Thyroid: No thyromegaly. Vascular: Normal carotid pulses. No JVD. Cardiovascular: Rate and Rhythm: Normal rate and regular rhythm. Heart sounds: Normal heart sounds. Pulmonary: Effort: Pulmonary effort is normal. Breath sounds: Normal breath sounds. Abdominal: General: Bowel sounds are normal. Palpations: Abdomen is soft. Musculoskeletal: Right lower leg: No edema. Left lower leg: No edema. Comments: scant ankle swelling Skin: General: Skin is warm and dry. Neurological: General: No focal deficit present. Mental Status: She is alert and oriented to person, place, and time. ALLERGIES Allergen Reactions Bextra [Valdecoxib] Hives Cephalosporins Rash Darvocet A500 [Prop* Rash Erythromycin Hives Penicillins Hives Percocet [Oxycodone* Intolerance Pravastatin Other: See Comments myalgias Sulfa (Sulfonamide * Hives MEDICATIONS furosemide (LASIX) 20 mg tablet Take 1 tablet by mouth once daily. Take in the morning. loperamide (IMODIUM) 2 mg cap(s) Take 1 capsule by mouth twice daily. - take one half to one tab daily - November 24, 2021 meloxicam (MOBIC) 15 mg tablet Take 1 tablet by mouth once daily. With food. amLODIPine (NORVASC) 5 mg tablet Take 1 tablet by mouth once daily. omeprazole (PRILOSEC) 40 mg capsule Take 1 capsule by mouth once daily. hyoscyamine sublingual (LEVSIN SL) 0.125 mg Dissolve 1 tablet under the tongue every 4 hours as needed. metoprolol succinate ER (TOPROL XL) 25 mg 24 hr tablet Take 1 tablet by mouth once daily. ezetimibe (ZETIA) 10 mg tablet Take 0.5-1 tablets by mouth once daily. As directed estradiol (ESTRACE) 0.01 % (0.1 mg/gram) vaginal cream Use vaginally 3 times a WEEK. Use a dab on the urethra 3 times a week Cholecalciferol, Vitamin D3, 1,000 unit cap Take 2 capsules by mouth once daily. multivitamin tablet Take 1 tablet by mouth once daily. CPAP AutoPAP 5-15 cmH2O, [place] mask suggested, humidity, filters. Lifetime supplies. Dx: 327.23. Fax compliance rpt to Dr. Gongora in 8 weeks. potassium chloride SR (MICRO-K) 10 mEq CR capsule Klor-con sprinkle cap 10 meq Take 1 to 2 capsules by mouth once daily in juice or applesauce magnesium chloride (SLOW-MAG ORAL) Take by mouth once daily. 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 Other specified disorder of bladder 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 Unspecified sleep apnea Uterine prolapse Social History Tobacco Use Smoking status: Never Smokeless tobacco: Never Substance Use Topics Alcohol use: Yes Comment: Occasionally Drug use: No Component Latest Ref Rng & Units 10/19/2021 10/26/2021 11/24/2021 Protein, Total 6.3 - 8.0 g/dL 7.3 7.4 Albumin 3.9 - 4.9 g/dL 4.6 4.8 Calcium 8.5 - 10.2 mg/dL 9.4 9.7 9.5 Bilirubin, Total 0.2 - 1.3 mg/dL 0.4 0.3 Alkaline Phosphatase 34 - 123 U/L 43 45 AST 13 - 35 U/L 39 (H) 33 ALT 7 - 38 U/L 21 23 Glucose 74 - 99 mg/dL 96 93 91 BUN 7 - 21 mg/dL 14 15 17 Creatinine 0.58 - 0.96 mg/dL 0.58 0.61 0.60 Sodium 136 - 144 mmol/L 126 (L) 130 (L) 139 Potassium 3.7 - 5.1 mmol/L 4.2 3.6 (L) 4.0 Chloride 97 - 105 mmol/L 88 (L) 91 (L) 97 CO2 22 - 30 mmol/L 25 26 27 Anion Gap 9 - 18 mmol/L 13 13 15 eGFR >=60 mL/min/1.73m 89 88 88 ASSESSMENT/PLAN: 1. Leg swelling - ICD9: 729.81, ICD10: M79.89 (primary diagnosis) 2. Weight gain - ICD9: 783.1, ICD10: R63.5 Previously had hyponatremia hypokalemia, recent visit liberalized sodium intake and advised Gatorade or broth daily. At last visit had 4 pound weight gain and ankle swelling. Advised: Take lasix 20 mg once daily for 3 days in a.m. Take two potassium tablets for three days while taking lasix then resume once daily. Decrease sodium intake a bit. Stay on amlodipine for now. 1 week recheck leg swelling, BP. She has lost 4 pounds since last here and ankle swelling has resolved, continue with amlodipine unchanged for now. 6 mo follow up MD Ciara Adam, INTERLOCKING AND SIGNAL MECHANIC.TRADE MANAGER Medical Decision Making: Problems: Low: Acute, uncomplicated illness or injury Risk: Moderate: Drug management Medical Decision Making Level: 3 - Low documented in this encounter [facility] 12-23-2021 Instructions Ciara Alfredo APRN.LANEY - 12/23/2021 1:20 PM EDT Take lasix 20 mg once daily for 3 days Take two potassium tablets for three days then resume once daily. Decrease sodium intake a bit. Stay on amlodipine for now. documented in this encounter [facility] 12-23-2021 History of Presen t illness Narrative SUBJECTIVE: There are no preventive care reminders to display for this patient. HPI Stephanie Katz is a 86 year old female. PMH significant for ACTIVE PROBLEM LIST Primary Osteoarthritis Involving Multiple Joints Insomnia, Unspecified Mitral Valve Disorders(424.0) Nontoxic Uninodular Goiter Urethral Caruncle Dysphagia, Unspecified(787.20) Hyperlipidemia Hematuria Postmenopausal Atrophic Vaginitis Other Chronic Cystitis Diverticulosis of Colon (Without Mention of Hemorrhage) Zo (Obstructive Sleep Apnea) Thyroid Nodule Gerd (Gastroesophageal Reflux Disease) Anxiety Ibs (Irritable Bowel Syndrome) Uterovaginal Prolapse, Incomplete Left Hip arthritis Hypertension Goal Bp (Blood Pressure) < 150/90 HPI excerpted from previous visits: Seen at [facility] ER 10/05/2021 for dizziness, not consistent with vertigo which has had in the past. She reported history of low potassium and magnesium. She reported diarrhea. Noted was not drinking much. Lab work obtained CBC was unremarkable. Metabolic panel showed sodium reduced to 129 potassium 3.3 chloride 91 liver function unremarkable. Magnesium was checked and low at 1.4. She reported not drinking much and not taking supplements due to diarrhea. She was treated with IV fluids x1 L in the ED with improvement in symptoms. Discussion of discontinuation of chlorthalidone to be discussed with PCP. Today notes she is feeling improved. She notes continued stress due to 's illness, multiple abdominal cysts, work-up remains in progress for a few months now. Notes home blood SBP readings 105 -130s typically. Notes tolerating magnesium and potassium supplement currently. No voiced dizziness or lightheadedness. Without report of headache, chest pain, palpitations, dyspnea, peripheral edema, orthopnea, fatigue and PND. Last 14 Encounter BP Readings: Date: BP: 10/21/2021 160/76[bp average[ 06/19/2021 144/80 06/06/2021 140/78 05/10/2021 157/73 03/30/2021 136/82 12/14/2020 164/75 11/12/2020 138/88 11/05/2020 132/72 09/03/2020 160/72 05/11/2020 183/74 05/04/2020 180/78 04/29/2020 142/86 03/31/2020 126/72 03/16/2020 180/76 Today notes she is feeling well with amlodipine. No adverse effects noted. She notes much fewer leg cramps at night. Note she has been drinking sufficient fluid, Gatorade most days. Dizziness and lightheadedness resolved. Currently with constipation which she is attributing to Imodium. Notes she has decreased dosing. Has decreased magnesium to 1/2 tablet daily. This seems to have helped diarrhea. Presents today regarding blood pressure and ankle swelling. Thinks amlodipine may be making her ankle swell. Swelling has been present for about one week. Has been on her feet more lately. Has not Use sodium intake, eating more salty food. Also consuming Gatorade or broth daily. Swelling is worse in the evening. Notes right leg is usually always more swollen Notes ankle swelling seemed better when she took amlodipine in the evening. HTN: Without report of headache, chest pain, palpitations, dyspnea, peripheral edema, orthopnea, fatigue and PND. Last 14 Encounter BP Readings: Date: BP: 12/23/2021 158/80[bp average[ 11/24/2021 148/77[average[ 10/21/2021 160/76[bp average[ 06/19/2021 144/80 06/06/2021 140/78 05/10/2021 157/73 03/30/2021 136/82 12/14/2020 164/75 11/12/2020 138/88 11/05/2020 132/72 09/03/2020 160/72 05/11/2020 183/74 05/04/2020 180/78 04/29/2020 142/86 Review of Systems Constitutional: Negative. Respiratory: Negative. Cardiovascular: Negative. Psychiatric/Behavioral: Negative for dysphoric mood. Objective BP 158/80 Pulse 64 Resp 16 Wt 64.9 kg (143 lb) SpO2 97% BMI 26.16 kg/m Physical Exam Vitals and nursing note reviewed. Constitutional: Appearance: Normal appearance. HENT: Head: Normocephalic and atraumatic. Eyes: Conjunctiva/sclera: Conjunctivae normal. Neck: Thyroid: No thyromegaly. Vascular: Normal carotid pulses. No JVD. Cardiovascular: Rate and Rhythm: Normal rate and regular rhythm. Heart sounds: Normal heart sounds. Pulmonary: Effort: Pulmonary effort is normal. Breath sounds: Normal breath sounds. Abdominal: General: Bowel sounds are normal. Palpations: Abdomen is soft. Musculoskeletal: Right lower leg: No edema. Left lower leg: No edema. Comments: Bilateral puffy ankles, 1-2+ pitting edema bilateral lower extremities right greater than left Skin: General: Skin is warm and dry. Neurological: General: No focal deficit present. Mental Status: She is alert and oriented to person, place, and time. ALLERGIES Allergen Reactions Bextra [Valdecoxib] Hives Cephalosporins Rash Darvocet A500 [Prop* Rash Erythromycin Hives Penicillins Hives Percocet [Oxycodone* Intolerance Pravastatin Other: See Comments myalgias Sulfa (Sulfonamide * Hives MEDICATIONS loperamide (IMODIUM) 2 mg cap(s) Take 1 capsule by mouth twice daily. - take one half to one tab daily - November 24, 2021 meloxicam (MOBIC) 15 mg tablet Take 1 tablet by mouth once daily. With food. amLODIPine (NORVASC) 5 mg tablet Take 1 tablet by mouth once daily. potassium chloride SR (MICRO-K) 10 mEq CR capsule Klor-con sprinkle cap 10 meq Take 1 by mouth once daily in juice or applesauce omeprazole (PRILOSEC) 40 mg capsule Take 1 capsule by mouth once daily. hyoscyamine sublingual (LEVSIN SL) 0.125 mg Dissolve 1 tablet under the tongue every 4 hours as needed. metoprolol succinate ER (TOPROL XL) 25 mg 24 hr tablet Take 1 tablet by mouth once daily. ezetimibe (ZETIA) 10 mg tablet Take 0.5-1 tablets by mouth once daily. As directed estradiol (ESTRACE) 0.01 % (0.1 mg/gram) vaginal cream Use vaginally 3 times a WEEK. Use a dab on the urethra 3 times a week Cholecalciferol, Vitamin D3, 1,000 unit cap Take 2 capsules by mouth once daily. multivitamin tablet Take 1 tablet by mouth once daily. CPAP AutoPAP 5-15 cmH2O, [place] mask suggested, humidity, filters. Lifetime supplies. Dx: 327.23. Fax compliance rpt to Dr. Gongora in 8 weeks. furosemide (LASIX) 20 mg tablet Take 1 tablet by mouth once daily. Take in the morning. magnesium chloride (SLOW-MAG ORAL) Take by mouth once daily. 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 Other specified disorder of bladder 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 Unspecified sleep apnea Uterine prolapse Social History Tobacco Use Smoking status: Never Smoker Smokeless tobacco: Never Used Substance Use Topics Alcohol use: Yes Comment: Occasionally Drug use: No Component Latest Ref Rng & Units 10/19/2021 10/26/2021 11/24/2021 Protein, Total 6.3 - 8.0 g/dL 7.3 7.4 Albumin 3.9 - 4.9 g/dL 4.6 4.8 Calcium 8.5 - 10.2 mg/dL 9.4 9.7 9.5 Bilirubin, Total 0.2 - 1.3 mg/dL 0.4 0.3 Alkaline Phosphatase 34 - 123 U/L 43 45 AST 13 - 35 U/L 39 (H) 33 ALT 7 - 38 U/L 21 23 Glucose 74 - 99 mg/dL 96 93 91 BUN 7 - 21 mg/dL 14 15 17 Creatinine 0.58 - 0.96 mg/dL 0.58 0.61 0.60 Sodium 136 - 144 mmol/L 126 (L) 130 (L) 139 Potassium 3.7 - 5.1 mmol/L 4.2 3.6 (L) 4.0 Chloride 97 - 105 mmol/L 88 (L) 91 (L) 97 CO2 22 - 30 mmol/L 25 26 27 Anion Gap 9 - 18 mmol/L 13 13 15 eGFR >=60 mL/min/1.73m 89 88 88 ASSESSMENT/PLAN: 1. Leg swelling - ICD9: 729.81, ICD10: M79.89 (primary diagnosis) 2. Weight gain - ICD9: 783.1, ICD10: R63.5 Previously had hyponatremia hypokalemia, recent visit liberalized sodium intake and advised Gatorade or broth daily. Now with a 4 pound weight gain and ankle swelling. For now recommend: Take lasix 20 mg once daily for 3 days in a.m. Take two potassium tablets for three days while taking lasix then resume once daily. Decrease sodium intake a bit. Stay on amlodipine for now. 1 week recheck leg swelling, BP. If ankles not improved in 1 week at recheck, consider switching from amlodipine to alternate medication or reducing dose from 5 mg to 2.5 mg daily 6 mo follow up MD Ciara Adam APRN.TRADE MANAGER Medical Decision Making: Problems: Low: Acute, uncomplicated illness or injury Moderate: 2+ stable chronic illnesses Risk: Moderate: Drug management Medical Decision Making Level: 4 - Moderate documented in this encounter [facility] 11-24-2021 History of Presen t illness Narrative SUBJECTIVE: ADVANCE DIRECTIVE DISCUSSION Never done HPI Stephanie Katz is a 85 year old female. PMH significant for ACTIVE PROBLEM LIST Primary Osteoarthritis Involving Multiple Joints Insomnia, Unspecified Mitral Valve Disorders(424.0) Nontoxic Uninodular Goiter Urethral Caruncle Dysphagia, Unspecified(787.20) Hyperlipidemia Hematuria Postmenopausal Atrophic Vaginitis Other Chronic Cystitis Diverticulosis of Colon (Without Mention of Hemorrhage) Zo (Obstructive Sleep Apnea) Thyroid Nodule Gerd (Gastroesophageal Reflux Disease) Anxiety Ibs (Irritable Bowel Syndrome) Uterovaginal Prolapse, Incomplete Left Hip arthritis Hypertension Goal Bp (Blood Pressure) < 150/90 HPI excerpted from last visit: Seen at [facility] ER 10/05/2021 for dizziness, not consistent with vertigo which has had in the past. She reported history of low potassium and magnesium. She reported diarrhea. Noted was not drinking much. Lab work obtained CBC was unremarkable. Metabolic panel showed sodium reduced to 129 potassium 3.3 chloride 91 liver function unremarkable. Magnesium was checked and low at 1.4. She reported not drinking much and not taking supplements due to diarrhea. She was treated with IV fluids x1 L in the ED with improvement in symptoms. Discussion of discontinuation of chlorthalidone to be discussed with PCP. Today notes she is feeling improved. She notes continued stress due to 's illness, multiple abdominal cysts, work-up remains in progress for a few months now. Notes home blood SBP readings 105 -130s typically. Notes tolerating magnesium and potassium supplement currently. No voiced dizziness or lightheadedness. Without report of headache, chest pain, palpitations, dyspnea, peripheral edema, orthopnea, fatigue and PND. Last 14 Encounter BP Readings: Date: BP: 10/21/2021 160/76[bp average[ 06/19/2021 144/80 06/06/2021 140/78 05/10/2021 157/73 03/30/2021 136/82 12/14/2020 164/75 11/12/2020 138/88 11/05/2020 132/72 09/03/2020 160/72 05/11/2020 183/74 05/04/2020 180/78 04/29/2020 142/86 03/31/2020 126/72 03/16/2020 180/76 Today notes she is feeling well with amlodipine. No adverse effects noted. She notes much fewer leg cramps at night. Note she has been drinking sufficient fluid, Gatorade most days. Dizziness and lightheadedness resolved. Currently with constipation which she is attributing to Imodium. Notes she has decreased dosing. Has decreased magnesium to 1/2 tablet daily. This seems to have helped diarrhea. HTN: Without report of headache, chest pain, palpitations, dyspnea, peripheral edema, orthopnea, fatigue and PND. Last 3 Encounter BP Readings: Date: BP: 11/24/2021 148/77[average[ 10/21/2021 160/76[bp average[ 06/19/2021 144/80 Hyperlipidemia. Ms. Katz reports doing well on current therapy. Her most recent lipid panels are: Cholesterol, Total (mg/dL) Date Value 08/13/2020 221 02/19/2020 222 Total Cholesterol, Nonfasting (mg/dL) Date Value 10/19/2021 224 HDL Cholesterol (mg/dL) Date Value 08/13/2020 74 02/19/2020 72 HDL Cholesterol, Nonfasting (mg/dL) Date Value 10/19/2021 77 LDL Cholesterol (mg/dL) Date Value 08/13/2020 131 02/19/2020 130 LDL Cholesterol, Nonfasting (mg/dL) Date Value 10/19/2021 131 Triglyceride (mg/dL) Date Value 08/13/2020 80 02/19/2020 102 Triglycerides, Nonfasting (mg/dL) Date Value 10/19/2021 82 Hypothyroidism. She is doing well on her current dose of Synthroid. TSH (uU/mL) Date Value 02/11/2019 3.580 10/09/2016 2.940 ) ZO using CPAP; doing well with it; tolerable most of the time. Notes that she still needs knee replacement surgery but deferring due to 's illness. Meloxicam is taken once daily as needed. Also taking Tylenol - 2/day Review of Systems Constitutional: Negative. Respiratory: Negative. Cardiovascular: Negative. Psychiatric/Behavioral: Negative for dysphoric mood. Objective BP 148/77 Pulse 61 Resp 16 Wt 63 kg (139 lb) SpO2 95% BMI 25.42 kg/m Physical Exam Vitals and nursing note reviewed. Constitutional: Appearance: Normal appearance. HENT: Head: Normocephalic and atraumatic. Eyes: Conjunctiva/sclera: Conjunctivae normal. Neck: Thyroid: No thyromegaly. Vascular: Normal carotid pulses. No JVD. Cardiovascular: Rate and Rhythm: Normal rate and regular rhythm. Heart sounds: Normal heart sounds. Pulmonary: Effort: Pulmonary effort is normal. Breath sounds: Normal breath sounds. Abdominal: General: Bowel sounds are normal. Palpations: Abdomen is soft. Musculoskeletal: Right lower leg: No edema. Left lower leg: No edema. Skin: General: Skin is warm and dry. Neurological: General: No focal deficit present. Mental Status: She is alert and oriented to person, place, and time. ALLERGIES Allergen Reactions Bextra [Valdecoxib] Hives Cephalosporins Rash Darvocet A500 [Prop* Rash Erythromycin Hives Penicillins Hives Percocet [Oxycodone* Intolerance Pravastatin Other: See Comments myalgias Sulfa (Sulfonamide * Hives MEDICATIONS potassium chloride SR (MICRO-K) 10 mEq CR capsule Klor-con sprinkle cap 10 meq Take 1 by mouth once daily in juice or applesauce magnesium chloride (SLOW-MAG ORAL) Take by mouth once daily. amLODIPine (NORVASC) 5 mg tablet Take 1 tablet by mouth once daily. omeprazole (PRILOSEC) 40 mg capsule Take 1 capsule by mouth once daily. hyoscyamine sublingual (LEVSIN SL) 0.125 mg Dissolve 1 tablet under the tongue every 4 hours as needed. metoprolol succinate ER (TOPROL XL) 25 mg 24 hr tablet Take 1 tablet by mouth once daily. loperamide (IMODIUM) 2 mg cap(s) Take 1 capsule by mouth twice daily. ezetimibe (ZETIA) 10 mg tablet Take 0.5-1 tablets by mouth once daily. As directed estradiol (ESTRACE) 0.01 % (0.1 mg/gram) vaginal cream Use vaginally 3 times a WEEK. Use a dab on the urethra 3 times a week Cholecalciferol, Vitamin D3, 1,000 unit cap Take 2 capsules by mouth once daily. multivitamin tablet Take 1 tablet by mouth once daily. CPAP AutoPAP 5-15 cmH2O, [place] mask suggested, humidity, filters. Lifetime supplies. Dx: 327.23. Fax compliance rpt to Dr. Gongora in 8 weeks. 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 Other specified disorder of bladder 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 Unspecified sleep apnea Uterine prolapse Social History Tobacco Use Smoking status: Never Smoker Smokeless tobacco: Never Used Substance Use Topics Alcohol use: Yes Comment: Occasionally Drug use: No Component Latest Ref Rng & Units 10/19/2021 10/26/2021 Protein, Total 6.3 - 8.0 g/dL 7.3 Albumin 3.9 - 4.9 g/dL 4.6 Calcium 8.5 - 10.2 mg/dL 9.4 9.7 Bilirubin, Total 0.2 - 1.3 mg/dL 0.4 Alkaline Phosphatase 34 - 123 U/L 43 AST 13 - 35 U/L 39 (H) ALT 7 - 38 U/L 21 Glucose 74 - 99 mg/dL 96 93 BUN 7 - 21 mg/dL 14 15 Creatinine 0.58 - 0.96 mg/dL 0.58 0.61 Sodium 136 - 144 mmol/L 126 (L) 130 (L) Potassium 3.7 - 5.1 mmol/L 4.2 3.6 (L) Chloride 97 - 105 mmol/L 88 (L) 91 (L) CO2 22 - 30 mmol/L 25 26 Anion Gap 9 - 18 mmol/L 13 13 eGFR >=60 mL/min/1.73m 89 88 WBC 3.70 - 11.00 k/uL 6.57 RBC 3.90 - 5.20 m/uL 4.13 Hemoglobin 11.5 - 15.5 g/dL 12.6 Hematocrit 36.0 - 46.0 % 38.1 MCV 80.0 - 100.0 fL 92.3 MCH 26.0 - 34.0 pg 30.5 MCHC 30.5 - 36.0 g/dL 33.1 RDW-CV 11.5 - 15.0 % 12.9 Platelet Count 150 - 400 k/uL 238 MPV 9.0 - 12.7 fL 9.1 Absolute nRBC <0.01 k/uL <0.01 Total Cholesterol, Nonfasting <200 mg/dL 224 (H) Triglycerides, Nonfasting <150 mg/dL 82 HDL Cholesterol, Nonfasting >39 mg/dL 77 LDL Cholesterol, Nonfasting <100 mg/dL 131 (H) Non HDL Cholesterol, Nonfasting <130 mg/dL 147 (H) VLDL Cholesterol, Nonfasting <30 mg/dL 16 Total Chol/HDL Ratio, Nonfasting <5.10 mg/dL 2.91 LDL/HDL Ratio, Nonfasting <2.54 mg/dL 1.70 Magnesium 1.7 - 2.3 mg/dL 1.4 (L) ASSESSMENT/PLAN: 1. Hypertension goal BP (blood pressure) < 150/90 - ICD9: 401.9, ICD10: I10 (primary diagnosis) Stable, currently controlled, continue to monitor. - AMLODIPINE 5 MG TABLET 2. Irritable bowel syndrome with diarrhea - ICD9: 564.1, ICD10: K58.0 She notes intermittent constipation, recommend reducing dose of loperamide, discussed that this is available in tablet and liquid form [id number] - LOPERAMIDE 2 MG CAPSULE 3. Mixed hyperlipidemia - ICD9: 272.2, ICD10: E78.2 Recommend a plant based diet such as Mediterranean diet with plenty of vegetables, fruits,whole grains, fish, chicken, turkey or plant proteins and routine exercise such as walking 4. ZO (obstructive sleep apnea) - ICD9: 327.23, ICD10: G47.33 Stable, currently controlled, continue to monitor. 5. Gastroesophageal reflux disease without esophagitis - ICD9: 530.81, ICD10: K21.9 Stable, currently controlled, continue to monitor. 6. Nontoxic uninodular goiter - ICD9: 241.0, ICD10: E04.1 7. Hyponatremia - ICD9: 276.1, ICD10: E87.1 - AMLODIPINE 5 MG TABLET - BASIC METABOLIC PNL 8. Hypokalemia - ICD9: 276.8, ICD10: E87.6 - AMLODIPINE 5 MG TABLET - BASIC METABOLIC PNL 6 mo follow up Kevin Elder MD Labs today to check hyponatremia hypokalemia Ciara Alfredo APRN.TRADE MANAGER Medical Decision Making: Problems: Moderate: 2+ stable chronic illnesses Risk: Moderate: Drug management Medical Decision Making Level: 4 - Moderate documented in this encounter [facility] 10-28-2021 History of Presen t illness Narrative Zoom visit- audio only, was unable to connect with video.. In [place]. Patient only. Consents to visit. SUBJECTIVE: ADVANCE DIRECTIVE DISCUSSION Never done HPI Stephanie Katz is a 85 year old female. PMH significant for ACTIVE PROBLEM LIST Primary Osteoarthritis Involving Multiple Joints Insomnia, Unspecified Mitral Valve Disorders(424.0) Nontoxic Uninodular Goiter Urethral Caruncle Dysphagia, Unspecified(787.20) Hyperlipidemia Hematuria Postmenopausal Atrophic Vaginitis Other Chronic Cystitis Diverticulosis of Colon (Without Mention of Hemorrhage) Zo (Obstructive Sleep Apnea) Thyroid Nodule Gerd (Gastroesophageal Reflux Disease) Anxiety Ibs (Irritable Bowel Syndrome) Uterovaginal Prolapse, Incomplete Left Hip arthritis Hypertension Goal Bp (Blood Pressure) < 150/90 HPI excerpted from last visit: Seen at [facility] ER 10/05/2021 for dizziness, not consistent with vertigo which has had in the past. She reported history of low potassium and magnesium. She reported diarrhea. Noted was not drinking much. Lab work obtained CBC was unremarkable. Metabolic panel showed sodium reduced to 129 potassium 3.3 chloride 91 liver function unremarkable. Magnesium was checked and low at 1.4. She reported not drinking much and not taking supplements due to diarrhea. She was treated with IV fluids x1 L in the ED with improvement in symptoms. Discussion of discontinuation of chlorthalidone to be discussed with PCP. Today notes she is feeling improved. She notes continued stress due to 's illness, multiple abdominal cysts, work-up remains in progress for a few months now. Notes home blood SBP readings 105 -130s typically. Notes tolerating magnesium and potassium supplement currently. No voiced dizziness or lightheadedness. Without report of headache, chest pain, palpitations, dyspnea, peripheral edema, orthopnea, fatigue and PND. Last 14 Encounter BP Readings: Date: BP: 10/21/2021 160/76[bp average[ 06/19/2021 144/80 06/06/2021 140/78 05/10/2021 157/73 03/30/2021 136/82 12/14/2020 164/75 11/12/2020 138/88 11/05/2020 132/72 09/03/2020 160/72 05/11/2020 183/74 05/04/2020 180/78 04/29/2020 142/86 03/31/2020 126/72 03/16/2020 180/76 Home BP reading: right after change of medications checked once: 140/70. Today: 142/83 Notes feels well with BP medication changes She notes alternating diarrhea and constipation. Currently with constipation which she is attributing to magnesium. Has however been using Imodium but none today, states she backed off. Review of Systems Constitutional: Negative. Respiratory: Negative. Cardiovascular: Negative. Neurological: Negative for dizziness and light-headedness. Psychiatric/Behavioral: Positive for dysphoric mood. Objective There were no vitals taken for this visit. Physical Exam ALLERGIES Allergen Reactions Bextra [Valdecoxib] Hives Cephalosporins Rash Darvocet A500 [Prop* Rash Erythromycin Hives Penicillins Hives Percocet [Oxycodone* Intolerance Pravastatin Other: See Comments myalgias Sulfa (Sulfonamide * Hives MEDICATIONS potassium chloride SR (MICRO-K) 10 mEq CR capsule Klor-con sprinkle cap 10 meq Take 1 by mouth once daily in juice or applesauce magnesium chloride (SLOW-MAG ORAL) Take by mouth once daily. amLODIPine (NORVASC) 5 mg tablet Take 1 tablet by mouth once daily. omeprazole (PRILOSEC) 40 mg capsule Take 1 capsule by mouth once daily. hyoscyamine sublingual (LEVSIN SL) 0.125 mg Dissolve 1 tablet under the tongue every 4 hours as needed. metoprolol succinate ER (TOPROL XL) 25 mg 24 hr tablet Take 1 tablet by mouth once daily. loperamide (IMODIUM) 2 mg cap(s) Take 1 capsule by mouth twice daily. ezetimibe (ZETIA) 10 mg tablet Take 0.5-1 tablets by mouth once daily. As directed estradiol (ESTRACE) 0.01 % (0.1 mg/gram) vaginal cream Use vaginally 3 times a WEEK. Use a dab on the urethra 3 times a week Cholecalciferol, Vitamin D3, 1,000 unit cap Take 2 capsules by mouth once daily. multivitamin tablet Take 1 tablet by mouth once daily. CPAP AutoPAP 5-15 cmH2O, [place] mask suggested, humidity, filters. Lifetime supplies. Dx: 327.23. Fax compliance rpt to Dr. Gongora in 8 weeks. 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 Other specified disorder of bladder 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 Unspecified sleep apnea Uterine prolapse Social History Tobacco Use Smoking status: Never Smoker Smokeless tobacco: Never Used Substance Use Topics Alcohol use: Yes Comment: Occasionally Drug use: No Component Latest Ref Rng & Units 10/19/2021 10/26/2021 Protein, Total 6.3 - 8.0 g/dL 7.3 Albumin 3.9 - 4.9 g/dL 4.6 Calcium 8.5 - 10.2 mg/dL 9.4 9.7 Bilirubin, Total 0.2 - 1.3 mg/dL 0.4 Alkaline Phosphatase 34 - 123 U/L 43 AST 13 - 35 U/L 39 (H) ALT 7 - 38 U/L 21 Glucose 74 - 99 mg/dL 96 93 BUN 7 - 21 mg/dL 14 15 Creatinine 0.58 - 0.96 mg/dL 0.58 0.61 Sodium 136 - 144 mmol/L 126 (L) 130 (L) Potassium 3.7 - 5.1 mmol/L 4.2 3.6 (L) Chloride 97 - 105 mmol/L 88 (L) 91 (L) CO2 22 - 30 mmol/L 25 26 Anion Gap 9 - 18 mmol/L 13 13 eGFR >=60 mL/min/1.73m 89 88 WBC 3.70 - 11.00 k/uL 6.57 RBC 3.90 - 5.20 m/uL 4.13 Hemoglobin 11.5 - 15.5 g/dL 12.6 Hematocrit 36.0 - 46.0 % 38.1 MCV 80.0 - 100.0 fL 92.3 MCH 26.0 - 34.0 pg 30.5 MCHC 30.5 - 36.0 g/dL 33.1 RDW-CV 11.5 - 15.0 % 12.9 Platelet Count 150 - 400 k/uL 238 MPV 9.0 - 12.7 fL 9.1 Absolute nRBC <0.01 k/uL <0.01 Total Cholesterol, Nonfasting <200 mg/dL 224 (H) Triglycerides, Nonfasting <150 mg/dL 82 HDL Cholesterol, Nonfasting >39 mg/dL 77 LDL Cholesterol, Nonfasting <100 mg/dL 131 (H) Non HDL Cholesterol, Nonfasting <130 mg/dL 147 (H) VLDL Cholesterol, Nonfasting <30 mg/dL 16 Total Chol/HDL Ratio, Nonfasting <5.10 mg/dL 2.91 LDL/HDL Ratio, Nonfasting <2.54 mg/dL 1.70 Magnesium 1.7 - 2.3 mg/dL 1.4 (L) ASSESSMENT/PLAN: 1. Hyponatremia - ICD9: 276.1, ICD10: E87.1 (primary diagnosis) 2. Hypokalemia - ICD9: 276.8, ICD10: E87.6 Hyponatremia and hypochloride are improved off of diuretic Continue with the amlodipine 5 mg for now Previously on 20 mEq of potassium daily, resume 10 mEq QD Consider repeating lab work, at her November visit. - AMLODIPINE 5 MG TABLET - BASIC METABOLIC PNL 3. Hypertension goal BP (blood pressure) < 150/90 - ICD9: 401.9, ICD10: I10 - AMLODIPINE 5 MG TABLET - BASIC METABOLIC PNL 4. Irritable bowel syndrome with diarrhea - ICD9: 564.1, ICD10: K58.0 She notes currently with constipation, attributing it to magnesium. Would like to decrease to 1 tab daily. I think this is fine. Cautioned to avoid Imodium while constipated. Ciara Alfredo APRN.CNS 19 min in visit documented in this encounter [facility] 10-21-2021 Instructions Ciara Alfredo APRN.CNS - 10/21/2021 10:11 AM EDT Stop taking chlorthalidone Stop taking potassium Start taking amlodipine Check metabolic panel in one week documented in this encounter [facility] 10-21-2021 History of Presen t illness Narrative SUBJECTIVE: ADVANCE DIRECTIVE DISCUSSION Never done HPI Stephanie Katz is a 85 year old female. PMH significant for ACTIVE PROBLEM LIST Primary Osteoarthritis Involving Multiple Joints Insomnia, Unspecified Mitral Valve Disorders(424.0) Nontoxic Uninodular Goiter Urethral Caruncle Dysphagia, Unspecified(787.20) Hyperlipidemia Hematuria Postmenopausal Atrophic Vaginitis Other Chronic Cystitis Diverticulosis of Colon (Without Mention of Hemorrhage) Zo (Obstructive Sleep Apnea) Thyroid Nodule Gerd (Gastroesophageal Reflux Disease) Anxiety Ibs (Irritable Bowel Syndrome) Uterovaginal Prolapse, Incomplete Left Hip arthritis Hypertension Goal Bp (Blood Pressure) < 150/90 Seen at [facility] ER 10/05/2021 for dizziness, not consistent with vertigo which has had in the past. She reported history of low potassium and magnesium. She reported diarrhea. Noted was not drinking much. Lab work obtained CBC was unremarkable. Metabolic panel showed sodium reduced to 129 potassium 3.3 chloride 91 liver function unremarkable. Magnesium was checked and low at 1.4. She reported not drinking much and not taking supplements due to diarrhea. She was treated with IV fluids x1 L in the ED with improvement in symptoms. Discussion of discontinuation of chlorthalidone to be discussed with PCP. Today notes she is feeling improved. She notes continued stress due to 's illness, multiple abdominal cysts, work-up remains in progress for a few months now. Notes home blood SBP readings 105 -130s typically. Notes tolerating magnesium and potassium supplement currently. No voiced dizziness or lightheadedness. Without report of headache, chest pain, palpitations, dyspnea, peripheral edema, orthopnea, fatigue and PND. Last 14 Encounter BP Readings: Date: BP: 10/21/2021 160/76[bp average[ 06/19/2021 144/80 06/06/2021 140/78 05/10/2021 157/73 03/30/2021 136/82 12/14/2020 164/75 11/12/2020 138/88 11/05/2020 132/72 09/03/2020 160/72 05/11/2020 183/74 05/04/2020 180/78 04/29/2020 142/86 03/31/2020 126/72 03/16/2020 180/76 Review of Systems Constitutional: Negative. Respiratory: Negative. Cardiovascular: Negative. Neurological: Negative for dizziness and light-headedness. Psychiatric/Behavioral: Positive for dysphoric mood. Objective BP 160/76 Pulse 62 Resp 16 Wt 63 kg (139 lb) SpO2 97% BMI 25.42 kg/m Physical Exam ALLERGIES Allergen Reactions Bextra [Valdecoxib] Hives Cephalosporins Rash Darvocet A500 [Prop* Rash Erythromycin Hives Penicillins Hives Percocet [Oxycodone* Intolerance Pravastatin Other: See Comments myalgias Sulfa (Sulfonamide * Hives MEDICATIONS magnesium chloride (SLOW-MAG ORAL), Take by mouth once daily. omeprazole (PRILOSEC) 40 mg capsule, Take 1 capsule by mouth once daily. hyoscyamine sublingual (LEVSIN SL) 0.125 mg, Dissolve 1 tablet under the tongue every 4 hours as needed. metoprolol succinate ER (TOPROL XL) 25 mg 24 hr tablet, Take 1 tablet by mouth once daily. loperamide (IMODIUM) 2 mg cap(s), Take 1 capsule by mouth twice daily. ezetimibe (ZETIA) 10 mg tablet, Take 0.5-1 tablets by mouth once daily. As directed estradiol (ESTRACE) 0.01 % (0.1 mg/gram) vaginal cream, Use vaginally 3 times a WEEK. Use a dab on the urethra 3 times a week Cholecalciferol, Vitamin D3, 1,000 unit cap, Take 2 capsules by mouth once daily. multivitamin tablet, Take 1 tablet by mouth once daily. CPAP, AutoPAP 5-15 cmH2O, [place] mask suggested, humidity, filters. Lifetime supplies. Dx: 327.23. Fax compliance rpt to Dr. Gongora in 8 weeks. amLODIPine (NORVASC) 5 mg tablet, Take 1 tablet by mouth once daily. 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 Hyponatremia - ICD9: 276.1, ICD10: E87.1 (primary diagnosis) - AMLODIPINE 5 MG TABLET - BASIC METABOLIC PNL 2. Hypokalemia - ICD9: 276.8, ICD10: E87.6 - AMLODIPINE 5 MG TABLET - BASIC METABOLIC PNL 3. Hypertension goal BP (blood pressure) < 150/90 - ICD9: 401.9, ICD10: I10 - AMLODIPINE 5 MG TABLET - BASIC METABOLIC PNL Stop taking chlorthalidone Stop taking potassium Start taking amlodipine 5mg daily Check metabolic panel in one week 7-10 day recheck of BP, labs prior to visit Notes stress of husbands illness; defers counseling, mediation at this time Ciara Alfredo APRN.TRADE MANAGER Medical Decision Making: Problems: Moderate: 1+ chronic illnesses with change and Acute illness with systemic symptoms Data: Unique test(s) ordered: 1 Independent interpretation of test from other physician/QHCP Risk: Moderate: Drug management Medical Decision Making Level: 4 - Moderate documented in this encounter [facility] 03-09-2008 History of Past i llness Narrative Problem Noted Date Resolved Date 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 01/02/2008 06/23/2008 Acute bronchitis 10/30/2007 06/23/2008 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 06/23/2008 Lumbago 06/23/2008 documented as of this encounter (statuses as of 09/12/2021) [facility] History of Past illness Narrative* Problem Noted Date Resolved Date 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 01/02/2008 06/23/2008 Acute bronchitis 10/30/2007 06/23/2008 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 06/23/2008 Lumbago 06/23/2008 documented as of this encounter (statuses as of 10/21/2021) [facility] History of Past illness Narrative* Problem Noted Date Resolved Date 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 01/02/2008 06/23/2008 Acute bronchitis 10/30/2007 06/23/2008 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 06/23/2008 Lumbago 06/23/2008 documented as of this encounter (statuses as of 10/28/2021) [address]20-2008 History of Past illness Narrative* Problem Noted Date Resolved Date 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 01/02/2008 06/23/2008 Acute bronchitis 10/30/2007 06/23/2008 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 06/23/2008 Lumbago 06/23/2008 documented as of this encounter (statuses as of 11/24/2021) [facility] History of Past illness Narrative* Problem Noted Date Resolved Date 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 01/02/2008 06/23/2008 Acute bronchitis 10/30/2007 06/23/2008 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 06/23/2008 Lumbago 06/23/2008 documented as of this encounter (statuses as of 12/23/2021) [facility] History of Past illness Narrative* Problem Noted Date Resolved Date 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 01/02/2008 06/23/2008 Acute bronchitis 10/30/2007 06/23/2008 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 06/23/2008 Lumbago 06/23/2008 documented as of this encounter (statuses as of 12/30/2021) [address]20-2008 History of Past illness Narrative* Problem Noted Date Resolved Date 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 01/02/2008 06/23/2008 Acute bronchitis 10/30/2007 06/23/2008 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 06/23/2008 Lumbago 06/23/2008 documented as of this encounter (statuses as of 02/10/2022) [facility] History of Past illness Narrative* Problem Noted Date Resolved Date 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 01/02/2008 06/23/2008 Acute bronchitis 10/30/2007 06/23/2008 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 06/23/2008 Lumbago 06/23/2008 documented as of this encounter (statuses as of 02/14/2022) [facility] History of Past illness Narrative* Problem Noted Date Resolved Date 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 01/02/2008 06/23/2008 Acute bronchitis 10/30/2007 06/23/2008 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 06/23/2008 Lumbago 06/23/2008 documented as of this encounter (statuses as of 02/16/2022) [facility] History of Past illness Narrative* Problem Noted Date Resolved Date 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 01/02/2008 06/23/2008 Acute bronchitis 10/30/2007 06/23/2008 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 06/23/2008 Lumbago 06/23/2008 documented as of this encounter (statuses as of 04/10/2022) [facility] History of Past illness Narrative* Problem Noted Date Resolved Date 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 01/02/2008 06/23/2008 Acute bronchitis 10/30/2007 06/23/2008 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 06/23/2008 Lumbago 06/23/2008 documented as of this encounter (statuses as of 04/14/2022) [facility] History of Past illness Narrative* Problem Noted Date Resolved Date 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 01/02/2008 06/23/2008 Acute bronchitis 10/30/2007 06/23/2008 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 06/23/2008 Lumbago 06/23/2008 documented as of this encounter (statuses as of 04/25/2022) [facility] History of Past illness Narrative* Problem Noted Date Resolved Date 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 01/02/2008 06/23/2008 Acute bronchitis 10/30/2007 06/23/2008 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 06/23/2008 Lumbago 06/23/2008 documented as of this encounter (statuses as of 04/26/2022) [address]20-2008 History of Past illness Narrative* Problem Noted Date Resolved Date 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 01/02/2008 06/23/2008 Acute bronchitis 10/30/2007 06/23/2008 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 06/23/2008 Lumbago 06/23/2008 documented as of this encounter (statuses as of 05/08/2022) [address]20-2008 History of Past illness Narrative* Problem Noted Date Resolved Date 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 01/02/2008 06/23/2008 Acute bronchitis 10/30/2007 06/23/2008 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 06/23/2008 Lumbago 06/23/2008 documented as of this encounter (statuses as of 05/10/2022) [facility]10-20-2008 History of Past illness Narrative* Problem Noted Date Resolved Date 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 01/02/2008 06/23/2008 Acute bronchitis 10/30/2007 06/23/2008 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 06/23/2008 Lumbago 06/23/2008 documented as of this encounter (statuses as of 05/21/2022) [facility] History of Past illness Narrative* Problem Noted Date Resolved Date 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 01/02/2008 06/23/2008 Acute bronchitis 10/30/2007 06/23/2008 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 06/23/2008 Lumbago 06/23/2008 documented as of this encounter (statuses as of 05/31/2022) [address]20-2008 History of Past illness Narrative* Problem Noted Date Resolved Date 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 01/02/2008 06/23/2008 Acute bronchitis 10/30/2007 06/23/2008 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 06/23/2008 Lumbago 06/23/2008 documented as of this encounter (statuses as of 06/12/2022) [address]20-2008 History of Past illness Narrative* Problem Noted Date Resolved Date 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 01/02/2008 06/23/2008 Acute bronchitis 10/30/2007 06/23/2008 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 06/23/2008 Lumbago 06/23/2008 documented as of this encounter (statuses as of 06/19/2022) [facility] History of Past illness Narrative* Problem Noted Date Resolved Date 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 01/02/2008 06/23/2008 Acute bronchitis 10/30/2007 06/23/2008 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 06/23/2008 Lumbago 06/23/2008 documented as of this encounter (statuses as of 07/07/2022) [address]20-2008 History of Past illness Narrative* Problem Noted Date Resolved Date 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 01/02/2008 06/23/2008 Acute bronchitis 10/30/2007 06/23/2008 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 06/23/2008 Lumbago 06/23/2008 documented as of this encounter (statuses as of 07/22/2022) [address]20-2008 History of Past illness Narrative* Problem Noted Date Diagnosed Date Resolved Date 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 06/23/2008 HIP REPLACEMENT 01/02/2008 06/23/2008 Acute bronchitis 10/30/2007 06/23/2008 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 06/23/2008 Lumbago 06/23/2008 documented as of this encounter (statuses as of 11/26/2022) [address]20-2008 History of Past illness Narrative* Problem Noted Date Diagnosed Date Resolved Date 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 06/23/2008 HIP REPLACEMENT 01/02/2008 06/23/2008 Acute bronchitis 10/30/2007 06/23/2008 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 06/23/2008 Lumbago 06/23/2008 documented as of this encounter (statuses as of 11/28/2022) [address]20-2008 History of Past illness Narrative* Problem Noted Date Diagnosed Date Resolved Date 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 06/23/2008 HIP REPLACEMENT 01/02/2008 06/23/2008 Acute bronchitis 10/30/2007 06/23/2008 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 06/23/2008 Lumbago 06/23/2008 documented as of this encounter (statuses as of 11/30/2022) [facility] History of Past illness Narrative* Problem Noted Date Diagnosed Date Resolved Date 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 06/23/2008 HIP REPLACEMENT 01/02/2008 06/23/2008 Acute bronchitis 10/30/2007 06/23/2008 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 06/23/2008 Lumbago 06/23/2008 documented as of this encounter (statuses as of 12/22/2022) [facility] History of Past illness Narrative* Problem Noted Date Diagnosed Date Resolved Date 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 06/23/2008 HIP REPLACEMENT 01/02/2008 06/23/2008 Acute bronchitis 10/30/2007 06/23/2008 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 06/23/2008 Lumbago 06/23/2008 documented as of this encounter (statuses as of 01/03/2023) [facility] History of Past illness Narrative* Problem Noted Date Diagnosed Date Resolved Date 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 06/23/2008 HIP REPLACEMENT 01/02/2008 06/23/2008 Acute bronchitis 10/30/2007 06/23/2008 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 06/23/2008 Lumbago 06/23/2008 documented as of this encounter (statuses as of 01/08/2023) [facility] History of Past illness Narrative* Problem Noted Date Diagnosed Date Resolved Date 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 06/23/2008 HIP REPLACEMENT 01/02/2008 06/23/2008 Acute bronchitis 10/30/2007 06/23/2008 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 06/23/2008 Lumbago 06/23/2008 documented as of this encounter (statuses as of 03/23/2023) [facility] History of Past illness Narrative* Problem Noted Date Diagnosed Date Resolved Date 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 06/23/2008 HIP REPLACEMENT 01/02/2008 06/23/2008 Acute bronchitis 10/30/2007 06/23/2008 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 06/23/2008 Lumbago 06/23/2008 documented as of this encounter (statuses as of 05/08/2023) [facility] History of Past illness Narrative* Problem Noted Date Diagnosed Date Resolved Date 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 06/23/2008 HIP REPLACEMENT 01/02/2008 06/23/2008 Acute bronchitis 10/30/2007 06/23/2008 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 06/23/2008 Lumbago 06/23/2008 documented as of this encounter (statuses as of 07/16/2023) [facility] LPRD (laryngopharyngeal reflux disease) Other diseases of larynx documented in this encounter [facility] [place] noteNo assessment information availableWMem[facility] Work Phone: Evaluation note* Diagnosis Hyponatremia- Primary Hyposmolality and/or hyponatremia Hypokalemia Hypopotassemia Hypertension goal BP (blood pressure) < 150/90 Unspecified essential hypertension documented in this encounter [facility] [place] [facility]* Diagnosis Hyponatremia- Primary Hyposmolality and/or hyponatremia Hypokalemia Hypopotassemia Hypertension goal BP (blood pressure) < 150/90 Unspecified essential hypertension Irritable bowel syndrome with diarrhea Irritable bowel syndrome documented [facility] this encounter [facility] [place] [facility]* Diagnosis Hypertension goal BP (blood pressure) < 150/90- Primary Unspecified essential hypertension Irritable bowel syndrome with diarrhea Irritable bowel syndrome Mixed hyperlipidemia ZO (obstructive sleep apnea) Obstructive sleep apnea (adult) (pediatric) Gastroesophageal reflux disease without esophagitis Esophageal reflux Nontoxic uninodular goiter Hyponatremia Hyposmolality and/or hyponatremia Hypokalemia Hypopotassemia [facility] [place] [facility]* Diagnosis Leg swelling- Primary Swelling of limb Weight gain Abnormal weight gain documented in this [facility] [place] [facility]* Diagnosis Leg swelling- Primary Swelling of limb Weight gain Abnormal weight gain documented in this [facility] [place] [facility]* Diagnosis Rash- Primary Rash and other nonspecific skin eruption documented in this encounter [facility] [place] [facility]* Diagnosis Mixed hyperlipidemia documented in this [facility] [place] [facility]* Diagnosis Hypertension goal BP (blood pressure) < 150/90 Unspecified essential hypertension documented in this encounter [facility] note* Diagnosis Leg swelling- Primary Swelling of limb Hypertension goal BP (blood pressure) < 150/90 Unspecified essential hypertension [facility] this [facility] [place] [facility]* Diagnosis Hypertension goal BP (blood pressure) < 150/90 Unspecified essential hypertension [facility] this [facility] [place] [facility]* Diagnosis Hypertension goal BP (blood pressure) < 150/90- Primary Unspecified essential hypertension Leg swelling Swelling of limb Generalized OA Generalized osteoarthrosis, unspecified site documented in this encounter [facility] [place] [facility]* Diagnosis Lipodermatosclerosis of both lower extremities- Primary documented in this [facility] [place] [facility]* Diagnosis Onset Date Resolution Status Polyneuropathy acute Abnormality of gait and mobility chronic Neuropathy of right peroneal nerve [facility] Work Phone: evaluation note* Diagnosis Hypertension goal BP (blood pressure) < 150/90- Primary Unspecified essential hypertension Atrial fibrillation, unspecified type (HCC) Hypomagnesemia Disorders of magnesium metabolism Irritable bowel syndrome with diarrhea Irritable bowel syndrome Mixed hyperlipidemia Leg swelling Swelling of limb Asymptomatic postmenopausal status Palpitations Bilateral carotid artery stenosis Occlusion and stenosis of carotid artery without mention of cerebral infarction Undiagnosed cardiac murmurs Hypokalemia Hypopotassemia Encounter for long-term current use of medication Encounter for immunization Need for other specified prophylactic vaccination against single bacterial disease documented in this encounter [facility] [place] [facility]* Diagnosis Osteopenia of forearm, unspecified laterality- Primary Osteopenia, unspecified location documented in this encounter [facility] [place] [facility]* Diagnosis Onset Date Resolution Status Polyneuropathy acute Neuropathy of right peroneal nerve chronic Paroxysmal atrial fibrillation acute Dyslipidemia chronic Essential (primary) hypertension chronic [facility] Work Phone: Evaluation note* Diagnosis Urinary frequency- Primary documented in this encounter [facility] [place] [facility]* Diagnosis 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- Primary documented in this [facility] [place] [facility]* Diagnosis Hypertension goal BP (blood pressure) < 150/90- Primary Unspecified essential hypertension Hypomagnesemia Disorders of magnesium metabolism Hyponatremia Hyposmolality and/or hyponatremia Mixed hyperlipidemia Elevated glucose Other abnormal glucose Osteopenia of forearm, unspecified laterality Neuropathy Mononeuritis of unspecified site Osteopenia, unspecified location documented in this encounter [facility] [place] [facility]* Diagnosis Asymptomatic postmenopausal status documented in this encounter [facility] [place] [facility]* Diagnosis Hypertension goal BP (blood pressure) < 150/90 Unspecified essential hypertension Leg swelling Swelling of limb documented in this encounter [facility] [place] [facility]* Diagnosis Medicare annual wellness visit, subsequent- Primary Routine general medical examination at a health care facility Mixed hyperlipidemia Hypomagnesemia Disorders of magnesium metabolism Hypokalemia Hypopotassemia Neuropathy Mononeuritis of unspecified site Hypertension goal BP (blood pressure) < 150/90 Unspecified essential hypertension Leg swelling Swelling of limb Primary osteoarthritis involving multiple joints Carotid stenosis, asymptomatic, bilateral Longstanding persistent atrial fibrillation (HCC) Encounter for immunization Need for other specified prophylactic vaccination against single bacterial disease Need for shingles vaccine Need for prophylactic vaccination and inoculation against other viral diseases Encounter for long-term current use of medication Osteopenia of forearm, unspecified laterality documented in this encounter [facility] [place] [facility]* Diagnosis Onset Date Resolution Status Paroxysmal atrial fibrillation acute Preop cardiovascular exam ac roxy Essential (primary) hypertension [facility] Work Phone: Evaluation note* Diagnosis Hypomagnesemia- Primary Disorders of magnesium metabolism Encounter for long-term current use of medication Preop testing Preoperative examination, unspecified Polyneuropathy Unspecified hereditary and idiopathic peripheral neuropathy Neuropathy of right peroneal nerve documented in this encounter [facility] [place] [facility]* Diagnosis Hypertension goal BP (blood pressure) < 150/90- Primary Unspecified essential hypertension Atrial fibrillation, unspecified type (HCC) Hypomagnesemia Disorders of magnesium metabolism Mixed hyperlipidemia Hyponatremia Hyposmolality and/or hyponatremia Elevated glucose Other abnormal glucose Osteopenia, unspecified location Bilateral lower extremity edema Edema Primary osteoarthritis of right knee Primary localized osteoarthrosis, lower leg [facility] Other chronic cystitis Irritable bowel syndrome Muscle(s) cramp(s) Cramp of limb Irritable bowel syndrome with diarrhea Irritable bowel syndrome [facility] Diagnosis Other chronic cystitis Irritable bowel syndrome Muscle(s) cramp(s) Cramp of limb Hypertension goal BP (blood pressure) < 150/90 Unspecified essential hypertension Leg swelling Swelling of limb documented in this encounter [facility] [place] [facility]* Diagnosis Other chronic cystitis Irritable bowel syndrome Muscle(s) cramp(s) Cramp of limb Hypertension goal BP (blood pressure) < 150/90 Unspecified essential hypertension [facility] Diagnosis Other chronic cystitis Irritable bowel syndrome Muscle(s) cramp(s) Cramp of limb Hypertension goal BP (blood pressure) < 150/90 Unspecified essential hypertension documented in this encounter [facility] [place] [facility]* Diagnosis Other chronic cystitis Irritable bowel syndrome Muscle(s) cramp(s) Cramp of limb Medicare annual wellness visit, subsequent- Primary Routine general medical examination at a health care facility Primary osteoarthritis of right knee Primary localized osteoarthrosis, lower leg Foot drop, right Other acquired deformity of ankle and foot Permanent atrial fibrillation (HCC) Atrial fibrillation Bilateral carotid artery stenosis Occlusion and stenosis of carotid artery without mention of cerebral infarction Asymptomatic postmenopausal status Status post bilateral hip replacements Hip joint replacement by other means Osteopenia of forearm, unspecified laterality Gait instability Abnormality of gait Encounter for immunization Need for other specified prophylactic vaccination against single bacterial disease Screening for depression Peripheral polyneuropathy Unspecified hereditary and idiopathic peripheral neuropathy [facility] this [facility]* Diagnosis Other chronic cystitis Irritable bowel syndrome Muscle(s) cramp(s) Cramp of limb Asymptomatic postmenopausal status documented in this encounter [facility] for referral (narrative)* Outpatient Procedure (Routine) - Authorized Specialty Diagnoses / Procedures Referred By Jos santana Referred To Contact [facility] Diagnoses 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 Procedures US VENOUS INCOMPETENCY UNL VAS LAB DUP-SCAN XTR VEINS UNILATERAL/LIMITED STUDY Obdulia Winter DO [address] [place] [address] [facility] [address] [place] [address] Referral ID Status Reason Start Date Expiration Date Visits Requested Visits Authorized [id number] Authorized Auto-Generat ed Referral 12/05/2022 12/05/2023 1 1 [facility] for referral (narrative)* Diagnostic Procedure Only (Routine) - New Request Specialty Diagnoses / Procedures Referred By Contac t Referred To Contact [facility] Diagnoses Asymptomatic postmenopausal status Procedures DXA-AXIAL SKELETON DXA BONE DENSITY STUDY 1/> SITES AXIAL Kevin Nails MD [address] [place] [address] [place] [address] Referral ID Status Reason Start Date Expiration Date Visits Requested Visits Authorized [id number] New Request Auto-Generat ed Referral 06/18/2024 07/18/2025 1 1 * Diagnostic Procedure Only (Routine) - New Request Specialty Diagnoses / Procedures Referred By Contac t Referred To Contact [facility] Diagnoses Asymptomatic postmenopausal status Procedures DXA-FOREARM SKELETON DXA BONE DENSITY STUDY 1/>SITES APPENDICLR Kevin Nails MD [address] [place] [address] [place] [address] Referral ID Status Reason Start Date Expiration Date Visits Requested Visits Authorized [id number] New Request Auto-Generat ed Referral 06/18/2024 07/18/2025 1 1 * Outpatient Procedure (Routine) - New Request Specialty Diagnoses / Procedures Referred By Contac t Referred To [facility] Diagnoses Bilateral carotid artery stenosis Procedures US CAROTID ARTERIES MANNY VAS LAB DUPLEX SCAN EXTRACRANIAL ART COMPL BI STUDY Kevin Elder MD [address] [place] [address] [facility] [place] [address] [place] [address] Referral ID Status Reason Start Date Expiration Date Visits Requested Visits Authorized [id number] New Request Auto-Generat ed Referral 06/18/2024 06/18/2025 1 1 [facility] for visit Narrative* Diagnostic Procedure Only (Routine) - Closed Specialty Diagnoses / Procedures Referred By Jos santana Referred To Contact XR IMAGING Diagnoses Asymptomatic postmenopausal status Procedures DXA-AXIAL SKELETON DXA BONE DENSITY STUDY 1/ SITES AXIAL Kevin Nails MD [address] [facility] [place], [place] [address] Phone: tel: fax: [place] [address] Referral ID Status Reason Start Date Expiration Date V isits Requested Visits Authorized [id number] Closed Auto-Generate d Referral 06/18/2024 07/18/2025 1 1 [facility] Summary Purpose Family History No Family History Records Found Relationship Condition Age at Onset Recorded Date/T lyndon Not Specified Osteoporosis Unknown Cardiac disease Unknown Hypertension Unknown mother Hypertension Unknown Advance Directives No Advanced Directives Records FoundDocuments on File Type Date Recorded Patient Electrotype Servicer Expl anation Advance Directive(s) 08/30/2011 12:00 AM Advance Directive(s) 12/04/2007 12:00 AM Advance Directive Response Recorded Date/ Time Advance Directives Yes January 8:13am Living Will Yes October 05, 2021 1 :18pm Power of Aws Solution Architect Yes October 05, 2021 1:18pm Documents on File Type Date Recorded Patient Electrotype Servicer Expl anation Advance Directive(s) 08/30/2011 Advance Directive(s) 12/04/2007 Documents on File Type Date Recorded Patient Electrotype Servicer Expl anation Advance Directive(s) 08/30/2011 Advance Directive(s) 12/04/2007 Advance Directive Response Recorded Date/ Time Advance Directives Yes January 7:13am Living Will Yes October 05, 2021 1 2:18pm Power of Aws Solution Architect Yes October 05, 2021 12:18pm Chief Complaint and Reason for Visit Chief Complaint dizziness Chief Complaint RT FLAT FOOT/OSTEOAR THRITIS. RX HERE NEUROPATHY/FOOT DROP Reason for Visit Polyneuropathy Abnormality of gait and mobility Neuropathy of right peroneal nerve Chief Complaint NEUROPATHY/FOOT DROP NEW ONSET AFIB SCREENING ATRIAL FIBRILLATION Reason for Visit Polyneuropathy Neuropathy of right peroneal nerve Paroxysmal atrial fibrillation Dyslipidemia Essential (primary) hypertension Chief Complaint 9 M FU AFIB Atrial fibrillation SCREENING Reason for Visit Paroxysmal atrial fi brillation Preop cardiovascular exam Essential (primary) hypertension Reason for Referral Specialty Diagnoses / Procedures Referred By Contac t Referred To Contact Pain Management Diagnoses Generalized OA Procedures CONSULT TO PAIN MGT OFFICE/OUTPATIENT [facility] 60-74 MINUTES Ciara Alfredo, INTERLOCKING AND SIGNAL MECHANIC.TRADE MANAGER [address] [place] [address] Referral ID Status Reason Start Date Expiration Date Visits Requested Visits Authorized [id number] Authorized PCP Requested Referral 2 05/08/2023 1 1 Specialty Diagnoses / Procedures Referred By Contac t Referred To Contact Cardiology Diagnoses Hypertension goal BP (blood pressure) < 150/90 Leg swelling Procedures CONSULT TO CARDIOLOGY OFFICE/OUTPATIENT [facility] 60-74 MINUTES Ciara Alfredo, INTERLOCKING AND SIGNAL MECHANIC.TRADE MANAGER [address] [place] [address] Referral ID Status Reason Start Date Expiration Date Visits Requested Visits Authorized [id number] Authorized PCP Requested Referral 2 05/08/2023 1 1 Specialty Diagnoses / Procedures Referred By Contac t Referred To Contact Cardiology Diagnoses Undiagnosed cardiac murmurs Atrial fibrillation, unspecified type (HCC) Procedures CONSULT TO CARDIOLOGY OFFICE/OUTPATIENT [facility] 60-74 MINUTES Kevin Elder MD [facility] [place] [address] Referral ID Status Reason Start Date Expiration Date Visits Requested Visits Authorized [id number] Authorized PCP Requested Referral 06/10/2022 06/10/2023 1 1 Specialty Diagnoses / Procedures Referred By Contac t Referred To Contact [facility] Diagnoses Hypertension goal BP (blood pressure) < 150/90 Palpitations Undiagnosed cardiac murmurs Procedures ECHO ECHO TTHRC R-T 2D W/WOM-MODE COMPL SPEC&COLR D Kevin Elder MD [address] [place] [address] [facility] [place] [address] [place] [address] Referral ID Status Reason Start Date Expiration Date Visits Requested Visits Authorized [id number] Pending Review Auto-Generat ed Referral 06/07/2022 06/07/2023 1 1 Specialty Diagnoses / Procedures Referred By Contac t Referred To Contact [facility] Diagnoses Bilateral carotid artery stenosis Procedures US CAROTID ARTERIES MANNY VAS LAB DUPLEX SCAN EXTRACRANIAL ART COMPL BI STUDY Kevin Elder MD [address] [place] [address] [facility] [address] [address] Referral ID Status Reason Start Date Expiration Date V isits Requested Visits Authorized [id number] Closed Auto-Generate d Referral 06/07/2022 06/07/2023 1 1 Specialty Diagnoses / Procedures Referred By Contac t Referred To Contact [facility] Diagnoses Hypertension goal BP (blood pressure) < 150/90 Palpitations Procedures ECG COMPLETE ECG ROUTINE ECG W/LEAST 12 LDS W/I&R Kevin Elder MD [address] [place] [address] [facility] [place] [address] [place] [address] Referral ID Status Reason Start Date Expiration Date V isits Requested Visits Authorized [id number] Closed Auto-Generate d Referral 06/07/2022 06/07/2023 1 1 Specialty Diagnoses / Procedures Referred By Contac t Referred To Contact Neurology Diagnoses Polyneuropathy Neuropathy of right peroneal nerve Procedures CONSULT TO NEUROLOGY OFFICE/OUTPATIENT [facility] 60 MINUTES Kevin Elder MD [address] [place] [address] Referral ID Status Reason Start Date Expiration Date Visits Requested Visits Authorized [id number] Authorized PCP Requested Referral 10/25/2023 10/21/2024 1 1 Additional Source Comments INFORMATION SOURCE (unrecogn ized section and content) DATE CREATED AUTHOR 04/30/2020 [facility] DATE CREATED AUTHOR AUTHOR'S ORGANIZ ATION 11/07/2023 [facility] ([place]) DATE CREATED AUTHOR AUTHOR'S ORGANIZ ATION 09/25/2024 [facility] DATE CREATED AUTHOR AUTHOR'S ORGANIZ ATION 09/25/2024 [facility] Source Comments (unrecognize d section and content) In the event this informatio n is protected by the Federal Confidentiality of Alcohol and Drug Abuse Patient Records regulations: The Federal rules restrict any use of the information to criminally investigate or prosecute any alcohol or drug abuse patient.[facility] the event this information is protected by the Federal Confidentiality of Alcohol and Drug Abuse Patient Records regulations: The Federal rules restrict any use of the information to criminally investigate or prosecute any alcohol or drug abuse patient.[facility] CenterIn the event this information is protected by the Federal Confidentiality of Alcohol and Drug Abuse Patient Records regulations: The Federal rules restrict any use of the information to criminally investigate or prosecute any alcohol or drug abuse patient.[facility] CenterIn the event this information is protected by the Federal Confidentiality of Alcohol and Drug Abuse Patient Records regulations: The Federal rules restrict any use of the information to criminally investigate or prosecute any alcohol or drug abuse patient.[facility] CenterIn the event this information is protected by the Federal Confidentiality of Alcohol and Drug Abuse Patient Records regulations: The Federal rules restrict any use of the information to criminally investigate or prosecute any alcohol or drug abuse patient.[facility] CenterIn the event this information is protected by the Federal Confidentiality of Alcohol and Drug Abuse Patient Records regulations: The Federal rules restrict any use of the information to criminally investigate or prosecute any alcohol or drug abuse patient.[facility] CenterIn the event this information is protected by the Federal Confidentiality of Alcohol and Drug Abuse Patient Records regulations: The Federal rules restrict any use of the information to criminally investigate or prosecute any alcohol or drug abuse patient.[facility] CenterIn the event this information is protected by the Federal Confidentiality of Alcohol and Drug Abuse Patient Records regulations: The Federal rules restrict any use of the information to criminally investigate or prosecute any alcohol or drug abuse patient.[facility] CenterIn the event this information is protected by the Federal Confidentiality of Alcohol and Drug Abuse Patient Records regulations: The Federal rules restrict any use of the information to criminally investigate or prosecute any alcohol or drug abuse patient.[facility] CenterIn the event this information is protected by the Federal Confidentiality of Alcohol and Drug Abuse Patient Records regulations: The Federal rules restrict any use of the information to criminally investigate or prosecute any alcohol or drug abuse patient.[facility] CenterIn the event this information is protected by the Federal Confidentiality of Alcohol and Drug Abuse Patient Records regulations: The Federal rules restrict any use of the information to criminally investigate or prosecute any alcohol or drug abuse patient.[facility] CenterIn the event this information is protected by the Federal Confidentiality of Alcohol and Drug Abuse Patient Records regulations: The Federal rules restrict any use of the information to criminally investigate or prosecute any alcohol or drug abuse patient.[facility] CenterIn the event this information is protected by the Federal Confidentiality of Alcohol and Drug Abuse Patient Records regulations: The Federal rules restrict any use of the information to criminally investigate or prosecute any alcohol or drug abuse patient.[facility] CenterIn the event this information is protected by the Federal Confidentiality of Alcohol and Drug Abuse Patient Records regulations: The Federal rules restrict any use of the information to criminally investigate or prosecute any alcohol or drug abuse patient.[facility] CenterIn the event this information is protected by the Federal Confidentiality of Alcohol and Drug Abuse Patient Records regulations: The Federal rules restrict any use of the information to criminally investigate or prosecute any alcohol or drug abuse patient.[facility] CenterIn the event this information is protected by the Federal Confidentiality of Alcohol and Drug Abuse Patient Records regulations: The Federal rules restrict any use of the information to criminally investigate or prosecute any alcohol or drug abuse patient.[facility] CenterIn the event this information is protected by the Federal Confidentiality of Alcohol and Drug Abuse Patient Records regulations: The Federal rules restrict any use of the information to criminally investigate or prosecute any alcohol or drug abuse patient.[facility] CenterIn the event this information is protected by the Federal Confidentiality of Alcohol and Drug Abuse Patient Records regulations: The Federal rules restrict any use of the information to criminally investigate or prosecute any alcohol or drug abuse patient.[facility] CenterIn the event this information is protected by the Federal Confidentiality of Alcohol and Drug Abuse Patient Records regulations: The Federal rules restrict any use of the information to criminally investigate or prosecute any alcohol or drug abuse patient.[facility] CenterIn the event this information is protected by the Federal Confidentiality of Alcohol and Drug Abuse Patient Records regulations: The Federal rules restrict any use of the information to criminally investigate or prosecute any alcohol or drug abuse patient.[facility] CenterIn the event this information is protected by the Federal Confidentiality of Alcohol and Drug Abuse Patient Records regulations: The Federal rules restrict any use of the information to criminally investigate or prosecute any alcohol or drug abuse patient.[facility] CenterIn the event this information is protected by the Federal Confidentiality of Alcohol and Drug Abuse Patient Records regulations: The Federal rules restrict any use of the information to criminally investigate or prosecute any alcohol or drug abuse patient.[facility] CenterIn the event this information is protected by the Federal Confidentiality of Alcohol and Drug Abuse Patient Records regulations: The Federal rules restrict any use of the information to criminally investigate or prosecute any alcohol or drug abuse patient.[facility] CenterIn the event this information is protected by the Federal Confidentiality of Alcohol and Drug Abuse Patient Records regulations: The Federal rules restrict any use of the information to criminally investigate or prosecute any alcohol or drug abuse patient.[facility] CenterIn the event this information is protected by the Federal Confidentiality of Alcohol and Drug Abuse Patient Records regulations: The Federal rules restrict any use of the information to criminally investigate or prosecute any alcohol or drug abuse patient.[facility] CenterIn the event this information is protected by the Federal Confidentiality of Alcohol and Drug Abuse Patient Records regulations: The Federal rules restrict any use of the information to criminally investigate or prosecute any alcohol or drug abuse patient.[facility] CenterIn the event this information is protected by the Federal Confidentiality of Alcohol and Drug Abuse Patient Records regulations: The Federal rules restrict any use of the information to criminally investigate or prosecute any alcohol or drug abuse patient.[facility] CenterIn the event this information is protected by the Federal Confidentiality of Alcohol and Drug Abuse Patient Records regulations: The Federal rules restrict any use of the information to criminally investigate or prosecute any alcohol or drug abuse patient.[facility] CenterIn the event this information is protected by the Federal Confidentiality of Alcohol and Drug Abuse Patient Records regulations: The Federal rules restrict any use of the information to criminally investigate or prosecute any alcohol or drug abuse patient.[facility] CenterIn the event this information is protected by the Federal Confidentiality of Alcohol and Drug Abuse Patient Records regulations: The Federal rules restrict any use of the information to criminally investigate or prosecute any alcohol or drug abuse patient.[facility] CenterIn the event this information is protected by the Federal Confidentiality of Alcohol and Drug Abuse Patient Records regulations: The Federal rules restrict any use of the information to criminally investigate or prosecute any alcohol or drug abuse patient.[facility] CenterIn the event this information is protected by the Federal Confidentiality of Alcohol and Drug Abuse Patient Records regulations: The Federal rules restrict any use of the information to criminally investigate or prosecute any alcohol or drug abuse patient.[facility] CenterIn the event this information is protected by the Federal Confidentiality of Alcohol and Drug Abuse Patient Records regulations: The Federal rules restrict any use of the information to criminally investigate or prosecute any alcohol or drug abuse patient.[facility] CenterIn the event this information is protected by the Federal Confidentiality of Alcohol and Drug Abuse Patient Records regulations: The Federal rules restrict any use of the information to criminally investigate or prosecute any alcohol or drug abuse patient.[facility] CenterIn the event this information is protected by the Federal Confidentiality of Alcohol and Drug Abuse Patient Records regulations: The Federal rules restrict any use of the information to criminally investigate or prosecute any alcohol or drug abuse patient.[facility] CenterIn the event this information is protected by the Federal Confidentiality of Alcohol and Drug Abuse Patient Records regulations: The Federal rules restrict any use of the information to criminally investigate or prosecute any alcohol or drug abuse patient.[facility] CenterIn the event this information is protected by the Federal Confidentiality of Alcohol and Drug Abuse Patient Records regulations: The Federal rules restrict any use of the information to criminally investigate or prosecute any alcohol or drug abuse patient.[facility] CenterIn the event this information is protected by the Federal Confidentiality of Alcohol and Drug Abuse Patient Records regulations: The Federal rules restrict any use of the information to criminally investigate or prosecute any alcohol or drug abuse patient.[facility] CenterIn the event this information is protected by the Federal Confidentiality of Alcohol and Drug Abuse Patient Records regulations: The Federal rules restrict any use of the information to criminally investigate or prosecute any alcohol or drug abuse patient.[facility] CenterIn the event this information is protected by the Federal Confidentiality of Alcohol and Drug Abuse Patient Records regulations: The Federal rules restrict any use of the information to criminally investigate or prosecute any alcohol or drug abuse patient.[facility] CenterIn the event this information is protected by the Federal Confidentiality of Alcohol and Drug Abuse Patient Records regulations: The Federal rules restrict any use of the information to criminally investigate or prosecute any alcohol or drug abuse patient.[facility] CenterIn the event this information is protected by the Federal Confidentiality of Alcohol and Drug Abuse Patient Records regulations: The Federal rules restrict any use of the information to criminally investigate or prosecute any alcohol or drug abuse patient.[facility] Care Teams (unrecognized sec tion and content) Lathe Mechanic Relationship Specialty Start Date End Date Kevin Elder MD [address] [place] [address] PCP - General Internal Medicine 05/28/17 Lathe Mechanic Relationship Specialty Start Date End Date Kevin Elder MD [address] [place] [address], [place] [address] PCP - General Internal Medicine 05/28/17 Lathe Mechanic Relationship Specialty Start Date End Date Kevin Elder MD [address] [place] [address], [place] [address] PCP - General Internal Medicine 05/28/17 Lathe Mechanic Relationship Specialty Start Date End Date Kevin Elder MD [address] [place] [address], [place] [address] PCP - General Internal Medicine 05/28/17 Lathe Mechanic Relationship Specialty Start Date End Date Kevin Elder MD [address] [place] [address], [place] [address] PCP - General Internal Medicine 05/28/17 Lathe Mechanic Relationship Specialty Start Date End Date Kevin Elder MD [address] [place] [address], [place] [address] PCP - General Internal Medicine 05/28/17 Lathe Mechanic Relationship Specialty Start Date End Date Kevin Elder MD [address] [place] [address] [place] [address] PCP - General Internal Medicine 05/28/17 Lathe Mechanic Relationship Specialty Start Date End Date Kevin Elder MD [address] [place] [address] [place] [address] PCP - General Internal Medicine 05/28/17 Lathe Mechanic Relationship Specialty Start Date End Date Kevin Elder MD [address] [place] [address] [place] [address] PCP - General Internal Medicine 05/28/17 Lathe Mechanic Relationship Specialty Start Date End Date Kevin Elder MD [address] [facility] [place] [place] [address] PCP - General Internal Medicine 05/28/17 Lathe Mechanic Relationship Specialty Start Date End Date Kevin Elder MD [address] [facility] [place] [place] [address] PCP - General Internal Medicine 05/28/17 Lathe Mechanic Relationship Specialty Start Date End Date Kevin Elder MD [address] [facility] [place] [place] [address] PCP - General Internal Medicine 05/28/17 Lathe Mechanic Relationship Specialty Start Date End Date Kevin Elder MD [address] [facility] [place] [place] [address] PCP - General Internal Medicine 05/28/17 Lathe Mechanic Relationship Specialty Start Date End Date Kevin Elder MD [address] [facility] [place] [place] [address] PCP - General Internal Medicine 05/28/17 Lathe Mechanic Relationship Specialty Start Date End Date Kevin Elder MD [address] [facility] [place] [place] [address] PCP - General Internal Medicine 05/28/17 Lathe Mechanic Relationship Specialty Start Date End Date Kevin Elder MD [address] [facility] [place] [place] [address] PCP - General Internal Medicine 05/28/17 Team Status: Active Member Role Status Dates Dr. Kevin Elder MD Family Provider Active Dr. Kevin Elder MD Primary Care Provider Active Team Status: Inactive Member Role Status Dates Dr. Kevin Elder MD Primary Care Provider, Referr ing Provider Active Dr. Charles Christine MD Attending Provider Active Team Status: Inactive Member Role Status Dates Dr. Kevin Elder MD Primary Care Provider, Referr ing Provider Active Dr. Hemanth Smith MD Attending Provider Active Team Status: Active Member Role Status Dates Dr. Kevin Elder MD Primary Care Provider Active Dr. Hemanth Smith MD Attending Provider Active Team Status: Inactive Member Role Status Dates Dr. Kevin Elder MD Primary Care Provider Active Tanya Maravilla [employer], [employer] Attending Provider Active Team Status: Inactive Member Role Status Dates Dr. Kevin Elder MD Primary Care Provider Active Dr. Hemanth Smith MD Attending Provider Active Lathe Mechanic Relationship Specialty Start Date End Date Kevin Elder MD [address] [place] [address] PCP - General Internal Medicine 05/28/17 Lathe Mechanic Relationship Specialty Start Date End Date Kevin Elder MD [address] [place] [address] PCP - General Internal Medicine 05/28/17 Lathe Mechanic Relationship Specialty Start Date End Date Kevin Elder MD [address] [place] [address] PCP - General Internal Medicine 05/28/17 Lathe Mechanic Relationship Specialty Start Date End Date Kevin Elder MD [address] [place] [address] PCP - General Internal Medicine 05/28/17 Lathe Mechanic Relationship Specialty Start Date End Date Kevin Elder MD [address] [place] [address] PCP - General Internal Medicine 05/28/17 Lathe Mechanic Relationship Specialty Start Date End Date Kevin Elder MD [address] [place] [address] PCP - General Internal Medicine 05/28/17 Lathe Mechanic Relationship Specialty Start Date End Date Kevin Elder MD [address] [place] [address] PCP - General Internal Medicine 05/28/17 Lathe Mechanic Relationship Specialty Start Date End Date Kevin Elder MD [address] [place], [place] [address] PCP - General Internal Medicine 05/28/17 Team Status: Inactive Member Role Status Dates Dr. Kevin Elder MD Primary Care Provider, Referr ing Provider Active Urszula Calixto PA, PA Active Dr. Hemanth Smith MD Attending Provider Active Team Status: Active Member Role Status Dates Dr. Kevin Elder MD Primary Care Provider Active Dr. Hemanth Smith MD Attending Provider, Referring Provider, Other Provider Active Team Status: Active Member Role Status Dates Dr. Kevin Elder MD Primary Care Provider Active Tanya Maravilla [employer], [employer] Attending Provider, Referring Provider Active Team Status: Inactive Member Role Status Dates Dr. Kevin Elder MD Primary Care Provider Active Dr. Hemanth Smith MD Attending Provider, Referring Pro vider Active Team Status: Inactive Member Role Status Dates Dr. Kevin Elder MD Primary Care Provider Active Tanya Maravilla [employer], [employer] Attending Provider, Referring Provider Active Lathe Mechanic Relationship Specialty Start Date End Date Kevin Elder MD [address] [place] [address] PCP - General Internal Medicine 05/28/17 Lathe Mechanic Relationship Specialty Start Date End Date Kevin Elder MD [address] [place], [place] [address] PCP - General Internal Medicine 05/28/17 Lathe Mechanic Relationship Specialty Start Date End Date Kevin Elder MD [address] [facility] [place] [place] [address] PCP - General Internal Medicine 05/28/17 Lathe Mechanic Relationship Specialty Start Date End Date Kevin Elder MD [address] [facility] [place] [place] [address] PCP - General Internal Medicine 05/28/17 Lathe Mechanic Relationship Specialty Start Date End Date Kevin Elder MD [address] [facility] [place] [place] [address] PCP - General Internal Medicine 05/28/17 Lathe Mechanic Relationship Specialty Start Date End Date Kevin Elder MD [address] [facility] [place] [place] [address] PCP - General Internal Medicine 05/28/17 Ciara Alfredo, INTERLOCKING AND SIGNAL MECHANIC.TRADE MANAGER [address] [facility] [place] [place] [address] Sidehand Internal Medicine 04/28/24 Yesy Zuniga APRN.DOG SITTER [address] [facility] [place] [address] Sidehand Internal Medicine 04/28/24 Lathe Mechanic Relationship Specialty Start Date End Date Kevin Elder MD [address] [facility] [place] [place] [address] PCP - General Internal Medicine 05/28/17 Ciara Alfredo INTERLOCKING AND SIGNAL MECHANIC.TRADE MANAGER [address] [facility] [place] [place] [address] Sidehand Internal Medicine 04/28/24 Yesy Zuniga APRN.DOG SITTER [address] [place] [address] Sidehand Internal Medicine 04/28/24 Lathe Mechanic Relationship Specialty Start Date End Date Kevin Elder MD [address] [place] [address] PCP - General Internal Medicine 05/28/17 Ciara Alfredo, INTERLOCKING AND SIGNAL MECHANIC.TRADE MANAGER [address] [place] [address] Sidehand Internal Medicine 04/28/24 Yesy Zuniga INTERLOCKING AND SIGNAL MECHANIC.DOG SITTER [address] [place] [address] [facility] Internal Medicine 04/28/24 Lathe Mechanic Relationship Specialty Start Date End Date Kevin Elder MD [address] [place] [address] PCP - General Internal Medicine 05/28/17 Ciara Alfredo, INTERLOCKING AND SIGNAL MECHANIC.TRADE MANAGER [address] [place] [address] Sidehand Internal Medicine 04/28/24 Yesy Zuniga INTERLOCKING AND SIGNAL MECHANIC.DOG SITTER [address] [place] [address] Sidehand Internal Medicine 04/28/24 Lathe Mechanic Relationship Specialty Start Date End Date Kevin Elder MD [address] [place] [address] PCP - General Internal Medicine 05/28/17 Ciara Alfredo, INTERLOCKING AND SIGNAL MECHANIC.TRADE MANAGER [address] [place] [address] Sidehand Internal Medicine 04/28/24 Yesy Zuniga APRN.DOG SITTER [address] [place] [id number] [facility] Internal Medicine 04/28/24 Lathe Mechanic Relationship Specialty Start Date End Date Kevin Elder MD [address] [place] [address] PCP - General Internal Medicine 05/28/17 Ciara Alfredo APRN.TRADE MANAGER [address] [place] [id number] [facility] Internal Medicine 04/28/24 Yesy Zuniga APRN.DOG SITTER [address] [place] [place], [place] [address] [facility] Internal Medicine 08/12/24 Goals (unrecognized section and content) Goals may be documented in a n alternate sectionGoals may be documented in an alternate sectionGoals may be documented in an alternate sectionGoals may be documented in an alternate sectionGoals may be documented in an alternate sectionGoals may be documented in an alternate section Reason for Visit (unrecogniz ed section and content) Reason Comments Hospital F/U Reason Comments Follow Up HTN, hypokalemia, hy pnatremia Reason Comments Yearly Exam Reason Comments Edema Hypertension Reason Comments Follow Up Reason Comments Shingles Behind L ear, neck, back of head x5 days Reason Onset Date Comments Refill Request 02/14/2022 Reason Onset Date Comments Refill Request 04/09/2022 Reason Comments Orders Reason Comments Medication Update Reason Comments Blood Pressure Reason Comments Established Patient Reason Onset Date Comments Refill Request 05/31/2022 Reason Comments Patient Question Reason Comments F/U 6 months Reason Comments Urinary Frequency burning x today, unc omfortable and irritated x 2 days Reason Comments Results Reason Comments Medication Question Reason Comments Letter Reason Comments Established Patient Reason Comments F/U 6 months Labs prior Reason Onset Date Comments Refill Request 05/05/2023 Reason Comments Medicare Wellness Exam Labs prior Reason Comments Pre-Op Appointment Reason Onset Date Comments Refill Request 02/08/2024 Reason Onset Date Comments Refill Request 04/21/2024 Reason Onset Date Comments Refill Request 05/19/2024 Reason Onset Date Comments Refill Request 06/03/2024 Reason Comments Medicare Wellness Exam is interested in repeating a carotid artery test. Consult is considering knee replacement surgery and is wanting to see a neurology to evaluate for neuropathy Results high blood sugar and is wanting to discuss FOR RECORDS PERTAINING TO PATIENTS WHO ARE OR HAVE BEEN ENROLLED IN A CHEMICAL DEPENDENCY/SUBSTANCEABUSE PROGRAM, SOME INFORMATION MAY BE OMITTED. This clinical summary was aggregated from multiple sources. Caution should be exercised in using it in the provision of clinical care. This summary normalizes information from multiple sources, and as a consequence, information in this document may materially change the coding, format and clinical context of patient data. In addition, data may be omitted in some cases. CLINICAL DECISIONS SHOULD BE BASED ON THE PRIMARY CLINICAL RECORDS. [employer] provides no warranty or guarantee of the accuracy or completeness of information in this document.
--- NOTE | 2024-11-03 20:10 | STRESSREP ---
Stress Test Report Pharmacologic myocardial perfusion stress test. 88-year-old with a history of A-fib Resting EKG demonstrates atrial fibrillation with a rate of 64 bpm. Resting blood pressure is 116/70 mmHg. 0.4 mg of regadenoson was infused per usual protocol followed by rapid intravenous saline flush injection. Continuous EKG monitoring was performed. The maximum heart rate was 108 bpm which was 81% of max impacted heart rate the maximum workload was 1 metabolic equivalent. At rest there were no ST or T wave changes noted to suggest ischemia and at peak infusion nonspecific ST changes were noted which did not meet the criteria for ischemia. No clinical angina is noted. The final blood pressure was 110/64 mmHg. Myocardial perfusion protocol. 11.1 mCi of technetium 99m sestamibi was injected at rest. 0.4 mg of regadenoson was infused per usual protocol. At peak infusion 34 mCi of technetium 99m sestamibi was injected stress images were obtained stress and rest images were reconstructed and compared in the short axis vertical long and horizontal long axis. Gated images were also obtained. Perfusion SPECT analysis: Review of the stress images demonstrate normal uptake of tracer noted in all areas of the myocardium. The resting images similar demonstrated normal uptake of tracer noted in all areas of the myocardium. No areas of reversibility are noted to suggest ischemia and no previous infarct is noted. Gated SPECT analysis: The gated ejection fraction is over 80%. Conclusion: Normal pharmacologic myocardial perfusion stress test. Preserved ejection fraction.
== END | disposition home or self-care (01) ==
LOC: CVS 07:10
PROVIDERS: PCP Internal Medicine; Referring Provider Internal Medicine Cardiovascular Disease; Visit Provider Internal Medicine Cardiovascular Disease
DX: Z01.810 Encounter for preprocedural cardiovascular examination (principal); I48.0 Paroxysmal atrial fibrillation; I35.0 Nonrheumatic aortic (valve) stenosis; I10 Essential (primary) hypertension
CPT/HCPCS: 78452; 93017; 93306; A9500; A4216; J2785

== ENCOUNTER 2025-01-01 12:01 | Outpatient (CLI) | payer MEDICARE, BC, SELFPAY ==
[2025-01-01 13:41] LABS: Pro- Brain NATRIURETIC PEPTIDE 1070 pg/mL (<=1800)
== END 2025-01-01 23:59 | disposition home or self-care (01) ==
LOC: LAB 12:03
PROVIDERS: PCP Internal Medicine; Referring Provider Internal Medicine Pulmonary Disease; Visit Provider Internal Medicine Pulmonary Disease
DX: I27.20 Pulmonary hypertension, unspecified (principal); R06.02 Shortness of breath
CPT/HCPCS: 36415; 83880

== ENCOUNTER → 2025-01-26 | Outpatient (CLI) | payer MEDICARE, BC, SELFPAY ==
--- NOTE | 2025-01-26 10:30 | BI_ITS ---
EXAM: SCRN MAMM (CAD)W/HOLLY BILAT DATE: 01/26/2025 CLINICAL HISTORY: F, Age 89 y/o , SCREEN FOR BREAST CANCER TECHNIQUE: Procedure Code: [id number] Modality: MG Procedure: SCRN MAMM (CAD)W/HOLLY BILAT COMPARISON: Prior exam(s) dated 09/17/2023 and 07/28/2022. FINDINGS: TISSUE DENSITY: There are scattered areas of fibroglandular density. Bilateral Breast Mammographic Findings: There are no suspicious masses, suspicious cluster of microcalcifications, architectural distortion or secondary signs of malignancy identified in either breast. Benign vascular calcifications and round calcifications are seen in both breast. BI/SCRN MAMM (CAD)W/HOLLY BILAT IMPRESSION: Benign screening mammogram. OVERALL FINAL ASSESSMENT BI-RADS 2: BENIGN RECOMMENDATION: Routine annual follow-up in 1 Year A letter with findings and recommendations will be mailed to the patient. Reading Location: [id number]
== END | disposition home or self-care (01) ==
LOC: OPBI 10:17
PROVIDERS: PCP Internal Medicine; Referring Provider Obstetrics & Gynecology; Visit Provider Obstetrics & Gynecology
DX: Z12.31 Encounter for screening mammogram for malignant neoplasm of breast (principal)
CPT/HCPCS: 77063; 77067